=== PATIENT | female | born 1960 | race Caucasian/White ===

== ENCOUNTER 2017-07-09 05:10 | Emergency (ER) | payer OTHER ==
[~2017-07-09] VITALS: Ht 160 cm; Wt 99.8 kg
[~2017-07-09 05:10] MED LIST: ACEBUTCAFT PO; ADRENACLIC0.3 MG/0.3 IJ; ALBIPROI INH; ALBU.083IS; ALBU90I INH; ALBU90OI; ALBU90OI INH; ALBU90OI6 INH; ALBU90OI61 INH; ALPR.25; ALPR.5; ALPR.5 PO; AMIT75 PO; AMOX50SU PO; ARIP20; ASPI81EC PO; ATROVENT; AZIT250 PO; AZIT500; AZIT500 PO; BENZ100A PO; BISA10S PO; BP MED; BUSP10 PO; BUSP15; BUSP15 PO; BUTASPCAFT PO; CALCA500CH PO; CARB200; CARB200 PO; CARI350 PO; CIPR500 PO; CIPRO500 MG PO; CITA20; CLAR500 PO; CLON.2 PO; CLON.2TP TP; CLON.3 PO; CLON.5 PO; CLON1 PO; CLON2; CLON2 PO; CODACE30 PO; CODBUTACEC PO; CODGUAEL PO; CONEST.625; CYCL10 PO; Catapres0.1 MG PO; Catapres0.2 MG PO; Celexa10 MG PO; Citalopram HBr10 MG PO; Clonidine HCl0.3 MG PO; DIAZ5; DIAZ5 PO; DIPATR PO; DIPH50 PO; DIVA250EC; DIVA500EC; DIVA500EC PO; DIVA500ER; DOC250 PO; DOXE50 PO; DOXY100 PO; DULO30 PO; DULO60 PO; Desyrel50 MG PO; ERYT333ERA PO; ESCI10; ESCI20; FENT25TP TOP; FLUSAL2505; FLUSAL2505 IH; FLUSAL5005 IH; FLUT1DIS5 INH; FURO20; FURO20 PO; FURO40; FURO40 PO; Flagyl500 MG PO; GABA300 PO; GUAI600T33 PO; HYDACE10B PO; HYDACE5; HYDACE5 PO; HYDACE7.5; HYDACE7.5 PO; HYDCHL12.5; HYDGUAL120 PO; HYDHCL25 PO; HYDPAM25; HYDPAM25 PO; HYDR-86; Humalog100 UNIT/3 SC; Hydroxyzine HCl50 MG PO; IBUHYD PO; IBUP400; IBUP800 PO; INSULANI SUBQ; INSULANPEN SC; IPRAIS; IPRAOI; IPRAOI INH; Inderal40 MG; Inderal40 MG PO; KETO10; KETO10 PO; Klonopin0.5 MG PO; Klonopin1 MG PO; LEVFLO500 PO; LEVSOD50; LIDO2L PO; LISI10; LISI10 PO; LISI20 PO; LISI5; LISI5 PO; LORA.5 PO; LORA1 PO; LORA2 PO; LOSA50 PO; Lantus100 UNIT/1 SC; Levaquin750 MG PO; MAGNESIUM250 MG PO; MECL25 PO; META400 PO; META800 PO; METCAR500 PO; METCAR750 PO; METF500; METF500 PO; METF500C; METF500C PO; METO10 PO; METR250 PO; MIRT30 PO; MUPI2TO TOP; Micro-K10 MEQ PO; NAPR375 PO; NAPR500 PO; NAPR550 PO; NITR.4SL SL; NITR100CA; NYST100P TOP; Norco 7.5-3251 EACH PO; OMEP20ER PO; ONDA4 PO; ONDA4ODT MM; ONDA8 PO; ONDA8ODT MM; OXCA300; OXYACE10 PO; OXYACE5T PO; OXYACE7.5T PO; OXYC5 PO; PANT40 PO; PERM5TC TOP; PHENA200 PO; PHENY100ER; PHENY100ER PO; POTA10T PO; POTCHL10ER; POTCHL10ER PO; POTCHL20ER; POTCHL20ER PO; PRED10 PO; PRED20 PO; PREDNISONE; PROACE100 PO; PROC10 PO; PROC25S PR; PROCODE120 PO; PROM12.5S PR; PROM25 PO; PROM25S; PROM25S PR; PROM50S PR; PROM6.25SY PO; PROP10; Pepcid40 MG PO; Potassium Chlo10 ME1 PO; Prinivil10 MG PO; Pyridium200 MG PO; QUET100 PO; QUET25 PO; RAMI2.5; RANI150; RANI150 PO; RIFA550T2; RXCODACET PO; RXHYDACE PO; RXLORA1 PO; RXONDA4ODT MM; RXOXYACE PO; RXPROM25 PO; RXPROM25S PR; RXTRAM50 PO; Reglan10 MG PO; SIMV10 PO; SPACER IH; SPIHYD; SPIR50 PO; SUCR1 PO; SULTRIDS PO; SUMA25; Seroquel100 MG PO; TOPI100 PO; TRAACE PO; TRAM50 PO; TRAZ100; TRAZ100 PO; TRAZ150T57 PO; TRAZ50 PO; UNK BP MED; VENL37.5ER; VICODIN 7.5/500; Vibramycin100 MG PO; WARF2.5; Xanax1 MG PO; Zofran8 MG PO; [UNRECOGNIZED DRUG - REMARK]
[2017-07-09 05:37] LABS: BASOPHILS ABSOLUTE AUTO 0.01 K/mm3 (0.00-0.23); BASOPHILS PERCENT AUTO 0 % (0-2); EOSINOPHILS ABSOLUTE AUTO 0.01 K/mm3 (0.00-0.68); EOSINOPHILS PERCENT AUTO 0 % (0-6); Hematocrit 44.3 % (33.0-51.0); Hemoglobin 15.6 g/dL (11.5-16.0); IMMATURE GRAN ABSOLUTE AUTO 0.03 K/mm3 (0.00-0.10); IMMATURE GRAN PERCENT AUTO 0 % (0-1); LYMPHOCYTES ABSOLUTE AUTO 2.95 K/mm3 (0.84-5.20); LYMPHOCYTES PERCENT AUTO 31 % (21-46); MONOCYTES ABSOLUTE AUTO 0.69 K/mm3 (0.16-1.47); MONOCYTES PERCENT AUTO 7 % (4-13); Mean Corpuscular HGB 29.6 pg (26.0-34.0); Mean Corpuscular HGB Conc 35.2 g/dL (31.5-36.5); Mean Platelet Volume 10.8 fL (9.1-12.4); NEUTROPHILS ABSOLUTE AUTO 5.92 K/mm3 (1.96-9.15); NEUTROPHILS PERCENT AUTO 62 % (41-73); Platelet Count 156 K/mm3 (150-400); RDW Coefficient Variation 11.7 % (11.7-14.2); RDW Standard Deviation 35.6 fL (35.1-46.3); Red Blood Cell Count 5.27 M/mm3 (3.80-5.20); White Blood Cell Count 9.61 K/mm3 (4.00-11.30)
[2017-07-09 05:38] LABS: Mean Corpuscular Volume 84 fL (80-100)
[2017-07-09 05:45] LABS: Source, Urine Clean Catch
[2017-07-09 05:47] LABS: Blood, Urine 4+ (Neg); Glucose Qualitative, Urine Neg (Neg); Ketones, Urine Neg (Neg); Leukocyte Esterase, Urine 1+ (Neg); Nitrite, Urine Neg (Neg); Protein, Urine 1+ (Neg); Specific Gravity, Urine 1.025 (1.003-1.022); Urobilinogen, Urine 2+ (Normal)
[2017-07-09 05:53] LABS: Appearance, Urine Hazy (Clear); Bilirubin, Urine 1+ (Neg); Color, Urine Amber (P-Yellow)
[2017-07-09 05:54] LABS: Amorphous Light (0-Heavy); Bacteria Mod /hpf; Mucus Light (0-Heavy); Red Blood Cells, Urine 0-2 /hpf (0-2); Squamous Epithelial Cells Few /hpf (Few)
[2017-07-09 05:58] LABS: Alanine Aminotransfer (ALT/SGP 33 U/L (12-78); Albumin, Blood 3.5 g/dL (3.4-5.0); Albumin/Globulin Ratio 0.9 (0.8-1.8); Alk Phos 125 U/L (50-136); Anion Gap 5 mmol/L (6-16); Aspartate Aminotrans (AST/SGOT 31 U/L (12-37); Bilirubin, Total 0.6 mg/dL (0.1-1.0); Blood Urea Nitrogen 20 mg/dL (8-24); Bun/Creatinine Ratio 29.5 (12.0-20.0); CO2, Blood 29 mmol/L (21-32); Calcium, Blood 8.9 mg/dL (8.5-10.1); Chloride, Blood 107 mmol/L (98-108); Creatinine, Blood 0.68 mg/dL (0.40-1.00); Globulin, Blood 3.9 g/dL (2.2-4.0); Glomerular Filtration Rate >60 (60-); Glucose, Blood 211 mg/dL (70-99); Sodium, Blood 141 mmol/L (136-145); Total Protein, Blood 7.4 g/dL (6.4-8.2); Troponin I <0.015 ng/mL (0.000-0.040)
[2017-07-09] MEDS ORDERED: Cipro500 MG PO (07:02)
[2017-08-02] MEDS ORDERED: PHENERGAN25 MG PR (23:32)
[2018-05-02] MEDS ORDERED: POTA10T PO (11:08)
[2018-05-02] MEDS ORDERED: OXYC5 PO (11:17)
[2018-05-03] MEDS ORDERED: OXYC5 PO (11:57)
[2018-05-03] MEDS ORDERED: CLON1 PO (11:58)
[2018-05-03] MEDS ORDERED: TRAZ150T57 (11:59)
[2018-05-03] MEDS ORDERED: GABA300 PO (12:03)
[2018-05-03] MEDS ORDERED: CLON.2 PO (12:04)
[2018-05-05] MEDS ORDERED: METO50 PO (11:32)
[2018-05-05] MEDS ORDERED: ELIQUIS5 MG PO (11:32)
[2018-05-18] MEDS ORDERED: BUSP10 PO (11:56)
[2018-05-18] MEDS ORDERED: DIPH50 PO (11:58)
== END 2017-07-09 08:33 | disposition home or self-care (01) ==
LOC: ER 05:10
PROVIDERS: Emergency Medicine
DX: S60.221A Contusion of right hand, initial encounter (principal); S00.83XA Contusion of other part of head, initial encounter; F41.9 Anxiety disorder, unspecified; R07.9 Chest pain, unspecified; R56.9 Unspecified convulsions; G43.909 Migraine, unspecified, not intractable, without status migrainosus; N39.0 Urinary tract infection, site not specified; X58.XXXA Exposure to other specified factors, initial encounter; Z79.899 Other long term (current) drug therapy; Z88.6 Allergy status to analgesic agent; Z88.0 Allergy status to penicillin; Z88.8 Allergy status to other drugs, medicaments and biological substances; Z91.030 Bee allergy status; Z88.2 Allergy status to sulfonamides; Z79.4 Long term (current) use of insulin; Z79.891 Long term (current) use of opiate analgesic; Z79.84 Long term (current) use of oral hypoglycemic drugs; E11.40 Type 2 diabetes mellitus with diabetic neuropathy, unspecified; J44.9 Chronic obstructive pulmonary disease, unspecified; I10 Essential (primary) hypertension; F17.200 Nicotine dependence, unspecified, uncomplicated
CPT/HCPCS: 36415; 71046; 80053; 81001; 84484; 85025; 87086; 93005; 93010; 96372; 99284; J1885

== ENCOUNTER 2017-08-01 18:29 | Emergency (ER) | payer OTHER ==
[~2017-08-01] VITALS: Ht 160 cm; Wt 99.8 kg
[~2017-08-01 18:29] MED LIST changes: +Cipro500 MG PO
[2017-08-01] MEDS ORDERED: Zofran Odt4 MG PO (20:43)
[2017-08-01] MEDS ORDERED: CLON.2 PO (20:43)
[2017-08-02] MEDS ORDERED: PHENERGAN25 MG PR (23:32)
[2018-05-02] MEDS ORDERED: POTA10T PO (11:08)
[2018-05-02] MEDS ORDERED: OXYC5 PO (11:17)
[2018-05-03] MEDS ORDERED: OXYC5 PO (11:57)
[2018-05-03] MEDS ORDERED: CLON1 PO (11:58)
[2018-05-03] MEDS ORDERED: TRAZ150T57 (11:59)
[2018-05-03] MEDS ORDERED: GABA300 PO (12:03)
[2018-05-03] MEDS ORDERED: CLON.2 PO (12:04)
[2018-05-05] MEDS ORDERED: ELIQUIS5 MG PO (11:32)
[2018-05-05] MEDS ORDERED: METO50 PO (11:32)
[2018-05-18] MEDS ORDERED: BUSP10 PO (11:56)
[2018-05-18] MEDS ORDERED: DIPH50 PO (11:58)
== END 2017-08-01 21:15 | disposition home or self-care (01) ==
LOC: ER 18:29
DX: R11.2 Nausea with vomiting, unspecified (principal); E11.40 Type 2 diabetes mellitus with diabetic neuropathy, unspecified; F41.9 Anxiety disorder, unspecified; I10 Essential (primary) hypertension; G40.909 Epilepsy, unspecified, not intractable, without status epilepticus; J44.9 Chronic obstructive pulmonary disease, unspecified; F17.210 Nicotine dependence, cigarettes, uncomplicated; Z88.6 Allergy status to analgesic agent; Z88.0 Allergy status to penicillin; Z88.8 Allergy status to other drugs, medicaments and biological substances; Z88.1 Allergy status to other antibiotic agents; Z91.030 Bee allergy status; Z91.038 Other insect allergy status; Z88.2 Allergy status to sulfonamides; Z79.899 Other long term (current) drug therapy; Z79.4 Long term (current) use of insulin; Z87.01 Personal history of pneumonia (recurrent)
CPT/HCPCS: 99283

== ENCOUNTER 2017-08-02 21:47 | Emergency (ER) | END 2017-08-02 23:49 | disposition home or self-care (01) ==

== ENCOUNTER 2017-08-05 13:13 | Observation (INO) | payer OTHER ==
[~2017-08-05] VITALS: Ht 165.1 cm; Wt 89.7 kg
[~2017-08-05 13:13] MED LIST changes: +PHENERGAN25 MG PR; +Zofran Odt4 MG PO
[2017-08-05 15:03] LABS: BASOPHILS ABSOLUTE AUTO 0.02 K/mm3 (0.00-0.23); BASOPHILS PERCENT AUTO 0 % (0-2); EOSINOPHILS ABSOLUTE AUTO 0.01 K/mm3 (0.00-0.68); EOSINOPHILS PERCENT AUTO 0 % (0-6); Hematocrit 48.2 % (33.0-51.0); Hemoglobin 16.7 g/dL (11.5-16.0); IMMATURE GRAN ABSOLUTE AUTO 0.05 K/mm3 (0.00-0.10); IMMATURE GRAN PERCENT AUTO 0 % (0-1); LYMPHOCYTES ABSOLUTE AUTO 3.36 K/mm3 (0.84-5.20); LYMPHOCYTES PERCENT AUTO 28 % (21-46); MONOCYTES ABSOLUTE AUTO 0.66 K/mm3 (0.16-1.47); MONOCYTES PERCENT AUTO 6 % (4-13); Mean Corpuscular HGB 29.8 pg (26.0-34.0); Mean Corpuscular HGB Conc 34.6 g/dL (31.5-36.5); Mean Corpuscular Volume 86 fL (80-100); Mean Platelet Volume 11.5 fL (9.1-12.4); NEUTROPHILS ABSOLUTE AUTO 7.79 K/mm3 (1.96-9.15); NEUTROPHILS PERCENT AUTO 65 % (41-73); Platelet Count 193 K/mm3 (150-400); RDW Coefficient Variation 12.1 % (11.7-14.2); RDW Standard Deviation 38.3 fL (35.1-46.3); Red Blood Cell Count 5.61 M/mm3 (3.80-5.20); White Blood Cell Count 11.89 K/mm3 (4.00-11.30)
[2017-08-05 15:23] LABS: Alanine Aminotransfer (ALT/SGP 48 U/L (12-78); Albumin, Blood 3.2 g/dL (3.4-5.0); Albumin/Globulin Ratio 0.7 (0.8-1.8); Alk Phos 111 U/L (50-136); Anion Gap 10 mmol/L (6-16); Aspartate Aminotrans (AST/SGOT 48 U/L (12-37); Bilirubin, Total 0.6 mg/dL (0.1-1.0); Blood Urea Nitrogen 70 mg/dL (8-24); Bun/Creatinine Ratio 61.9 (12.0-20.0); CO2, Blood 28 mmol/L (21-32); Calcium, Blood 9.2 mg/dL (8.5-10.1); Chloride, Blood 96 mmol/L (98-108); Creatinine, Blood 1.13 mg/dL (0.40-1.00); Globulin, Blood 4.4 g/dL (2.2-4.0); Glomerular Filtration Rate 53 (60-); Glucose, Blood 166 mg/dL (70-99); Potassium, Blood 3.8 mmol/L (3.5-5.5); Sodium, Blood 134 mmol/L (136-145); Total Protein, Blood 7.6 g/dL (6.4-8.2); Troponin I <0.015 ng/mL (0.000-0.040)
[2017-08-05 15:33] LABS: Beta-hydroxybutyrate 0.9 mg/dL (0.2-2.8)
[2017-08-05 15:36] LABS: Source, Urine Clean Catch
[2017-08-05 15:41] LABS: Bilirubin, Urine Neg (Neg); Blood, Urine 2+ (Neg); Glucose Qualitative, Urine 2+ (Neg); Ketones, Urine Neg (Neg); Leukocyte Esterase, Urine 1+ (Neg); Nitrite, Urine Neg (Neg); Protein, Urine 1+ (Neg); Urobilinogen, Urine 1+ (Normal)
[2017-08-05 15:54] LABS: Appearance, Urine Clear (Clear); Color, Urine Yellow (P-Yellow)
[2017-08-05 15:56] LABS: Bacteria Few /hpf; Mucus Light (0-Heavy); Squamous Epithelial Cells Few /hpf (Few)
[2017-08-06 01:50] LABS: PCO2 Arterial 44.2 mmHg (35-45); PO2 Arterial 69.6 mmHg (80-100); pH Blood Arterial 7.42 (7.35-7.45)
[2017-08-06 02:06] LABS: BASOPHILS ABSOLUTE AUTO 0.02 K/mm3 (0.00-0.23); BASOPHILS PERCENT AUTO 0 % (0-2); EOSINOPHILS ABSOLUTE AUTO 0.01 K/mm3 (0.00-0.68); EOSINOPHILS PERCENT AUTO 0 % (0-6); Hematocrit 41.1 % (33.0-51.0); Hemoglobin 14.7 g/dL (11.5-16.0); IMMATURE GRAN ABSOLUTE AUTO 0.08 K/mm3 (0.00-0.10); IMMATURE GRAN PERCENT AUTO 1 % (0-1); LYMPHOCYTES ABSOLUTE AUTO 4.54 K/mm3 (0.84-5.20); LYMPHOCYTES PERCENT AUTO 40 % (21-46); MONOCYTES ABSOLUTE AUTO 0.65 K/mm3 (0.16-1.47); MONOCYTES PERCENT AUTO 6 % (4-13); Mean Corpuscular HGB 30.4 pg (26.0-34.0); Mean Corpuscular HGB Conc 35.8 g/dL (31.5-36.5); Mean Corpuscular Volume 85 fL (80-100); Mean Platelet Volume 10.8 fL (9.1-12.4); NEUTROPHILS ABSOLUTE AUTO 6.08 K/mm3 (1.96-9.15); NEUTROPHILS PERCENT AUTO 53 % (41-73); Platelet Count 154 K/mm3 (150-400); RDW Coefficient Variation 12.1 % (11.7-14.2); RDW Standard Deviation 37.3 fL (35.1-46.3); Red Blood Cell Count 4.84 M/mm3 (3.80-5.20); White Blood Cell Count 11.38 K/mm3 (4.00-11.30)
[2017-08-06 02:19] LABS: Albumin, Blood 2.8 g/dL (3.4-5.0); Anion Gap 8 mmol/L (6-16); Blood Urea Nitrogen 57 mg/dL (8-24); Bun/Creatinine Ratio 57.4 (12.0-20.0); CO2, Blood 30 mmol/L (21-32); Calcium, Blood 8.1 mg/dL (8.5-10.1); Chloride, Blood 104 mmol/L (98-108); Creatinine, Blood 0.99 mg/dL (0.40-1.00); Glomerular Filtration Rate >60 (60-); Glucose, Blood 92 mg/dL (70-99); Magnesium, Blood 1.7 mg/dL (1.6-2.4); Phosphorus, Blood 3.7 mg/dL (2.5-4.9); Potassium, Blood 3.2 mmol/L (3.5-5.5); Sodium, Blood 142 mmol/L (136-145)
[2017-08-06 02:20] LABS: Anion Gap 8 mmol/L (6-16); Blood Urea Nitrogen 58 mg/dL (8-24); Bun/Creatinine Ratio 58.1 (12.0-20.0); CO2, Blood 29 mmol/L (21-32); Calcium, Blood 8.1 mg/dL (8.5-10.1); Chloride, Blood 104 mmol/L (98-108); Glomerular Filtration Rate >60 (60-); Glucose, Blood 91 mg/dL (70-99); Potassium, Blood 3.2 mmol/L (3.5-5.5); Sodium, Blood 141 mmol/L (136-145)
[2017-08-06] MEDS ORDERED: CLON.5 PO (10:41)
[2017-08-06] MEDS ORDERED: Atrovent Inha12.9 GM INH (10:45)
[2017-08-06] MEDS ORDERED: ACET500 PO (10:46)
[2017-08-06] MEDS ORDERED: DIVA500EC PO (10:51)
[2017-08-06] MEDS ORDERED: BASAGLAR K100 UNIT/1 SC (10:53)
[2017-08-06] MEDS ORDERED: LOSA50 PO (10:53)
[2017-08-06] MEDS ORDERED: PROM25S PR (10:58)
[2017-08-06] MEDS ORDERED: TRAZ100 PO (10:59)
[2018-05-02] MEDS ORDERED: POTA10T PO (11:08)
[2018-05-02] MEDS ORDERED: OXYC5 PO (11:17)
[2018-05-03] MEDS ORDERED: OXYC5 PO (11:57)
[2018-05-03] MEDS ORDERED: CLON1 PO (11:58)
[2018-05-03] MEDS ORDERED: TRAZ150T57 (11:59)
[2018-05-03] MEDS ORDERED: GABA300 PO (12:03)
[2018-05-03] MEDS ORDERED: CLON.2 PO (12:04)
[2018-05-05] MEDS ORDERED: METO50 PO (11:32)
[2018-05-05] MEDS ORDERED: ELIQUIS5 MG PO (11:32)
[2018-05-18] MEDS ORDERED: BUSP10 PO (11:56)
[2018-05-18] MEDS ORDERED: DIPH50 PO (11:58)
== END 2017-08-06 11:10 | disposition home or self-care (01) ==
LOC: ER 13:13 → MEDS 13:14 → ICUW 13:14 → MEDS 19:11 → ICUW 08-06 02:09
PROVIDERS: Family Medicine; Internal Medicine; Physician Assistant
DX: E86.9 Volume depletion, unspecified (principal); R56.9 Unspecified convulsions; N17.9 Acute kidney failure, unspecified; I95.9 Hypotension, unspecified; F41.9 Anxiety disorder, unspecified; G89.29 Other chronic pain; G43.909 Migraine, unspecified, not intractable, without status migrainosus; F32.9 Major depressive disorder, single episode, unspecified; Z90.710 Acquired absence of both cervix and uterus; E11.9 Type 2 diabetes mellitus without complications; M79.7 Fibromyalgia; F17.210 Nicotine dependence, cigarettes, uncomplicated; Z98.890 Other specified postprocedural states; Z87.442 Personal history of urinary calculi; Z79.4 Long term (current) use of insulin; Z79.84 Long term (current) use of oral hypoglycemic drugs; Z79.891 Long term (current) use of opiate analgesic
CPT/HCPCS: 36415; 36600; 70450; 71046; 80048; 80053; 80069; 81001; 82010; 82803; 82947; 83735; 84484; 85025; 87081; 87086; 93005; 93010; 96361; 96372; 96374; 96375; 96376; 99285; C1751; G0378; J1650; J1953; J2060; J2405; J3010; J7030; P9612

== ENCOUNTER → 2017-09-22 | Outpatient (CLI) | payer OTHER ==
[~2017-09-22] MED LIST changes: +ACET500 PO; +Atrovent Inha12.9 GM INH; +BASAGLAR K100 UNIT/1 SC
== END ==
LOC: LAB EV 15:30 → LAB SHORT 15:30
DX: Z51.81 Encounter for therapeutic drug level monitoring (principal); Z79.899 Other long term (current) drug therapy

== ENCOUNTER 2017-10-19 17:33 | Emergency (ER) | payer SELFPAY ==
[~2017-10-19] VITALS: Ht 160 cm; Wt 90.7 kg
[2017-10-19 18:21] LABS: BASOPHILS ABSOLUTE AUTO 0.01 K/mm3 (0.00-0.23); BASOPHILS PERCENT AUTO 0 % (0-2); EOSINOPHILS PERCENT AUTO 0 % (0-6); Hematocrit 42.5 % (33.0-51.0); Hemoglobin 15.2 g/dL (11.5-16.0); IMMATURE GRAN ABSOLUTE AUTO 0.04 K/mm3 (0.00-0.10); IMMATURE GRAN PERCENT AUTO 1 % (0-1); LYMPHOCYTES ABSOLUTE AUTO 0.89 K/mm3 (0.84-5.20); LYMPHOCYTES PERCENT AUTO 11 % (21-46); MONOCYTES ABSOLUTE AUTO 0.21 K/mm3 (0.16-1.47); MONOCYTES PERCENT AUTO 3 % (4-13); Mean Corpuscular HGB 31.4 pg (26.0-34.0); Mean Corpuscular HGB Conc 35.8 g/dL (31.5-36.5); Mean Corpuscular Volume 88 fL (80-100); Mean Platelet Volume 10.7 fL (9.1-12.4); NEUTROPHILS ABSOLUTE AUTO 6.92 K/mm3 (1.96-9.15); NEUTROPHILS PERCENT AUTO 86 % (41-73); Platelet Count 154 K/mm3 (150-400); RDW Coefficient Variation 12.4 % (11.7-14.2); RDW Standard Deviation 40.6 fL (35.1-46.3); Red Blood Cell Count 4.84 M/mm3 (3.80-5.20); White Blood Cell Count 8.07 K/mm3 (4.00-11.30)
[2017-10-19 18:45] LABS: Alanine Aminotransfer (ALT/SGP 43 U/L (12-78); Albumin, Blood 3.9 g/dL (3.4-5.0); Albumin/Globulin Ratio 0.9 (0.8-1.8); Alk Phos 105 U/L (50-136); Anion Gap 11 mmol/L (6-16); Aspartate Aminotrans (AST/SGOT 40 U/L (12-37); Blood Urea Nitrogen 11 mg/dL (8-24); Bun/Creatinine Ratio 20.8 (12.0-20.0); CO2, Blood 28 mmol/L (21-32); Calcium, Blood 9.8 mg/dL (8.5-10.1); Chloride, Blood 103 mmol/L (98-108); Creatinine, Blood 0.53 mg/dL (0.40-1.00); Globulin, Blood 4.2 g/dL (2.2-4.0); Glomerular Filtration Rate >60 (60-); Glucose, Blood 288 mg/dL (70-99); Potassium, Blood 3.8 mmol/L (3.5-5.5); Sodium, Blood 142 mmol/L (136-145); Total Protein, Blood 8.1 g/dL (6.4-8.2); Valproic Acid <3.0 ug/mL (50.0-100.0)
[2017-10-19] MEDS ORDERED: Catapres0.1 MG PO (19:56)
[2017-10-19] MEDS ORDERED: Depakene250 MG PO (19:56)
[2017-10-19] MEDS ORDERED: Zofran8 MG PO (19:56)
[2017-10-19] MEDS ORDERED: Klonopin0.5 MG PO (19:56)
== END 2017-10-19 22:19 | disposition home or self-care (01) ==
LOC: ER 17:33
PROVIDERS: Emergency Medicine
DX: G40.909 Epilepsy, unspecified, not intractable, without status epilepticus (principal); R11.10 Vomiting, unspecified; I10 Essential (primary) hypertension; F17.210 Nicotine dependence, cigarettes, uncomplicated; F41.9 Anxiety disorder, unspecified; E11.40 Type 2 diabetes mellitus with diabetic neuropathy, unspecified; J44.9 Chronic obstructive pulmonary disease, unspecified; Z79.899 Other long term (current) drug therapy; Z79.4 Long term (current) use of insulin
CPT/HCPCS: 36415; 80053; 80164; 83690; 85025; 93005; 93010; 96365; 96375; 96376; 99284; J1200; J2060; J2405; J2765; J7120

== ENCOUNTER 2017-11-16 16:29 | Emergency (ER) | payer OTHER ==
[~2017-11-16] VITALS: Ht 160 cm; Wt 90.7 kg
[~2017-11-16 16:29] MED LIST changes: +Depakene250 MG PO
[2017-11-16 17:20] LABS: BASOPHILS PERCENT AUTO 0 % (0-2); EOSINOPHILS PERCENT AUTO 0 % (0-6); Hematocrit 40.8 % (33.0-51.0); Hemoglobin 14.2 g/dL (11.5-16.0); IMMATURE GRAN ABSOLUTE AUTO 0.02 K/mm3 (0.00-0.10); IMMATURE GRAN PERCENT AUTO 0 % (0-1); LYMPHOCYTES ABSOLUTE AUTO 0.93 K/mm3 (0.84-5.20); LYMPHOCYTES PERCENT AUTO 12 % (21-46); MONOCYTES ABSOLUTE AUTO 0.22 K/mm3 (0.16-1.47); MONOCYTES PERCENT AUTO 3 % (4-13); Mean Corpuscular HGB 31.1 pg (26.0-34.0); Mean Corpuscular HGB Conc 34.8 g/dL (31.5-36.5); Mean Corpuscular Volume 90 fL (80-100); Mean Platelet Volume 10.9 fL (9.1-12.4); NEUTROPHILS ABSOLUTE AUTO 6.49 K/mm3 (1.96-9.15); NEUTROPHILS PERCENT AUTO 85 % (41-73); Platelet Count 122 K/mm3 (150-400); RDW Standard Deviation 39.3 fL (35.1-46.3); Red Blood Cell Count 4.56 M/mm3 (3.80-5.20); White Blood Cell Count 7.66 K/mm3 (4.00-11.30)
[2017-11-16 17:36] LABS: Alanine Aminotransfer (ALT/SGP 31 U/L (12-78); Albumin, Blood 3.5 g/dL (3.4-5.0); Albumin/Globulin Ratio 0.9 (0.8-1.8); Alk Phos 124 U/L (50-136); Anion Gap 10 mmol/L (6-16); Aspartate Aminotrans (AST/SGOT 32 U/L (12-37); Bilirubin, Total 0.7 mg/dL (0.1-1.0); Blood Urea Nitrogen 13 mg/dL (8-24); Bun/Creatinine Ratio 22.5 (12.0-20.0); CO2, Blood 27 mmol/L (21-32); Calcium, Blood 9.3 mg/dL (8.5-10.1); Chloride, Blood 104 mmol/L (98-108); Creatinine, Blood 0.58 mg/dL (0.40-1.00); Glomerular Filtration Rate >60 (60-); Glucose, Blood 257 mg/dL (70-99); Potassium, Blood 3.8 mmol/L (3.5-5.5); Sodium, Blood 141 mmol/L (136-145); Total Protein, Blood 7.5 g/dL (6.4-8.2)
[2017-11-16 20:08] LABS: Source, Urine Clean Catch
[2017-11-16 20:15] LABS: Appearance, Urine Hazy (Clear); Blood, Urine 3+ (Neg); Color, Urine Yellow (P-Yellow); Glucose Qualitative, Urine 3+ (Neg); Ketones, Urine 3+ (Neg); Leukocyte Esterase, Urine 1+ (Neg); Nitrite, Urine Neg (Neg); Protein, Urine 2+ (Neg); Specific Gravity, Urine 1.025 (1.003-1.022); Urobilinogen, Urine 1+ (Normal)
[2017-11-16 20:32] LABS: Bilirubin, Urine 1+ (Neg)
[2017-11-16 20:36] LABS: Bacteria Many /hpf; Squamous Epithelial Cells Mod /hpf (Few)
[2017-11-16 21:22] LABS: U Amphetamine Screen Not Detected; U Barbituate Screen Not Detected; U Benzodiazapine Screen Not Detected; U Buprenorphine Screen Not Detected; U Cannabinoids Screen DETECTED; U Cocaine Screen Not Detected; U Methadone Screen Not Detected; U Methamphetamine Screen DETECTED; U Opiates Screen DETECTED; U Oxycodone Screen Not Detected; U Phencyclidine Screen Not Detected; U Propoxyphene Screen Not Detected
[2017-11-16] MEDS ORDERED: COMPAZINE10 MG PO (21:40)
== END 2017-11-16 22:05 | disposition home or self-care (01) ==
LOC: ER 16:29
PROVIDERS: Emergency Medicine
DX: R11.2 Nausea with vomiting, unspecified (principal); R19.7 Diarrhea, unspecified; E86.0 Dehydration; F15.90 Other stimulant use, unspecified, uncomplicated; F11.90 Opioid use, unspecified, uncomplicated; F12.90 Cannabis use, unspecified, uncomplicated; I10 Essential (primary) hypertension; F41.9 Anxiety disorder, unspecified; F32.9 Major depressive disorder, single episode, unspecified; E11.9 Type 2 diabetes mellitus without complications; J44.9 Chronic obstructive pulmonary disease, unspecified; Z72.0 Tobacco use; Z79.899 Other long term (current) drug therapy; Z79.4 Long term (current) use of insulin
CPT/HCPCS: 36415; 71046; 80053; 81001; 83690; 85025; 87086; 93005; 93010; 96361; 96374; 96375; 96376; 99284; J0360; J0780; J1200; J1630; J2405; J7030

== ENCOUNTER 2018-01-19 11:40 | Emergency (ER) | payer OTHER ==
[~2018-01-19] VITALS: Ht 160 cm; Wt 90.7 kg
[~2018-01-19 11:40] MED LIST changes: +COMPAZINE10 MG PO
[2018-01-19 14:37] LABS: BASOPHILS ABSOLUTE AUTO 0.01 K/mm3 (0.00-0.23); BASOPHILS PERCENT AUTO 0 % (0-2); EOSINOPHILS ABSOLUTE AUTO 0.03 K/mm3 (0.00-0.68); EOSINOPHILS PERCENT AUTO 1 % (0-6); Hematocrit 39.1 % (33.0-51.0); Hemoglobin 13.7 g/dL (11.5-16.0); IMMATURE GRAN ABSOLUTE AUTO 0.02 K/mm3 (0.00-0.10); IMMATURE GRAN PERCENT AUTO 0 % (0-1); LYMPHOCYTES ABSOLUTE AUTO 2.12 K/mm3 (0.84-5.20); LYMPHOCYTES PERCENT AUTO 33 % (21-46); MONOCYTES PERCENT AUTO 8 % (4-13); Mean Corpuscular HGB 31.3 pg (26.0-34.0); Mean Corpuscular Volume 89 fL (80-100); NEUTROPHILS ABSOLUTE AUTO 3.78 K/mm3 (1.96-9.15); NEUTROPHILS PERCENT AUTO 59 % (41-73); RDW Coefficient Variation 11.7 % (11.7-14.2); RDW Standard Deviation 38.2 fL (35.1-46.3); Red Blood Cell Count 4.38 M/mm3 (3.80-5.20); White Blood Cell Count 6.46 K/mm3 (4.00-11.30)
[2018-01-19 14:40] LABS: Mean Platelet Volume 10.7 fL (9.1-12.4); Platelet Count 128 K/mm3 (150-400)
[2018-01-19 14:53] LABS: Alanine Aminotransfer (ALT/SGP 33 U/L (12-78); Albumin, Blood 3.4 g/dL (3.4-5.0); Albumin/Globulin Ratio 0.8 (0.8-1.8); Alk Phos 91 U/L (50-136); Anion Gap 7 mmol/L (6-16); Aspartate Aminotrans (AST/SGOT 28 U/L (12-37); Bilirubin, Total 0.5 mg/dL (0.1-1.0); Blood Urea Nitrogen 15 mg/dL (8-24); Bun/Creatinine Ratio 21.9 (12.0-20.0); CO2, Blood 29 mmol/L (21-32); Calcium, Blood 9.2 mg/dL (8.5-10.1); Chloride, Blood 107 mmol/L (98-108); Creatinine, Blood 0.68 mg/dL (0.40-1.00); Glomerular Filtration Rate >60 (60-); Glucose, Blood 56 mg/dL (70-99); Potassium, Blood 3.5 mmol/L (3.5-5.5); Sodium, Blood 143 mmol/L (136-145); Total Protein, Blood 7.4 g/dL (6.4-8.2); Troponin I <0.015 ng/mL (0.000-0.040)
== END 2018-01-19 15:34 | disposition home or self-care (01) ==
LOC: ER 11:40
PROVIDERS: Emergency Medicine
DX: R07.89 Other chest pain (principal); I10 Essential (primary) hypertension; J45.909 Unspecified asthma, uncomplicated; F41.9 Anxiety disorder, unspecified; F32.9 Major depressive disorder, single episode, unspecified; E11.40 Type 2 diabetes mellitus with diabetic neuropathy, unspecified; J44.9 Chronic obstructive pulmonary disease, unspecified; F17.200 Nicotine dependence, unspecified, uncomplicated; Z88.6 Allergy status to analgesic agent; Z88.0 Allergy status to penicillin; Z88.1 Allergy status to other antibiotic agents; Z91.030 Bee allergy status; Z88.2 Allergy status to sulfonamides; Z79.899 Other long term (current) drug therapy; Z79.4 Long term (current) use of insulin
CPT/HCPCS: 36415; 71046; 80053; 84484; 85025; 93005; 93010; 99284-25

== ENCOUNTER 2018-01-27 16:05 | Observation (INO) | payer OTHER ==
[~2018-01-27] VITALS: Ht 160 cm; Wt 90.3 kg
[2018-01-27 17:21] LABS: BASOPHILS ABSOLUTE AUTO 0.01 K/mm3 (0.00-0.23); BASOPHILS PERCENT AUTO 0 % (0-2); EOSINOPHILS PERCENT AUTO 1 % (0-6); Hematocrit 37.9 % (33.0-51.0); Hemoglobin 13.3 g/dL (11.5-16.0); IMMATURE GRAN ABSOLUTE AUTO 0.04 K/mm3 (0.00-0.10); IMMATURE GRAN PERCENT AUTO 1 % (0-1); LYMPHOCYTES ABSOLUTE AUTO 2.86 K/mm3 (0.84-5.20); LYMPHOCYTES PERCENT AUTO 39 % (21-46); MONOCYTES ABSOLUTE AUTO 0.48 K/mm3 (0.16-1.47); MONOCYTES PERCENT AUTO 7 % (4-13); Mean Corpuscular HGB 31.4 pg (26.0-34.0); Mean Corpuscular HGB Conc 35.1 g/dL (31.5-36.5); Mean Corpuscular Volume 89 fL (80-100); Mean Platelet Volume 10.8 fL (9.1-12.4); NEUTROPHILS ABSOLUTE AUTO 3.91 K/mm3 (1.96-9.15); NEUTROPHILS PERCENT AUTO 53 % (41-73); Platelet Count 149 K/mm3 (150-400); RDW Coefficient Variation 11.9 % (11.7-14.2); RDW Standard Deviation 38.7 fL (35.1-46.3); Red Blood Cell Count 4.24 M/mm3 (3.80-5.20)
[2018-01-27 17:44] LABS: Alanine Aminotransfer (ALT/SGP 32 U/L (12-78); Albumin, Blood 3.3 g/dL (3.4-5.0); Albumin/Globulin Ratio 0.9 (0.8-1.8); Alk Phos 119 U/L (50-136); Anion Gap 6 mmol/L (6-16); Aspartate Aminotrans (AST/SGOT 29 U/L (12-37); Bilirubin, Total 0.4 mg/dL (0.1-1.0); Blood Urea Nitrogen 23 mg/dL (8-24); Bun/Creatinine Ratio 32.4 (12.0-20.0); CO2, Blood 27 mmol/L (21-32); Calcium, Blood 8.7 mg/dL (8.5-10.1); Chloride, Blood 104 mmol/L (98-108); Creatinine, Blood 0.71 mg/dL (0.40-1.00); Ethanol (Alcohol), Blood, Med <3 mg/dL; Globulin, Blood 3.8 g/dL (2.2-4.0); Glomerular Filtration Rate >60 (60-); Glucose, Blood 163 mg/dL (70-99); Potassium, Blood 3.8 mmol/L (3.5-5.5); Sodium, Blood 137 mmol/L (136-145); Total Protein, Blood 7.1 g/dL (6.4-8.2)
[2018-01-27] MEDS ORDERED: LAMO100 PO (18:21)
[2018-01-27 18:23] LABS: Source, Urine Clean Catch
[2018-01-27] MEDS ORDERED: Lasix40 MG PO (18:23)
[2018-01-27] MEDS ORDERED: POTCIT10 (18:24)
[2018-01-27 18:29] LABS: Appearance, Urine Clear (Clear); Bilirubin, Urine Neg (Neg); Blood, Urine 2+ (Neg); Color, Urine Yellow (P-Yellow); Glucose Qualitative, Urine Neg (Neg); Ketones, Urine Neg (Neg); Leukocyte Esterase, Urine Neg (Neg); Nitrite, Urine Neg (Neg); Protein, Urine Neg (Neg); Specific Gravity, Urine 1.025 (1.003-1.022); Urobilinogen, Urine NORM (Normal)
[2018-01-27 18:35] LABS: Bacteria Few /hpf; Squamous Epithelial Cells Few /hpf (Few); White Blood Cells, Urine 0-2 /hpf (0-5)
[2018-01-27 18:39] LABS: U Benzodiazapine Screen DETECTED; U Cannabinoids Screen DETECTED; U Opiates Screen DETECTED; U Oxycodone Screen DETECTED
[2018-01-27 18:40] LABS: U Amphetamine Screen Not Detected; U Barbituate Screen Not Detected; U Buprenorphine Screen Not Detected; U Cocaine Screen Not Detected; U Methadone Screen Not Detected; U Methamphetamine Screen Not Detected; U Phencyclidine Screen Not Detected; U Propoxyphene Screen Not Detected
== END 2018-01-27 20:28 | disposition home or self-care (01) ==
LOC: ER 16:05 → EOR 16:06
PROVIDERS: Emergency Medicine
DX: R45.851 Suicidal ideations (principal); F31.9 Bipolar disorder, unspecified; F43.12 Post-traumatic stress disorder, chronic; Z79.899 Other long term (current) drug therapy
CPT/HCPCS: 71046; 80053; 81001; 84443; 85025; G0480; J1815; J1885

== ENCOUNTER 2018-03-03 17:35 | Emergency (ER) | payer OTHER ==
[~2018-03-03] VITALS: Ht 160 cm; Wt 88.9 kg
[~2018-03-03 17:35] MED LIST changes: +LAMO100 PO; +Lasix40 MG PO; +POTCIT10
[2018-03-03 18:25] LABS: BASOPHILS ABSOLUTE AUTO 0.01 K/mm3 (0.00-0.23); BASOPHILS PERCENT AUTO 0 % (0-2); EOSINOPHILS ABSOLUTE AUTO 0.01 K/mm3 (0.00-0.68); EOSINOPHILS PERCENT AUTO 0 % (0-6); Hemoglobin 14.9 g/dL (11.5-16.0); IMMATURE GRAN ABSOLUTE AUTO 0.06 K/mm3 (0.00-0.10); IMMATURE GRAN PERCENT AUTO 1 % (0-1); LYMPHOCYTES ABSOLUTE AUTO 0.87 K/mm3 (0.84-5.20); LYMPHOCYTES PERCENT AUTO 12 % (21-46); MONOCYTES ABSOLUTE AUTO 0.24 K/mm3 (0.16-1.47); MONOCYTES PERCENT AUTO 3 % (4-13); Mean Corpuscular HGB 30.8 pg (26.0-34.0); Mean Corpuscular HGB Conc 34.7 g/dL (31.5-36.5); Mean Corpuscular Volume 89 fL (80-100); NEUTROPHILS ABSOLUTE AUTO 6.32 K/mm3 (1.96-9.15); NEUTROPHILS PERCENT AUTO 84 % (41-73); RDW Coefficient Variation 11.9 % (11.7-14.2); RDW Standard Deviation 38.5 fL (35.1-46.3); Red Blood Cell Count 4.83 M/mm3 (3.80-5.20); White Blood Cell Count 7.51 K/mm3 (4.00-11.30)
[2018-03-03 18:38] LABS: Alanine Aminotransfer (ALT/SGP 33 U/L (12-78); Albumin, Blood 3.8 g/dL (3.4-5.0); Albumin/Globulin Ratio 0.9 (0.8-1.8); Alk Phos 104 U/L (50-136); Anion Gap 11 mmol/L (6-16); Aspartate Aminotrans (AST/SGOT 33 U/L (12-37); Bilirubin, Total 1.1 mg/dL (0.1-1.0); Blood Urea Nitrogen 9 mg/dL (8-24); CO2, Blood 26 mmol/L (21-32); Calcium, Blood 9.9 mg/dL (8.5-10.1); Chloride, Blood 104 mmol/L (98-108); Globulin, Blood 4.3 g/dL (2.2-4.0); Glomerular Filtration Rate >60 (60-); Glucose, Blood 228 mg/dL (70-99); Potassium, Blood 3.5 mmol/L (3.5-5.5); Sodium, Blood 141 mmol/L (136-145); Total Protein, Blood 8.1 g/dL (6.4-8.2)
[2018-03-03 18:44] LABS: Mean Platelet Volume 12.4 fL (9.1-12.4); Platelet Count 108 K/mm3 (150-400)
[2018-03-03 20:15] LABS: Source, Urine Clean Catch
[2018-03-03 20:18] LABS: Bilirubin, Urine Neg (Neg); Blood, Urine 5+ (Neg); Glucose Qualitative, Urine 4+ (Neg); Ketones, Urine 4+ (Neg); Leukocyte Esterase, Urine Neg (Neg); Nitrite, Urine Neg (Neg); Protein, Urine 3+ (Neg); Specific Gravity, Urine 1.025 (1.003-1.022); Urobilinogen, Urine NORM (Normal)
[2018-03-03 20:33] LABS: U Cannabinoids Screen DETECTED
[2018-03-03 20:34] LABS: U Amphetamine Screen Not Detected; U Barbituate Screen Not Detected; U Benzodiazapine Screen DETECTED; U Buprenorphine Screen Not Detected; U Cocaine Screen Not Detected; U Methadone Screen Not Detected; U Methamphetamine Screen Not Detected; U Opiates Screen Not Detected; U Oxycodone Screen DETECTED; U Phencyclidine Screen Not Detected; U Propoxyphene Screen Not Detected
[2018-03-03 20:36] LABS: Appearance, Urine Cloudy (Clear); Color, Urine Yellow (P-Yellow)
[2018-03-03 20:37] LABS: Red Blood Cells, Urine 25-50 /hpf (0-2)
[2018-03-03 20:38] LABS: Squamous Epithelial Cells Few /hpf (Few); White Blood Cells, Urine 0-2 /hpf (0-5)
[2018-03-03 20:39] LABS: Bacteria Rare /hpf
[2018-03-03] MEDS ORDERED: Zofran Odt4 MG PO (21:11)
== END 2018-03-03 21:23 | disposition home or self-care (01) ==
LOC: ER 17:35
PROVIDERS: Emergency Medicine
DX: R10.31 Right lower quadrant pain (principal); R11.2 Nausea with vomiting, unspecified; F15.10 Other stimulant abuse, uncomplicated; I10 Essential (primary) hypertension; F41.9 Anxiety disorder, unspecified; F32.9 Major depressive disorder, single episode, unspecified; E11.40 Type 2 diabetes mellitus with diabetic neuropathy, unspecified; J44.9 Chronic obstructive pulmonary disease, unspecified; F17.200 Nicotine dependence, unspecified, uncomplicated; Z88.6 Allergy status to analgesic agent; Z88.0 Allergy status to penicillin; Z88.1 Allergy status to other antibiotic agents; Z88.8 Allergy status to other drugs, medicaments and biological substances; Z91.030 Bee allergy status; Z88.2 Allergy status to sulfonamides; Z79.899 Other long term (current) drug therapy; Z79.4 Long term (current) use of insulin
CPT/HCPCS: 36415; 74176; 80053; 81001; 82947; 83690; 85025; 96361; 96374; 96375; 99284-25; J2405; J3010; J7030

== ENCOUNTER 2018-05-24 16:32 | Emergency (ER) | payer OTHER ==
[~2018-05-24] VITALS: Ht 160 cm; Wt 88.9 kg
[~2018-05-24 16:32] MED LIST changes: +ELIQUIS5 MG PO; +METO50 PO; +TRAZ150T57
[2018-05-24 17:45] LABS: BASOPHILS ABSOLUTE AUTO 0.01 K/mm3 (0.00-0.23); BASOPHILS PERCENT AUTO 0 % (0-2); EOSINOPHILS PERCENT AUTO 0 % (0-6); Hematocrit 46.8 % (33.0-51.0); Hemoglobin 15.5 g/dL (11.5-16.0); IMMATURE GRAN ABSOLUTE AUTO 0.02 K/mm3 (0.00-0.10); IMMATURE GRAN PERCENT AUTO 0 % (0-1); LYMPHOCYTES ABSOLUTE AUTO 0.91 K/mm3 (0.84-5.20); LYMPHOCYTES PERCENT AUTO 10 % (21-46); MONOCYTES ABSOLUTE AUTO 0.22 K/mm3 (0.16-1.47); MONOCYTES PERCENT AUTO 3 % (4-13); Mean Corpuscular HGB 28.6 pg (26.0-34.0); Mean Corpuscular HGB Conc 33.1 g/dL (31.5-36.5); NEUTROPHILS ABSOLUTE AUTO 7.55 K/mm3 (1.96-9.15); NEUTROPHILS PERCENT AUTO 87 % (41-73); Platelet Count 128 K/mm3 (150-400); RDW Coefficient Variation 13.1 % (11.7-14.2); RDW Standard Deviation 40.9 fL (35.1-46.3); Red Blood Cell Count 5.42 M/mm3 (3.80-5.20); White Blood Cell Count 8.71 K/mm3 (4.00-11.30)
[2018-05-24 17:48] LABS: Mean Corpuscular Volume 86 fL (80-100)
[2018-05-24 18:03] LABS: Alanine Aminotransfer (ALT/SGP 24 U/L (12-78); Albumin, Blood 3.6 g/dL (3.4-5.0); Albumin/Globulin Ratio 0.8 (0.8-1.8); Alk Phos 139 U/L (50-136); Anion Gap 8 mmol/L (6-16); Aspartate Aminotrans (AST/SGOT 34 U/L (12-37); Blood Urea Nitrogen 16 mg/dL (8-24); Bun/Creatinine Ratio 28.1 (12.0-20.0); CO2, Blood 32 mmol/L (21-32); Calcium, Blood 9.7 mg/dL (8.5-10.1); Chloride, Blood 100 mmol/L (98-108); Creatinine, Blood 0.57 mg/dL (0.40-1.00); Globulin, Blood 4.7 g/dL (2.2-4.0); Glomerular Filtration Rate >60 (60-); Glucose, Blood 270 mg/dL (70-99); Potassium, Blood 3.5 mmol/L (3.5-5.5); Sodium, Blood 140 mmol/L (136-145); Total Protein, Blood 8.3 g/dL (6.4-8.2)
[2018-05-24] MEDS ORDERED: ONDA4ODT MM (19:17)
== END 2018-05-24 19:25 | disposition home or self-care (01) ==
LOC: ER 16:32
PROVIDERS: Emergency Medicine
DX: R11.2 Nausea with vomiting, unspecified (principal); I10 Essential (primary) hypertension; F41.9 Anxiety disorder, unspecified; F32.9 Major depressive disorder, single episode, unspecified; J44.9 Chronic obstructive pulmonary disease, unspecified; E11.40 Type 2 diabetes mellitus with diabetic neuropathy, unspecified; F17.200 Nicotine dependence, unspecified, uncomplicated; Z88.6 Allergy status to analgesic agent; Z88.0 Allergy status to penicillin; Z88.1 Allergy status to other antibiotic agents; Z88.2 Allergy status to sulfonamides; Z88.8 Allergy status to other drugs, medicaments and biological substances; Z91.030 Bee allergy status; Z79.899 Other long term (current) drug therapy; Z79.4 Long term (current) use of insulin; Z79.01 Long term (current) use of anticoagulants
CPT/HCPCS: 36415; 80053; 82947; 83690; 85025; 96361; 96374; 96375; 99283-25; J1630; J2405; J7120

== ENCOUNTER 2018-06-10 12:15 | Emergency (ER) | payer OTHER ==
[~2018-06-10] VITALS: Ht 160 cm; Wt 88.9 kg
[2018-06-10 13:14] LABS: Influenza A Negative (NEGATIVE); Influenza B Negative (NEGATIVE)
[2018-06-11] MEDS ORDERED: Clonidine HCl0.1 MG PO (11:11)
[2018-07-28] MEDS ORDERED: ALBU90OI61 INH (14:01)
[2018-07-28] MEDS ORDERED: ALBU2.5V5 (14:01)
[2018-07-28] MEDS ORDERED: POTCHL10ER PO (14:02)
[2018-07-28] MEDS ORDERED: FURO40 PO (14:02)
[2018-07-28] MEDS ORDERED: BASAGLAR K100 UNIT/1 SC (14:02)
[2018-07-28] MEDS ORDERED: EPIPEN 2-P0.3 MG/0.3 IM (14:02)
[2018-07-28] MEDS ORDERED: CLON.2 PO (14:03)
[2018-07-28] MEDS ORDERED: Humalog100 UNIT/1 SC (14:03)
[2018-07-28] MEDS ORDERED: METO50 PO (14:03)
[2018-07-28] MEDS ORDERED: ELIQUIS5 MG PO (14:03)
[2018-07-28] MEDS ORDERED: FLUT1DIS5 INH (14:04)
[2018-07-28] MEDS ORDERED: Restoril30 MG PO (14:04)
[2018-07-28] MEDS ORDERED: LOSA50 PO (14:04)
[2018-07-28] MEDS ORDERED: ONDA4 PO (14:04)
[2018-07-28] MEDS ORDERED: Atrovent Inha12.9 GM INH (14:05)
[2018-07-28] MEDS ORDERED: TRAM50 PO (14:06)
[2018-07-28] MEDS ORDERED: CLON1 PO (14:06)
[2018-07-28] MEDS ORDERED: GABA300 PO (14:06)
[2018-07-28] MEDS ORDERED: PROM25 PO (14:06)
[2018-07-28] MEDS ORDERED: OXYC5 PO (14:06)
[2018-07-28] MEDS ORDERED: OMEPRAZOLE MAGN20 MG PO (14:07)
== END 2018-06-10 12:45 | disposition left against medical advice (07) ==
LOC: ER 12:15
PROVIDERS: Physician Assistant
DX: R05 Cough (principal); R11.2 Nausea with vomiting, unspecified; Z53.21 Procedure and treatment not carried out due to patient leaving prior to being seen by health care provider
CPT/HCPCS: 87804; 93005; 93010; 99283-25

== ENCOUNTER 2018-06-10 16:19 | Observation (INO) | payer OTHER ==
[~2018-06-10] VITALS: Ht 167.6 cm; Wt 83.7 kg
[2018-06-10 18:08] LABS: BASOPHILS ABSOLUTE AUTO 0.01 K/mm3 (0.00-0.23); BASOPHILS PERCENT AUTO 0 % (0-2); EOSINOPHILS PERCENT AUTO 0 % (0-6); Hematocrit 49.3 % (33.0-51.0); Hemoglobin 16.2 g/dL (11.5-16.0); IMMATURE GRAN ABSOLUTE AUTO 0.03 K/mm3 (0.00-0.10); IMMATURE GRAN PERCENT AUTO 0 % (0-1); LYMPHOCYTES ABSOLUTE AUTO 1.38 K/mm3 (0.84-5.20); LYMPHOCYTES PERCENT AUTO 14 % (21-46); MONOCYTES ABSOLUTE AUTO 0.32 K/mm3 (0.16-1.47); MONOCYTES PERCENT AUTO 3 % (4-13); Mean Corpuscular HGB 28.3 pg (26.0-34.0); Mean Corpuscular HGB Conc 32.9 g/dL (31.5-36.5); Mean Corpuscular Volume 86 fL (80-100); Mean Platelet Volume 12.5 fL (9.1-12.4); NEUTROPHILS ABSOLUTE AUTO 8.42 K/mm3 (1.96-9.15); NEUTROPHILS PERCENT AUTO 83 % (41-73); Platelet Count 128 K/mm3 (150-400); RDW Coefficient Variation 13.1 % (11.7-14.2); RDW Standard Deviation 40.3 fL (35.1-46.3); Red Blood Cell Count 5.72 M/mm3 (3.80-5.20); White Blood Cell Count 10.16 K/mm3 (4.00-11.30)
[2018-06-10 18:31] LABS: Troponin I 0.054 ng/mL (0.000-0.040)
[2018-06-10 18:36] LABS: Alanine Aminotransfer (ALT/SGP 32 U/L (12-78); Albumin, Blood 3.8 g/dL (3.4-5.0); Albumin/Globulin Ratio 0.9 (0.8-1.8); Alk Phos 118 U/L (50-136); Anion Gap 13 mmol/L (6-16); Aspartate Aminotrans (AST/SGOT 37 U/L (12-37); Bilirubin, Total 0.9 mg/dL (0.1-1.0); Blood Urea Nitrogen 19 mg/dL (8-24); Bun/Creatinine Ratio 29.5 (12.0-20.0); CO2, Blood 26 mmol/L (21-32); Calcium, Blood 9.8 mg/dL (8.5-10.1); Chloride, Blood 102 mmol/L (98-108); Creatinine, Blood 0.65 mg/dL (0.40-1.00); Globulin, Blood 4.4 g/dL (2.2-4.0); Glomerular Filtration Rate >60 (60-); Glucose, Blood 258 mg/dL (70-99); Potassium, Blood 3.7 mmol/L (3.5-5.5); Sodium, Blood 141 mmol/L (136-145); Total Protein, Blood 8.2 g/dL (6.4-8.2)
--- NOTE | 2018-06-11 01:21 | NUR ---
CASTING ASSOCIATE ATTEMPTED TO DRAW, BUT PT REFUSED. EXPLAINED TO PT IMPORTANCE OF LAB DRAW AND ENCOURAGED HER TO LET THEM TRY IN AN HOUR. PT AGREES. PT STATES SHE JUST WANTS TO SLEEP AND FOR US TO LEAVE HER ALONE. ATTEMPTED TO CALM PT. PT ANXIOUS AT THIS TIME. MEDICATED PER EMAR. WILL CONTINUE TO MONITOR.
[2018-06-11 02:30] LABS: Hematocrit 45.6 % (33.0-51.0); Hemoglobin 15.2 g/dL (11.5-16.0); Mean Corpuscular HGB 28.9 pg (26.0-34.0); Mean Corpuscular HGB Conc 33.3 g/dL (31.5-36.5); Mean Corpuscular Volume 87 fL (80-100); Mean Platelet Volume 10.6 fL (9.1-12.4); Platelet Count 164 K/mm3 (150-400); RDW Coefficient Variation 13.2 % (11.7-14.2); RDW Standard Deviation 41.6 fL (35.1-46.3); Red Blood Cell Count 5.26 M/mm3 (3.80-5.20); White Blood Cell Count 14.21 K/mm3 (4.00-11.30)
[2018-06-11 02:55] LABS: Alanine Aminotransfer (ALT/SGP 31 U/L (12-78); Albumin, Blood 3.5 g/dL (3.4-5.0); Albumin/Globulin Ratio 0.9 (0.8-1.8); Alk Phos 107 U/L (50-136); Anion Gap 9 mmol/L (6-16); Aspartate Aminotrans (AST/SGOT 38 U/L (12-37); Bilirubin, Total 1.1 mg/dL (0.1-1.0); Blood Urea Nitrogen 19 mg/dL (8-24); Bun/Creatinine Ratio 31.5 (12.0-20.0); CO2, Blood 31 mmol/L (21-32); Calcium, Blood 8.8 mg/dL (8.5-10.1); Chloride, Blood 102 mmol/L (98-108); Glomerular Filtration Rate >60 (60-); Glucose, Blood 174 mg/dL (70-99); Potassium, Blood 3.3 mmol/L (3.5-5.5); Sodium, Blood 142 mmol/L (136-145); Total Protein, Blood 7.5 g/dL (6.4-8.2); Troponin I 0.225 ng/mL (0.000-0.040)
[2018-06-11 05:54] LABS: U Amphetamine Screen Not Detected; U Barbituate Screen Not Detected; U Benzodiazapine Screen DETECTED; U Buprenorphine Screen Not Detected; U Cannabinoids Screen DETECTED; U Cocaine Screen Not Detected; U Methadone Screen Not Detected; U Methamphetamine Screen DETECTED; U Opiates Screen Not Detected; U Oxycodone Screen Not Detected; U Phencyclidine Screen Not Detected
[2018-06-11 05:55] LABS: U Propoxyphene Screen Not Detected
--- NOTE | 2018-06-11 06:26 | NUR ---
SHIFT SUMMARY ALERT AND ORIENTED. VS STABLE SINCE MID SHIFT SEE VS. PT ANXIOUS UPON ARRIVAL. PT MUCH MORE CALM THIS AM. PT COMPLAINS OF PAIN "ALL OVER", BUT MAINLY IN THE ABD AND BACK. MEDICATED PER EMAR. NS WITH KCL INF PER ORDERS. PT RESTING AT THIS TIME. CALL LIGHT IN REACH. WILL CONTINUE TO MONITOR AND REPORT TO ONCOMING RN.
[2018-06-11 08:47] LABS: Troponin I 0.2 ng/mL (0.000-0.040)
[2018-06-11] MEDS ORDERED: Clonidine HCl0.1 MG PO (11:11)
[2018-07-28] MEDS ORDERED: ALBU2.5V5 (14:01)
[2018-07-28] MEDS ORDERED: ALBU90OI61 INH (14:01)
[2018-07-28] MEDS ORDERED: BASAGLAR K100 UNIT/1 SC (14:02)
[2018-07-28] MEDS ORDERED: FURO40 PO (14:02)
[2018-07-28] MEDS ORDERED: POTCHL10ER PO (14:02)
[2018-07-28] MEDS ORDERED: EPIPEN 2-P0.3 MG/0.3 IM (14:02)
[2018-07-28] MEDS ORDERED: ELIQUIS5 MG PO (14:03)
[2018-07-28] MEDS ORDERED: METO50 PO (14:03)
[2018-07-28] MEDS ORDERED: Humalog100 UNIT/1 SC (14:03)
[2018-07-28] MEDS ORDERED: CLON.2 PO (14:03)
[2018-07-28] MEDS ORDERED: Restoril30 MG PO (14:04)
[2018-07-28] MEDS ORDERED: ONDA4 PO (14:04)
[2018-07-28] MEDS ORDERED: LOSA50 PO (14:04)
[2018-07-28] MEDS ORDERED: FLUT1DIS5 INH (14:04)
[2018-07-28] MEDS ORDERED: Atrovent Inha12.9 GM INH (14:05)
[2018-07-28] MEDS ORDERED: GABA300 PO (14:06)
[2018-07-28] MEDS ORDERED: CLON1 PO (14:06)
[2018-07-28] MEDS ORDERED: TRAM50 PO (14:06)
[2018-07-28] MEDS ORDERED: PROM25 PO (14:06)
[2018-07-28] MEDS ORDERED: OXYC5 PO (14:06)
[2018-07-28] MEDS ORDERED: OMEPRAZOLE MAGN20 MG PO (14:07)
== END 2018-06-11 11:52 | disposition home or self-care (01) ==
LOC: ER 16:19 → PCU 16:20
PROVIDERS: Emergency Medicine; ADMIT Internal Medicine
DX: I16.0 Hypertensive urgency (principal); R11.2 Nausea with vomiting, unspecified; R19.7 Diarrhea, unspecified; E86.0 Dehydration; R79.89 Other specified abnormal findings of blood chemistry; E11.65 Type 2 diabetes mellitus with hyperglycemia; I11.0 Hypertensive heart disease with heart failure; I50.32 Chronic diastolic (congestive) heart failure; I26.99 Other pulmonary embolism without acute cor pulmonale; M79.7 Fibromyalgia; G43.909 Migraine, unspecified, not intractable, without status migrainosus; F32.9 Major depressive disorder, single episode, unspecified; F41.9 Anxiety disorder, unspecified; M32.9 Systemic lupus erythematosus, unspecified; Z79.899 Other long term (current) drug therapy
CPT/HCPCS: 36415; 71045; 80053; 82550; 82947; 83690; 84484; 85025; 85027; 94640; 94760; 96361; 96365; 96366; 96372; 96374; 96375; 96376; 99285-25; G0378; J0360; J1200; J1630; J1650; J2405; J2765; J3010; J3480; J7030; J7120

== ENCOUNTER 2018-08-28 11:26 | Inpatient (IN) | payer OTHER ==
[~2018-08-28] VITALS: Ht 172.7 cm; Wt 86.2 kg
[~2018-08-28 11:26] MED LIST changes: +ALBU2.5V5; +Clonidine HCl0.1 MG PO; +EPIPEN 2-P0.3 MG/0.3 IM; +Humalog100 UNIT/1 SC; +OMEPRAZOLE MAGN20 MG PO; +Restoril30 MG PO
[2018-08-28 12:27] LABS: BASOPHILS ABSOLUTE AUTO 0.02 K/mm3 (0.00-0.23); BASOPHILS PERCENT AUTO 0 % (0-2); EOSINOPHILS PERCENT AUTO 0 % (0-6); Hematocrit 46.3 % (33.0-51.0); Hemoglobin 15.8 g/dL (11.5-16.0); IMMATURE GRAN ABSOLUTE AUTO 0.09 K/mm3 (0.00-0.10); IMMATURE GRAN PERCENT AUTO 1 % (0-1); LYMPHOCYTES ABSOLUTE AUTO 1.09 K/mm3 (0.84-5.20); LYMPHOCYTES PERCENT AUTO 6 % (21-46); MONOCYTES ABSOLUTE AUTO 1.15 K/mm3 (0.16-1.47); MONOCYTES PERCENT AUTO 6 % (4-13); Mean Corpuscular HGB 29.5 pg (26.0-34.0); Mean Corpuscular HGB Conc 34.1 g/dL (31.5-36.5); Mean Corpuscular Volume 87 fL (80-100); Mean Platelet Volume 10.9 fL (9.1-12.4); NEUTROPHILS ABSOLUTE AUTO 16.08 K/mm3 (1.96-9.15); NEUTROPHILS PERCENT AUTO 87 % (41-73); Platelet Count 201 K/mm3 (150-400); RDW Coefficient Variation 13.2 % (11.7-14.2); RDW Standard Deviation 41.1 fL (35.1-46.3); Red Blood Cell Count 5.35 M/mm3 (3.80-5.20); White Blood Cell Count 18.43 K/mm3 (4.00-11.30)
[2018-08-28 12:42] LABS: International Normalized Ratio 1.05; Prothrombin Time Results 11.1 Sec (9.7-11.5)
[2018-08-28 12:49] LABS: Ethanol (Alcohol), Blood, Med <3 mg/dL
[2018-08-28 12:50] LABS: Alanine Aminotransfer (ALT/SGP 36 U/L (12-78); Albumin, Blood 3.9 g/dL (3.4-5.0); Albumin/Globulin Ratio 0.9 (0.8-1.8); Alk Phos 109 U/L (50-136); Anion Gap 17 mmol/L (6-16); Aspartate Aminotrans (AST/SGOT 66 U/L (12-37); Bilirubin, Total 1.3 mg/dL (0.1-1.0); Blood Urea Nitrogen 25 mg/dL (8-24); Bun/Creatinine Ratio 36.4 (12.0-20.0); CO2, Blood 25 mmol/L (21-32); Calcium, Blood 9.6 mg/dL (8.5-10.1); Chloride, Blood 103 mmol/L (98-108); Creatinine, Blood 0.69 mg/dL (0.40-1.00); Globulin, Blood 4.4 g/dL (2.2-4.0); Glomerular Filtration Rate >60 (60-); Glucose, Blood 397 mg/dL (70-99); Potassium, Blood 3.5 mmol/L (3.5-5.5); Sodium, Blood 145 mmol/L (136-145); Total Protein, Blood 8.3 g/dL (6.4-8.2)
[2018-08-28 13:11] LABS: Source, Urine Clean Catch
[2018-08-28 13:17] LABS: Appearance, Urine Hazy (Clear); Blood, Urine 5+ (Neg); Color, Urine Amber (P-Yellow); Glucose Qualitative, Urine 4+ (Neg); Ketones, Urine 4+ (Neg); Leukocyte Esterase, Urine 1+ (Neg); Nitrite, Urine Neg (Neg); Protein, Urine 3+ (Neg); Urobilinogen, Urine 1+ (Normal)
[2018-08-28 13:27] LABS: Bilirubin, Urine 1+ (Neg)
[2018-08-28 13:28] LABS: Squamous Epithelial Cells Mod /hpf (Few)
[2018-08-28 13:29] LABS: Bacteria Mod /hpf; Red Blood Cells, Urine 25-50 /hpf (0-2)
[2018-08-28 13:51] LABS: U Amphetamine Screen Not Detected; U Barbituate Screen Not Detected; U Benzodiazapine Screen Not Detected; U Buprenorphine Screen Not Detected; U Cannabinoids Screen Not Detected; U Cocaine Screen Not Detected; U Methadone Screen Not Detected; U Methamphetamine Screen Not Detected; U Opiates Screen DETECTED; U Oxycodone Screen Not Detected; U Phencyclidine Screen Not Detected; U Propoxyphene Screen Not Detected
[2018-08-28 14:42] LABS: Influenza A Negative (NEGATIVE); Influenza B Negative (NEGATIVE)
[2018-08-28 15:50] LABS: Creatine Kinase MB 30.7 ng/mL (0.0-3.6); Creatine Kinase MB Index 6.8 (0.0-4.0)
[2018-08-28 19:09] LABS: Free Thyroxine 1.17 ng/dL (0.70-1.60)
[2018-08-28 19:11] LABS: Triiodothyronine, Free 2.2 pg/mL (2.18-3.98)
--- NOTE | 2018-08-28 19:45 | NUR ---
ASSUMED CARE PT IS RESTING IN ROOM COMFORTABLY AT THIS TIME. PT ARRIVED TO UNIT AT SHIFT CHANGE. PER DAY SHIFT PT HAS BEEN ALTERED, ALERT ONLY TO SELF. PT ABLE TO OCCASIONALY ANSWER YES/NO QUESTIONS. ABLE TO FOLLOW SOME SHORT COMMANDS. PT AFFECT IS PLEASENT AND SMILES AT STAFF. PT APPEARS TO BE COMFORTABLE. SOME SHAKING AND TREMORS NOTED TO BUE. PT HAS VERY MILD FEVER AT THIS TIME. LR INFUSING AT 150/HR IN PIV. SECOND PIV LOCATED IN R EXTERNAL JUGULAR, SL. PT EASILY REDIRECTABLE. BED ALARM ON FOR SAFETY. CALL LIGHT IS WITHIN REACH.
--- NOTE | 2018-08-28 19:58 | NUR ---
Arrival: Pt arrived to unit at approx 1830. VSS - hypertensive. No apparent sign of distress. Pt answers only yes/no to some questions. No s/sx of discomfort at this time. Repositions self. See admit assessmnet for detailed assessment. Pt smiles and is cooperative with care. Currently resting in bed with call light within reach. Breathing e/u on RA and lungs clear. Bed alarm on. Report given to Kelly Carlos RN.
[2018-08-29 04:16] LABS: BASOPHILS ABSOLUTE AUTO 0.03 K/mm3 (0.00-0.23); BASOPHILS PERCENT AUTO 0 % (0-2); EOSINOPHILS PERCENT AUTO 0 % (0-6); Hemoglobin 15.1 g/dL (11.5-16.0); IMMATURE GRAN PERCENT AUTO 1 % (0-1); LYMPHOCYTES ABSOLUTE AUTO 2.22 K/mm3 (0.84-5.20); LYMPHOCYTES PERCENT AUTO 11 % (21-46); MONOCYTES ABSOLUTE AUTO 1.34 K/mm3 (0.16-1.47); MONOCYTES PERCENT AUTO 7 % (4-13); Mean Corpuscular HGB 29.8 pg (26.0-34.0); Mean Corpuscular HGB Conc 34.3 g/dL (31.5-36.5); Mean Corpuscular Volume 87 fL (80-100); Mean Platelet Volume 11.7 fL (9.1-12.4); NEUTROPHILS ABSOLUTE AUTO 16.71 K/mm3 (1.96-9.15); NEUTROPHILS PERCENT AUTO 82 % (41-73); Platelet Count 189 K/mm3 (150-400); RDW Coefficient Variation 13.6 % (11.7-14.2); RDW Standard Deviation 41.8 fL (35.1-46.3); Red Blood Cell Count 5.07 M/mm3 (3.80-5.20)
[2018-08-29 04:36] LABS: Alanine Aminotransfer (ALT/SGP 35 U/L (12-78); Albumin, Blood 3.5 g/dL (3.4-5.0); Albumin/Globulin Ratio 0.9 (0.8-1.8); Alk Phos 96 U/L (50-136); Anion Gap 11 mmol/L (6-16); Aspartate Aminotrans (AST/SGOT 84 U/L (12-37); Bilirubin, Direct 0.8 mg/dL (0.0-0.3); Bilirubin, Indirect 0.9 mg/dL (0.1-0.7); Bilirubin, Total 1.7 mg/dL (0.1-1.0); Blood Urea Nitrogen 28 mg/dL (8-24); Bun/Creatinine Ratio 44.1 (12.0-20.0); CO2, Blood 27 mmol/L (21-32); CPK Creatine Kinase 406 U/L (26-193); Calcium, Blood 9.1 mg/dL (8.5-10.1); Chloride, Blood 111 mmol/L (98-108); Creatinine, Blood 0.64 mg/dL (0.40-1.00); Glomerular Filtration Rate >60 (60-); Glucose, Blood 227 mg/dL (70-99); Phosphorus, Blood 1.6 mg/dL (2.5-4.9); Potassium, Blood 3.3 mmol/L (3.5-5.5); Sodium, Blood 149 mmol/L (136-145); Total Protein, Blood 7.5 g/dL (6.4-8.2)
--- NOTE | 2018-08-29 05:32 | NUR ---
SHIFT SUMMARY PT RESTING IN ROOM COMFORTABLY AT THIS TIME. NO ACUTE CHANGES IN STATUS SINCE ARRIVAL TO UNIT. PT CONTINUES TO HAVE AMS, STARTING TO CLEAR SLIGHTLY AND ABLE TO SAY SHORT SENTANCES. PT WAS ABLE TO STAND AND USE BSC W/ 1 PERS ASSIST. BED RESP EVEN UNLABORED ON RA W/ SATS >95%. DENIES PAIN. BED ALARM ON FOR SAFETY AND IMPULISIVITY. CALL LIGHT WITHIN REACH. PT HAS NOT USED LIGHT APPROPRIATELY YET. SETS OFF BED ALARM.
--- NOTE | 2018-08-29 15:12 | NUR ---
NURSING PCU DAYSHIFT TRANSFER SUMMARY: Assumed care of pt at approx 1000 from peer RN. Pt has been alert and fairly oriented, impulsive at times and requires reminders, bed alarm set for safety purposes. C/O chronic pain, treating w/meds as ordered. Pt is steady on feet w/no c/o weakness, ambulating halls w/o difficulty. PIV x2, s/l. Pt changed to medical status w/tele, room assignment received. Telephone report provided to accepting RN, cont to monitor until xfer is completed.
--- NOTE | 2018-08-29 17:33 | NUR ---
PATIENT TO MEDICAL FLOOR AT 1600. PATIENT PLEASANT BUT VERY ADAMENT THAT SHE WILL BE LEAVING THE FLOOR TO GO SMOKE. SHE STATES THAT SHE HAS A TELE BOX ON AND SHE KNOWS THAT IT WILL NOT WORK OUTSIDE. PATIENT IS TEARFUL BUT VERY STEADY ON HER FEET. NO ACUTE CONCERNS AT THIS TIME. POTENTIAL DISCHARGE TOMORROW.
--- NOTE | 2018-08-30 04:10 | NUR ---
SHIFT SUMMARY PT ADMITTED FOR ACUTE ENCEPHALOPATHY. FULL CODE. SOFT BITE SIZE DIET. CBG AT AC AND HS. TELE-NSR AT A RATE OF 92 PER JET ENGINE MECHANIC. ARI. PT HAS PAIN CONTRACT AND ALLOWED ONLY 1 NORCO QID. HOWEVER, PT CONTINUALLY ASKING FOR ADDITIONAL PAIN MEDICATIONS AND REQUESTING THEM TO BE ADMINISTERED VIA IV. 20G IV TO L CHEST WALL, EJ RO R SIDE. INDEPENDENT. TAKES MEDS WHOLE WITH WATER. THE PT PRESENTED TO THE ED WITH C/O CONFUSION. HX OF PSEUDOSEIZURES AND SUBSTANCE ABUSE. THE PT APPEARED TO BE IN GENERALLY GOOD HEALTH AND READY TO DC TOMORROW PER REPORT. HOWEVER, AFTER BEING TOLD OF POSSIBLE DC PT STATED SHE DOES NOT FEEL WELL AND ASKED FOR NAUSEA MEDS. MEDICATED PER EMAR. PT THEN STATED THAT SHE HAD NOT KEPT DOWN ANY FOOD OR FLUIDS IN SEVERAL DAYS. ADVISED PT TO PLEASE NOTIFY THIS NURSE IF VOMITING OCCURS AND TO USE PROVIDED EMESIS BAG SO THAT THE NURSE COULD EVALUATE VOMIT, NO VOMITTING HAS OCCURRED SINCE THIS REQUEST. PT ALSO STATED THAT SHE IS URINATING BLOOD. THIS NURSE ASKED THAT PT PLEASE NOT FLUSH URINE SO THAT THIS NURSE MAY ASSESS FOR BLOOD, PT HAS HAD NO FURTHER BLOODY VOIDS. THE PT THEN CAME OUT OF HER ROOM STATING THAT SHE HAD A BM IN HER PANTS. THE PT THEN BEGAN TO SOB STATING THAT SHE IS TOO SICK AND IS NOT READY TO GO HOME. AFTER LOGGER DRIVING HORSES CLEANED PT AND PROVIDED NEW GOWN PT THEN WALKED OUTSIDE TO SMOKE. PT IS IN ROOM AT THIS TIME AND APPEARS TO BE SLEEPING COMFORTABLY. NO APPARENT SIGNS OF ACUTE DISTRESS. ABLE TO MAKE NEEDS KNOWN AND CALL LIGHT IN REACH.
--- NOTE | 2018-08-30 04:16 | NUR ---
NECKLACE THE PT STATED THAT SHE HAD A GOLD NECKLACE ON WHILE IN PCU AND THAT THEY REMOVED IT FROM HER NECK. CALL TO PCU RITESH ANDREWS WHO STATED THAT HE SPOKE WITH THE NURSE WHO ADMITTED PT AND STATED THAT PT HAD MULTIPLE RINGS BUT NO NECKLACE.
[2018-08-30 05:12] LABS: BASOPHILS ABSOLUTE AUTO 0.03 K/mm3 (0.00-0.23); BASOPHILS PERCENT AUTO 0 % (0-2); EOSINOPHILS ABSOLUTE AUTO 0.04 K/mm3 (0.00-0.68); EOSINOPHILS PERCENT AUTO 0 % (0-6); Hematocrit 40.7 % (33.0-51.0); Hemoglobin 13.5 g/dL (11.5-16.0); IMMATURE GRAN ABSOLUTE AUTO 0.06 K/mm3 (0.00-0.10); IMMATURE GRAN PERCENT AUTO 1 % (0-1); LYMPHOCYTES ABSOLUTE AUTO 3.34 K/mm3 (0.84-5.20); LYMPHOCYTES PERCENT AUTO 28 % (21-46); MONOCYTES PERCENT AUTO 7 % (4-13); Mean Corpuscular HGB 30.1 pg (26.0-34.0); Mean Corpuscular HGB Conc 33.2 g/dL (31.5-36.5); Mean Platelet Volume 11.5 fL (9.1-12.4); NEUTROPHILS ABSOLUTE AUTO 7.79 K/mm3 (1.96-9.15); NEUTROPHILS PERCENT AUTO 65 % (41-73); Platelet Count 121 K/mm3 (150-400); RDW Coefficient Variation 13.8 % (11.7-14.2); RDW Standard Deviation 45.3 fL (35.1-46.3); Red Blood Cell Count 4.49 M/mm3 (3.80-5.20); White Blood Cell Count 12.06 K/mm3 (4.00-11.30)
[2018-08-30 05:14] LABS: Mean Corpuscular Volume 91 fL (80-100)
[2018-08-30 05:25] LABS: Anion Gap 9 mmol/L (6-16); Blood Urea Nitrogen 34 mg/dL (8-24); Bun/Creatinine Ratio 45.2 (12.0-20.0); CO2, Blood 28 mmol/L (21-32); Calcium, Blood 7.9 mg/dL (8.5-10.1); Chloride, Blood 111 mmol/L (98-108); Creatinine, Blood 0.75 mg/dL (0.40-1.00); Glomerular Filtration Rate >60 (60-); Glucose, Blood 116 mg/dL (70-99); Phosphorus, Blood 1.6 mg/dL (2.5-4.9); Sodium, Blood 148 mmol/L (136-145)
[2018-08-30] MEDS ORDERED: Hydrocodone-Ap1 EA23 PO (12:23)
[2018-08-30] MEDS ORDERED: LEVFLO500 PO (12:24)
--- NOTE | 2018-08-30 13:46 | NUR ---
DISCHARGE SUMMARY PATIENT PLEASANT. ALL INFORMATION GIVEN TO THE PATIENT. [facility]. NO ACUTE CONCERNS. IVS REMOVED. PATIENT LEFT WITH FAMILY MEMBER.
== END 2018-08-30 13:39 | disposition home or self-care (01) | DRG 92 ==
LOC: ER 11:26 → ERHOLD 15:13 → MEDS 18:25 → PCU 18:33 → MEDS 08-29 15:30
PROVIDERS: Emergency Medicine; Hospitalist; ADMIT Internal Medicine
DX: G92 Toxic encephalopathy (principal); N39.0 Urinary tract infection, site not specified; I50.32 Chronic diastolic (congestive) heart failure; T40.2X5A Adverse effect of other opioids, initial encounter; E11.9 Type 2 diabetes mellitus without complications; G89.29 Other chronic pain; E87.6 Hypokalemia; E83.39 Other disorders of phosphorus metabolism; F11.10 Opioid abuse, uncomplicated; I16.0 Hypertensive urgency; I48.0 Paroxysmal atrial fibrillation; I10 Essential (primary) hypertension; G40.909 Epilepsy, unspecified, not intractable, without status epilepticus; F17.210 Nicotine dependence, cigarettes, uncomplicated; M32.9 Systemic lupus erythematosus, unspecified; I11.0 Hypertensive heart disease with heart failure; F60.9 Personality disorder, unspecified; Z86.19 Personal history of other infectious and parasitic diseases
CPT/HCPCS: 36415; 70450; 70496; 71046; 80048; 80053; 80076; 81001; 82140; 82550; 82553; 82947; 83036; 83605; 84100; 84439; 84443; 84481; 85025; 85610; 87086; 87804; 93005; 93010; 94640; 94760; 96361; 96365-59; 96372-59; 96375-59; 99285-25; A9270-GY; G0480; J0360; J1650; J1815; J1956; J2060; J7030; J7120; P9612; Q9967

== ENCOUNTER 2018-10-11 09:15 | Emergency (ER) | payer OTHER ==
[~2018-10-11] VITALS: Ht 160 cm; Wt 90.7 kg
[~2018-10-11 09:15] MED LIST changes: +Hydrocodone-Ap1 EA23 PO
[2018-10-11 10:00] LABS: BASOPHILS ABSOLUTE AUTO 0.01 K/mm3 (0.00-0.23); BASOPHILS PERCENT AUTO 0 % (0-2); EOSINOPHILS PERCENT AUTO 0 % (0-6); Hematocrit 44.2 % (33.0-51.0); IMMATURE GRAN ABSOLUTE AUTO 0.04 K/mm3 (0.00-0.10); IMMATURE GRAN PERCENT AUTO 1 % (0-1); LYMPHOCYTES ABSOLUTE AUTO 0.99 K/mm3 (0.84-5.20); LYMPHOCYTES PERCENT AUTO 13 % (21-46); MONOCYTES ABSOLUTE AUTO 0.18 K/mm3 (0.16-1.47); MONOCYTES PERCENT AUTO 2 % (4-13); Mean Corpuscular HGB 30.9 pg (26.0-34.0); Mean Corpuscular HGB Conc 33.9 g/dL (31.5-36.5); Mean Corpuscular Volume 91 fL (80-100); Mean Platelet Volume 11.5 fL (9.1-12.4); NEUTROPHILS PERCENT AUTO 84 % (41-73); Platelet Count 132 K/mm3 (150-400); RDW Coefficient Variation 11.9 % (11.7-14.2); RDW Standard Deviation 40.1 fL (35.1-46.3); Red Blood Cell Count 4.86 M/mm3 (3.80-5.20); White Blood Cell Count 7.72 K/mm3 (4.00-11.30)
[2018-10-11 10:18] LABS: Alanine Aminotransfer (ALT/SGP 24 U/L (12-78); Albumin, Blood 3.9 g/dL (3.4-5.0); Alk Phos 127 U/L (50-136); Anion Gap 10 mmol/L (6-16); Aspartate Aminotrans (AST/SGOT 28 U/L (12-37); Bilirubin, Total 1.1 mg/dL (0.1-1.0); Blood Urea Nitrogen 11 mg/dL (8-24); Bun/Creatinine Ratio 18.9 (12.0-20.0); CO2, Blood 30 mmol/L (21-32); Chloride, Blood 102 mmol/L (98-108); Creatinine, Blood 0.58 mg/dL (0.40-1.00); Globulin, Blood 4.1 g/dL (2.2-4.0); Glomerular Filtration Rate >60 (60-); Glucose, Blood 265 mg/dL (70-99); Potassium, Blood 3.7 mmol/L (3.5-5.5); Sodium, Blood 142 mmol/L (136-145)
[2018-10-11] MEDS ORDERED: Zofran8 MG PO (12:25)
[2018-10-11] MEDS ORDERED: Catapres0.1 MG PO (12:25)
== END 2018-10-11 12:44 | disposition home or self-care (01) ==
LOC: ER 09:15
PROVIDERS: Emergency Medicine
DX: R11.2 Nausea with vomiting, unspecified (principal); I10 Essential (primary) hypertension; Z91.19 Patient's noncompliance with other medical treatment and regimen; Z88.6 Allergy status to analgesic agent; Z88.0 Allergy status to penicillin; Z88.8 Allergy status to other drugs, medicaments and biological substances; Z91.030 Bee allergy status; Z79.899 Other long term (current) drug therapy; Z79.4 Long term (current) use of insulin; F41.9 Anxiety disorder, unspecified; G43.909 Migraine, unspecified, not intractable, without status migrainosus; E11.9 Type 2 diabetes mellitus without complications; F17.210 Nicotine dependence, cigarettes, uncomplicated
CPT/HCPCS: 36415; 80053; 82947; 85025; 96361; 96374; 96375; 99284-25; J1200; J2765; J7120

== ENCOUNTER → 2018-11-12 | Outpatient (CLI) | payer OTHER ==
[2018-11-12 17:56] LABS: Creatinine Urine 50.9 mg/dL (27.00-270.00); Protein, Urine Quantitative 12.6 mg/dL (0.0-11.9)
[2018-11-12 17:59] LABS: Microalbumin, Urine Quant. 53.9 mg/L (0.000-20.000)
== END | disposition home or self-care (01) ==
LOC: LAB 14:46 → LAB SHORT 14:46
PROVIDERS: Internal Medicine Nephrology
DX: R80.1 Persistent proteinuria, unspecified (principal)
CPT/HCPCS: 81050; 82043; 82570; 84156

== ENCOUNTER 2018-11-28 21:04 | Observation (INO) | payer OTHER ==
[~2018-11-28] VITALS: Ht 167.6 cm; Wt 86.2 kg
[2018-11-28 22:08] LABS: BASOPHILS ABSOLUTE AUTO 0.01 K/mm3 (0.00-0.23); BASOPHILS PERCENT AUTO 0 % (0-2); EOSINOPHILS ABSOLUTE AUTO 0.01 K/mm3 (0.00-0.68); EOSINOPHILS PERCENT AUTO 0 % (0-6); Hematocrit 48.3 % (33.0-51.0); Hemoglobin 15.9 g/dL (11.5-16.0); IMMATURE GRAN ABSOLUTE AUTO 0.04 K/mm3 (0.00-0.10); IMMATURE GRAN PERCENT AUTO 0 % (0-1); LYMPHOCYTES ABSOLUTE AUTO 2.54 K/mm3 (0.84-5.20); LYMPHOCYTES PERCENT AUTO 21 % (21-46); MONOCYTES ABSOLUTE AUTO 1.11 K/mm3 (0.16-1.47); MONOCYTES PERCENT AUTO 9 % (4-13); Mean Corpuscular HGB 29.3 pg (26.0-34.0); Mean Corpuscular HGB Conc 32.9 g/dL (31.5-36.5); Mean Corpuscular Volume 89 fL (80-100); NEUTROPHILS ABSOLUTE AUTO 8.49 K/mm3 (1.96-9.15); NEUTROPHILS PERCENT AUTO 70 % (41-73); Platelet Count 108 K/mm3 (150-400); RDW Standard Deviation 38.8 fL (35.1-46.3); Red Blood Cell Count 5.43 M/mm3 (3.80-5.20)
[2018-11-28 22:20] LABS: International Normalized Ratio 1.09; Prothrombin Time Results 11.5 Sec (9.7-11.5)
[2018-11-28 22:35] LABS: Alanine Aminotransfer (ALT/SGP 31 U/L (12-78); Albumin, Blood 3.6 g/dL (3.4-5.0); Alk Phos 94 U/L (50-136); Anion Gap 10 mmol/L (6-16); Aspartate Aminotrans (AST/SGOT 50 U/L (12-37); Bilirubin, Total 1.7 mg/dL (0.1-1.0); Blood Urea Nitrogen 21 mg/dL (8-24); Bun/Creatinine Ratio 30.9 (12.0-20.0); CO2, Blood 30 mmol/L (21-32); Chloride, Blood 104 mmol/L (98-108); Creatinine, Blood 0.68 mg/dL (0.40-1.00); Globulin, Blood 3.6 g/dL (2.2-4.0); Glomerular Filtration Rate >60 (60-); Glucose, Blood 191 mg/dL (70-99); Potassium, Blood 3.2 mmol/L (3.5-5.5); Sodium, Blood 144 mmol/L (136-145); Total Protein, Blood 7.2 g/dL (6.4-8.2)
[2018-11-28 22:40] LABS: Ethanol (Alcohol), Blood, Med <3 mg/dL
[2018-11-29 01:26] LABS: U Amphetamine Screen Not Detected; U Barbituate Screen Not Detected; U Benzodiazapine Screen Not Detected; U Buprenorphine Screen Not Detected; U Cannabinoids Screen Not Detected; U Cocaine Screen Not Detected; U Methadone Screen Not Detected; U Methamphetamine Screen Not Detected; U Opiates Screen Not Detected; U Oxycodone Screen DETECTED; U Phencyclidine Screen Not Detected; U Propoxyphene Screen Not Detected
== END 2018-11-29 03:08 | disposition home or self-care (01) ==
LOC: ER 21:04 → EOR 21:05
PROVIDERS: ADMIT Emergency Medicine
DX: T44.901A Poisoning by unspecified drugs primarily affecting the autonomic nervous system, accidental (unintentional), initial encounter (principal); R45.1 Restlessness and agitation; F41.9 Anxiety disorder, unspecified; I10 Essential (primary) hypertension; E11.9 Type 2 diabetes mellitus without complications; J44.9 Chronic obstructive pulmonary disease, unspecified; G40.909 Epilepsy, unspecified, not intractable, without status epilepticus; F17.200 Nicotine dependence, unspecified, uncomplicated; Z88.6 Allergy status to analgesic agent; Z88.0 Allergy status to penicillin; Z88.1 Allergy status to other antibiotic agents; Z88.2 Allergy status to sulfonamides; Z91.038 Other insect allergy status; Z88.8 Allergy status to other drugs, medicaments and biological substances; Z79.899 Other long term (current) drug therapy; Z79.4 Long term (current) use of insulin
CPT/HCPCS: 36415; 70450; 80053; 82947; 83735; 85025; 85610; 93005; 93010; 96361; 96365; 96372-59; 96375; 99285-25; G0378; G0480; J2060; J2250; J3475; J7030; P9612

== ENCOUNTER 2019-02-12 18:07 | Emergency (ER) | payer OTHER ==
[~2019-02-12] VITALS: Ht 160 cm; Wt 88.9 kg
[2019-02-12] MEDS ORDERED: CLON.1 (18:42)
[2019-02-12] MEDS ORDERED: Catapres0.1 MG PO (19:16)
[2019-02-12] MEDS ORDERED: ONDA4 PO (19:16)
[2019-02-12 20:10] LABS: Calcium, Ionized (POC) 1.09 mmol/L (1.10-1.46); Chloride (POC) 102 mmol/L (98-108); Creatinine (POC) 0.8 mg/dL (0.6-1.0); Glucose (ISTAT POC) 196 mg/dL (70-99); Hemoglobin (POC) 17.3 g/dL (12.0-16.0); Potassium (POC) 3.5 mmol/L (3.5-5.5); Sodium (POC) 138 mmol/L (135-148); Total CO2 (POC) 22 mmol/L (21-32)
== END 2019-02-12 21:54 | disposition home or self-care (01) ==
LOC: ER 18:07
PROVIDERS: Emergency Medicine
DX: R11.2 Nausea with vomiting, unspecified (principal); Z76.0 Encounter for issue of repeat prescription; E11.40 Type 2 diabetes mellitus with diabetic neuropathy, unspecified; I10 Essential (primary) hypertension; J44.9 Chronic obstructive pulmonary disease, unspecified; F32.9 Major depressive disorder, single episode, unspecified; F41.9 Anxiety disorder, unspecified; F17.210 Nicotine dependence, cigarettes, uncomplicated; Z85.43 Personal history of malignant neoplasm of ovary; Z79.899 Other long term (current) drug therapy; Z79.01 Long term (current) use of anticoagulants; Z79.4 Long term (current) use of insulin
CPT/HCPCS: 36415; 74018; 80047; 85014; 96361; 96374; 96375; 99284-25; J1200; J1630; J2405; J7030

== ENCOUNTER 2019-07-06 15:03 | Inpatient (IN) | payer OTHER ==
[~2019-07-06] VITALS: Ht 160 cm; Wt 84.6 kg
[~2019-07-06 15:03] MED LIST changes: -ALBU2.5V5; +ALBU2.5V5 INH; +CEPH500 PO; +CLON.1 PO; +METO25 PO
[2019-07-06 16:47] LABS: Alanine Aminotransfer (ALT/SGP 48 U/L (12-78); Albumin, Blood 3.3 g/dL (3.4-5.0); Anion Gap 3 mmol/L (6-16); Aspartate Aminotrans (AST/SGOT 49 U/L (12-37); Blood Urea Nitrogen 17 mg/dL (8-24); Bun/Creatinine Ratio 20.4 (12.0-20.0); CO2, Blood 28 mmol/L (21-32); Calcium, Blood 9.2 mg/dL (8.5-10.1); Chloride, Blood 105 mmol/L (98-108); Creatinine, Blood 0.83 mg/dL (0.40-1.00); Glomerular Filtration Rate >60 (60-); Glucose, Blood 300 mg/dL (70-99); Potassium, Blood 4.2 mmol/L (3.5-5.5); Sodium, Blood 136 mmol/L (136-145)
[2019-07-06 16:51] LABS: Albumin/Globulin Ratio 0.9 (0.8-1.8); Alk Phos 117 U/L (50-136); BASOPHILS ABSOLUTE AUTO 0.01 K/mm3 (0.00-0.23); BASOPHILS PERCENT AUTO 0 % (0-2); Bilirubin, Total 0.6 mg/dL (0.1-1.0); EOSINOPHILS PERCENT AUTO 0 % (0-6); Globulin, Blood 3.6 g/dL (2.2-4.0); Hematocrit 44.8 % (33.0-51.0); Hemoglobin 15.3 g/dL (11.5-16.0); IMMATURE GRAN ABSOLUTE AUTO 0.03 K/mm3 (0.00-0.10); IMMATURE GRAN PERCENT AUTO 1 % (0-1); LYMPHOCYTES ABSOLUTE AUTO 1.86 K/mm3 (0.84-5.20); LYMPHOCYTES PERCENT AUTO 34 % (21-46); MONOCYTES ABSOLUTE AUTO 0.35 K/mm3 (0.16-1.47); MONOCYTES PERCENT AUTO 6 % (4-13); Mean Corpuscular HGB 29.9 pg (26.0-34.0); Mean Corpuscular HGB Conc 34.2 g/dL (31.5-36.5); Mean Corpuscular Volume 88 fL (80-100); Mean Platelet Volume 11.9 fL (9.1-12.4); NEUTROPHILS ABSOLUTE AUTO 3.19 K/mm3 (1.96-9.15); NEUTROPHILS PERCENT AUTO 59 % (41-73); Platelet Count 95 K/mm3 (150-400); RDW Coefficient Variation 11.6 % (11.7-14.2); RDW Standard Deviation 37.5 fL (35.1-46.3); Red Blood Cell Count 5.11 M/mm3 (3.80-5.20); Total Protein, Blood 6.9 g/dL (6.4-8.2); Troponin I 0.017 ng/mL (0.000-0.040); White Blood Cell Count 5.44 K/mm3 (4.00-11.30)
[2019-07-06] MEDS ORDERED: Trazodone HCl300 MG PO (19:43)
[2019-07-06] MEDS ORDERED: METOPROLOL TART25 MG PO (19:43)
[2019-07-06] MEDS ORDERED: Neurontin400 MG PO (19:44)
[2019-07-06] MEDS ORDERED: Buspirone HCl15 MG PO (19:45)
[2019-07-06] MEDS ORDERED: LOSARTAN POTASS50 MG PO (19:45)
--- NOTE | 2019-07-06 20:40 | NUR ---
ADMIT NOTE: ADMIT 58 YEAR OLD FEMALE TO ICU 3 PCU OBS STATUS TO HOSPITALIST PER SARINA CABRALES ER. GAIT STEADY TO BED. LUNG SOUNDS CLEAR RESPIRATIONS REGULAR AND EASY ON ROOM AIR . MONITOR PLACED SHOWING A FLUTTER-A FIB WITH HEART RATE 130'S CARDIZEM GTT AT 5MG. CO HEADACHE AND " NOT FEELING GOOD" VOIDS MYLA URINE VERY TALKITIVE. COMPLETES BLOOD CONSENT AND RELEASE OF MEDICAL INFORMATION.SKIN WARM DRY NO EDEMA NOTED. TEARFUL ANXIOUS SECONDARY TO MULTIPLE ATTEMPTS TO ESTABLISH SECONDARY IV SITE. CONTINUE TO MONITOR AND REPORT CHANGE IN PATIENT CONDITION
[2019-07-06 23:49] LABS: U Amphetamine Screen Not Detected; U Barbituate Screen Not Detected; U Benzodiazapine Screen Not Detected; U Buprenorphine Screen Not Detected; U Cannabinoids Screen Not Detected; U Cocaine Screen Not Detected; U Methadone Screen Not Detected; U Methamphetamine Screen Not Detected; U Opiates Screen Not Detected; U Oxycodone Screen DETECTED; U Phencyclidine Screen Not Detected; U Propoxyphene Screen Not Detected
[2019-07-07 05:22] LABS: Hematocrit 41.1 % (33.0-51.0); Hemoglobin 13.8 g/dL (11.5-16.0); Mean Corpuscular HGB 29.7 pg (26.0-34.0); Mean Corpuscular HGB Conc 33.6 g/dL (31.5-36.5); Mean Corpuscular Volume 89 fL (80-100); Mean Platelet Volume 12.4 fL (9.1-12.4); Platelet Count 89 K/mm3 (150-400); RDW Coefficient Variation 11.9 % (11.7-14.2); RDW Standard Deviation 38.1 fL (35.1-46.3); Red Blood Cell Count 4.64 M/mm3 (3.80-5.20); White Blood Cell Count 5.42 K/mm3 (4.00-11.30)
[2019-07-07 05:35] LABS: Anion Gap 8 mmol/L (6-16); Blood Urea Nitrogen 15 mg/dL (8-24); Bun/Creatinine Ratio 22.9 (12.0-20.0); CO2, Blood 26 mmol/L (21-32); Calcium, Blood 8.7 mg/dL (8.5-10.1); Chloride, Blood 105 mmol/L (98-108); Creatinine, Blood 0.66 mg/dL (0.40-1.00); Glomerular Filtration Rate >60 (60-); Glucose, Blood 256 mg/dL (70-99); Potassium, Blood 4.3 mmol/L (3.5-5.5); Sodium, Blood 139 mmol/L (136-145)
--- NOTE | 2019-07-07 11:15 | NUR ---
BEGINNING OF SHIFT Assumed care at 0700. Bedside report received from Kristina RN. Pt initially on 2 LPM NC. Pt removed NC, SpO2 93%. Pt up to bathroom, tolerated activity well. Dr De La Torre in to see pt early this AM. Pt inquired about home gabapentin. Gabapentin not ordered provider because pt is receiving dilaudid. Pt states she would rather continue receiving dilaudid than taking home regimen of gabapentin. Pt requests apple juice this AM. This RN discusses pt's elevated blood sugars. Pt states she ate ice cream early this morning. Three empty ice cream containers removed from bedside table at beginning of shift. Pt states she does not like artificial sweeteners. Pt aware that she is PCU status. Pt requests going outside to smoke. This RN educates pt that this is not a courtney choice because pt is receiving intravenous cardiac medication and requires continuous cardiac monitoring. Pt continues to request going outside to smoke, stating "They let me do it this time". This RN reinforces that pt is not allowed to go outside due to need for continuous cardiac monitoring. This RN inquired about smoking cessation as pt told the hospitalist, Dr De La Torre, that she is planning on quitting smoking. Pt states "Well, I'm not going to quit today. I have until August 10. That's my son's birthday." Pt is wearing a nicotine patch. Pt verbalizes understanding. Pt requested ambulating around unit to ease neuroapathic pain in bilateral legs. This RN assisted pt to walk around unit several times with portable ekg monitor tech. Pt independent in room at this time. Initially, pt on 20 mg/hr cardizem. HR 70s-80s. This RN titrated cardizem down to 15 mg/hr. Pt remains at this rate. HR 95-120, atrial flutter.
--- NOTE | 2019-07-07 14:04 | NUR ---
CALL PLACED TO DR DE LA TORRE BECAUSE PT WANTS TO LEAVE AMA Pt back from imaging. Intially cheerful and joking with staff. Pt states she would like to go outside and have a cigarette. This RN tells pt that this is not a safe choice because she is on IV cardizem and requires continuous heart monitoring. Pt states she would like to leave against medical advice because "I'm going crazy. I really need a cigarette right now". This RN offers to increase strength of nicotine patch or nicotine gum. Pt states these will not be effective and she wants a cigarette. This RN placed call to Dr De La Torre to update. Orders given for IV ativan to help pt with her anxiety. Strength of nicotine patch increased from 7 mg to 21 mg. Pt agreeable to stay instead of leaving AMA.
--- NOTE | 2019-07-07 18:30 | NUR ---
SUMMARY At this time, pt remains on 15 mg/hr cardizem, IV. Dr De La Torre aware. Plan for pt to receive 50 mg metoprolol tonight, this is an increase from previously ordered 37.5 mg. Pt continues to verbalize desire to smoke. Pt does not verbalize further interest in leaving against medical advice. Will continue to closely monitor until care handoff and bedside report with oncoming RN.
[2019-07-08 03:23] LABS: BASOPHILS PERCENT AUTO 0 % (0-2); EOSINOPHILS ABSOLUTE AUTO 0.01 K/mm3 (0.00-0.68); EOSINOPHILS PERCENT AUTO 0 % (0-6); Hematocrit 38.3 % (33.0-51.0); Hemoglobin 12.9 g/dL (11.5-16.0); IMMATURE GRAN ABSOLUTE AUTO 0.01 K/mm3 (0.00-0.10); IMMATURE GRAN PERCENT AUTO 0 % (0-1); LYMPHOCYTES ABSOLUTE AUTO 2.09 K/mm3 (0.84-5.20); LYMPHOCYTES PERCENT AUTO 34 % (21-46); MONOCYTES ABSOLUTE AUTO 0.32 K/mm3 (0.16-1.47); MONOCYTES PERCENT AUTO 5 % (4-13); Mean Corpuscular HGB 30.1 pg (26.0-34.0); Mean Corpuscular HGB Conc 33.7 g/dL (31.5-36.5); Mean Corpuscular Volume 90 fL (80-100); Mean Platelet Volume 11.1 fL (9.1-12.4); NEUTROPHILS ABSOLUTE AUTO 3.64 K/mm3 (1.96-9.15); NEUTROPHILS PERCENT AUTO 60 % (41-73); Platelet Count 94 K/mm3 (150-400); RDW Coefficient Variation 12.1 % (11.7-14.2); RDW Standard Deviation 39.4 fL (35.1-46.3); Red Blood Cell Count 4.28 M/mm3 (3.80-5.20); White Blood Cell Count 6.07 K/mm3 (4.00-11.30)
[2019-07-08 03:36] LABS: Anion Gap 3 mmol/L (6-16); Blood Urea Nitrogen 18 mg/dL (8-24); Bun/Creatinine Ratio 22.7 (12.0-20.0); CO2, Blood 31 mmol/L (21-32); Calcium, Blood 8.6 mg/dL (8.5-10.1); Chloride, Blood 106 mmol/L (98-108); Creatinine, Blood 0.79 mg/dL (0.40-1.00); Glomerular Filtration Rate >60 (60-); Glucose, Blood 228 mg/dL (70-99); Potassium, Blood 4.5 mmol/L (3.5-5.5); Sodium, Blood 140 mmol/L (136-145)
--- NOTE | 2019-07-08 03:48 | NUR ---
SHIFT SUMMARY PATIENT HAS SLEPT WELL THROUGH THE NIGHT. PAIN HAS BEEN WELL CONTROLLED WITH AVAILABLE PRNs. PT. WAS STARTED ON SEROQUIL PER HER REQUEST, STATES HER PCP STARTED HER ON THIS ABOUT 4 MONTHS AGO. IN BEGINING OF SHIFT WAS ASKING TO LEAVE A.M.A. TO GO SMOKE A CIGARETTE AND GO HOME. EDUCATED HER ON SEVERITY OF CONDITION, LIKELYHOOD OF HER EXPERIENCING WORSENING CHEST PAIN AND COMING BACK TO THE HOSPITAL. WAS VERY UPSET SEROQUIL WAS NOT IMMEDIATELY AVAILABLE, ATTEMPTED TO EDUCATE THAT WE HAD NO RECORD OF IT, WAS NOT ON HOME MED REC., NOR ON ANY PAPER DOCUMENTATION, UNABLE TO CONTACT PCP @ 21:00 AT NIGHT, ASKED TO LEAVE, INFORMED SHE MAY NOT MAKE IT HOME BEFORE SHE STARTS EXPERIENCING CHEST PAIN, DECIDED IT WOULD BE BETTER TO STAY. VSS. WILL CONTINUE TO MONITOR.
--- NOTE | 2019-07-08 18:24 | NUR ---
SUMMARY Assumed care of pt at 0700. Bedside report received from Chetan WISE. Pt on room air. Atrial fibrillation per monitor, with rate in 120s. Initially, cardizem drip was off. Dr Dwyer in to see pt this AM. Discussed HR. Provider stated to start caredizem drip at 5 mg/hr and stated plan for IV digoxin and PO cardizem. This RN placed call to Dr Dwyer to notify provider that pt's HR has not improved. Provider stated cardizem may be titrated up to 15 mg/hr. At this time, pt's HR is atrial flutter, averaging between 105-115. Dr Dwyer aware. No new orders at this time. Pt has been independent in room, tolerating activity well. Will continue to closely monitor until care handoff and bedside report with oncoming RN.
--- NOTE | 2019-07-09 06:51 | NUR ---
PT ALERT , FOLLOWS COMMANDS, AND CAN AMBULATE TO TOILET. PT IN ATRIAL FLUTTER ON CARDIZEM AT 15MG/HR. PATIENT COMPLAINS OF WHOLE BODY PAIN WITH RANDOM FLAIR UP. SEPTIC TECHNICIAN AGAPITO CALLED FOR FREQUENCY CHANGE OF DILAUDID AND OXY. DILAUDID SWITCHED TO Q4 BUT CHANGED THE TIME TO BE GIVEN. SHE
--- NOTE | 2019-07-09 07:29 | NUR ---
BEDSIDE REPORT WITH FRANDY SAM. PATIENT INITIALLY DOZING WITH HR 85-94, BUT AWAKENED AND ASKED FOR PAIN MED FOR 8/10 PAIN. CECY DISCUSSED WHEN LAST DOSE WAS GIVEN. CARDIZEM GTT TITRATED TO 5 MG/HR.
--- NOTE | 2019-07-09 07:31 | NUR ---
DR. BLAIR CALLED FOR AN UPDATE BECAUSE OF PLAN TO DISCHARGE TODAY.
--- NOTE | 2019-07-09 08:30 | NUR ---
AM MEDS GIVEN WITH DILAUDID 0.5 MG IV AND OXYCODONE. BATH REFUSED. WANTS TO NAP UNTIL SHE CAN GO OUT TO SMOKE. CARDIZEM GTT OFF. UP TO TOILET. DECLINED TO GET INTO CHAIR FOR BREAKFAST.HR 88-107
--- NOTE | 2019-07-09 09:07 | NUR ---
PATIENT SLEEPING HR 90-104 WITH CARDIZEM GTT OFF. A FLUTTER.
--- NOTE | 2019-07-09 10:04 | NUR ---
PATIENT WANTED TO GO OUT TO SMOKE. CONTACTED DR. BLAIR. STATUS CHANGED TO MED. LEFT HAND PIV REMOVED BY ALANNA
--- NOTE | 2019-07-09 10:05 | NUR ---
MD VISIT DR. BLAIR IN WHILE PATIENT OUT SMOKING
--- NOTE | 2019-07-09 10:13 | NUR ---
PATIENT RETURNED FROM OUTSIDE. ASKED DR. BLAIR FOR PAIN SHOT BEFORE SHE GOES HOME. ADVISED THAT WOULD BE AT NOON. HR 126. AT THIS TIME. WANTS TO SLEEP UNTIL NOON WHEN SHE CAN HAVE MORE IV DILAUDID.
[2019-07-09] MEDS ORDERED: METO50 PO (11:39)
[2019-07-09] MEDS ORDERED: DILT30 PO (11:40)
[2019-07-09] MEDS ORDERED: DILT120ERA PO (12:14)
--- NOTE | 2019-07-09 12:28 | NUR ---
RX FAXED TO [facility] AND CALL TO CORRECT DOSAGE CHANGE. DISCHARGE INSTRUCTIONS GIVEN AND ACKNOWLEDGED. LRARY PUGH REMOVED WNL. INSTURCTIONS TO REMOVE DRESSING IN 1 HOUR. PATIENT WILL WAIT FOR RIDE IN FRONT OF HOSPITAL SO SHE CAN SMOKE. PAIN 09/16 NOW
== END 2019-07-09 12:30 | disposition home or self-care (01) | DRG 310 ==
LOC: ER 15:03 → PCU 15:04 → ICUE 20:27
PROVIDERS: Emergency Medicine; Internal Medicine; Nurse Practitioner Acute Care; ADMIT Internal Medicine
DX: I48.0 Paroxysmal atrial fibrillation (principal); J44.9 Chronic obstructive pulmonary disease, unspecified; G89.29 Other chronic pain; E11.65 Type 2 diabetes mellitus with hyperglycemia; I10 Essential (primary) hypertension; E11.22 Type 2 diabetes mellitus with diabetic chronic kidney disease; E11.40 Type 2 diabetes mellitus with diabetic neuropathy, unspecified; E83.42 Hypomagnesemia; F41.9 Anxiety disorder, unspecified; F43.10 Post-traumatic stress disorder, unspecified; F17.210 Nicotine dependence, cigarettes, uncomplicated; Z88.6 Allergy status to analgesic agent; Z88.1 Allergy status to other antibiotic agents; Z88.2 Allergy status to sulfonamides; Z88.8 Allergy status to other drugs, medicaments and biological substances; Z79.4 Long term (current) use of insulin; Z79.51 Long term (current) use of inhaled steroids; Z79.899 Other long term (current) drug therapy
CPT/HCPCS: 36415; 71046; 71260; 80048; 80053; 82947; 83735; 83880; 84443; 84484; 85025; 85027; 85379; 93005; 93010; 93306; 96365; 96366; 96375; 96376; 99285-25; A9270; A9270-GY; C1751; C9113; J1160; J1170; J2060; J2405; J2550; J3475; Q9967

== ENCOUNTER 2019-07-25 14:58 | Inpatient (IN) | payer OTHER ==
[~2019-07-25] VITALS: Ht 160 cm; Wt 84.1 kg
[~2019-07-25 14:58] MED LIST changes: +Buspirone HCl15 MG PO; +CLONAZEPAM1 MG PO; +Cardizem Cd180 MG PO; +DILT120ERA PO; +DILT30 PO; +LOSARTAN POTASS50 MG PO; +METOPROLOL TART25 MG PO; +Neurontin400 MG PO; +QUET300 PO; +Trazodone HCl300 MG PO
[2019-07-25 16:27] LABS: Alanine Aminotransfer (ALT/SGP 44 U/L (12-78); Albumin, Blood 3.7 g/dL (3.4-5.0); Albumin/Globulin Ratio 0.8 (0.8-1.8); Alk Phos 146 U/L (50-136); Anion Gap 6 mmol/L (6-16); Aspartate Aminotrans (AST/SGOT 42 U/L (12-37); Bilirubin, Total 0.7 mg/dL (0.1-1.0); Blood Urea Nitrogen 25 mg/dL (8-24); Bun/Creatinine Ratio 36.1 (12.0-20.0); CO2, Blood 26 mmol/L (21-32); Calcium, Blood 9.7 mg/dL (8.5-10.1); Chloride, Blood 103 mmol/L (98-108); Creatinine, Blood 0.69 mg/dL (0.40-1.00); Globulin, Blood 4.4 g/dL (2.2-4.0); Glomerular Filtration Rate >60 (60-); Glucose, Blood 186 mg/dL (70-99); Potassium, Blood 4.4 mmol/L (3.5-5.5); Sodium, Blood 135 mmol/L (136-145); Total Protein, Blood 8.1 g/dL (6.4-8.2); Troponin I <0.015 ng/mL (0.000-0.040)
[2019-07-25 16:27] LABS: BASOPHILS ABSOLUTE AUTO 0.01 K/mm3 (0.00-0.23); BASOPHILS PERCENT AUTO 0 % (0-2); EOSINOPHILS PERCENT AUTO 0 % (0-6); Hematocrit 47.3 % (33.0-51.0); Hemoglobin 16.1 g/dL (11.5-16.0); IMMATURE GRAN ABSOLUTE AUTO 0.06 K/mm3 (0.00-0.10); IMMATURE GRAN PERCENT AUTO 1 % (0-1); LYMPHOCYTES ABSOLUTE AUTO 2.77 K/mm3 (0.84-5.20); LYMPHOCYTES PERCENT AUTO 30 % (21-46); MONOCYTES ABSOLUTE AUTO 0.65 K/mm3 (0.16-1.47); MONOCYTES PERCENT AUTO 7 % (4-13); Mean Corpuscular HGB 29.7 pg (26.0-34.0); Mean Corpuscular Volume 87 fL (80-100); Mean Platelet Volume 11.9 fL (9.1-12.4); NEUTROPHILS ABSOLUTE AUTO 5.83 K/mm3 (1.96-9.15); NEUTROPHILS PERCENT AUTO 63 % (41-73); Platelet Count 166 K/mm3 (150-400); RDW Coefficient Variation 12.4 % (11.7-14.2); RDW Standard Deviation 39.3 fL (35.1-46.3); Red Blood Cell Count 5.42 M/mm3 (3.80-5.20); White Blood Cell Count 9.32 K/mm3 (4.00-11.30)
--- NOTE | 2019-07-25 22:54 | NUR ---
PCU ADMIT PT BROUGHT TO PCU RM 08 FROM ER BY SARINA @ APPROX 2130. PT A&O X4, ABLE TO STAND AND TRANSFER TO PCU BED W/ SBA. BP & HR ELEVATED, OTHERWISE VSS. MONITOR SHOWS AFLUTTER, HR 130's. PT BROUGHT TO FLOOR W/ CARDIZEM GTT INFUSING @ 5 MLS/HR. LUNG SOUNDS CLEAR, SPO2 > 92% ON RA. PT REPORTS WAKING UP THIS AM W/ R ARM & R LEG WEAKNESS THAT PT REPORTS IS "KIND OF IMPROVED" THIS EVENING. R HAND COVER CUTTER MACHINE SLIGHTLY WEAKER THAN L. PT ALSO REPORTS TINGLING TO RLE. PT AWAITING TO BE SEEN BY ADMITTING HOSPITALIST. WILL CONTINUE TO MONITOR & AWAIT FURTHER ORDERS.
--- NOTE | 2019-07-26 00:25 | NUR ---
PT GONE TO SMOKE PT ASKING TO GO OUT AND SMOKE, ADVISED PT AGAINST BUT PT CONTINUES TO REQUEST TO GO OUT. CARDIZEM GTT @ 10 MLS/HR PLACED ON STANDBY PRIOR TO PT INDEPENDENTLY GOING OUTSIDE IN WHEELCHAIR @ 0020.
[2019-07-26 00:51] LABS: Hematocrit 50.9 % (33.0-51.0); Hemoglobin 17.5 g/dL (11.5-16.0); Mean Corpuscular HGB 29.9 pg (26.0-34.0); Mean Corpuscular HGB Conc 34.4 g/dL (31.5-36.5); Mean Corpuscular Volume 87 fL (80-100); Platelet Count 230 K/mm3 (150-400); RDW Coefficient Variation 12.3 % (11.7-14.2); RDW Standard Deviation 38.8 fL (35.1-46.3); Red Blood Cell Count 5.85 M/mm3 (3.80-5.20); White Blood Cell Count 13.04 K/mm3 (4.00-11.30)
[2019-07-26 01:14] LABS: Alanine Aminotransfer (ALT/SGP 78 U/L (12-78); Albumin, Blood 3.9 g/dL (3.4-5.0); Albumin/Globulin Ratio 0.8 (0.8-1.8); Alk Phos 204 U/L (50-136); Anion Gap 8 mmol/L (6-16); Aspartate Aminotrans (AST/SGOT 146 U/L (12-37); Bilirubin, Total 1.1 mg/dL (0.1-1.0); Blood Urea Nitrogen 27 mg/dL (8-24); Bun/Creatinine Ratio 29.8 (12.0-20.0); CO2, Blood 27 mmol/L (21-32); Calcium, Blood 9.8 mg/dL (8.5-10.1); Chloride, Blood 104 mmol/L (98-108); Creatinine, Blood 0.91 mg/dL (0.40-1.00); Globulin, Blood 4.6 g/dL (2.2-4.0); Glomerular Filtration Rate >60 (60-); Glucose, Blood 195 mg/dL (70-99); Sodium, Blood 139 mmol/L (136-145); Total Protein, Blood 8.5 g/dL (6.4-8.2)
--- NOTE | 2019-07-26 04:59 | NUR ---
SHIFT SUMMARY PT A&O X4. PT REPORTS R ARM & R LEG WEAKNESS WELL R LEG TINGLING. PT R HAND RUSSIAN LANGUAGE INSTRUCTOR WEAKER THAN L. PT REPORTS NOT BEING ABLE TO LIFT R LEG UP HIGH L. THIS AM PT STATING "MY R SIDE IS STILL PARAYLZED" THOUGH PT MOVING R ARM & R LEG, SIGNING CONSENT FORMS W/ R HAND, AND AMBULATING FAIRLY WELL. MRI SCREENING FORM FILLED OUT W/ PT AND FAXED TO IMAGING, PT TO HAVE MRI OF HEAD THIS AM PER ORDERS. MONITOR SHOWS AFLUTTER, HR 110's-130's. IV DIG & PO METOPROLOL GIVEN PER ORDERS. CARDIZEM GTT INFUSING @ 5 MLS/HR & NOT HIGHER TO ACCOMODATE BP THAT HAS BEEN TRENDING DOWN THIS SHIFT W/ MEDICATIONS. SPO2 > 92% ON RA. PT GONE OUT TO SMOKE X1 THIS SHIFT, SEE PREVIOUS NOTE. PT C/O HEADACHE, MEDICATED PER EMAR X1 THIS SHIFT W/ REPORT OF RELIEF FROM PT BUT C/O QUICK RETURN OF HEADACHE. OTHER PAIN MANAGEMENT APPROACHES OFFERED BUT REFUSED BY PT. PT NOW SLEEPING IN RM. WILL CONTINUE TO MONITOR AND PROVIDE CARE UNTIL REPORT OFF TO DAY SHIFT RN.
--- NOTE | 2019-07-26 07:37 | NUR ---
PT TO IMAGING FOR MRI
[2019-07-26 09:29] LABS: Source, Urine Clean Catch
[2019-07-26 09:36] LABS: Blood, Urine 2+ (Neg); Glucose Qualitative, Urine 2+ (Neg); Ketones, Urine 2+ (Neg); Leukocyte Esterase, Urine 1+ (Neg); Nitrite, Urine Neg (Neg); Protein, Urine 2+ (Neg); Specific Gravity, Urine 1.025 (1.003-1.022); Urobilinogen, Urine 1+ (Normal)
[2019-07-26 09:54] LABS: Bilirubin, Urine 1+ (Neg)
[2019-07-26 09:57] LABS: Appearance, Urine Hazy (Clear); Color, Urine Yellow (P-Yellow)
[2019-07-26 10:01] LABS: Bacteria Many /hpf; Squamous Epithelial Cells Many /hpf (Few)
--- NOTE | 2019-07-26 12:42 | NUR ---
ALEJANDRO RODRIGUEZ D/C THIS AM PER MD, PO DOSE GIVEN. PT REFUSED SMOKING CESSATION INFORMATION AND STATES SHE IS NOT READY TO QUIT. PT HAS LEFT THE FLOOR TO GO OUTSIDE MULTIPLE TIMES. SHE HAS BEEN EDUCATED ABOUT RISKS AND CURRENT HEALTH STATUS. PT IS INDEPENDENT IN THE ROOM AND STABLE ON HER FEET AT THIS TIME. SHE DENIES ANY RIGHT SIDED WEAKNESS, STATES IT HAS IMPROVED, GRASPS ARE EQUAL, PT IS USING BOTH SIDES APPROPRIATLEY AT THIS TIME. CALL LIGHT IN REACH, WCTM AND REINFORCE EDUCATION.
--- NOTE | 2019-07-26 13:03 | NUR ---
Patient is sitting on EOB and alert. RN in room finishing up. Patient tells me about her medical issues, about her living arrangements and about her belief system. I have to redirect patient every few minutes away from her desire to go outside and smoke a cigarette, but she fully engages once she is back on topic. We talk about her fears, anxiety and frustrations as well as what is good, of aden and solid. I listen empathically, conduct a life review, reinforce helpful attitudes and practices and provide spiritual guidance and prayer. Patient responds well and shows signs of reduced stress. Patient asks to lie back in bed and rests her eyes. Patient thanks me and blesses me for visiting. I will continue to remain available to patient and family.
--- NOTE | 2019-07-26 19:30 | NUR ---
NOTED DOWN THE BALL PT IS GOING OUT TO SMOKE APPARENTLY. GAIT SEEMED FAIRLY STEADY. REMINDED WHEN BACK TO TELL STAFF WHEN SHE IS GOING OUT SO STAFF CAN MONITOE AND NOTE WHY OFF TELE. A FLUTTER NOTED WHEN BACK IS 134- 145.
--- NOTE | 2019-07-26 20:09 | NUR ---
SHIFT SUMMARY PT HAS BEEN UP IN THE HALLS WALKING AND OUTSIDE TO SMOKE MULTIPLE TIMES TODAY, SHE HAS ALSO BEEN EATING SWEETS AND OTHER THINGS HER FAMILY HAS BROUGHT TO HER INSTEAD OF HER MEAL TRAY. OT CONTINUES TO C/O AN EXTREME HEADACHE THIS AFTERNON AND IS REQUESTS PAIN MEDICATION. SHE HAS BEEN EDUCATED AND STRONGLY ENC TO COMPLY WITH TREATMENT THRUOGH THE DAY BUT HAS REFUSED STATING THAT SHE IS "NOT READY TO STOP SMOKING" THIS AFTERNOON THE PT STARTED TO CRY AND STATED THAT SHE DID NOT FEEL WELL, SHE WAS ENC & EDUCATED AGAIN AT THIS TIME ABOUT HER NON COMPLIANCE THROUGH THE DAY AND HOW IT IS EFFECTING HER, HER VITALS WERE STABLE AT THIS TIME, SHE AGREED TO EXCEPT A NICOTINE PATCH, REST IN BED AND COMPL WITH CARE AT THIS TIME. HOSP WAS CALLED, NOCOTINE PATCH WAS ORDERED. PAIN/ANXIETY MEDS WERE GIVEN PER EMAR. PT IS RESTING IN BED, CALL LIGHT IN REACH, REPORT GIVEN TO MERI RN.
--- NOTE | 2019-07-26 21:00 | NUR ---
KEELY AND CONSTANT REQUEST THAT A MD BE CALLED DUE TO FEELING TERRIBLE AND CAN SHE HAVE MORE KLONIPIN. REVIEWED ALL MEDS W/ PT AND ALL MEDS ARE ORDERED PER HOME USE. AND MD WILL NOT BE CALL FOR NON SPECIFIC ISSUES HER DELGADO AND BODY ACHES . CRYING ON PHONE W/ SOMEONE AND STATED " JUST BRING ME SOME, NO ONE WILL KNOW EXCEPT YOU AND I , THESE PEOPLE HERE ARE TERRIBLE AND I HATE THE DR THAT I HAVE. THEY NEVER DO ANYTHING FOR ME AND I HAVE TO KEEP COMING BACK IN FOR TH SAME THING. I CANT LIVE LIKE THIS ANYMORE." ENC TO TALK ABOUT HER CONCERNS AND EDUCATED ON SAFETY AND MEDS GIVEN. ULTRAM TO BE GIVEN FOR ALL PAIN ISSUES AND REPORTED PAIN 8.
--- NOTE | 2019-07-27 03:15 | NUR ---
SUMMARY PRIOR TO REPORT TO BONNIE RN AND TX TO ICU. ALL MEDS GIVEN AT 2200. REFUSED NICOTINE PATCH AND STATED ULTRAM WILL DO NOTHING. VERY UPSET AT STAFF. CONSTANTLY ASKING FOR FOOD AND GIVEN. REQ ICE CREAM AND INFORMED NOT DIET. OFF TO SLEEP BY ABOUT 2300 . AROUSED BY 0030 AND BP 77/45..REVIEWED ORIENTATION AND CLEAR ACCURATE STATEMENTS AND ANS QUESTIONS. VERY LETHARGIC AND DOES NOT OPEN EYES TO TALK. ASSISTED TO DANGLE AND 2 PERSON ASSIST TO STAND AND TAKE A FEW STEPS. GAIT WEAK IN AND FALLS OFF TO SLEEP W/ CONSTANT AWAKENING STIMULATION. BP NOT IMPROVING. PLACED CALL TO DR BLAIR AND CALLING BACK BY 0130. FLUID BOLUS FOR REPORTED BP AND MAP 45-55./ IV SITE PAINFUL,DCD AND ULTRA SOUND TO LOCATE NEW IV. LETHARGIC AND CONVERSIVE AND BP IMPROVES ONCE. BY 0240 1000ML HAD BEEN GIVEN TOTAL. AND ORDER TO TX TO ICU BY [address] BLAIR. TX VIA BED. AROUSABLE. AND ORIENTED TO SELF AND PLACE.
--- NOTE | 2019-07-27 03:20 | NUR ---
TRANSFER PT TRANSFERED TO ICU 04 FROM PCU. ARRIVED VIA BED. TRANSFERED TO ICU BED BY STAFF WITH SLIDER SHEET. PT AWAKE BUT SLOW TO RESPOND. STATES,"I WANT SOME PAIN MEDS". EXPLAINED THAT UNTIL HER BP WAS STABLE WE COULD NOT GIVE HER ANYTHING. PT EXPRESSED UNDERSTANDING. LUNGS CLEAR BUT DECREASED IN THE BASES ON ROOMAIR. RESP EVEN AND SHALLOW. HEART RATE A FLUTTER IN THE 60'S. BP 64/[address] CALL OUT TO DR BLAIR. BT+ ABD SOFT AND NONTENDER. ATTENDS APPLIED. IV 20G TO LEFT AC SALINE LOCKED. PT ABLE TO FOLLOW INSTRUCTIONS, HELPING WITH ROLLING AND TURNING.
--- NOTE | 2019-07-27 03:51 | NUR ---
CALL TO MD CALL TO DR BLAIR REGARDING HYPOTENSION. RECEIVED ORDER FOR 500 ML NS BOLUS AND TO START LOW DOSE LEVOPHED IF CONT HYPOTENSION.
--- NOTE | 2019-07-27 04:35 | NUR ---
HYPOTENSION POWER GLIDE PLACED TO RIGHT UPPER ARM, SALINE LOCKED. NS BOLUS 500 ML COMPLETE. BP CONT LOW. LEVOPHED STARTED AT 5 MCQ/MIN VIA 20G TO LEFT AC.
--- NOTE | 2019-07-27 05:05 | NUR ---
HYPOTENSION BP 89/54 MAP 64 HEART RATE 60. PT SLEEPING, AWAKENS TO VERBAL STIMULI. STATES,"I HAVE A HEADACHE AND MY NECK HURTS". EXPLAINED ABOUT HYPOTENSION. PT BACK TO SLEEP QUICKLY. SLEEP APNEA NOTED. SPO2 99% ON ROOMAIR DOWN TO 87% THAN RIGHT BACK UP TO 99%. RESP RATE 12.
--- NOTE | 2019-07-27 05:19 | NUR ---
O2 PT PLACED ON 2 LITER O2 VIA NC DUE TO SLEEP APNEA AND SPO2 DOWN TO 87%. BP 94/52 MAP 63 HEART RATE 60 A FLUTTER. RESP RATE 13
--- NOTE | 2019-07-27 05:55 | NUR ---
MD VISIT DR BLAIR CAME UP TO SEE PT. PT VERY SLEEPY. ORDER FOR NARCAN 0.2 MG IV MAY REPEAT TIMES ONE OBTAINED. BP 92/61 MAP 71 HEART RATE 60 ON LEVOPHED AT 7 MCQ/MIN.
--- NOTE | 2019-07-27 06:07 | NUR ---
NARCAN PT SLEEPING, MED WITH NARCAN 0.2MG IV.
--- NOTE | 2019-07-27 06:27 | NUR ---
SHIFT SUMMARY PT TRANSFERED FROM PCU TO ICU DURING THE NIGHT DUE TO HYPOTENSION AND DECREASED LOC. PT SLEEPING, WILL AWAKEN TO VERBAL STIMULI AND ASKS FOR PAIN MEDS THAN RIGHT BACK TO SLEEP. POWER GLIDE PLACED FOR SECOND IV. NS 500ML BOLUS GIVEN THAN LOW DOSE LEVPOHED STARTED. LEVOPHED CURRENTLY AT 7 MCQ/MIN PER DR BLAIR. PT MED WITH NARCAN 0.2 MG IV WITH NO CHANGE. BP CURRENTLY UP TO 105/60 MAP 78 HEART RATE 60. PT PLACED ON 2 LITERS O2 VIA NC DUE TO SLEEP APNEA NOTED. REPORT TO ON COMING NURSE
--- NOTE | 2019-07-27 07:53 | NUR ---
ASSUMED CARE: REPORT RECEIVED FROM BONNIE Langley RN. ASSUMED CARE OF THIS PT AT APPROX 0700. ON ASSESSMENT, THE PT IS RESTING QUEITLY. SHE AWAKENS EASILY TO VERBAL STIMULUS, STS HAVING PAIN & THEN QUICKLY RESUMES SLEEPING. LS ARE DIM IN BASES, 2L NC IN PLACE FOR PT's BRIEF APNEIC PERIODS & DESATS TO 87% WHILE SLEEPING, PER REPORT. MONITOR SHOWS AFLUTTER W/ HR 60s, HYPOTENSION PERSISTS W/ LEVOPHED INFUSING, TITRATION IN FLOWSHEET. WILL CONTINUE TO MONITOR & UPDATE NEEDED.
--- NOTE | 2019-07-27 08:19 | NUR ---
DR MORENO / UPDATE: PROVIDER AT BEDSIDE TO EVAL PT. STS GOAL TO TITRATE LEVOPHED OFF TODAY, OKAY TO KEEP MAP > 60. IF LEVOPHED STOPPED & PT TOLERATING WELL THIS AFTERNOON, MAY BE MED FLOOR STATUS W/ TELE. WILL CONTINUE TO MONITOR & UPDATE NEEDED.
--- NOTE | 2019-07-27 12:21 | NUR ---
TC TO DR. MORENO PER REQUEST OF ISAIAS OCHOA RN ASKING WHICH MEDICATION HE WANTS GIVEN FOR PT'S HR AND IF PT CAN HAVE ANYTHING FOR PAIN. DR. MORENO SAID TO GIVE PO CARDIZEM WELL ONE DOSE OF IV METOPROLOL. FOR PAIN HE ORDERED TYLENOL AND ONE DOSE OF TRAMADOL IF PT'S BP REMAINS STABLE AFTER RECEIVING THE MEDICATIONS FOR HER HR. SEE EMAR. ISAIAS OCHOA RN INFORMED OF ORDERS.
--- NOTE | 2019-07-27 18:38 | NUR ---
SHIFT SUMMARY: NO ACUTE CHANGES SINCE PRIOR UPDATES. PT IS ANXIOUS TO TX OUT TO PCU. LS ARE CLEAR T/O, PT ON RA W/ O2 SATS > 92%. MONITOR SHOWS AFLUTTER W/ HR 110-120s, BP STABLE. NO GI COMPLAINTS, PT HAS HEALTHY APPETITE. VOIDING W/O DIFFICULTY. WILL CONTINUE TO MONITOR UNTIL TIME OF TX TO PCU.
--- NOTE | 2019-07-28 02:27 | NUR ---
ASSUMED CARE AT 1999 WHEN STAFF FROM ICU WALKED PT TO ROOM AND PT INFORMED THIS NURSE SHE WILL BE GOING OUT TO SMOKE. RARELY SEEN FOR NEXT 2 HR . IN AND OUT OF BUILDING W/ FAMILY. NOTED WHEN TELE FADING IN AND OUT A FLUTTER AVERAGING 120 RATE.WNEN IN HOUSE AND ABLE TO GIVE PO MEDS, CAUTIOUS WHEN GIVING ANTI HTN, SO NOT TO REPEAT LAST NOC SEVERE HYPOTENTION. ALWAYS REPORTS DELGADO AND AWARE PAIN MEDS VERY LIMITED. ACCEPTS EXPLAINATIION IN NOT CALLING MD AND ASKING FOR NEW PAIN MED COVERAGE. HS SNACKS OCCCASIONALY. NO FURTHER SMOKING AFTER ABOUT 2330. DOZING OFF TO SLEEP FOR A FEW HOURS. NOTED HR WOULD AVERAGE 110-120 WHEN ASLEEP ALSO
--- NOTE | 2019-07-28 06:00 | NUR ---
SHIFT SUMMARY. SLEPT LONG INTERVALS LAST NOC. AWAKE PERIODICALLY TO HAVE SNACKS . POSSIBLY SNEAKING FOOD FROM HOME, IN BAGS IN ROOM.DID NOT GO OUT TO SMOKE SINCE ABOUT 2300 LAST NOC.BP UP THIS AM AFTER HOLDING SOME ANTI HTN AT HS. AWAKE OR ASLEEP A FLUTTER 87=298'S. ALL NOC. RELIEF FROM DELGADO REPORTED WHEN OFF TO SLEEP
--- NOTE | 2019-07-28 08:00 | NUR ---
pt laying in bed awake a/ox3, cooperative with care, follows commands, her behavior is a bit impulsive, as soon as one task is finished, she covers up and turns over, had to ask her a number of times to turn back as we arent finished, asking for pain and anxiety meds, goes out to smoke frequently, lungs are clear t/o, dim in bases, resp even and unlabored, no cough noted, hrr, tele in place running aflutter in the 120's, did have a episode of dropping her b/p and going to icu for pressers, want to ask Dr. Martell about b/p meds prior to giving, no edema noted, ppp+1, cap refill <3sec, vs stable, afebrile, iv lien are clear and patent, has a power glide, patent, btx4, abd flat soft nontender, voids without diff, skin c/w/d, maew, fannie, call light in reach, left room immed after leaving rooom.
--- NOTE | 2019-07-28 19:10 | NUR ---
PT HAS HIGH ANXIETY, IS ASKING FOR MEDS EVERY TIME NURSE IN ROOM, GOES OUT TO SMOKE FREQ, HEART RATE UP TO 130'S, DR. GEE, CALL LIGHT IN REACH.
--- NOTE | 2019-07-28 19:11 | NUR ---
CARDIOLOGY SAW PT TODAY, HE WILL DO A RICHA AND CARDIOVERSION TOMORROW AM, WILL KEEP HER NPO AFTER MIDNIGHT, SHE UNDERSTANDS THAT SHE IS HAVING THIS PROCEDURE. SHE IS WILLING TO USE A NICOTINE PATCH TONIGHT, NO FURTHER CHANGES THIS SHIFT, CALL LIGHT IN REACH.
--- NOTE | 2019-07-29 04:11 | NUR ---
SHIFT SUMMARY: PATIENT NPO SINCE 0000, SLEEPING WELL, HR STAYED BELOW 100 ALL SHIFT. PATIENT EDUCATED ON THE NECESSITY TO REFRAIN FROM SMOKING WITH THE NICOTINE PATCH ON, COMPLIANT AT THIS TIME. VSS, CALL LIGHT WITHIN REACH, BED LOW AND LOCKED.
[2019-07-29 04:36] LABS: Bun/Creatinine Ratio 31.2 (12.0-20.0); Calcium, Blood 9.3 mg/dL (8.5-10.1); Creatinine, Blood 1.12 mg/dL (0.40-1.00); Potassium, Blood 4.3 mmol/L (3.5-5.5)
--- NOTE | 2019-07-29 09:18 | NUR ---
Spoke with Azar from heart center; pt is in transfer from heart center back to [facility]. Azar RN states that the post cardioversion EKG was done already.
--- NOTE | 2019-07-29 09:36 | NUR ---
PT RETURNED TO ROOM FROM FOREIGN EXCHANGE POSITION CLERK, VERY SLEEPY BUT WHEN WE GOT HER AWAKE VANNESA IS DEMANDING TO GO OUT SIDE TO SMOKE, AND EAT AND DRINK. B/P GOOD, RATE IN THE 50S. CHARGE NURSE NOTIFIED OF HER DEMANDING TO GO SMOKE AND WILL SPEAK WITH HER. CALL LIGHT IN REACH, FOOD AND DRINK PROVIDED.
--- NOTE | 2019-07-29 09:49 | NUR ---
The pt is upset, crying and insisting that she be able to go outside and smoke. She has just returned from a cardioversion with anesthesia in the heart center. Per Dr. Chacko, the pt's heart rhythm is juctional at this time, and her blood pressure has also been very low in the procedure. Per Dr. Chacko, and Dr. Pate, if the pt insists on going outside to smoke she would be leaving against medical advice and as such would be discharging AMA. She requires continuous telemetry cardiac monitoring without interruption and ongoing monitoring of her condition and vital signs, at least until this evening. The pt is stating that her rights are being taken away from her. The nursing airflight attendants supervisor Linda Lainez as well as clinical coordinator Alie Duque have both spoken to the pt at length in order to explain her heart rhythm, and the reason for the ongoing monitoring. Explained also that her rights are not being taken away, that she is free to make the choice to leave the hospital, or to stay and continue treatment and monitoring for her safety and health. However, she insists that because we are not allowing her to go outside and smoke as well as returning to her room, that we are "taking away her rights". She is presently lying on the bed, talking on the phone with someone. She stated a few times that she will be leaving, but she does not want to sign anything AMA. AT this time she is stating that she will stay because the person whom she spoke with on the phone does not want her to leave AMA.
--- NOTE | 2019-07-29 10:03 | NUR ---
AMA DISCUSSION ALERTER BY LA NENA WISE THAT PATIENT WAS S/P CARDIOVERSION TODAY. PER DR. GENAO, IF PATIENT WANTED TO GO OUTSIDE TO SMOKE, SHE WOULD HAVE TO LEAVE AMA. PT STANDING IN THE HALLWAY, UPSET. NURSING FINANCIAL AID ADMINISTRATOR MARISELA PRESENT WELL. PER LA NENA, DR. MORENO HAD BEEN TO SEE PATINET & PATIENT WAS IN AN ACCELERATED IDIOVENTRICULAR AT 73/MIN RHYTHM POST CARDIOVERSION. DISCUSSED CONCERNS WITH PATIENT, SHE IS UPSET ABOUT PHYSICIANS NOT ALLOWING HER TO MAKE "POOR DECISIONS." ALSO REVIEWED ECG WITH PATIENT, EDUCATED ON WHAT A NORMAL RHYTHM LOOKS LIKE COMPARED TO WHAT HERS LOOKS LIKE, CONCERNS ABOUT BEING ABLE TO MONITOR HER HEART WHILE OUTSIDE SMOKING, AND ASKED THE PATIENT IF SHE COULD WAIT. SHE REFUSED, SAID SHE WOULD LEAVE AMA BUT "WILL NOT SIGN ANYTHING." UPDATED LA NENA WISE ON PT'S PLANS, SHE WILL GO IN AND DISCONTINUE IV AND TELE.
--- NOTE | 2019-07-29 11:15 | NUR ---
PT ELECTED TO STAY, SHE IS IN BED WITH BLANKET PULLED OVER HER HEAD. CALL LIGHT IN REACH.
--- NOTE | 2019-07-29 12:50 | NUR ---
PT UP IN ROOM ATE LUNCH IN THE CHAIR, STATES SHE DOESN'T FEEL GOOD, WEAK, ASKED HER NOT TO GET UP BY HERSELF, SHE STATES HER BED WAS WET, REINFORCED TO CALL FOR HELP IF SHE IS FEELING WEAK. SHE STATES SHE IS TRYING TO COOPERATE BUT IS VERY HARD, SHE IS A SMOKER. STATES SHE WANTS EVERY MEDICATION SHE CAN HAVE, OFFERED HER A LEONARD, SHE IS OK WITH THAT. STATES SHE IS GOING TO TAKE A NAP. Kaleigh DURON, CALL LIGHT IN REACH.
[2019-07-29 14:29] LABS: U Amphetamine Screen Not Detected; U Barbituate Screen Not Detected; U Benzodiazapine Screen DETECTED; U Buprenorphine Screen Not Detected; U Cannabinoids Screen Not Detected; U Cocaine Screen Not Detected; U Methadone Screen Not Detected; U Methamphetamine Screen Not Detected; U Opiates Screen Not Detected; U Oxycodone Screen DETECTED; U Phencyclidine Screen Not Detected; U Propoxyphene Screen Not Detected
--- NOTE | 2019-07-29 17:43 | NUR ---
The pt has left the unit without alerting staff, quietly, and leaving in a manner so as not to be seen as she is leaving. At this time she is apologetic, states that she is sorry and she won't do it again. I explained to her that without the cardiac monitoring, she risks having a cardiac event which is unobservable and unknown to the staff on PCU who are responsible for her care and safety. Explained that the cardiac rehabilitation specialist ceases to transmit information once she leaves the unit. She states that at this time she wants to make better choices. Verbalized understanding of the risks which she runs when she leaves the unit.
--- NOTE | 2019-07-29 18:37 | NUR ---
PT HAS LEFT HER ROOM TO GO SMOKE SEVERAL TIMES, CHARGE NURSE SPOKE TO HER ABOUT IT, SHE STATES SHE WANTS TO MAKE BETTER CHOICES, BUT WILL NOT DO IT. EVERY TIME THIS NURSE ENTERS HER ROOM SHE IS HAMMERING ME FOR MORE MEDS, AND TO CALL THE FOR MORE DOSES, WHEN I EXPLAINED THAT I WILL NOT GIVE HER KLONOPIN AND TRAMADAL AT THE SAME TIME SHE STARTED IN ON CLONIDINE, EXPLAINED THE GEOTECHNICIAL PROPERTIES TECHNICIAN CHANGED THAT TO NEEDED TO MAINTAIN B/P, HER B/P IS GOOD AT THIS TIME, SO CONTINUES TO ASK FOR ANYTHING ELSE SHE CAN GET. CALL LIGHT IN REACH.
--- NOTE | 2019-07-29 20:03 | NUR ---
1939 PT WAS FOUND ON FLOOR IN BATHROOM (UNWITNESSED FALL) AFTER POUNDING ON DOOR); PT WAS LAYING ON LEFT SIDE AND WAS ABLE TO SIT UP X 2 ASSIST AFTER 30 SECONDS; NO DIAPRESIS NOTED; ALERT AND ORIENTED, ABLE TO FOLLOW ALL SIMPLE VERBAL COMMANDS; PT WAS ASSISTED TO FEET X 2 ASSIST AND AMBULATED BACK BED; VITAL SIGNS WERE STABLE; BED ALARM APPLIED; THIS NURSE PLACED BSC AT BED; THIS NURSE REVIEWED WITH PATIENT THAT SHE NOT ALLOWED TO GO OUTSIDE TO SMOKE PER MD ORDERS OR AN AMA WILL BE ISSUED WITH ACKNOWLEDGEMENT NOTED; THIS NURSE ALSO WROTE ON WHITE BOARD THE TIMES WHEN SHE CAN NEXT HAVE ANY PAIN/NAUSEA/ANXIETY MEDS WITH ACKNOWLEDGEMENT NOTED; PT BED ALARM APPLIED. CHARGE NURSE--JOVANA AWARE OF ALL THE ABOVE. 1999 DR THAO--HOSPITALIST TOOTH INSPECTOR NOTIFIED OF THE ABOVE.
[2019-07-30 04:39] LABS: Anion Gap 8 mmol/L (6-16); Blood Urea Nitrogen 28 mg/dL (8-24); Bun/Creatinine Ratio 33.8 (12.0-20.0); CO2, Blood 29 mmol/L (21-32); Calcium, Blood 8.6 mg/dL (8.5-10.1); Chloride, Blood 104 mmol/L (98-108); Creatinine, Blood 0.83 mg/dL (0.40-1.00); Glomerular Filtration Rate >60 (60-); Glucose, Blood 213 mg/dL (70-99); Magnesium, Blood 1.4 mg/dL (1.6-2.4); Potassium, Blood 4.1 mmol/L (3.5-5.5); Sodium, Blood 141 mmol/L (136-145)
--- NOTE | 2019-07-30 05:21 | NUR ---
SHIFT SUMMARY: 58 Y/O FEMALE HAD RESTLESS NIGHT AT TIMES; PT AT START OF SHIFT WAS FOUND LAYING ON BATHROOM FLOOR WITH NO APPARENT INJURIES (ABLE STAND AND AMBULATE TO BED X 2 ASSIST); DR THAO AND JOVANA, LUNCH WAGON OPERATOR NURSE NOTIFIED; THIS NURSE WROTE ON WHITE BOARD THE FOLLOWING MEDS AND TIMES WHEN PATIENT WAS DUE ANY PRN MEDS (PATIENT TENDED TO ASK FREQUENTLY PRIOR TO THIS BEING DONE): TRAMADOL/ROXICODONE/ZOFRAN/KLONOPIN/TYLENOL WITH PATIENT FEELING MUCH BETTER KNOWING AT LEAST WHEN SHE IS ABLE TO HAVE THE MEDICATION NEXT; PT DID NOT GO OUTSIDE TO SMOKE ENTIRE SHIFT (WEARING SMOKING PATCH TO RIGHT SHOULDER); PT UTILIZED BSC ALL SHIFT AFTER FALL WITH BED ALARM APPLIED, BED LOW POSITION AND CALL LIGHT AT SIDE.
--- NOTE | 2019-07-30 07:30 | NUR ---
THIS RN TO ROOM PT EXPRESSED THAT HER KLONIPIN DOSE ORDERED QD IS "BULLSHIT" PT IS EDUCATED THAT THIS CONCERN OF HER DOSING SHOULD BE DISCUSSED WITH DR MORENO DURING HIS ROUNDING THIS AM, PT BEGINS TO ELEVATE VOICE WITH THIS RN STATING IT NEEDS CHANGED IMMEDIATELY, PT IS AGAIN REMINDED THAT THIS SHOULD BE DISCUSSED WITH DR MORENO THAT THIS RN WILL REPORT HER CONCERNS TO HIM.
--- NOTE | 2019-07-30 10:25 | NUR ---
HAVE ATTEMPTED TO ASSESS PT THIS AM PT HAS NOT BEEN IN ROOM
--- NOTE | 2019-07-30 10:58 | NUR ---
DR WISDOM AND THIS RN TO ROOM TO SEE PT FPR PENDING D/C, PT IMMEDIATELY LEFT BUILDING AFTER SEEING CARDIOLOGY, PT IS NOTDETECTED ON PICKLING DRUM OPERATOR AT THIS TIME
[2019-07-30] MEDS ORDERED: METO50 PO (11:59)
[2019-07-30] MEDS ORDERED: NICO21TP TOP (12:00)
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
--- NOTE | 2019-07-30 13:41 | NUR ---
RAX FOR CLONADINE AND SEROQUEL CALLED INTO [facility] PT BEING D/C. PT EXPRESSED UNDERSTANDING OF DC TEACHING, EXPRESSED UNDERSTANDING OF MEDICATION CHANGES. ALL BELONGINGS ARE OUT WITH PT
== END 2019-07-30 13:40 | disposition home or self-care (01) | DRG 310 ==
LOC: ER 14:58 → PCU 15:00 → ER 20:38 → PCU 20:38 → ER 21:26 → PCU 21:28 → ICUE 07-27 03:01 → PCU 07-27 19:50
PROVIDERS: Hospitalist; Internal Medicine Interventional Cardiology; Physician Assistant; ADMIT Internal Medicine
PROC: 5A2204Z Restoration of Cardiac Rhythm, Single (ICD-10-PCS; principal; 2019-07-29)
PROC: B246ZZ4 Ultrasonography of Right and Left Heart, Transesophageal (ICD-10-PCS; 2019-07-29)
DX: I48.91 Unspecified atrial fibrillation (principal); M79.7 Fibromyalgia; I48.92 Unspecified atrial flutter; J44.9 Chronic obstructive pulmonary disease, unspecified; E11.40 Type 2 diabetes mellitus with diabetic neuropathy, unspecified; F17.210 Nicotine dependence, cigarettes, uncomplicated; G43.909 Migraine, unspecified, not intractable, without status migrainosus; Z79.4 Long term (current) use of insulin; F41.9 Anxiety disorder, unspecified; I95.9 Hypotension, unspecified; G89.29 Other chronic pain; E66.01 Morbid (severe) obesity due to excess calories; Z68.32 Body mass index [BMI] 32.0-32.9, adult; F43.10 Post-traumatic stress disorder, unspecified; F31.9 Bipolar disorder, unspecified
CPT/HCPCS: 36415; 70450; 70551; 71046; 76376; 80048; 80053; 81001; 82947; 83735; 83880; 84484; 85025; 85027; 87086; 93005; 93010; 93312; 93325; 96365; 96375; 96376; 97162; 97164; 97165; 99285-25; A9270; A9270-GY; C1751; G0378; J1160; J1956; J2060; J2250; J2310; J2370; J2405; J2704; J3475; J7030; J7060

== ENCOUNTER 2019-08-21 15:10 | Inpatient (IN) | payer OTHER ==
[~2019-08-21] VITALS: Ht 175.3 cm; Wt 83.9 kg
[~2019-08-21 15:10] MED LIST changes: +NICO21TP TOP
[2019-08-21 18:39] LABS: BASOPHILS ABSOLUTE AUTO 0.01 K/mm3 (0.00-0.23); BASOPHILS PERCENT AUTO 0 % (0-2); EOSINOPHILS PERCENT AUTO 0 % (0-6); Hematocrit 43.7 % (33.0-51.0); Hemoglobin 15.4 g/dL (11.5-16.0); IMMATURE GRAN ABSOLUTE AUTO 0.04 K/mm3 (0.00-0.10); IMMATURE GRAN PERCENT AUTO 1 % (0-1); LYMPHOCYTES ABSOLUTE AUTO 1.09 K/mm3 (0.84-5.20); LYMPHOCYTES PERCENT AUTO 13 % (21-46); MONOCYTES ABSOLUTE AUTO 0.29 K/mm3 (0.16-1.47); MONOCYTES PERCENT AUTO 3 % (4-13); Mean Corpuscular HGB 30.6 pg (26.0-34.0); Mean Corpuscular HGB Conc 35.2 g/dL (31.5-36.5); Mean Corpuscular Volume 87 fL (80-100); NEUTROPHILS ABSOLUTE AUTO 7.08 K/mm3 (1.96-9.15); NEUTROPHILS PERCENT AUTO 83 % (41-73); RDW Standard Deviation 40.1 fL (35.1-46.3); Red Blood Cell Count 5.03 M/mm3 (3.80-5.20); White Blood Cell Count 8.51 K/mm3 (4.00-11.30)
[2019-08-21 18:55] LABS: Platelet Count 74 K/mm3 (150-400)
[2019-08-21 18:58] LABS: Source, Urine Catheter
[2019-08-21 18:58] LABS: Alanine Aminotransfer (ALT/SGP 27 U/L (12-78); Albumin, Blood 3.9 g/dL (3.4-5.0); Albumin/Globulin Ratio 0.9 (0.8-1.8); Alk Phos 150 U/L (50-136); Anion Gap 3 mmol/L (6-16); Aspartate Aminotrans (AST/SGOT 27 U/L (12-37); Blood Urea Nitrogen 11 mg/dL (8-24); Bun/Creatinine Ratio 16.8 (12.0-20.0); CO2, Blood 28 mmol/L (21-32); Calcium, Blood 9.7 mg/dL (8.5-10.1); Chloride, Blood 108 mmol/L (98-108); Creatinine, Blood 0.66 mg/dL (0.40-1.00); Globulin, Blood 4.4 g/dL (2.2-4.0); Glomerular Filtration Rate >60 (60-); Glucose, Blood 284 mg/dL (70-99); Potassium, Blood 3.5 mmol/L (3.5-5.5); Sodium, Blood 139 mmol/L (136-145); Total Protein, Blood 8.3 g/dL (6.4-8.2); Troponin I 0.017 ng/mL (0.000-0.040)
[2019-08-21 19:01] LABS: Appearance, Urine Clear (Clear); Bilirubin, Urine Neg (Neg); Blood, Urine 5+ (Neg); Color, Urine Amber (P-Yellow); Glucose Qualitative, Urine 4+ (Neg); Ketones, Urine 3+ (Neg); Leukocyte Esterase, Urine Neg (Neg); Nitrite, Urine Neg (Neg); Protein, Urine 2+ (Neg); Specific Gravity, Urine 1.025 (1.003-1.022); Urobilinogen, Urine NORM (Normal)
[2019-08-21 19:02] LABS: Influenza A Negative (NEGATIVE); Influenza B Negative (NEGATIVE)
[2019-08-21 19:03] LABS: Dilantin (Phenytoin), Total <0.4 ug/mL (10.0-20.0)
[2019-08-21 19:08] LABS: Amorphous Mod (0-Heavy); Bacteria Mod /hpf; Calcium Oxalate Crystals Few /hpf; Mucus Mod (0-Heavy); Squamous Epithelial Cells Few /hpf (Few); White Blood Cells, Urine 0-2 /hpf (0-5)
[2019-08-21 19:11] LABS: U Amphetamine Screen Not Detected; U Barbituate Screen Not Detected; U Benzodiazapine Screen DETECTED; U Buprenorphine Screen Not Detected; U Cannabinoids Screen Not Detected; U Cocaine Screen Not Detected; U Methadone Screen Not Detected; U Methamphetamine Screen Not Detected; U Opiates Screen Not Detected; U Oxycodone Screen Not Detected; U Phencyclidine Screen Not Detected; U Propoxyphene Screen Not Detected
[2019-08-21] MEDS ORDERED: AZIT250 PO (19:20)
[2019-08-21] MEDS ORDERED: Cartia Xt180 MG PO (19:23)
--- NOTE | 2019-08-22 02:51 | NUR ---
CALL TO PT ARRIVED FROM ER @ 0020, DILANTIN INFUSION STARTED @ 0033; AT 0103 PT BEGAN SEIZING, BY 0126 PT HAD 6 SEIZURES (5 WITNESS BY THIS RN, 1 REPORTED BY PT WHILE RN OUT OF ROOM) ATIVAN WAS ADMIN @ 0115, PT CONTINUED TO SEIZE. CALLED DR THAO- RAFAELA ORDERS REC & ENTERED, KEPPRA ADMIN, PT CONTINUED TO SEIZE, ATIVAN ADMIN AGAIN @ 0222 SEIZURES STOPPED AND PT WENT TO SLEEP. PT HAVING N&V SINCE ASSUMING CARE, PHENERGAN ADMIN @ 0204 & ZOFRAN @ 0243, IT IS 0304, PT CONTINUES TO HAVE N&V AND HAS REPORTED 2 MORE SEIZURES WHICH ARE NOW LESS FREQUENT.
--- NOTE | 2019-08-22 04:52 | NUR ---
SHIFT SUMMARY PT WAS ER ADMIT THIS SHIFT, HAS BEEN SEIZING PREVIOUSLY NOTED SINCE 102, REPORTED TO RECREATION WORKER, JILL & DR THAO, PT CONTINUES TO HAVE N&V W/NO RELIEF FROM ANTIMETICS, CONTINUES TO C/O L HEEL PAIN- REQUESTS PAIN MEDS AND KLONIPIN @ EVERY ENCOUNTER W/PT (PROB +30X T/O SHIFT), PT BEDRESTING AT THIS TIME, CALL LIGHT IN REACH, ALARM IN PLACE, WILL CONT TO MONITOR UNTIL REPORT GIVEN TO DAY RN.
[2019-08-22 06:23] LABS: BASOPHILS ABSOLUTE AUTO 0.02 K/mm3 (0.00-0.23); BASOPHILS PERCENT AUTO 0 % (0-2); EOSINOPHILS PERCENT AUTO 0 % (0-6); Hematocrit 41.8 % (33.0-51.0); Hemoglobin 14.4 g/dL (11.5-16.0); IMMATURE GRAN ABSOLUTE AUTO 0.11 K/mm3 (0.00-0.10); IMMATURE GRAN PERCENT AUTO 1 % (0-1); LYMPHOCYTES ABSOLUTE AUTO 1.55 K/mm3 (0.84-5.20); LYMPHOCYTES PERCENT AUTO 11 % (21-46); MONOCYTES ABSOLUTE AUTO 0.84 K/mm3 (0.16-1.47); MONOCYTES PERCENT AUTO 6 % (4-13); Mean Corpuscular HGB 30.2 pg (26.0-34.0); Mean Corpuscular HGB Conc 34.4 g/dL (31.5-36.5); Mean Corpuscular Volume 88 fL (80-100); Mean Platelet Volume 11.2 fL (9.1-12.4); NEUTROPHILS ABSOLUTE AUTO 11.48 K/mm3 (1.96-9.15); NEUTROPHILS PERCENT AUTO 82 % (41-73); Platelet Count 121 K/mm3 (150-400); RDW Coefficient Variation 13.3 % (11.7-14.2); RDW Standard Deviation 41.9 fL (35.1-46.3); Red Blood Cell Count 4.77 M/mm3 (3.80-5.20)
[2019-08-22 06:46] LABS: Anion Gap 11 mmol/L (6-16); Blood Urea Nitrogen 11 mg/dL (8-24); Bun/Creatinine Ratio 17.2 (12.0-20.0); CO2, Blood 27 mmol/L (21-32); Calcium, Blood 9.2 mg/dL (8.5-10.1); Chloride, Blood 109 mmol/L (98-108); Creatinine, Blood 0.64 mg/dL (0.40-1.00); Glomerular Filtration Rate >60 (60-); Glucose, Blood 289 mg/dL (70-99); Potassium, Blood 3.3 mmol/L (3.5-5.5); Sodium, Blood 147 mmol/L (136-145)
--- NOTE | 2019-08-22 09:03 | NUR ---
PT HAS BEEN LAYING IN BED RESTLESS SINCE CHANGE OF SHIFT. SHE IS ALERT BUT ONLY ORIENTED TO HERSELF. PER REPORT PT HAS BEEN HAVING SEIZURES AND VOMITING SINCE APPROX [address] DIAZ WAS CALLED TO NOTIFY OF THIS AND GAVE ORDERS TO MAKE PT NPO AND HOLD ALL PO MEDS. HE ALSO GAVE ORDERS FOR IN HOUSE TRANSFER. CHARGE NURSE WAS NOTIFIED AND STATED TO TRANSFER PT TO ICU 9. REPORT WAS CALLED TO RECEIVING RN. ALL PERSONAL BELONGINGS SENT WITH PT. PT TRANSFERRED TO ICU 9.
--- NOTE | 2019-08-22 09:31 | NUR ---
ASSUMED CARE PT. ARRIVES FROM MEDICAL FLOOR, ANSWERING SOME QUESTIONS. PT CONTINUALLY ASKING FOR PAIN MEDICATION, REPORTS THAT HER FOOT IS "8/10" PAIN.PT. ALSO STATES "I DONT FEEL GOOD", AND RESTLESS IN BED. PT. REPORT NAUSEA UPON ARRIVAL, EMESIS BAG IN HAND. MED WITH ZOFRAN PER DR. MANZANO. PT. EYES ROLLING IN HEAD, HAVING DIFFICULTY FOCUSING. SEIZURE PADS IN PLACE ON BED FOR SAFETY. MED WITH 2MG ATIVAN PER DR. MANZANO. PT. HAS SINGLE IV TO RIJ, ATTEMPTED PERIPHERAL ACCESS, PT RESTLESS IN BED, ASKING TO SLEEP AND REFUSING TO HAVE PERIPHERAL IV ACCESS PLACED. NS INFUING AT 75ML/HR. PT. POLK. PT. HAS PASCUAL IN PLACE DRAINING TO GRAVITY. HTN NOTED, PT MED PER DR. MANZANO. AWAITING HUMALOG PEN FROM PHARMACY TO COVER BG.
--- NOTE | 2019-08-22 11:58 | NUR ---
PT CALLING OUT FREQUENTLY PT STATING "ARE MY MEDS DUE YET, I NEED PAIN MEDS YOU ARE GOING TO MAKE ME DOPE SICK", CALL TO DR. DIAZ TO RESTART PO MEDICATIONS. PER DR. DIAZ TYLENOL AND SOME HOME MEDICATIONS REORDERED. PT. ROLLS EYES WHEN UPDATED, THEN "SAYS THEN LET ME SLEEP", ROLLS OVER AND COVERS HEAD WITH BLANKET.
--- NOTE | 2019-08-22 15:45 | NUR ---
DR. DIAZ AT BEDSIDE TALKED WITH PT REGARDING PAIN MEDICATION PER DR. DIAZ NO NARCOTICS UNTIL MENTAL STATUS CLEARS. PT. EDUCATED ON REASONS BY DR. DIAZ. PT. REMAINS HYPERTENSIVE, ONE TIME DOSE OF HYDRALAZINE TO BE ORDERED. NADN. REMAINS ON RA, REPOSITIONS SELF IN BED, NO FURTHER "SEIZURE LIKE" ACTIVITY NOTED.
--- NOTE | 2019-08-22 17:30 | NUR ---
SHIFT SUMMARY PT. RESTING QUIELTY IN BED, SLEEPING T/O MOST OF THE DAY. WHEN AWAKE PT YELLS OUT FOR NURSE REQUESTING PAIN MEDICINE OVER AND OVER. FREQUENT REMINDERS NEEDED. PT. GIVEN HYDRALAZINE ONCE FOR HTN. NO ADDITIONAL "SEIZURE LIKE" ACTIVITY THIS SHIFT. PT. DOWNGRADED TO MEDICAL FLOOR NO TELE, AWAITING BED PLACEMENT. VSS. REPORT TO ONCOMING RN.
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
--- NOTE | 2019-08-23 00:14 | NUR ---
PATIENT SLEEPING SOUNDLY UPON ENTERING ROOM. PATIENT AFEBRILE. PATIENT IN SB TO SR, HR HIGH 50S TO 80S. SBP IN THE 90S. PATIENT NOT COMPLAINING ABOUT PAIN OR NAUSEA AT THIS TIME. NO OTHER ACUTE CHANGES TO NOTE ON AT THIS TIME. WILL CONTINUE TO MONITOR.
[2019-08-23 04:14] LABS: BASOPHILS ABSOLUTE AUTO 0.01 K/mm3 (0.00-0.23); BASOPHILS PERCENT AUTO 0 % (0-2); EOSINOPHILS ABSOLUTE AUTO 0.01 K/mm3 (0.00-0.68); EOSINOPHILS PERCENT AUTO 0 % (0-6); Hemoglobin 14.5 g/dL (11.5-16.0); IMMATURE GRAN ABSOLUTE AUTO 0.05 K/mm3 (0.00-0.10); IMMATURE GRAN PERCENT AUTO 0 % (0-1); LYMPHOCYTES ABSOLUTE AUTO 3.66 K/mm3 (0.84-5.20); LYMPHOCYTES PERCENT AUTO 33 % (21-46); MONOCYTES ABSOLUTE AUTO 0.81 K/mm3 (0.16-1.47); MONOCYTES PERCENT AUTO 7 % (4-13); Mean Corpuscular HGB 30.3 pg (26.0-34.0); Mean Corpuscular HGB Conc 33.7 g/dL (31.5-36.5); Mean Corpuscular Volume 90 fL (80-100); Mean Platelet Volume 12.4 fL (9.1-12.4); NEUTROPHILS ABSOLUTE AUTO 6.61 K/mm3 (1.96-9.15); NEUTROPHILS PERCENT AUTO 59 % (41-73); Platelet Count 83 K/mm3 (150-400); RDW Coefficient Variation 13.8 % (11.7-14.2); RDW Standard Deviation 44.8 fL (35.1-46.3); Red Blood Cell Count 4.79 M/mm3 (3.80-5.20); White Blood Cell Count 11.15 K/mm3 (4.00-11.30)
--- NOTE | 2019-08-23 04:25 | NUR ---
PATIENT SLEEPING SOUNDLY UPON ENTERING ROOM. NO COMPLAINTS AT THIS TIME. AFEBRILE. HR IN THE 60S. BP STABLE. NO ACUTE CHANGES TO NOTE ON. WILL CONTINUE TO MONITOR.
[2019-08-23 04:31] LABS: Anion Gap 3 mmol/L (6-16); Blood Urea Nitrogen 13 mg/dL (8-24); Bun/Creatinine Ratio 18.6 (12.0-20.0); CO2, Blood 31 mmol/L (21-32); Chloride, Blood 115 mmol/L (98-108); Glomerular Filtration Rate >60 (60-); Glucose, Blood 92 mg/dL (70-99); Sodium, Blood 149 mmol/L (136-145)
--- NOTE | 2019-08-23 06:38 | NUR ---
SHIFT SUMMARY PATIENT REMAINED MOSTLY ALERT AND ORIENTED. PATIENT SLEPT MOST OF THE SHIFT. PATIENT REMAINED WAKING EASILY TO VERBAL STIMULI. EYES ROLLING AROUND AND UNABLE TO FOCUS AT BEGINNING OF SHIFT. EYES NOT ROLLING AROUND THIS AM. PATIENT CONTINUED TO ASK FOR PAIN MEDS DURING THE SHIFT AND STATE THAT THE DOCTOR IS CRUEL FOR DISCONTINUING HER HOME OXY. PATIENT REFUSED PRN TYLENOL FOR HER COMPLAINTS OF L FOOT, STOMACH AND HEAD PAIN ALL SHIFT UNTIL THIS AM. PATIENT HAD TMAX OF 99.0 DEGREES FAHRENHEIT. PATIENT REMAINS SATTING 90% AND GREATER ON RA. PATIENT REMAINED IN SB TO SR WITH OCCASIONAL PACS. QT PROLONGED LATER IN SHIFT. HR 50S TO 80S. SBP 90S TO 190S. PATIENT GIVEN PRN ZOFRAN OT FOR COMPLAINT OF NAUSEA. NO BM THIS SHIFT. PASCUAL DRAINED DARK MYLA/ CLOUDY URINE. PASCUAL DC'D THIS AM. NO CHANGE TO SKIN. PATIENT REPOSITIONED SELF IN BED. D5 1/2 NS INFUSING AT 100 MLS/ HOUR. PATIENT RECIEVED 40 PO KCL FOR POTASSIUM OF 3.3 THIS AM. PATIENT SLEEPING WITH NO COMPLAINTS AT THIS TIME. BED LOW, CALL LIGHT IN REACH. WILL BE GIVING REPORT TO ONCOMING DAY SHIFT NURSE SHORTLY.
--- NOTE | 2019-08-23 08:30 | NUR ---
SHIFT ASSESSMENT PT IS RESTING QUIETLY AT THIS TIME. SHE WOKE TO VERY STIMULI AND GENTLY SHAKING. RIGHT AWAY PT WAS REQUESTING TO HAVE HER CLONIDINE TAB THIS AM. THIS RN EXPLAINED THAT SHE WILL BE GOING HOME TODAY AND SHE REQUESTED TO HAVE IT GIVEN THIS AM. DR DIAZ IN TO SEE PT WELL AT THIS TIME. HE IS GOING TO BE DISCHARGING PT HOME THIS AM. PT IS UPSET WITH HIM AT THIS TIME R/T HIM STATING SHE IS NOT TAKING HER MEDS AT HOME THEY ARE PRESCRIPED. PT'S VITALS ARE STABLE THIS AM. SHE HAD A BOUT WITH LOOSE STOOL IN HER BED. SHE WAS ABLE TO MAKE IT TO THE BEDSIDE COMMODE WITH SOME SHAKING. PT HAS IV TO HER RIGHT IJ THAT IS PATENT. NO RESPIRATORY DISTRESS NOTED AT THIS TIME. WILL CON'T TO MONITOR PT T/O REMAINDER OF SHIFT.
[2019-08-23] MEDS ORDERED: GABA300 PO (09:12)
--- NOTE | 2019-08-23 10:00 | NUR ---
UPDATE PT HAS BEEN FAIRLY RESTFUL THIS AM AFTER SHE WAS GIVEN HER MORNING MEDS. SHE REFUSED TO EAT ANY BREAKFAST STATING THERE IS NOT GOOD FOOD IN THIS HOSPITAL. DISCHARGE INSTRUCTIONS WERE REVIEWED WITH PT FROM CARE MANAGEMENT RN. MORTGAGE ORIGINATOR AND OTHER ICU NURSE WERE IN ROOM AND PT HAD A FALL AGAINST THE WALL WHILE TRYING TO GET TO TOILET R/T. SHE IS STILL HAVING LOOSE STOOL AND WAS HURRING TO GET TO THE TOILET. PT DOES NOT HAVE ANUY INJURIES AND HAS NO COMPLAINTS OF PAIN. VITALS WERE TAKING AND PT IS STABLE. SHE CON'T TO STATE SHE IS GOING TO WALK OUT THAT SHE IS LEAVING NOW. CAB SERVICE IS BEING CALLED BUT SHE STATES SHE IS NOT WAITING. MORTGAGE ORIGINATOR IN ROOM WITH HER AT THIS TIME.
--- NOTE | 2019-08-23 10:45 | NUR ---
DISCHARGE PT WAS DEMANDING TO GO OUT SIDE AND SMOKE. SHE STATED TO DOMINGUEZ MONDRAGON THAT SHE WAS GOING TO LEAVE NOW AND SHE CALLED HERSELF A CAB. CALLED CHARGE NURSE TO INFORM HER OF PT'S CONDITION AND DECISION TO LEAVE. IV TO RIGHT EJ WAS REMOVED BY THIS RN. CATH TIP INTACT. DRESSING IN PLACE WITH PRESSURE HELD FOR 1 MIN. PT WAS TAKING OUT IN WHEEL CHAIR BY THIS RN AND STEAM BLOCKER. SHE STATES SHE IS GOING TO WALK OUTSIDE TO SMOKE. THIS RN CHANGED PT TO A DIFFERENT WHEEL CHAIR AND A VOLUNTEER OFFERED TO TAKE HER OUTISE TO SMOKE. YURY EDUCATED PT REGARDING HER RISK OF FALLING WITHOUT HELP. DISCHARGE INSTRUCTIONS ARE IN HER HOME BAG WELL ATTENDS.
== END 2019-08-23 10:45 | disposition home or self-care (01) | DRG 101 ==
LOC: ER 15:10 → ERHOLD 15:11 → MEDS 15:11 → ICUW 08-22 08:14
PROVIDERS: Hospitalist; Physician Assistant; ADMIT Internal Medicine
DX: R56.9 Unspecified convulsions (principal); I69.351 Hemiplegia and hemiparesis following cerebral infarction affecting right dominant side; I10 Essential (primary) hypertension; I48.91 Unspecified atrial fibrillation; Z79.01 Long term (current) use of anticoagulants; G89.29 Other chronic pain; E11.42 Type 2 diabetes mellitus with diabetic polyneuropathy; F31.9 Bipolar disorder, unspecified
CPT/HCPCS: 36415; 51702; 70450; 73630; 74018; 80048; 80053; 80185; 81001; 82947; 83605; 83690; 84146; 84484; 85025; 87086; 87804; 93005; 93010; 96361; 96374; 96375; 96376; 99285-25; A9270; A9270-GY; G0378; J0360; J1165; J1953; J2060; J2405; J2550; J2765; J3010; J7030; J7042

== ENCOUNTER 2019-11-01 08:33 | Inpatient (IN) | payer OTHER ==
[~2019-11-01] VITALS: Ht 160 cm; Wt 78.9 kg
[~2019-11-01 08:33] MED LIST changes: +Cartia Xt180 MG PO
[2019-11-01 09:59] LABS: BASOPHILS ABSOLUTE AUTO 0.01 K/mm3 (0.00-0.23); BASOPHILS PERCENT AUTO 0 % (0-2); EOSINOPHILS PERCENT AUTO 0 % (0-6); Hematocrit 47.2 % (33.0-51.0); Hemoglobin 16.3 g/dL (11.5-16.0); IMMATURE GRAN ABSOLUTE AUTO 0.02 K/mm3 (0.00-0.10); IMMATURE GRAN PERCENT AUTO 0 % (0-1); LYMPHOCYTES ABSOLUTE AUTO 1.72 K/mm3 (0.84-5.20); LYMPHOCYTES PERCENT AUTO 21 % (21-46); MONOCYTES PERCENT AUTO 6 % (4-13); Mean Corpuscular HGB 30.5 pg (26.0-34.0); Mean Corpuscular HGB Conc 34.5 g/dL (31.5-36.5); Mean Corpuscular Volume 88 fL (80-100); Mean Platelet Volume 12.7 fL (9.1-12.4); NEUTROPHILS ABSOLUTE AUTO 5.79 K/mm3 (1.96-9.15); NEUTROPHILS PERCENT AUTO 72 % (41-73); Platelet Count 130 K/mm3 (150-400); RDW Coefficient Variation 11.9 % (11.7-14.2); RDW Standard Deviation 37.8 fL (35.1-46.3); Red Blood Cell Count 5.35 M/mm3 (3.80-5.20); White Blood Cell Count 8.04 K/mm3 (4.00-11.30)
[2019-11-01 10:12] LABS: International Normalized Ratio 1.03
[2019-11-01 10:20] LABS: Alanine Aminotransfer (ALT/SGP 39 U/L (12-78); Albumin, Blood 3.8 g/dL (3.4-5.0); Albumin/Globulin Ratio 0.9 (0.8-1.8); Alk Phos 126 U/L (50-136); Anion Gap 11 mmol/L (6-16); Aspartate Aminotrans (AST/SGOT 40 U/L (12-37); Blood Urea Nitrogen 15 mg/dL (8-24); Bun/Creatinine Ratio 20.7 (12.0-20.0); CO2, Blood 23 mmol/L (21-32); Calcium, Blood 9.2 mg/dL (8.5-10.1); Chloride, Blood 104 mmol/L (98-108); Creatinine, Blood 0.72 mg/dL (0.40-1.00); Globulin, Blood 4.1 g/dL (2.2-4.0); Glomerular Filtration Rate >60 (60-); Glucose, Blood 324 mg/dL (70-99); Potassium, Blood 3.8 mmol/L (3.5-5.5); Sodium, Blood 138 mmol/L (136-145); Total Protein, Blood 7.9 g/dL (6.4-8.2); Troponin I <0.015 ng/mL (0.000-0.040)
[2019-11-01 12:24] LABS: U Amphetamine Screen Not Detected; U Barbituate Screen Not Detected; U Benzodiazapine Screen Not Detected; U Buprenorphine Screen Not Detected; U Cannabinoids Screen Not Detected; U Cocaine Screen Not Detected; U Methadone Screen Not Detected; U Methamphetamine Screen Not Detected; U Opiates Screen Not Detected; U Oxycodone Screen DETECTED; U Phencyclidine Screen Not Detected; U Propoxyphene Screen Not Detected
[2019-11-01 16:44] LABS: Source, Urine Clean Catch
[2019-11-01 16:46] LABS: Bilirubin, Urine Neg (Neg); Blood, Urine 3+ (Neg); Glucose Qualitative, Urine 4+ (Neg); Ketones, Urine 3+ (Neg); Leukocyte Esterase, Urine Neg (Neg); Nitrite, Urine Neg (Neg); Protein, Urine 2+ (Neg); Urobilinogen, Urine 1+ (Normal)
[2019-11-01 16:51] LABS: Appearance, Urine Clear (Clear); Color, Urine Yellow (P-Yellow)
[2019-11-01 16:53] LABS: Bacteria Mod /hpf; Squamous Epithelial Cells Few /hpf (Few)
[2019-11-02 05:15] LABS: BASOPHILS PERCENT AUTO 0 % (0-2); EOSINOPHILS PERCENT AUTO 0 % (0-6); Hematocrit 40.9 % (33.0-51.0); Hemoglobin 13.6 g/dL (11.5-16.0); IMMATURE GRAN ABSOLUTE AUTO 0.03 K/mm3 (0.00-0.10); IMMATURE GRAN PERCENT AUTO 0 % (0-1); LYMPHOCYTES ABSOLUTE AUTO 3.37 K/mm3 (0.84-5.20); LYMPHOCYTES PERCENT AUTO 42 % (21-46); MONOCYTES ABSOLUTE AUTO 0.82 K/mm3 (0.16-1.47); MONOCYTES PERCENT AUTO 10 % (4-13); Mean Corpuscular HGB Conc 33.3 g/dL (31.5-36.5); Mean Corpuscular Volume 90 fL (80-100); Mean Platelet Volume 12.3 fL (9.1-12.4); NEUTROPHILS ABSOLUTE AUTO 3.91 K/mm3 (1.96-9.15); NEUTROPHILS PERCENT AUTO 48 % (41-73); Platelet Count 143 K/mm3 (150-400); RDW Coefficient Variation 12.2 % (11.7-14.2); RDW Standard Deviation 40.1 fL (35.1-46.3); Red Blood Cell Count 4.54 M/mm3 (3.80-5.20); White Blood Cell Count 8.13 K/mm3 (4.00-11.30)
[2019-11-02 05:30] LABS: Albumin/Globulin Ratio 0.9 (0.8-1.8); Bilirubin, Total 0.7 mg/dL (0.1-1.0); Bun/Creatinine Ratio 13.1 (12.0-20.0); Calcium, Blood 8.3 mg/dL (8.5-10.1); Creatinine, Blood 1.3 mg/dL (0.40-1.00); Globulin, Blood 3.4 g/dL (2.2-4.0); Magnesium, Blood 1.6 mg/dL (1.6-2.4); Potassium, Blood 3.2 mmol/L (3.5-5.5); Total Protein, Blood 6.4 g/dL (6.4-8.2)
--- NOTE | 2019-11-02 06:17 | NUR ---
SHIFT SUMMARY PT SLEEPING IN ROOM COMFORTABLY AT THIS TIME. NO ACUTE CHANGES IN STATUS T.O NIGHT. PT SLEPT WELL. WOKE TWICE TO C/O PAIN IN ABD AND HEAD. PT WAS MEDICATED PER EMAR. RESP EVEN UNLABORED ON RA W/ SATS >92%. CARDIZEM GTT INFUSING AT 5ML/HR, IN NEW POWERGLIDE TO EDWIN. PT HR AVG 80'S REMAINS IN AFLUTTER. BP LOW THIS AM. PT REPORTS HUNGRY AND WANTS MORE FOOD. PT HAS HAD 5 JELLOS DURING NIGHT. REMAINS ON CLEAR LIQUID DIET. PT LETHARGIC IN ROOM, WAKES TO VERBAL. CALL LIGHT IN REACH.
--- NOTE | 2019-11-02 13:40 | NUR ---
UPDATE PT ALERT AND ORIENTED. VS STABLE. AFIB RATE 90-110'S AND TOUCHING UP TO THE 130'S, BUT NOT SUSTAINING. CARDIZEM GTT OFF THIS AM. ORAL METOPROLOL INCREASED THIS AM. PT COMPLAINS OF TENDERNESS TO ABD, BUT PT TOLERATING PO INTAKE. NO VOMITTING THIS SHIFT. PT ABLE TO AMBULATE TO BATHROOM WITH SBA. NS INFUSING PER ORDERS FOR LAST LITER. ORDERS FOR TRANSFER TO MEDICAL FLOOR. REPORT CALLED TO MEDICAL FLOOR RN. PT TO BE TAKEN UP BY ASHLEE.
--- NOTE | 2019-11-02 19:34 | NUR ---
SHIFT SUMMARY: PATIENT XFR FROM PCU-13 THIS SHIFT. PT A&O; COOPERATIVE WITH CARE; INDEPENDENT IN ROOM.MEDICATED FOR PAIN & ANXIETY PER EMAR. TELE IN PLACE; A-FIB IN 90S. ROOM AIR. REHYDRATION CONTINUING. REPORT GIVEN TO ONCOMING RN.
[2019-11-03 06:00] LABS: Alanine Aminotransfer (ALT/SGP 29 U/L (12-78); Albumin, Blood 2.6 g/dL (3.4-5.0); Albumin/Globulin Ratio 0.8 (0.8-1.8); Alk Phos 126 U/L (50-136); Anion Gap 3 mmol/L (6-16); Aspartate Aminotrans (AST/SGOT 23 U/L (12-37); Bilirubin, Total 0.5 mg/dL (0.1-1.0); Blood Urea Nitrogen 22 mg/dL (8-24); CO2, Blood 27 mmol/L (21-32); Calcium, Blood 8.2 mg/dL (8.5-10.1); Chloride, Blood 112 mmol/L (98-108); Creatinine, Blood 0.79 mg/dL (0.40-1.00); Globulin, Blood 3.2 g/dL (2.2-4.0); Glomerular Filtration Rate >60 (60-); Glucose, Blood 273 mg/dL (70-99); Potassium, Blood 4.3 mmol/L (3.5-5.5); Sodium, Blood 142 mmol/L (136-145); Total Protein, Blood 5.8 g/dL (6.4-8.2)
--- NOTE | 2019-11-03 07:22 | NUR ---
11/03/19 0600 PT REQUESTING PAIN AND ANXIETY MEDS THROUGHTOUT SHIFT. MEDICATED PER AUG. HEART MONITOR REMAINS AT ATRIAL FLUTTER RANGING FROM LOW 100'S TO 130'S. NON-COMPLIANT WITH DIET AND FREQUENTLY REQUESTS SNACKS, OLENA. ICE CREAM AND PUDDINGS. REMINDED HER OF DIABETIC DIET RESTRICTIONS AND BECOMES IRRITABLE WHEN TOLD. ALSO SHE IS CARELESS WITH IV TUBING WHEN GETTING UP. BED ALARM ON.
--- NOTE | 2019-11-03 10:45 | NUR ---
PATIENT ASKING TO LEAVE THE FLOOR FOR A WALK. IS ON TELEMETRY, A FLUTTER WITH RATE OF 128 PER TELE MONITOR. IS ALSO RECEIVING NARCOTIC PAIN MEDS AND ANXIOLYTICS PRN. EDUCATED PT ANOUT HER RISK FOR FALLS R/T THESE FACTORS AND SINCE SHE IS ON TELEMETRY SHE IS NOT TO LEAVE THE UNIT BUT CAN WALK AROUND THIS UNIT WITH SUPERVISION. SHE AGREED TO THIS. AMBULATED AROUND UNIT LOOP TWICE, GAIT STEADY. WILL CONTINUE TO MONITOR.
--- NOTE | 2019-11-03 15:15 | NUR ---
PATIENT TAKING A WALK BUT IS NOT OBSERVED BY THIS AUTHOR. ALANNA GERBER REPORTED THAT CHILD ADOLESCENT PSYCHIATRIST CALLED AND STATED PATIENT OFF MONITOR. SHORTLY AFTER, PT WAS OBSERVED WALKING ON TO THIS UNIT CARRYING A SMALL PAPER BAG FROM POSSIBLY THE [employer]. RE-EDUCATED PT THAT SHE IS NOT TO LEAVE THE UNIT D/T HIGH HR (124) AND MEDICATIONS THAT INCREASE HER RISK FOR FALLS. "I JUST WENT DOWN THERE FOR A MINUTE." REINFORCED EDUCATION AGAIN THAT PT IS NOT TO LEAVE THIS UNIT WHILE ON TELEMETRY AND SHE VERBALIZED UNDERSTANDING.
--- NOTE | 2019-11-03 19:39 | NUR ---
SHIFT SUMMARY: C/O 01/16 GENERALIZED BODY PAIN, NON SPECIFIC IN NATURE. REQUESTS PAIN MEDICATION OFTEN, ASKING "AM I DUE FOR ANYTHING?" PT NOT COMPLIANT WITH INSTRUCTIONS TO STAY ON THIS UNIT WHILE ON TELEMETRY, HAS BEEN TO THE [place] AND RETURNED WITH POTATO CHIPS AND STARBURST CANDY. HR DOWNTRENDING; AT LAST REPORT AT ~ 1800 RATE WAS 113. CHEST DISCOMFORT SEEMS TO BE RESOLVING IN RESPONSE. TOLERATING PO INTAKE, TREATED FOR NAUSEA X 1 THIS MORNING. ON ROOM AIR, O2 SAT > 95%. IS HOPING TO BE D/C'D HOME TOMORROW.
--- NOTE | 2019-11-03 20:44 | NUR ---
ASSUMED CARE. RADHA IS LAYING IN BED ASLEEP, WAKES UP WHEN NAME IS CALLED. FIRST THING SHE STATES IS "I DON'T FEEL GOOD, I NEED MY MEDS." INFORMED HER I HAD HER NIGHT MEDS. SHE SAID SHE NEEDS HER ATIVAN, AND REQUEST THAT I CALL HER DOCTOR FOR MORE PAIN MEDS, THAT SHE HAS A HEADACHE AND WHAT SHE IS TAKING IS NOT WORKING. SHE NEEDS SOMETHING STRONGER. I AM DOING MY ASSESSMENT SHE REPEATED SEVERAL TIMES THAT ASKING ME TO CHECK ON HER ATIVAN AND THAT I NEED TO CALL THE DOCTOR. TOLD HER I WILL CHECK HER CHART AFTER WHEN I GIVE HER MEDS AND WILL CALL THE DOCTOR WHEN I WAS DONE. ADMINISTERED HER MEDS, GAVE OXYCODONE FOR PAIN, SHE SAID IT DOES NOT WORK AFTER SHE TOOK IT, "CALL MY DOCTOR". INFORMED HER I WOULD HAVE TO TALK TO THE DOCTOR REGARDING ATIVAN ORDER IT APPEARS IT IS NOT CORRECT. LUNG SOUNDS WHEEZES THROUGHOUT. STATES PAIN IS ALSO ALL OVER. ASK FOR SNACKS, INFORMED SHE CAN ONLY HAVE ADA SNACKS, AND SNACKS ARE LIMITED THERE IS OTHER PATIENTS ON THE FLOOR. SHE SAID OK. CALL LIGHT IN REACH.
--- NOTE | 2019-11-03 21:21 | NUR ---
ALANNA INFORMED ME THAT RADHA IS EATING STARBURST, AND CRACKERS IN THE ROOM. SHE IS ASKING FOR PAIN MEDS, BUT WHEN I WALKED INTO THE SHE HAD HER EYES CLOSED AND WAS RESTING. SHE DID NOT EVEN TURN OVER WHEN I WALKED IN THE ROOM.
--- NOTE | 2019-11-03 21:26 | NUR ---
SPOKE TO DR. PARKER REGARDING ATIVAN ORDER FROM ER. ORDER TO DC DUE TO PATIENT ALREADY BEING ON KLONIPIN. STATES SHE SHOULD NOT BE ON BOTH OF THE MEDICATIONS AT ONCE.
--- NOTE | 2019-11-03 22:08 | NUR ---
RADHA CALLED ASKING FOR PAIN MEDS. INFORMED HER THAT I SPOKE TO MD. ORDER FOR ATIVAN WAS DC'D DUE TO HER BEING ON KLONIPIN, SHE SAID OK. SHE ASKED IF I GOT AN ORDER FOR AN EXTRA DOSE OF FENTANYL. INFORMED HER I HAD HER NORMAL DOSE SINCE IT WAS DUE, BUT NO EXTRA DOSE. MD DID NOT WANT TO INCREASE HER PAIN MEDS. SHE SAID OK, THEN ASKED WHEN SHE CAN HAVE HER OXYCODONE AGAIN. ADMINISTERED THE FENTANYL. WILL REASSESS.
--- NOTE | 2019-11-03 22:38 | NUR ---
RADHA OUT OF ROOM.
--- NOTE | 2019-11-03 23:00 | NUR ---
PATIENT BACK IN ROOM.
--- NOTE | 2019-11-04 00:08 | NUR ---
RADHA IS SLEEPING COMFORTABLY, NO SIGN OF DISCOMFORT. CALL LIGHT IS IN REACH.
--- NOTE | 2019-11-04 04:42 | NUR ---
MEDICATED RADHA WITH OXYCODONE, BEFORE SHE EVEN TOOK IT SHE ASKED ABOUT HER FENTANYL TOO. TOLD HER I DON'T GIVE PAIN MEDS TOGETHER, HAVE TO WAIT TO SEE IF ONE WORKS FIRST. THEN I CAN GIVEN THE OTHER. SHE ASKED HOW LONG SHE HAS TO WAIT BEFORE SHE CAN HAVE IT. SO SHE GOT UP AND LEFT THE ROOM.
--- NOTE | 2019-11-04 06:11 | NUR ---
SHIFT SUMMARY: 59 Y/O ADMITTED FOR A FLUTTER WITH RVR. TELEMETRY REPORTS HR RUNNING 110'S WHEN RESTING IN ROOM, 130'S WITH AMBULATION. RADHA IS ASYMPTOMATIC OTHER THEN FATIQUE AND BODY PAIN. HER BIGGEST COMPLAINT IS PAIN MANAGEMENT AND ANXIETY. WHEN MEDICATING HER SHE ALWAYS ASK WHEN SHE CAN HAVE THE OTHER PAIN MEDICATION. SHE STATES NEITHER THE OXYCODONE OR FENTANYL HAS RELEIVED HER PAIN BUT SHE CONTINUES TO WANT THEM. SPOKE TO DR. PARKER REGARDING HER PAIN AND ANXIETY. HE DISCONTINUED THE ATIVAN IT WAS AN ER ORDER AND SHE WAS ALREADY ON TWO ANTI-ANXIETY MEDS. HE DID NOT WANT TO CHANGE HER PAIN MEDICATIONS. PAIN IS ALWAYS A 8/10 DISPITE WHAT IS GIVEN. FLACC SCALE SHOWS PAIN RUNNING 2-4 ON AVERAGE. SHE IS ABLE TO GET UP AND WALK THE HALLS RIGHT AFTER TAKING THE MEDICATIONS BEFORE IT EVEN HAS A CHANCE TO WORK. SHE HAS NOT BEEN FOLLOWING ADA DIET, EATING STARBURST, CRACKERS, AND OTHER ITEMS FROM THE VENDING MACHINES. VS HAVE REMAINED STABLE OTHER THEN HR. NO OTHER ACUTE CHANGES OCCURRED THIS SHIFT.
[2019-11-04 12:26] LABS: U Benzodiazapine Screen DETECTED
[2019-11-04 12:27] LABS: U Amphetamine Screen Not Detected; U Barbituate Screen Not Detected; U Buprenorphine Screen Not Detected; U Cannabinoids Screen Not Detected; U Cocaine Screen Not Detected; U Methadone Screen Not Detected; U Methamphetamine Screen Not Detected; U Opiates Screen Not Detected; U Oxycodone Screen DETECTED; U Phencyclidine Screen Not Detected; U Propoxyphene Screen Not Detected
--- NOTE | 2019-11-04 17:51 | NUR ---
PATIENT IS ALERT AND ORIENTED. PATIENT WAS WALKING THE HALLS TODAY. SHE TOLD THE RN THAT SHE DID GO OUTSIDE TO SMOKE THIS MORNING. CLEAN OUT DRILLER HELPER SAID THE PATIENT IS NOT TO LEAVE HER ROOM SINCE SHE HAS FOUND HER WAY OUTSIDE. THE PATIENT IS COOPERATIVE AT THIS TIME. SHE COMPLAINS OF GENERALIZED PAIN, TREATED PER EMAR. SHE IS INDEPENDENT IN HER ROOM. TELEMETRY IS IN PLACE WITH A RHYTHYM OF AFLUTTER AT 123 BPM. SEIZURE PADS ARE IN PLACE SINCE THE PATIENT HAS A HISTORY OF SEIZURE DISORDER. WILL CONTINUE TO MONITOR
--- NOTE | 2019-11-04 19:40 | NUR ---
ASSUMED CARE. RADHA IS UP WALKING IN HER ROOM, CAN'T SIT STILL, STATES SHE IS BORED. WANTS TO GO WALKING. INFORMED HER SHE IS NOT ALLOW TO GO WALKING WITH OUT SOMEONE, SHE IS NOT ALLOW TO LEAVE THE FLOOR. MADE PLAN TO GO WITH HER LATER. SHE STATES PAIN IS ALL OVER, ASKED ABOUT HER OXYCODONE. INFORMED HER OF THE TIME IT IS DUE. LUNG SOUNDS WITH WHEEZES IN UPPER LOBES, DIMINISHED IN BASES, MILD COUGH NO PRODUCTION. HR RUNNING 134 A FLUTTER. HAD LONG TALK AGAIN WITH HER THE IMPORTANCE OF GETTING HER HEART RATE DOWN, AND THE SYMPTOMS IT CAUSES. SHE AGREED SHE WANTS TO FOLLOW OUR INSTRUCTIONS SHE HAS GRAND BABIES TO SEE AND WATCH GROW. WILL CONTINUE TO MONITOR.
--- NOTE | 2019-11-04 20:48 | NUR ---
MEDICATED WITH NIGHT MEDS, OXYCODONE AND KLONIPIN. SHE JUST GOT DONE CLEANING HER SELF UP AND HAS BABY POWDER ALL OVER HER. SHE GOT DRESSED IN HER HOME DRESS, AND STATES SHE FEELS BETTER. OFFERED HER THINGS TO DO TO PREVENT HER FROM BEING BORED.
--- NOTE | 2019-11-05 05:48 | NUR ---
SHIFT SUMMARY: 59 Y/O ADMITTED FOR AFLUTTER WITH RVR. TELE REPORTS AFLUTTER AT 134. RATE HAS AVERAGE 120-130 WHEN UP WALKING AROUND. RESTING SHE TENDS TO DROP TO 110'S. NO CHEST PAIN OR PALPITATIONS REPORTED. NO SEIZURE ACTIVITY THIS SHIFT. GOOD APPETITE. GOOD FLUIDS INTAKE. BATHED SELF THIS SHIFT. TOOK HER NIGHT MEDS AND HAS SLEPT GOOD ALL NIGHT. ONLY GETTING TWO DOSAGES OF PAIN MEDS. SHE COMPLIED WITH INSTRUCTIONS, STAYING IN HER ROOM, AND ONLY GOING FOR WALKS WITH STAFF. BLOOD SUGARS 266. LANTUS GIVEN. NO OTHER CHANGES OCCURRED THIS SHIFT.
[2019-11-05] MEDS ORDERED: DILT120ERA PO (12:46)
[2019-11-05] MEDS ORDERED: LEVE500 PO (12:47)
--- NOTE | 2019-11-05 13:22 | NUR ---
PATIENT DISCHARGED AT 13:22.
== END 2019-11-05 13:26 | disposition home or self-care (01) | DRG 310 ==
LOC: ER 08:33 → PCU 08:34 → MEDS 11-02 13:56
PROVIDERS: Emergency Medicine; ADMIT Internal Medicine
DX: I48.20 Chronic atrial fibrillation, unspecified (principal); Z79.4 Long term (current) use of insulin; E11.51 Type 2 diabetes mellitus with diabetic peripheral angiopathy without gangrene; G40.909 Epilepsy, unspecified, not intractable, without status epilepticus; F31.9 Bipolar disorder, unspecified; F43.10 Post-traumatic stress disorder, unspecified; M79.7 Fibromyalgia; F17.210 Nicotine dependence, cigarettes, uncomplicated; G89.4 Chronic pain syndrome; I10 Essential (primary) hypertension; I48.91 Unspecified atrial fibrillation; E66.01 Morbid (severe) obesity due to excess calories; Z68.32 Body mass index [BMI] 32.0-32.9, adult
CPT/HCPCS: 36415; 71045; 80053; 81001; 82947; 83735; 83880; 84484; 85025; 85610; 87086; 93005; 93010; 96361; 96365; 96375; 96376; 99285-25; A9270; A9270-GY; C1751; G0378; J0360; J0780; J2060; J2405; J3010; J3475; J7030

== ENCOUNTER 2019-12-20 06:30 | Day surgery (SDC) | payer OTHER ==
[~2019-12-20] VITALS: Ht 165.1 cm; Wt 84.0 kg
[~2019-12-20 06:30] MED LIST changes: +ATROVENT HFA12.9 GM INH; +HUMALOG KW200 UNIT/2 SC; -Humalog100 UNIT/1 SC; +LEVE500 PO; +PROAIR RESPICL90 MCG IH; +SPIR25 PO; +Tessalon Perle100 MG
[2019-12-20] MEDS ORDERED: MAGNESIUM OXID500 MG PO (07:34)
[2019-12-20] MEDS ORDERED: Oxycodone HCl5 M1 PO (07:35)
[2019-12-20] MEDS ORDERED: ALDACTONE25 MG PO (07:36)
[2019-12-20 07:38] LABS: Bun/Creatinine Ratio 25.4 (12.0-20.0); Calcium, Blood 8.6 mg/dL (8.5-10.1); Creatinine, Blood 1.14 mg/dL (0.40-1.00); Potassium, Blood 3.9 mmol/L (3.5-5.5)
--- NOTE | 2019-12-20 08:45 | NUR ---
DISCAHRGE PT REMAINED A&OX3 AND DENIED ANY PAIN. EKG PERFORMED. DISCHARGE PAPERWORK GONE OVER WITH PT. PT VERBALLY STATED THE UNDERSTANDING OF THE DISCHARGE EDUCATION AND DENIED ANY QUESTIONS AT THIS TIME. IV DC'D WITH CANULA IN TACT. PT ABLE TO DRESS SELF. PT REFUSED WHEELCHAIR ASSIST OUT AND AMBULATED OUT OF HOSPITAL WITH SISTER WITH STEADY GAIT.
[2020-01-13] MEDS ORDERED: OXYC5 PO (15:50)
[2020-01-13] MEDS ORDERED: Cartia Xt120 MG PO (15:51)
[2020-01-13] MEDS ORDERED: Neurontin400 MG PO (15:51)
[2020-01-13] MEDS ORDERED: METOPROLOL TART25 MG PO (15:52)
[2020-01-13] MEDS ORDERED: QUETIAPINE FUM300 MG PO (15:52)
[2020-01-20] MEDS ORDERED: BUSP10 PO (12:19)
[2020-01-20] MEDS ORDERED: Pacerone400 MG PO (12:19)
[2020-01-20] MEDS ORDERED: LEVO750 PO (12:20)
[2020-01-20] MEDS ORDERED: MAGNESIUM OXID400 M1 PO (12:21)
[2020-01-20] MEDS ORDERED: ACIDOPHILUS1 EAC3 PO (12:23)
[2020-01-20] MEDS ORDERED: LOSA50 PO (13:25)
[2020-01-20] MEDS ORDERED: LOW DOSE ASPIRI81 M1 PO (13:26)
== END 2019-12-20 22:44 | disposition home or self-care (01) ==
LOC: MHTC 06:30
PROVIDERS: Internal Medicine Cardiovascular Disease
DX: I48.3 Typical atrial flutter (principal); I11.0 Hypertensive heart disease with heart failure; I50.30 Unspecified diastolic (congestive) heart failure; E11.9 Type 2 diabetes mellitus without complications; J44.9 Chronic obstructive pulmonary disease, unspecified; E66.3 Overweight; Z79.01 Long term (current) use of anticoagulants; Z79.899 Other long term (current) drug therapy; Z79.4 Long term (current) use of insulin; F17.210 Nicotine dependence, cigarettes, uncomplicated; Z88.0 Allergy status to penicillin; Z88.1 Allergy status to other antibiotic agents; Z88.2 Allergy status to sulfonamides; Z88.6 Allergy status to analgesic agent; Z88.5 Allergy status to narcotic agent; Z88.8 Allergy status to other drugs, medicaments and biological substances; Z91.030 Bee allergy status; Z68.32 Body mass index [BMI] 32.0-32.9, adult
CPT/HCPCS: 36415; 80048; 82947; 83735; 92960; 93005; 93010; J2704; J7030

== ENCOUNTER 2020-02-06 13:45 | Emergency (ER) | payer OTHER ==
[~2020-02-06] VITALS: Ht 160 cm; Wt 92.1 kg
[~2020-02-06 13:45] MED LIST changes: +ACIDOPHILUS1 EAC3 PO; +ALDACTONE25 MG PO; +Cartia Xt120 MG PO; +LEVO750 PO; +LOW DOSE ASPIRI81 M1 PO; +MAGNESIUM OXID400 M1 PO; +MAGNESIUM OXID500 MG PO; +Oxycodone HCl5 M1 PO; +Pacerone400 MG PO; +QUETIAPINE FUM300 MG PO
[2020-02-06] MEDS ORDERED: HYDR1TAB94 PO (15:24)
== END 2020-02-06 15:41 | disposition home or self-care (01) ==
LOC: ER 13:45
DX: S63.91XA Sprain of unspecified part of right wrist and hand, initial encounter (principal); I10 Essential (primary) hypertension; E11.40 Type 2 diabetes mellitus with diabetic neuropathy, unspecified; F41.9 Anxiety disorder, unspecified; J44.9 Chronic obstructive pulmonary disease, unspecified; G40.909 Epilepsy, unspecified, not intractable, without status epilepticus; F17.210 Nicotine dependence, cigarettes, uncomplicated; Z88.6 Allergy status to analgesic agent; Z88.0 Allergy status to penicillin; Z79.899 Other long term (current) drug therapy; Z88.2 Allergy status to sulfonamides; Z91.030 Bee allergy status; Z88.8 Allergy status to other drugs, medicaments and biological substances; Z79.4 Long term (current) use of insulin; Z79.82 Long term (current) use of aspirin; Z87.442 Personal history of urinary calculi; W20.8XXA Other cause of strike by thrown, projected or falling object, initial encounter
CPT/HCPCS: 73130; 99283-25; A9270-GY

== ENCOUNTER 2020-03-11 13:58 | Emergency (ER) | payer OTHER ==
[~2020-03-11] VITALS: Ht 160 cm; Wt 84.4 kg
[~2020-03-11 13:58] MED LIST changes: +HYDR1TAB94 PO
[2020-03-11] MEDS ORDERED: ONDA4 PO (14:28)
[2020-03-11] MEDS ORDERED: BENADRYL25 MG PO (14:28)
== END 2020-03-11 14:35 | disposition home or self-care (01) ==
LOC: ER 13:58
DX: Z48.01 Encounter for change or removal of surgical wound dressing (principal); R21 Rash and other nonspecific skin eruption; Z88.6 Allergy status to analgesic agent; Z88.0 Allergy status to penicillin; Z91.030 Bee allergy status; Z88.2 Allergy status to sulfonamides; Z88.8 Allergy status to other drugs, medicaments and biological substances; Z79.4 Long term (current) use of insulin; Z95.0 Presence of cardiac pacemaker; Z79.899 Other long term (current) drug therapy
CPT/HCPCS: 99282

== ENCOUNTER 2020-05-26 17:15 | Emergency (ER) | payer OTHER ==
[~2020-05-26] VITALS: Ht 160 cm; Wt 81.7 kg
[~2020-05-26 17:15] MED LIST changes: +BENADRYL25 MG PO
[2020-05-26 17:59] LABS: BASOPHILS ABSOLUTE AUTO 0.01 K/mm3 (0.00-0.23); BASOPHILS PERCENT AUTO 0 % (0-2); EOSINOPHILS ABSOLUTE AUTO 0.01 K/mm3 (0.00-0.68); EOSINOPHILS PERCENT AUTO 0 % (0-6); Hematocrit 47.7 % (33.0-51.0); Hemoglobin 16.1 g/dL (11.5-16.0); IMMATURE GRAN ABSOLUTE AUTO 0.07 K/mm3 (0.00-0.10); IMMATURE GRAN PERCENT AUTO 1 % (0-1); LYMPHOCYTES ABSOLUTE AUTO 3.86 K/mm3 (0.84-5.20); LYMPHOCYTES PERCENT AUTO 28 % (21-46); MONOCYTES ABSOLUTE AUTO 0.98 K/mm3 (0.16-1.47); MONOCYTES PERCENT AUTO 7 % (4-13); Mean Corpuscular HGB 30.4 pg (26.0-34.0); Mean Corpuscular HGB Conc 33.8 g/dL (31.5-36.5); Mean Corpuscular Volume 90 fL (80-100); Mean Platelet Volume 10.6 fL (9.1-12.4); NEUTROPHILS ABSOLUTE AUTO 8.96 K/mm3 (1.96-9.15); NEUTROPHILS PERCENT AUTO 64 % (41-73); Platelet Count 222 K/mm3 (150-400); RDW Coefficient Variation 11.9 % (11.7-14.2); RDW Standard Deviation 39.4 fL (35.1-46.3); Red Blood Cell Count 5.29 M/mm3 (3.80-5.20); White Blood Cell Count 13.89 K/mm3 (4.00-11.30)
[2020-05-26 18:10] LABS: Base Excess Venous -0.2 mmol/L; Bicarbonate Venous 22.8 mmol/L (24.0-30.0); pH Blood Venous 7.28 (7.34-7.37)
[2020-05-26 18:20] LABS: Albumin, Blood 3.9 g/dL (3.4-5.0); Albumin/Globulin Ratio 0.9 (0.8-1.8); Bilirubin, Total 0.5 mg/dL (0.1-1.0); Bun/Creatinine Ratio 44.8 (12.0-20.0); Calcium, Blood 9.4 mg/dL (8.5-10.1); Creatinine, Blood 1.63 mg/dL (0.40-1.00); Globulin, Blood 4.2 g/dL (2.2-4.0); Potassium, Blood 3.1 mmol/L (3.5-5.5); Total Protein, Blood 8.1 g/dL (6.4-8.2); Troponin I 0.037 ng/mL (0.000-0.040)
[2020-05-26] MEDS ORDERED: K-Dur10 MEQ PO (22:19)
[2020-05-26] MEDS ORDERED: ONDA4ODT SL (22:19)
== END 2020-05-26 22:58 | disposition home or self-care (01) ==
LOC: ER 17:15
PROVIDERS: Physician Assistant
DX: E11.65 Type 2 diabetes mellitus with hyperglycemia (principal); E11.42 Type 2 diabetes mellitus with diabetic polyneuropathy; E11.22 Type 2 diabetes mellitus with diabetic chronic kidney disease; I12.9 Hypertensive chronic kidney disease with stage 1 through stage 4 chronic kidney disease, or unspecified chronic kidney disease; E87.6 Hypokalemia; N18.9 Chronic kidney disease, unspecified; G40.909 Epilepsy, unspecified, not intractable, without status epilepticus; J44.9 Chronic obstructive pulmonary disease, unspecified; Z88.8 Allergy status to other drugs, medicaments and biological substances; Z87.442 Personal history of urinary calculi; Z79.899 Other long term (current) drug therapy; Z79.4 Long term (current) use of insulin; Z88.6 Allergy status to analgesic agent; Z88.0 Allergy status to penicillin; Z91.030 Bee allergy status; Z88.2 Allergy status to sulfonamides; Z79.01 Long term (current) use of anticoagulants
CPT/HCPCS: 36415; 71046; 80053; 82803; 82947; 84484; 85025; 93005; 93010; 96361; 96374; 96375; 99285-25; A9270; A9270-GY; J1200; J2765; J3480; J7030

== ENCOUNTER 2020-07-07 12:02 | Emergency (ER) | payer OTHER ==
[~2020-07-07] VITALS: Ht 172.7 cm; Wt 72.6 kg
[~2020-07-07 12:02] MED LIST changes: +K-Dur10 MEQ PO; +ONDA4ODT SL
[2020-07-07 12:55] LABS: BASOPHILS ABSOLUTE AUTO 0.01 K/mm3 (0.00-0.23); BASOPHILS PERCENT AUTO 0 % (0-2); EOSINOPHILS PERCENT AUTO 0 % (0-6); Hematocrit 47.7 % (33.0-51.0); Hemoglobin 16.4 g/dL (11.5-16.0); IMMATURE GRAN ABSOLUTE AUTO 0.03 K/mm3 (0.00-0.10); IMMATURE GRAN PERCENT AUTO 0 % (0-1); LYMPHOCYTES ABSOLUTE AUTO 1.89 K/mm3 (0.84-5.20); LYMPHOCYTES PERCENT AUTO 17 % (21-46); MONOCYTES ABSOLUTE AUTO 0.78 K/mm3 (0.16-1.47); MONOCYTES PERCENT AUTO 7 % (4-13); Mean Corpuscular HGB 30.8 pg (26.0-34.0); Mean Corpuscular HGB Conc 34.4 g/dL (31.5-36.5); Mean Corpuscular Volume 90 fL (80-100); Mean Platelet Volume 11.6 fL (9.1-12.4); NEUTROPHILS ABSOLUTE AUTO 8.26 K/mm3 (1.96-9.15); NEUTROPHILS PERCENT AUTO 75 % (41-73); NRBC ABSOLUTE 0.02 K/mm3 (0.00-0.02); NRBC Auto 0.2 /100 WBC (0.0-0.2); Platelet Count 182 K/mm3 (150-400); RDW Coefficient Variation 11.9 % (11.7-14.2); RDW Standard Deviation 38.8 fL (35.1-46.3); Red Blood Cell Count 5.32 M/mm3 (3.80-5.20); White Blood Cell Count 10.97 K/mm3 (4.00-11.30)
[2020-07-07 13:16] LABS: Albumin, Blood 4.1 g/dL (3.4-5.0); Albumin/Globulin Ratio 0.9 (0.8-1.8); Bun/Creatinine Ratio 39.4 (12.0-20.0); Calcium, Blood 9.8 mg/dL (8.5-10.1); Creatinine, Blood 1.09 mg/dL (0.40-1.00); Globulin, Blood 4.4 g/dL (2.2-4.0); Potassium, Blood 4.2 mmol/L (3.5-5.5); Total Protein, Blood 8.5 g/dL (6.4-8.2)
[2020-07-07 16:48] LABS: Source, Urine Voided
[2020-07-07 16:51] LABS: Appearance, Urine Clear (Clear); Bilirubin, Urine Neg (Neg); Blood, Urine 2+ (Neg); Color, Urine Yellow (P-Yellow); Glucose Qualitative, Urine 4+ (Neg); Ketones, Urine 1+ (Neg); Leukocyte Esterase, Urine 1+ (Neg); Nitrite, Urine Neg (Neg); Protein, Urine 1+ (Neg); Specific Gravity, Urine 1.025 (1.003-1.022); Urobilinogen, Urine 1+ (Normal)
[2020-07-07 17:01] LABS: Bacteria Mod /hpf; Squamous Epithelial Cells Few /hpf (Few)
[2020-07-07] MEDS ORDERED: Catapres0.1 MG PO (18:19)
[2020-07-07] MEDS ORDERED: ONDA4ODT MM (18:19)
[2020-12-04] MEDS ORDERED: MACRODANTIN100 M1 PO (17:41)
[2020-12-04] MEDS ORDERED: ONDA4ODT MM (17:43)
== END 2020-07-07 18:50 | disposition home or self-care (01) ==
LOC: ER 12:02
PROVIDERS: Emergency Medicine; Physician Assistant
DX: R11.2 Nausea with vomiting, unspecified (principal); E86.0 Dehydration; J44.9 Chronic obstructive pulmonary disease, unspecified; I10 Essential (primary) hypertension; E11.42 Type 2 diabetes mellitus with diabetic polyneuropathy; F17.210 Nicotine dependence, cigarettes, uncomplicated; Z88.6 Allergy status to analgesic agent; Z88.0 Allergy status to penicillin; Z88.8 Allergy status to other drugs, medicaments and biological substances; Z91.030 Bee allergy status; Z88.2 Allergy status to sulfonamides; Z79.899 Other long term (current) drug therapy
CPT/HCPCS: 36415; 80053; 81001; 83690; 85025; 87086; 96361; 96374; 99284-25; A9270; J2405; J7030

== ENCOUNTER 2020-10-11 10:03 | Emergency (ER) | payer OTHER ==
[~2020-10-11] VITALS: Ht 160 cm; Wt 84.4 kg
[2020-10-11] MEDS ORDERED: CODACE30 PO (11:37)
[2020-12-04] MEDS ORDERED: MACRODANTIN100 M1 PO (17:41)
[2020-12-04] MEDS ORDERED: ONDA4ODT MM (17:43)
== END 2020-10-11 11:52 | disposition home or self-care (01) ==
LOC: ER 10:03
DX: S80.01XA Contusion of right knee, initial encounter (principal); E11.40 Type 2 diabetes mellitus with diabetic neuropathy, unspecified; I10 Essential (primary) hypertension; J44.9 Chronic obstructive pulmonary disease, unspecified; F17.210 Nicotine dependence, cigarettes, uncomplicated; Z79.899 Other long term (current) drug therapy; Z79.4 Long term (current) use of insulin; Z88.6 Allergy status to analgesic agent; Z88.8 Allergy status to other drugs, medicaments and biological substances; Z88.2 Allergy status to sulfonamides; Z91.030 Bee allergy status; W01.10XA Fall on same level from slipping, tripping and stumbling with subsequent striking against unspecified object, initial encounter
CPT/HCPCS: 73502; 73564; 99283-25; A9270

== ENCOUNTER 2020-10-15 20:02 | Observation (INO) | payer OTHER ==
[~2020-10-15] VITALS: Ht 160 cm; Wt 81.0 kg
[2020-10-15 20:23] LABS: Source, Urine Catheter
[2020-10-15 20:29] LABS: Bilirubin, Urine Neg (Neg); Blood, Urine 5+ (Neg); Glucose Qualitative, Urine 4+ (Neg); Ketones, Urine 4+ (Neg); Leukocyte Esterase, Urine Neg (Neg); Nitrite, Urine Neg (Neg); Protein, Urine 2+ (Neg); Urobilinogen, Urine 1+ (Normal)
[2020-10-15 20:31] LABS: BASOPHILS ABSOLUTE AUTO 0.01 K/mm3 (0.00-0.23); BASOPHILS PERCENT AUTO 0 % (0-2); EOSINOPHILS PERCENT AUTO 0 % (0-6); Hemoglobin 14.3 g/dL (11.5-16.0); IMMATURE GRAN ABSOLUTE AUTO 0.04 K/mm3 (0.00-0.10); IMMATURE GRAN PERCENT AUTO 1 % (0-1); LYMPHOCYTES ABSOLUTE AUTO 0.71 K/mm3 (0.84-5.20); LYMPHOCYTES PERCENT AUTO 10 % (21-46); MONOCYTES ABSOLUTE AUTO 0.16 K/mm3 (0.16-1.47); MONOCYTES PERCENT AUTO 2 % (4-13); Mean Corpuscular HGB 30.9 pg (26.0-34.0); Mean Corpuscular HGB Conc 35.8 g/dL (31.5-36.5); Mean Corpuscular Volume 86 fL (80-100); Mean Platelet Volume 11.3 fL (9.1-12.4); NEUTROPHILS ABSOLUTE AUTO 6.08 K/mm3 (1.96-9.15); NEUTROPHILS PERCENT AUTO 87 % (41-73); Platelet Count 148 K/mm3 (150-400); RDW Coefficient Variation 11.9 % (11.7-14.2); RDW Standard Deviation 37.6 fL (35.1-46.3); Red Blood Cell Count 4.63 M/mm3 (3.80-5.20)
[2020-10-15 20:34] LABS: Appearance, Urine Hazy (Clear); Color, Urine Yellow (P-Yellow)
[2020-10-15 20:35] LABS: Alanine Aminotransfer (ALT/SGP 39 U/L (12-78); Albumin, Blood 3.6 g/dL (3.4-5.0); Albumin/Globulin Ratio 0.9 (0.8-1.8); Alk Phos 135 U/L (50-136); Anion Gap 8 mmol/L (6-16); Aspartate Aminotrans (AST/SGOT 36 U/L (12-37); Bilirubin, Total 0.8 mg/dL (0.1-1.0); Blood Urea Nitrogen 23 mg/dL (8-24); CO2, Blood 30 mmol/L (21-32); Calcium, Blood 9.6 mg/dL (8.5-10.1); Chloride, Blood 99 mmol/L (98-108); Creatinine, Blood 0.74 mg/dL (0.40-1.00); Glomerular Filtration Rate >60 (60-); Glucose, Blood 299 mg/dL (70-99); Magnesium, Blood 1.7 mg/dL (1.6-2.4); Potassium, Blood 3.7 mmol/L (3.5-5.5); Sodium, Blood 137 mmol/L (136-145); Total Protein, Blood 7.6 g/dL (6.4-8.2)
[2020-10-15 20:36] LABS: Bacteria Many /hpf; Squamous Epithelial Cells Few /hpf (Few)
[2020-10-15 20:37] LABS: Amorphous Light (0-Heavy)
--- NOTE | 2020-10-16 07:19 | NUR ---
PATIENT WOKE UP REQUESTING NAUSEA MEDICATION AND PAIN MEDICATION; UP TO BEDSIDE COMMODE; COULD NOT URINATE. SLEPT ABOUT 6 HOURS. VSS.
[2020-10-16 09:05] LABS: Alanine Aminotransfer (ALT/SGP 31 U/L (12-78); Albumin/Globulin Ratio 0.9 (0.8-1.8); Alk Phos 109 U/L (50-136); Anion Gap 7 mmol/L (6-16); Aspartate Aminotrans (AST/SGOT 33 U/L (12-37); Bilirubin, Total 0.5 mg/dL (0.1-1.0); Blood Urea Nitrogen 21 mg/dL (8-24); CO2, Blood 28 mmol/L (21-32); Calcium, Blood 8.5 mg/dL (8.5-10.1); Chloride, Blood 104 mmol/L (98-108); Creatinine, Blood 0.68 mg/dL (0.40-1.00); Globulin, Blood 3.5 g/dL (2.2-4.0); Glomerular Filtration Rate >60 (60-); Glucose, Blood 189 mg/dL (70-99); Potassium, Blood 3.8 mmol/L (3.5-5.5); Sodium, Blood 139 mmol/L (136-145); Total Protein, Blood 6.5 g/dL (6.4-8.2)
[2020-10-16] MEDS ORDERED: HYDMOR2 PO (10:09)
[2020-10-16] MEDS ORDERED: DOCU100 PO (10:29)
[2020-10-16] MEDS ORDERED: Senna8.6 MG PO (10:32)
--- NOTE | 2020-10-16 10:50 | NUR ---
DISCHARGE DR THAO IN THIS AM WITH ORDERS FOR DC. INSTRUCTIONS PROVIDED TO PT AND PT EDUCATED ON MEDICATIONS. ALL QUESTIONS ASNWERED. PT LEFT WITH DC INSTRUCTION PACKET AND HARD SCRIPT. PT TAKEN OUT BY ASHLEE
[2020-12-04] MEDS ORDERED: MACRODANTIN100 M1 PO (17:41)
[2020-12-04] MEDS ORDERED: ONDA4ODT MM (17:43)
== END 2020-10-16 11:06 | disposition home or self-care (01) ==
LOC: ER 20:02 → ERHOLD 22:26 → PCU 10-16 02:35 → ENPENDDIS 10-16 09:36 → PCU 10-16 11:06
PROVIDERS: Emergency Medicine; Nurse Practitioner Acute Care; ADMIT Family Medicine
DX: R11.2 Nausea with vomiting, unspecified (principal); G40.909 Epilepsy, unspecified, not intractable, without status epilepticus; J44.9 Chronic obstructive pulmonary disease, unspecified; E11.42 Type 2 diabetes mellitus with diabetic polyneuropathy; F17.210 Nicotine dependence, cigarettes, uncomplicated; I48.20 Chronic atrial fibrillation, unspecified; I10 Essential (primary) hypertension; G89.4 Chronic pain syndrome; M79.7 Fibromyalgia; F32.9 Major depressive disorder, single episode, unspecified; F43.10 Post-traumatic stress disorder, unspecified; M06.9 Rheumatoid arthritis, unspecified; Z79.4 Long term (current) use of insulin; Z79.01 Long term (current) use of anticoagulants; Z91.81 History of falling
CPT/HCPCS: 36415; 70450; 74176; 80053; 81001; 82947; 83690; 83735; 85025; 87086; 96361; 96365; 96366; 96367; 96375; 96376; 99285-25; A9270; G0378; J0696; J0780; J1170; J1953; J2060; J2405; J3475; J3480; J7030; P9612

== ENCOUNTER 2020-10-18 08:52 | Observation (INO) | payer OTHER ==
[~2020-10-18] VITALS: Ht 160 cm; Wt 81.7 kg
[~2020-10-18 08:52] MED LIST changes: +DOCU100 PO; +HYDMOR2 PO; +Senna8.6 MG PO
[2020-10-18 10:14] LABS: BASOPHILS ABSOLUTE AUTO 0.01 K/mm3 (0.00-0.23); BASOPHILS PERCENT AUTO 0 % (0-2); EOSINOPHILS PERCENT AUTO 0 % (0-6); Hematocrit 42.1 % (33.0-51.0); Hemoglobin 14.7 g/dL (11.5-16.0); IMMATURE GRAN ABSOLUTE AUTO 0.04 K/mm3 (0.00-0.10); IMMATURE GRAN PERCENT AUTO 1 % (0-1); LYMPHOCYTES ABSOLUTE AUTO 1.35 K/mm3 (0.84-5.20); LYMPHOCYTES PERCENT AUTO 18 % (21-46); MONOCYTES ABSOLUTE AUTO 0.47 K/mm3 (0.16-1.47); MONOCYTES PERCENT AUTO 6 % (4-13); Mean Corpuscular HGB 31.1 pg (26.0-34.0); Mean Corpuscular HGB Conc 34.9 g/dL (31.5-36.5); Mean Corpuscular Volume 89 fL (80-100); Mean Platelet Volume 11.8 fL (9.1-12.4); NEUTROPHILS ABSOLUTE AUTO 5.68 K/mm3 (1.96-9.15); NEUTROPHILS PERCENT AUTO 75 % (41-73); Platelet Count 146 K/mm3 (150-400); RDW Coefficient Variation 11.9 % (11.7-14.2); RDW Standard Deviation 38.6 fL (35.1-46.3); Red Blood Cell Count 4.73 M/mm3 (3.80-5.20); White Blood Cell Count 7.55 K/mm3 (4.00-11.30)
[2020-10-18 10:32] LABS: Alanine Aminotransfer (ALT/SGP 39 U/L (12-78); Albumin, Blood 3.5 g/dL (3.4-5.0); Alk Phos 107 U/L (50-136); Anion Gap 9 mmol/L (6-16); Aspartate Aminotrans (AST/SGOT 42 U/L (12-37); Bilirubin, Total 0.9 mg/dL (0.1-1.0); Blood Urea Nitrogen 16 mg/dL (8-24); Bun/Creatinine Ratio 22.3 (12.0-20.0); CO2, Blood 25 mmol/L (21-32); Calcium, Blood 8.7 mg/dL (8.5-10.1); Chloride, Blood 104 mmol/L (98-108); Creatinine, Blood 0.72 mg/dL (0.40-1.00); Globulin, Blood 3.6 g/dL (2.2-4.0); Glomerular Filtration Rate >60 (60-); Glucose, Blood 252 mg/dL (70-99); Potassium, Blood 3.7 mmol/L (3.5-5.5); Sodium, Blood 138 mmol/L (136-145); Total Protein, Blood 7.1 g/dL (6.4-8.2)
[2020-10-18] MEDS ORDERED: BUPRENORPHIN-N1 EAC5 SL (11:39)
[2020-10-18] MEDS ORDERED: ALPRAZOLAM0.5 M1 PO (11:40)
[2020-10-18] MEDS ORDERED: FUROSEMIDE40 MG PO (11:41)
[2020-10-18] MEDS ORDERED: METO50 PO (11:42)
[2020-10-18] MEDS ORDERED: KLOR-CON 1010 ME1 PO (11:43)
--- NOTE | 2020-10-18 17:34 | NUR ---
PT EXIBITED SEIZURE LIKE ACTIVITY. WRITHING, UNABLE TO RESPOND. LASTED ABOUT 1 MIN. THEN IS ABLE TO TALK, COHEARENTLY. PT A/O. VSS. CBG 155. CALLED DR THAO. PT HAS PSYCOGENIC SEIZURES. OKAY GIVE KEPPRA RADHA PILL NOW, NO OTHER ORDERS. SEIZURE PADS AND BED ALARM HAVE BE IN PLACE SINCE ADMIT
--- NOTE | 2020-10-18 18:24 | NUR ---
PT PLEASANT SINCE ADMIT THIS RADHA. NO C/O PAIN. VSS, PER TELE NSR AT 69, NO MURMER NOTED. LUNGS CLEAR T/O. ON R.A. RESP EASY, UNLABORED. BT X4 LAST BM YEST PER PT. VOIDS SOME STRESS INCONT, SOME FREQUENCY. STATES KNOWS IF WET UNLESS HAS SEIZURE. SBA TO BATHROOM. BED ALARM ON FOR SAFETY. DID HAVE SEIZURE LIKE ACTIVITY WHEN DOING ADMIT. SEE NOTED. IS SCHEDULED FOR STRESS TEST TOMORROW, 10AM. NPO MIDNITE, HOLD BKFST, WILL GIVE AFTER INJECTIONS AT 10 AM. NO OTHER CONCERNS NOTED. BED IN LOW POSITION,CALL LITE IN REACH, CALLS APPROP
[2020-10-18 23:42] LABS: U Amphetamine Screen Not Detected; U Barbituate Screen Not Detected; U Benzodiazapine Screen Not Detected; U Buprenorphine Screen DETECTED; U Cannabinoids Screen Not Detected; U Cocaine Screen Not Detected; U Methadone Screen Not Detected; U Methamphetamine Screen Not Detected; U Opiates Screen DETECTED; U Oxycodone Screen Not Detected; U Phencyclidine Screen Not Detected; U Propoxyphene Screen Not Detected
[2020-10-19 06:26] LABS: BASOPHILS ABSOLUTE AUTO 0.01 K/mm3 (0.00-0.23); BASOPHILS PERCENT AUTO 0 % (0-2); EOSINOPHILS ABSOLUTE AUTO 0.01 K/mm3 (0.00-0.68); EOSINOPHILS PERCENT AUTO 0 % (0-6); Hematocrit 33.5 % (33.0-51.0); Hemoglobin 11.6 g/dL (11.5-16.0); IMMATURE GRAN ABSOLUTE AUTO 0.02 K/mm3 (0.00-0.10); IMMATURE GRAN PERCENT AUTO 0 % (0-1); LYMPHOCYTES ABSOLUTE AUTO 2.56 K/mm3 (0.84-5.20); LYMPHOCYTES PERCENT AUTO 43 % (21-46); MONOCYTES ABSOLUTE AUTO 0.47 K/mm3 (0.16-1.47); MONOCYTES PERCENT AUTO 8 % (4-13); Mean Corpuscular HGB 31.1 pg (26.0-34.0); Mean Corpuscular HGB Conc 34.6 g/dL (31.5-36.5); Mean Corpuscular Volume 90 fL (80-100); NEUTROPHILS ABSOLUTE AUTO 2.84 K/mm3 (1.96-9.15); NEUTROPHILS PERCENT AUTO 48 % (41-73); RDW Coefficient Variation 12.2 % (11.7-14.2); Red Blood Cell Count 3.73 M/mm3 (3.80-5.20); White Blood Cell Count 5.91 K/mm3 (4.00-11.30)
[2020-10-19 06:42] LABS: Anion Gap 4 mmol/L (6-16); Blood Urea Nitrogen 14 mg/dL (8-24); Bun/Creatinine Ratio 19.4 (12.0-20.0); CO2, Blood 29 mmol/L (21-32); Calcium, Blood 7.5 mg/dL (8.5-10.1); Chloride, Blood 111 mmol/L (98-108); Creatinine, Blood 0.72 mg/dL (0.40-1.00); Glomerular Filtration Rate >60 (60-); Glucose, Blood 88 mg/dL (70-99); Potassium, Blood 3.7 mmol/L (3.5-5.5); Sodium, Blood 144 mmol/L (136-145)
[2020-10-19 06:43] LABS: Mean Platelet Volume 12.8 fL (9.1-12.4); Platelet Count 104 K/mm3 (150-400)
--- NOTE | 2020-10-19 19:14 | NUR ---
SHIFT SUMMARY RADHA COMPLAINED OF NAUSEA AND HEADACHE THIS SHIFT, GOT TYLENOL AND ZOFRAN. TELE SHOWED SINUS ARLETH. FULLY ORIENTED. INDEPENDENT IN THE ROOM BUT THEN LEFT FLOOR (AFTER BEING TOLD NOT TO LEAVE), SO WILL NEED BED ALARM. NO WITNESSED PSEUDOSEIZURES THIS SHIFT, THOUGH SHE CLAIMS SHE HAD ONE. HAD FIRST PART OF STRESS TEST, STILL AWAITING RESULTS. CONTINENT IN TOILET EXCEPT ONE STOOL INCONTINENCE EPISODE IN THE AFTERNOON. CALL LIGHT IN REACH, [facility]
--- NOTE | 2020-10-20 06:05 | NUR ---
SHIFT SUMMARY NO COMPLAINTS OF CHEST PAIN AND NO CHANGES ON TELE. SHE HAS BEEN INDEPENDENT IN THE ROOM. VITALS ARE STABLE, SHE HAS BEEN NPO SINCE MIDNIGHT FOR SECOND PORTION OF STRESS TEST TODAY. PT ANXIETY HAS BEEN MILD THIS SHIFT, AND SHE APPEARS TO HAVE RESTED COMFORTABLY T/O SHIFT. NO ACUTE CHANGES IN ASSESSMENT. BED IN LOWEST POSITION, CALL LIGHT WITHIN REACH.
--- NOTE | 2020-10-20 13:05 | NUR ---
DR NUNEZ NOTIFIED OF THIS MODERATE SI RISK. PATIENT REPORTS SHE DOES NOT HAVE A PLAN. WILL MOVE TO BED VIDEO MONITORING.
--- NOTE | 2020-10-20 13:51 | NUR ---
STRESS TEST PART 2 FOR 10/21: PT EDUCATED BY NUC. MED TO NOT EAT BREAKFAST, TEST AT 0800, SCAN AT 0930. PT VERBALIZED UNDERSTANDING. UPDATED WHITE BOARD.
--- NOTE | 2020-10-20 16:36 | NUR ---
PT WAS NPO FOR STRESS TEST BUT WAS ACCIDENTLY GIVEN BREAKFAST TRAY. PT ATE BREAKFAST AND HAD COFFEE. STRESS TEST WAS CANCELLED AND RESCHEDULED. PT COMPLAINED OF HEADACHE AND GENERALIZED, BUT DENIED CHEST PAIN/PRESSURE PAIN AND REQESTED ADDITIONAL PAIN MEDICATION. NOTIFIED OF REQUEST, NO ADDITIONAL MEDICATON ORDER WAS GIVEN. PT BECAME UPSET AND REQUESTED MEDICATION AGAIN. TALKED TO DR. NUNEZ IN BALL AND MADE HER AWARE OF REQUEST. ADDITIONAL PAIN MEDICATION WAS NOT ORDERED AT THAT TIME. MADE PT AWARE OF REQUEST AND PT BECAME FRUSTRATED. PT STATED SHE WISH SHE WAS AND THAT SHE WANTED TO GO HOME AND COMMIT SUICIDE, IF SHE HAD THE RESOURCES HERE SHE WOULD DO IT IN THE HOSPITAL. MADE CHARGE NURSE AND AWARE OF WHAT PT SAID. CHARGE NURSE DID SI QUESTIONAIR AND PT HAD MODERATE SI RESULTS. FELICIANO WISE WAS REQUESTED TO BE A SITTER FOR PT UNTIL SHE WAS TRANSFERED BACK TO [facility]. PT TRANSFERED TO [facility] AND REPORT WAS GIVEN TO [facility] RN.
--- NOTE | 2020-10-20 17:28 | NUR ---
PATIENT DENIES ANY SUICIDE IDEATION AT THIS TIME.
--- NOTE | 2020-10-20 17:59 | NUR ---
PATIENT IS ALERT AND ORIENTED AND COOPERATIVE WITH CARE. SHE DENIES SUICIDAL IDEATION AT THIS TIME. PATIENT STATES "I NEVER WANTED TO KILL MYSELF, I WAS JUST UPSET BECAUSE I WAS IN PAIN". SHE IS INDEPENDENT IN HER ROOM. THE BATHROOM IS LOCKED. VIDEO MONITORING IS ON. PATIENT IS SITTING UP ON THE SIDE OF THE BED EATING DINNER AT THIS TIME.
--- NOTE | 2020-10-20 18:40 | NUR ---
PATIENT HAS COMPLETED TELEPSYCH APPOINTMENT WITH DR. CANNON.
--- NOTE | 2020-10-20 20:37 | NUR ---
DR NUNEZ CALLED. THERE WILL BE NO CHANGES IN ORDERS. CONTINUE 2MD HOLD AND MODERATE SI. DR WILL REEVALUATE IN AM.
--- NOTE | 2020-10-21 05:42 | NUR ---
SHIFT SUMMARY PT IS A 60 Y/O FEMALE, ADMITTED FOR N/V AND CURRENTLY ON AN SI 2 MD HOLD. SHE IS A&O X 4, IRRITABLE AND ANXIOUS AT TIMES. AT START OF SHIFT, PT WAS VERY IRRITABLE WITH STAFF, DEMANDING HER PERSONAL BELONGINGS AND MEDICATIONS, TO BE TAKEN OFF OF SI PRECAUTIONS, AND TO "BE LET OFF OF THIS UNIT". PT ALSO REQUESTING HER TRAMADOL FOR PAIN AND CLONOPIN FOR ANXIETY, NEITHER OF WHICH WERE AVAILABLE AT THAT TIME. PT WAS TOLD THAT NO CHANGES IN HER STATUS WOULD BE MADE TONIGHT, THAT IT WOULD BE RE-EVALUATED IN THE MORNING. A OT DOSE OF PO CLONOPIN ORDERED FOR ANXIETY PER DR YU AND PT WAS MEDICATED WITH TYLENOL FOR PAIN. PT SLEPT WELL UNTIL THIS AM. PT DENIED ANY SI, AND STATED THAT "I WASN'T SERIOUS EARLIER" THAT PT WOULD HARM HERSELF. VITAL SIGNS STABLE. NO OTHER ACUTE CHANGES IN PT CONDITION NOTED DURING THE NIGHT. WILL CONTINUE TO MONITOR AND TREAT PER EMAR UNTIL HAND OFF TO DAY SHIFT RN.
[2020-10-21 10:40] LABS: BASOPHILS PERCENT AUTO 0 % (0-2); EOSINOPHILS PERCENT AUTO 0 % (0-6); Hematocrit 39.7 % (33.0-51.0); Hemoglobin 13.7 g/dL (11.5-16.0); IMMATURE GRAN ABSOLUTE AUTO 0.02 K/mm3 (0.00-0.10); IMMATURE GRAN PERCENT AUTO 0 % (0-1); LYMPHOCYTES ABSOLUTE AUTO 2.09 K/mm3 (0.84-5.20); LYMPHOCYTES PERCENT AUTO 45 % (21-46); MONOCYTES ABSOLUTE AUTO 0.34 K/mm3 (0.16-1.47); MONOCYTES PERCENT AUTO 7 % (4-13); Mean Corpuscular HGB 30.6 pg (26.0-34.0); Mean Corpuscular HGB Conc 34.5 g/dL (31.5-36.5); Mean Corpuscular Volume 89 fL (80-100); Mean Platelet Volume 11.2 fL (9.1-12.4); NEUTROPHILS PERCENT AUTO 47 % (41-73); Platelet Count 109 K/mm3 (150-400); RDW Coefficient Variation 12.3 % (11.7-14.2); RDW Standard Deviation 39.9 fL (35.1-46.3); Red Blood Cell Count 4.48 M/mm3 (3.80-5.20); White Blood Cell Count 4.65 K/mm3 (4.00-11.30)
[2020-10-21 10:54] LABS: Albumin, Blood 3.2 g/dL (3.4-5.0); Anion Gap 6 mmol/L (6-16); Blood Urea Nitrogen 20 mg/dL (8-24); CO2, Blood 26 mmol/L (21-32); Calcium, Blood 8.8 mg/dL (8.5-10.1); Chloride, Blood 112 mmol/L (98-108); Creatinine, Blood 0.77 mg/dL (0.40-1.00); Glomerular Filtration Rate >60 (60-); Glucose, Blood 229 mg/dL (70-99); Magnesium, Blood 1.4 mg/dL (1.6-2.4); Phosphorus, Blood 3.3 mg/dL (2.5-4.9); Potassium, Blood 3.6 mmol/L (3.5-5.5); Sodium, Blood 144 mmol/L (136-145)
[2020-10-21] MEDS ORDERED: Aspir 8181 MG PO (13:38)
[2020-10-21] MEDS ORDERED: FAMO20 PO (13:39)
--- NOTE | 2020-10-21 14:08 | NUR ---
PATIENT HAD A FEW SEIZURE-LIKE ACTIVITIES THIS MORNING; IV ATIVAN GIVEN TO ASSIST. IT SEEMED LIKE SOME OF THE SEIZURES WITH AUTHENITIC WHILE THE PATIENT MIGHT HAVE BEEN PLAYING THE OTHER ONES FOR ATTENTION. PATIENT INSISTED ON BEING DISCHARGED HOME. DR NUNEZ NOTIFIED. PATIENT IN NO APPARENT DANGER OF SI. STRESS TEST COMPLETED AND DR NUNEZ SPOKE WITH PATIENT AND GAVE ORDERS TO D/C HOME. IV AND TELE REMOVED. DISCHARGE INSTRUCTIONS REVIEWED WITH THE PATIENT. ALL QUESTIONS ANSWERED. PATIENT NOT HAPPY BECAUSE SHE WAS NOT GIVEN PAIN MEDICATION. DAUGHTER IN LAW CAME TO TRANSPORT PATIENT HOME. BLOCKMAN ESCORTED PATIENT OUT TO RIDE AT 1401.
[2020-12-04] MEDS ORDERED: MACRODANTIN100 M1 PO (17:41)
[2020-12-04] MEDS ORDERED: ONDA4ODT MM (17:43)
== END 2020-10-21 14:03 | disposition home or self-care (01) ==
LOC: ER 08:52 → MEDS 08:53
PROVIDERS: Internal Medicine; Physician Assistant; ADMIT Internal Medicine
DX: R11.2 Nausea with vomiting, unspecified (principal); I11.0 Hypertensive heart disease with heart failure; I50.32 Chronic diastolic (congestive) heart failure; E11.9 Type 2 diabetes mellitus without complications; M32.9 Systemic lupus erythematosus, unspecified; I48.20 Chronic atrial fibrillation, unspecified; J44.9 Chronic obstructive pulmonary disease, unspecified; F17.210 Nicotine dependence, cigarettes, uncomplicated; F31.9 Bipolar disorder, unspecified; G40.802 Other epilepsy, not intractable, without status epilepticus; M79.7 Fibromyalgia; R07.9 Chest pain, unspecified; R77.8 Other specified abnormalities of plasma proteins; G89.29 Other chronic pain; F41.9 Anxiety disorder, unspecified; R51.9 Headache, unspecified; I95.9 Hypotension, unspecified; Z79.01 Long term (current) use of anticoagulants; Z79.4 Long term (current) use of insulin; Z95.0 Presence of cardiac pacemaker
CPT/HCPCS: 36415; 78452; 80048; 80053; 80069; 82947; 83690; 83735; 84484; 85025; 93005; 93010; 93017; 94760; 96365; 96372; 96375; 96376; 99285-25; A9270; A9500; G0378; J0706; J1200; J1630; J1650; J1953; J2060; J2405; J2550; J2785; J7030; J7040; J7120; Q0177

== ENCOUNTER → 2020-11-14 | Outpatient (CLI) | payer OTHER ==
[~2020-11-14] MED LIST changes: +ALPRAZOLAM0.5 M1 PO; +Aspir 8181 MG PO; +BUPRENORPHIN-N1 EAC5 SL; +CYMBALTA30 M2 PO; +DIAZ2 PO; +FAMO20 PO; +FLUTICASONE-SA1 EAC9 INH; +FUROSEMIDE40 MG PO; +GABA400 PO; +INSULIN LI100 UNIT/6 SC; +KLOR-CON 1010 ME1 PO; +LIDO700A20 TOP; +MACRODANTIN100 M1 PO; +PREGABALIN100 MG PO; +QUETIAPINE FUM400 M6 PO
[2020-11-14 18:51] LABS: U Amphetamine Screen Not Detected; U Barbituate Screen Not Detected; U Benzodiazapine Screen Not Detected; U Buprenorphine Screen Not Detected; U Cannabinoids Screen Not Detected; U Cocaine Screen Not Detected; U Methadone Screen Not Detected; U Methamphetamine Screen Not Detected; U Opiates Screen Not Detected; U Oxycodone Screen DETECTED; U Phencyclidine Screen Not Detected; U Propoxyphene Screen Not Detected
== END | disposition home or self-care (01) ==
LOC: LAB 15:10 → LAB SHORT 15:10
PROVIDERS: Physician Assistant
DX: R30.0 Dysuria (principal); Z79.891 Long term (current) use of opiate analgesic
CPT/HCPCS: 87086

== ENCOUNTER 2020-11-30 14:59 | Emergency (ER) | payer OTHER ==
[~2020-11-30] VITALS: Ht 160 cm; Wt 82.5 kg
[~2020-11-30 14:59] MED LIST changes: -CYMBALTA30 M2 PO; -DIAZ2 PO; -FLUTICASONE-SA1 EAC9 INH; -GABA400 PO; -INSULIN LI100 UNIT/6 SC; -LIDO700A20 TOP; -MACRODANTIN100 M1 PO; -PREGABALIN100 MG PO; -QUETIAPINE FUM400 M6 PO
[2020-11-30 16:13] LABS: Alanine Aminotransfer (ALT/SGP 46 U/L (12-78); Albumin, Blood 3.5 g/dL (3.4-5.0); Albumin/Globulin Ratio 0.8 (0.8-1.8); Alk Phos 165 U/L (50-136); Anion Gap 7 mmol/L (6-16); Aspartate Aminotrans (AST/SGOT 36 U/L (12-37); Bilirubin, Total 0.3 mg/dL (0.1-1.0); Blood Urea Nitrogen 31 mg/dL (8-24); Bun/Creatinine Ratio 39.5 (12.0-20.0); CO2, Blood 28 mmol/L (21-32); Calcium, Blood 8.9 mg/dL (8.5-10.1); Chloride, Blood 107 mmol/L (98-108); Creatinine, Blood 0.79 mg/dL (0.40-1.00); Globulin, Blood 4.3 g/dL (2.2-4.0); Glomerular Filtration Rate >60 (60-); Glucose, Blood 229 mg/dL (70-99); Potassium, Blood 4.6 mmol/L (3.5-5.5); Sodium, Blood 142 mmol/L (136-145); Total Protein, Blood 7.8 g/dL (6.4-8.2); Troponin I <0.015 ng/mL (0.000-0.040)
[2020-11-30 16:29] LABS: BASOPHILS ABSOLUTE AUTO 0.02 K/mm3 (0.00-0.23); BASOPHILS PERCENT AUTO 0 % (0-2); EOSINOPHILS PERCENT AUTO 0 % (0-6); Hemoglobin 14.6 g/dL (11.5-16.0); IMMATURE GRAN PERCENT AUTO 1 % (0-1); LYMPHOCYTES ABSOLUTE AUTO 1.68 K/mm3 (0.84-5.20); LYMPHOCYTES PERCENT AUTO 24 % (21-46); MONOCYTES ABSOLUTE AUTO 0.37 K/mm3 (0.16-1.47); MONOCYTES PERCENT AUTO 5 % (4-13); Mean Corpuscular HGB 31.3 pg (26.0-34.0); Mean Corpuscular HGB Conc 34.8 g/dL (31.5-36.5); Mean Corpuscular Volume 90 fL (80-100); Mean Platelet Volume 12.5 fL (9.1-12.4); NEUTROPHILS ABSOLUTE AUTO 4.81 K/mm3 (1.96-9.15); NEUTROPHILS PERCENT AUTO 69 % (41-73); Platelet Count 107 K/mm3 (150-400); RDW Coefficient Variation 11.8 % (11.7-14.2); RDW Standard Deviation 38.5 fL (35.1-46.3); Red Blood Cell Count 4.66 M/mm3 (3.80-5.20); White Blood Cell Count 6.98 K/mm3 (4.00-11.30)
[2020-11-30] MEDS ORDERED: LIDO700A20 TOP (17:19)
[2020-11-30] MEDS ORDERED: DIAZ2 PO (17:24)
[2020-12-04] MEDS ORDERED: MACRODANTIN100 M1 PO (17:41)
[2020-12-04] MEDS ORDERED: ONDA4ODT MM (17:43)
== END 2020-11-30 17:30 | disposition home or self-care (01) ==
LOC: ER 14:59
PROVIDERS: Physician Assistant
DX: E86.0 Dehydration (principal); M54.2 Cervicalgia; M54.9 Dorsalgia, unspecified; R55 Syncope and collapse; I10 Essential (primary) hypertension; E11.40 Type 2 diabetes mellitus with diabetic neuropathy, unspecified; J44.9 Chronic obstructive pulmonary disease, unspecified; F17.210 Nicotine dependence, cigarettes, uncomplicated; Z88.6 Allergy status to analgesic agent; Z88.8 Allergy status to other drugs, medicaments and biological substances; Z79.4 Long term (current) use of insulin; W10.9XXA Fall (on) (from) unspecified stairs and steps, initial encounter
CPT/HCPCS: 36415; 70450; 71045; 72125; 72128; 72131; 72170; 80053; 82947; 84484; 85025; 93005; 93010; 99284-25; A9270; L0160

== ENCOUNTER 2020-12-29 12:43 | Emergency (ER) | payer OTHER ==
[~2020-12-29] VITALS: Ht 160 cm; Wt 84.4 kg
[~2020-12-29 12:43] MED LIST changes: +DIAZ2 PO; +LIDO700A20 TOP; +MACRODANTIN100 M1 PO
[2020-12-29] MEDS ORDERED: QUETIAPINE FUM400 M6 PO (14:51)
[2020-12-29] MEDS ORDERED: PREGABALIN100 MG PO (14:51)
[2020-12-29] MEDS ORDERED: FLUTICASONE-SA1 EAC9 INH (14:52)
[2020-12-29] MEDS ORDERED: CYMBALTA30 M2 PO (14:53)
[2020-12-29] MEDS ORDERED: INSULIN LI100 UNIT/6 SC (14:53)
[2020-12-29] MEDS ORDERED: ALPR.5 PO (14:59)
[2020-12-29] MEDS ORDERED: GABA400 PO (15:00)
[2020-12-29 15:01] LABS: BASOPHILS ABSOLUTE AUTO 0.01 K/mm3 (0.00-0.23); BASOPHILS PERCENT AUTO 0 % (0-2); EOSINOPHILS ABSOLUTE AUTO 0.01 K/mm3 (0.00-0.68); EOSINOPHILS PERCENT AUTO 0 % (0-6); Hemoglobin 13.4 g/dL (11.5-16.0); IMMATURE GRAN ABSOLUTE AUTO 0.03 K/mm3 (0.00-0.10); IMMATURE GRAN PERCENT AUTO 1 % (0-1); LYMPHOCYTES PERCENT AUTO 33 % (21-46); MONOCYTES ABSOLUTE AUTO 0.44 K/mm3 (0.16-1.47); MONOCYTES PERCENT AUTO 7 % (4-13); Mean Corpuscular HGB 30.7 pg (26.0-34.0); Mean Corpuscular HGB Conc 34.4 g/dL (31.5-36.5); Mean Corpuscular Volume 89 fL (80-100); Mean Platelet Volume 10.6 fL (9.1-12.4); NEUTROPHILS PERCENT AUTO 59 % (41-73); Platelet Count 105 K/mm3 (150-400); RDW Coefficient Variation 12.4 % (11.7-14.2); Red Blood Cell Count 4.37 M/mm3 (3.80-5.20); White Blood Cell Count 6.29 K/mm3 (4.00-11.30)
[2020-12-29 15:19] LABS: Alanine Aminotransfer (ALT/SGP 34 U/L (12-78); Albumin, Blood 3.2 g/dL (3.4-5.0); Albumin/Globulin Ratio 0.8 (0.8-1.8); Alk Phos 142 U/L (50-136); Anion Gap 4 mmol/L (6-16); Aspartate Aminotrans (AST/SGOT 42 U/L (12-37); Bilirubin, Total 0.4 mg/dL (0.1-1.0); Blood Urea Nitrogen 30 mg/dL (8-24); Bun/Creatinine Ratio 37.4 (12.0-20.0); CO2, Blood 30 mmol/L (21-32); Calcium, Blood 9.4 mg/dL (8.5-10.1); Chloride, Blood 102 mmol/L (98-108); Glomerular Filtration Rate >60 (60-); Glucose, Blood 219 mg/dL (70-99); Potassium, Blood 5.5 mmol/L (3.5-5.5); Sodium, Blood 136 mmol/L (136-145); Total Protein, Blood 7.2 g/dL (6.4-8.2)
== END 2020-12-29 15:45 | disposition home or self-care (01) ==
LOC: ER 12:43
PROVIDERS: Student in an Organized Health Care Education/Training Program
DX: G40.909 Epilepsy, unspecified, not intractable, without status epilepticus (principal); R07.9 Chest pain, unspecified; R51.9 Headache, unspecified; Z88.6 Allergy status to analgesic agent; Z88.0 Allergy status to penicillin; Z79.4 Long term (current) use of insulin; Z79.899 Other long term (current) drug therapy
CPT/HCPCS: 36415; 80053; 80201; 84484; 85025; 93005; 93010; 96372-59; 96374; 99285-25; A9270; J1953; J2060; J2550

== ENCOUNTER 2021-01-11 18:01 | Inpatient (IN) | payer OTHER ==
[~2021-01-11] VITALS: Ht 162.6 cm; Wt 79.4 kg
[~2021-01-11 18:01] MED LIST changes: +CYMBALTA30 M2 PO; +FLUTICASONE-SA1 EAC9 INH; +GABA400 PO; +INSULIN LI100 UNIT/6 SC; +PREGABALIN100 MG PO; +QUETIAPINE FUM400 M6 PO
[2021-01-11 18:40] LABS: Source, Urine Catheter
[2021-01-11 18:51] LABS: Appearance, Urine Clear (Clear); Bilirubin, Urine Neg (Neg); Blood, Urine 4+ (Neg); Color, Urine Yellow (P-Yellow); Glucose Qualitative, Urine 4+ (Neg); Ketones, Urine 4+ (Neg); Leukocyte Esterase, Urine Neg (Neg); Nitrite, Urine Neg (Neg); Protein, Urine 3+ (Neg); Urobilinogen, Urine NORM (Normal)
[2021-01-11 18:57] LABS: BASOPHILS ABSOLUTE AUTO 0.01 K/mm3 (0.00-0.23); BASOPHILS PERCENT AUTO 0 % (0-2); EOSINOPHILS PERCENT AUTO 0 % (0-6); Hematocrit 43.8 % (33.0-51.0); IMMATURE GRAN ABSOLUTE AUTO 0.07 K/mm3 (0.00-0.10); IMMATURE GRAN PERCENT AUTO 1 % (0-1); LYMPHOCYTES ABSOLUTE AUTO 0.75 K/mm3 (0.84-5.20); LYMPHOCYTES PERCENT AUTO 8 % (21-46); MONOCYTES ABSOLUTE AUTO 0.44 K/mm3 (0.16-1.47); MONOCYTES PERCENT AUTO 5 % (4-13); Mean Corpuscular HGB 30.5 pg (26.0-34.0); Mean Corpuscular HGB Conc 34.2 g/dL (31.5-36.5); Mean Corpuscular Volume 89 fL (80-100); NEUTROPHILS ABSOLUTE AUTO 8.52 K/mm3 (1.96-9.15); NEUTROPHILS PERCENT AUTO 87 % (41-73); Platelet Count 163 K/mm3 (150-400); RDW Coefficient Variation 12.5 % (11.7-14.2); RDW Standard Deviation 40.7 fL (35.1-46.3); Red Blood Cell Count 4.91 M/mm3 (3.80-5.20); White Blood Cell Count 9.79 K/mm3 (4.00-11.30)
[2021-01-11 18:58] LABS: Alanine Aminotransfer (ALT/SGP 71 U/L (12-78); Albumin, Blood 3.8 g/dL (3.4-5.0); Albumin/Globulin Ratio 0.8 (0.8-1.8); Alk Phos 180 U/L (50-136); Anion Gap 17 mmol/L (6-16); Aspartate Aminotrans (AST/SGOT 58 U/L (12-37); Blood Urea Nitrogen 38 mg/dL (8-24); Bun/Creatinine Ratio 50.9 (12.0-20.0); CO2, Blood 19 mmol/L (21-32); Calcium, Blood 10.1 mg/dL (8.5-10.1); Chloride, Blood 112 mmol/L (98-108); Creatinine, Blood 0.75 mg/dL (0.40-1.00); Ethanol (Alcohol), Blood, Med <3 mg/dL; Globulin, Blood 4.5 g/dL (2.2-4.0); Glomerular Filtration Rate >60 (60-); Glucose, Blood 495 mg/dL (70-99); Salicylate 6.4 mg/dL (2.8-20.0); Sodium, Blood 148 mmol/L (136-145); Total Protein, Blood 8.3 g/dL (6.4-8.2); Troponin I 0.029 ng/mL (0.000-0.040)
[2021-01-11 19:00] LABS: Acetaminophen, Random <2.0 ug/mL (10.0-30.0)
[2021-01-11 19:10] LABS: U Amphetamine Screen Not Detected; U Barbituate Screen Not Detected; U Benzodiazapine Screen DETECTED; U Buprenorphine Screen Not Detected; U Cannabinoids Screen Not Detected; U Cocaine Screen Not Detected; U Methadone Screen Not Detected; U Methamphetamine Screen Not Detected; U Opiates Screen Not Detected; U Oxycodone Screen Not Detected; U Phencyclidine Screen Not Detected; U Propoxyphene Screen Not Detected
[2021-01-11 19:15] LABS: White Blood Cells, Urine Rare /hpf (0-5)
[2021-01-11 19:16] LABS: Amorphous Light (0-Heavy); Bacteria Few /hpf; Squamous Epithelial Cells Rare /hpf (Few)
[2021-01-11 22:01] LABS: Salicylate 5.7 mg/dL (2.8-20.0); Troponin I 0.05 ng/mL (0.000-0.040)
--- NOTE | 2021-01-12 02:30 | NUR ---
CENTRAL LINE PLACED BY W/ ASSISTING. RIGHT IJ, PT GIVEN VERSED THROUGHOUT PROCEDURE PER ORDERS FROM . PT RESTLESS, HELD STILL BY STAFF, PT NOT LIKING BEING HELD DOWN. ONCE PROCEDURE COMPLETE PT QUIET AND ROLLS TO HER SIDE AND SLEEPS.
--- NOTE | 2021-01-12 02:47 | NUR ---
ASSUMED CARE. PT ARRIVED IN UNIT FROM ER AT 2350. PT ALERT, NOT ORIENTED WITH ALTERED MENTAL STATUS. PT DOES NOT RESPOND TO COMMANDS, IS RESTLESS AND MAKES INCOMPREHENSIBLE SOUNDS. VITAL SIGNS STABLE, BP 140s SYSTOLIC. PT GIVEN NS AT 125/HR AND INSULIN AT 5 UNITS/HR. WILL CONTINUE TO MONITOR. SEE ASSESSMENT.
[2021-01-12 03:39] LABS: BASOPHILS ABSOLUTE AUTO 0.02 K/mm3 (0.00-0.23); BASOPHILS PERCENT AUTO 0 % (0-2); EOSINOPHILS PERCENT AUTO 0 % (0-6); Hemoglobin 13.7 g/dL (11.5-16.0); IMMATURE GRAN ABSOLUTE AUTO 0.06 K/mm3 (0.00-0.10); IMMATURE GRAN PERCENT AUTO 1 % (0-1); LYMPHOCYTES ABSOLUTE AUTO 1.23 K/mm3 (0.84-5.20); LYMPHOCYTES PERCENT AUTO 9 % (21-46); MONOCYTES ABSOLUTE AUTO 0.88 K/mm3 (0.16-1.47); MONOCYTES PERCENT AUTO 7 % (4-13); Mean Corpuscular HGB 30.7 pg (26.0-34.0); Mean Corpuscular HGB Conc 34.3 g/dL (31.5-36.5); Mean Corpuscular Volume 90 fL (80-100); Mean Platelet Volume 12.3 fL (9.1-12.4); NEUTROPHILS ABSOLUTE AUTO 10.94 K/mm3 (1.96-9.15); NEUTROPHILS PERCENT AUTO 83 % (41-73); Platelet Count 162 K/mm3 (150-400); RDW Coefficient Variation 12.8 % (11.7-14.2); RDW Standard Deviation 41.5 fL (35.1-46.3); Red Blood Cell Count 4.46 M/mm3 (3.80-5.20); White Blood Cell Count 13.13 K/mm3 (4.00-11.30)
[2021-01-12 03:56] LABS: Anion Gap 9 mmol/L (6-16); Blood Urea Nitrogen 47 mg/dL (8-24); Bun/Creatinine Ratio 54.9 (12.0-20.0); CO2, Blood 26 mmol/L (21-32); Calcium, Blood 10.1 mg/dL (8.5-10.1); Chloride, Blood 115 mmol/L (98-108); Creatinine, Blood 0.86 mg/dL (0.40-1.00); Glomerular Filtration Rate >60 (60-); Glucose, Blood 371 mg/dL (70-99); Potassium, Blood 3.3 mmol/L (3.5-5.5); Sodium, Blood 150 mmol/L (136-145)
[2021-01-12 04:00] LABS: Troponin I 0.077 ng/mL (0.000-0.040)
--- NOTE | 2021-01-12 07:19 | NUR ---
SHIFT SUMMARY. PT CONTINUES TO HAVE ALTERED MENTAL STATUS, INCOMPREHENSIBLE SPEECH, AND INABILITY TO FOLLOW COMMANDS. PT IS FAIRLY CALM, ABLE TO STAY IN BED WITHOUT RESTRAINTS, PT ON CENTRAL MONITORING WITH BED ALARM. INSULIN RUNNING AT 3 UNITS/HR, 1/2 NORMAL SALINE AT 125. CHEMBG HAVE BEEN TRENDING DOWNWARD SINCE ADMIT. CENTRAL LINE PLACED BY DR BLAIR DURING SHIFT, PLACEMENT CONFIRMED. NO ACUTE NEEDS NOTED, REPORT GIVEN TO ONCOMING RN.
[2021-01-12 09:30] LABS: Alanine Aminotransfer (ALT/SGP 63 U/L (12-78); Albumin, Blood 3.5 g/dL (3.4-5.0); Albumin/Globulin Ratio 0.8 (0.8-1.8); Alk Phos 159 U/L (50-136); Anion Gap 6 mmol/L (6-16); Aspartate Aminotrans (AST/SGOT 47 U/L (12-37); Bilirubin, Total 0.8 mg/dL (0.1-1.0); Blood Urea Nitrogen 49 mg/dL (8-24); Bun/Creatinine Ratio 58.9 (12.0-20.0); CO2, Blood 28 mmol/L (21-32); Calcium, Blood 10.1 mg/dL (8.5-10.1); Chloride, Blood 117 mmol/L (98-108); Creatinine, Blood 0.83 mg/dL (0.40-1.00); Globulin, Blood 4.2 g/dL (2.2-4.0); Glomerular Filtration Rate >60 (60-); Glucose, Blood 269 mg/dL (70-99); Potassium, Blood 3.4 mmol/L (3.5-5.5); Sodium, Blood 151 mmol/L (136-145); Total Protein, Blood 7.7 g/dL (6.4-8.2)
--- NOTE | 2021-01-12 10:00 | NUR ---
Care Assumed 0700 Pt on insulin GTT between 3-4 units/hr, see flow sheet, infusing via central line. Pt currently being seen for SI, remote monitoring called and confirmed pt is on camera. Dr. Ramírez called in regards to patient listed as "high risk" during suicide assessment. This is due to pt unable to answer SI questions otherwise pt is not showing any suicidal behavior. Pt remains in bed, turns frequently by herself. Bed alarm is on. Dr. Ramírez made aware of this and pt changed to mod risk. Pt tracking when in room but unable to answer any questions, moans occasionally. Lung sounds clear. Remains on RA. Hypertensive at times, see vital sign flow sheet. Pt continues to have ST depression, trops are being trended. Pt unable to state if she is in pain at this time.
--- NOTE | 2021-01-12 10:43 | NUR ---
Poison Control Posion control called in regards to patients updated labs. They would like another salicylate level checked. Dr. Ramírez called and made aware, new lab orders reiceved.
--- NOTE | 2021-01-12 10:48 | NUR ---
RN contacted to assess if patient stable for suicide safety plan nterview. Pt is not able at this time per RN. Noelle Berger M.Ed., [facility], [facility] Director
--- NOTE | 2021-01-12 11:26 | NUR ---
Family updated/ soical services referral placed Spoke to patients mother, son (Stu), and sister (Lucretia). Lucretia is listed as next of kin and permission provided to speak to patients son and mother. Pt son states he is concerned about patients living conditions with Lucretia and her . Per Lucretia pt has had AMS since Friday and has been moaning but not talking. This resulted in Lucretia called EMS yesterday. Stu states, "I am concerned my mother is getting drugs from Lucretia and is being neglected by them." Soical services referral placed. Pts skin is intact without any current signs of neglect or abuse. Son made aware that once his mother is able to speak we can discuss these concerns with her as well. Soical services states they will not be able to reach out to Stu unless pt provides permission. Will update son.
[2021-01-12 11:51] LABS: Troponin I 0.103 ng/mL (0.000-0.040)
--- NOTE | 2021-01-12 13:38 | NUR ---
Update- Dr. Ramírez called in regards to pt being hypertensive (SBP 180-190's) and trop trending up. Waiting for call back. Pt had large LM, seedy, brown, and pasty.
--- NOTE | 2021-01-12 15:01 | NUR ---
Provider call- HTN DR. Ramírez called in regards to patients HTN. PRovider to place new orders.
[2021-01-12 15:39] LABS: Anion Gap 1 mmol/L (6-16); Blood Urea Nitrogen 48 mg/dL (8-24); Bun/Creatinine Ratio 60.3 (12.0-20.0); CO2, Blood 30 mmol/L (21-32); Calcium, Blood 9.4 mg/dL (8.5-10.1); Chloride, Blood 119 mmol/L (98-108); Glomerular Filtration Rate >60 (60-); Glucose, Blood 263 mg/dL (70-99); Potassium, Blood 3.6 mmol/L (3.5-5.5); Sodium, Blood 150 mmol/L (136-145)
--- NOTE | 2021-01-12 16:16 | NUR ---
Provider visit and family call Dr. Capps in to see patient and updated on current pt neuro status. Provider called to update Lucretia (pts sister) next of kin on plan of care. Stu, pts son, has called frequently (every two hours) for updates on patient care. Dr. Capps made aware. Stu updated on pts status.
--- NOTE | 2021-01-12 18:31 | NUR ---
Shift Summary/Provider call Dr. Ramírez called in regards to pts BP (SBP 180'S) AND HR decreasing to 50's when sleeping. Provider states ok to give prn metoprolol. SBP 160's and HR 60-70's after treatment, see emar. Insulin 5 units/hr currently, via central line, see flow sheet. Pt able to say name now and answers "Good" when asked how she is doing. Otherwise, not able to answer any other questions. Continues to track when in room and attempted to get out of bed once. Bed alarm remains on and pt remains on camera. Pts son, Stu ([phone]), updated on neuro status change and asked to be called at night if there are other changes. Pt remains in Afib with ST depression. Reamined hypertensive T/O shift, see vital sign flow sheet. Remains on camera monitoring. Will report to oncoming shift.
--- NOTE | 2021-01-12 19:18 | NUR ---
report received at bedside-pt resting, on insulin gtt @ 5 untis/hr, d5 @ 150 ml/hr. pt unable to answer questions, making the suicide severity assessment a high risk-dry charge process attendant aware. ongoing camera monitoring and bedalarm in place. continue assessment and care.
[2021-01-12 19:27] LABS: Troponin I 0.082 ng/mL (0.000-0.040)
--- NOTE | 2021-01-12 20:17 | NUR ---
POSION CONTROL CALLED AND UPDATED. THEY WILL RETURN CALL IN AM.
[2021-01-12 23:53] LABS: Anion Gap 5 mmol/L (6-16); Blood Urea Nitrogen 41 mg/dL (8-24); Bun/Creatinine Ratio 56.5 (12.0-20.0); CO2, Blood 26 mmol/L (21-32); Calcium, Blood 8.7 mg/dL (8.5-10.1); Chloride, Blood 118 mmol/L (98-108); Creatinine, Blood 0.73 mg/dL (0.40-1.00); Glomerular Filtration Rate >60 (60-); Glucose, Blood 189 mg/dL (70-99); Potassium, Blood 3.4 mmol/L (3.5-5.5); Sodium, Blood 149 mmol/L (136-145)
--- NOTE | 2021-01-13 00:07 | NUR ---
ASSESS PT REMIANS CONFUSED, BUT FOLLOWS SIMPLE COMMANDS. INSULIN GTT CONTINUES-RATES DOCUMANTED IN FLOWSHEET-Q1 CBG'S. D5 INFUSING AT A SET RATE OF 150 ML/HR PER MD ORDER. PT IS VOIDING-ATTENDS IN PLACE. CONTINUE ASSESSMENTS AND CARE.
--- NOTE | 2021-01-13 04:33 | NUR ---
PT PULLED OUT CENTRAL LINE WHILE TRYING TO CLIMB OUT OF BED. POWER GLIDE PLACED TO LEFT UPPER ARM 20G 10CM. PT ASKING FOR "ATIVAN" AND YELLING OUT. CALL OUT TO DR BLAIR.
--- NOTE | 2021-01-13 04:57 | NUR ---
ASSESS PT AWAKE, FOLLOWS, ANSWERING QUESTIONS, DOES NOT REMEMBER TAKING TOO MANY MEDS AT HOME. KNOWS DATE/NAME/PLACE. MD ORDERD CLEAR LIQUIDS-PT ABLE TO DRINK, AND SWALLOW. CONTINUE ASSESSMENT AND CARE.
[2021-01-13 06:15] LABS: Hematocrit 37.8 % (33.0-51.0); Hemoglobin 12.8 g/dL (11.5-16.0); Mean Corpuscular HGB 30.6 pg (26.0-34.0); Mean Corpuscular HGB Conc 33.9 g/dL (31.5-36.5); Mean Corpuscular Volume 90 fL (80-100); Mean Platelet Volume 11.2 fL (9.1-12.4); Platelet Count 136 K/mm3 (150-400); RDW Coefficient Variation 12.8 % (11.7-14.2); RDW Standard Deviation 41.7 fL (35.1-46.3); Red Blood Cell Count 4.18 M/mm3 (3.80-5.20); White Blood Cell Count 10.51 K/mm3 (4.00-11.30)
[2021-01-13 06:40] LABS: Anion Gap 6 mmol/L (6-16); Blood Urea Nitrogen 34 mg/dL (8-24); Bun/Creatinine Ratio 46.9 (12.0-20.0); CO2, Blood 25 mmol/L (21-32); Calcium, Blood 8.5 mg/dL (8.5-10.1); Chloride, Blood 114 mmol/L (98-108); Creatinine, Blood 0.73 mg/dL (0.40-1.00); Glomerular Filtration Rate >60 (60-); Glucose, Blood 222 mg/dL (70-99); Potassium, Blood 3.4 mmol/L (3.5-5.5); Sodium, Blood 145 mmol/L (136-145)
--- NOTE | 2021-01-13 06:44 | NUR ---
PT A&O, YELLS OUT FOR WATER AND CLEANING. PT ABLE TO DRINK-CLEAR LIQUIDS ORDERED. PT REMIANS ON INSULIN GTT AND D5 GTT. AM LABS DONE. CO2 25, GAP CLOSED. PT GIVEN 1 MG OF ATIVAN OVERNIGHT FOR AGGITATION-PT THEN SLEPT FOR APROX 1.5 HR'S AND SINCE HAS BEEN AWAKE. CONTINUE CLOSE OBSEVATION-BEDALARM ON.
--- NOTE | 2021-01-13 10:30 | NUR ---
Care Assumed 0700 Insulin GTT infusing at 2 units/hr, placed on standby one hour after starting SQ insulin, per Dr. Ramírez. Dr. Ramírez called this morning to update on patient being able to talk and eat. A/O to location, following directions, and denies SI. Unable to state exact event that caused patient to come to hospital. Pt states, "I did not take any pills." Pt remains on camera and bed alarm is on. D5W @ 150 via powerglide. Pt able to take PO pills this morning. Had two BM this morning. Able to tolerate being on bedside commode. VSS. Remains on RA and in Afib. Call light within reach and pt uses frequently. Asking for "Ativan" or other pain medications. States "hurting all over" or "sharp chest pain" Dr. Ramírez made aware. Pt quickly falls asleep after. Pts son Stu called twice today and updated on current care being provided. Pts son spoke to pt on phone.
[2021-01-13 12:25] LABS: Anion Gap 6 mmol/L (6-16); Blood Urea Nitrogen 30 mg/dL (8-24); Bun/Creatinine Ratio 42.4 (12.0-20.0); CO2, Blood 26 mmol/L (21-32); Calcium, Blood 8.2 mg/dL (8.5-10.1); Chloride, Blood 111 mmol/L (98-108); Creatinine, Blood 0.71 mg/dL (0.40-1.00); Glomerular Filtration Rate >60 (60-); Glucose, Blood 245 mg/dL (70-99); Potassium, Blood 3.3 mmol/L (3.5-5.5); Sodium, Blood 143 mmol/L (136-145)
--- NOTE | 2021-01-13 12:51 | NUR ---
Provider Visit Dr. Ramírez in to see patient. Pt states, "I do not remember taking any pills" Pt continues to denies SI and states she does not want to harm herself. "I have a 90 year old mother whose heart will break if anything happens to me." Pt changed to medical floor status. Recieved new medication orders, see emar. Pts K 3.3, replacement per Dr. Ramírez. Pt continues to ask for "Ativan" Dr. Ramírez states she will review providers notes before giving Ativan.
--- NOTE | 2021-01-13 14:32 | NUR ---
Diarrhea Pt having frequent liquid to loose BM, every hour or 2-3 x within an hour. Reported to Dr. Ramírez. Orders recieved to check for C.diff.
--- NOTE | 2021-01-13 15:23 | NUR ---
Report given to [facility] 353 Nurse All questions answered.
--- NOTE | 2021-01-13 16:02 | NUR ---
TRANSFER TO MEDICAL FLOOR VIA WHEELCHAIR ALL OF PT BELONGINGS SENT WITH PT INCLUDING MEDICATIONS.
[2021-01-13 16:30] LABS: Albumin, Blood 2.7 g/dL (3.4-5.0); Anion Gap 5 mmol/L (6-16); Blood Urea Nitrogen 27 mg/dL (8-24); Bun/Creatinine Ratio 42.3 (12.0-20.0); CO2, Blood 25 mmol/L (21-32); Calcium, Blood 8.1 mg/dL (8.5-10.1); Chloride, Blood 111 mmol/L (98-108); Creatinine, Blood 0.64 mg/dL (0.40-1.00); Glomerular Filtration Rate >60 (60-); Glucose, Blood 296 mg/dL (70-99); Phosphorus, Blood 2.4 mg/dL (2.5-4.9); Potassium, Blood 3.8 mmol/L (3.5-5.5); Sodium, Blood 141 mmol/L (136-145)
--- NOTE | 2021-01-13 18:47 | NUR ---
a+o, denies si, states she would not take to many pills, call light in reach, rm air, tele showing hayder, have tried to call dr multiple times got AM, requested help from cn who also tried and got AM, heart rate was low prior to transfer, pt denies any s/sx, was trying to sleep at low points, will continue to monitor and treat until bsr share with noc nurse and pt
[2021-01-13 19:59] LABS: Adenovirus F 40/41 Not Detected (NOT DETECT); Astrovirus Not Detected (NOT DETECT); Campylobacter Sp Not Detected (NOT DETECT); Cryptosporidium Not Detected (NOT DETECT); Cyclospora Cayetanensis Not Detected (NOT DETECT); E. Coli O157 Not Detected (NOT DETECT); Entamoeba Histolytica Not Detected (NOT DETECT); Enteroaggregative E. coli-EAEC Not Detected (NOT DETECT); Enteropathogenic E. coli-EPEC Not Detected (NOT DETECT); Enterotoxigenic E. coli-ETEC Not Detected (NOT DETECT); Giardia Lamblia Not Detected (NOT DETECT); Norovirus GI/GII Not Detected (NOT DETECT); Plesiomonas Shigelloides Not Detected (NOT DETECT); Rotavirus A Not Detected (NOT DETECT); Salmonella Sp Not Detected (NOT DETECT); Sapovirus Not Detected (NOT DETECT); Shiga Toxin-prod E. coli-STEC Not Detected (NOT DETECT); Shigella/Enteroin E. coli-EIEC Not Detected (NOT DETECT); Vibrio Cholerae Not Detected (NOT DETECT); Vibrio Sp Not Detected (NOT DETECT); Yersinia Enterocolitica Not Detected (NOT DETECT)
--- NOTE | 2021-01-13 22:56 | NUR ---
CORRESPONDENCE TO PHONE CALL PLACED TO DR. THAO AT 22:00. PT HAS HAD EPISODES OF 7-10 SEIZURES THIS SHIFT. PT HAS HX OF PSYCHOGENIC SEIZURES DOCUMENTED ON PROGRESS NOTE DATED 01-13. SEIZURES OBSERVED BY STAFF INCLUDED TONIC CLONIC STIFFENING OF UPPER AND LOWER EXTREMITIES, LASTING 10-20 SECONDS. SEIZURE ACTIVITY OCCURRED IN CLUSTERS OF 2-3 EPISODES. BETWEEN EACH EPISODE, PT WAS RESPONSIVE AND ABLE TO ANSWER QUESTIONS. NO RESPIRATORY DISTRESS NOTED. EPISODES OCCURRED WHEN PT WAS SITTING ON THE EDGE OF THE BED AND WHEN PT WAS SITTING ON THE BSC. PRIOR TO EACH SEIZURE, PT STATED, "OH NO"..... OR "OH GOD..." INDICATING SHE WAS AWARE PRIOR TO THE SEIZURE ACTIVITY. AT THIS TIME DR. THAO WITH ORDERS FOR MELATONIN 6MG PRN NIGHTLY. PT REPORTS THAT WHEN SHE HAS SEIZURES AT HOME, SHE "TAKES AN ATIVAN" AND HER CAREGIVER "WILL PUT ME TO BED." PT REQUESTING ATIVAN.
--- NOTE | 2021-01-14 02:51 | NUR ---
SUICIDE RISK COMPLETED, CHANGE IN CONDITION - PT CONTINUES TO DENY SUICIDAL IDEATION OR PLANS TO HARM HERSELF.
--- NOTE | 2021-01-14 02:57 | NUR ---
RADHA IS A&O X4. OBSERVED FOR SUICIDAL IDEATION. ON TELE SINUS BRADYCARDIA. BP REMAINS STABLE. IV ACCESS: POWERGLIDE IN LEFT UPPER ARM AND 20GAUGE IN RIGHT ARM. ROOM AIR. CHEMICAL DVT PROPHYLAXIS: LOVENOX. PT HAD EPISODES OF SEIZURE LIKE ACTIVITY EARLIER IN THE SHIFT, BETWEEN 7:40PM AND 21:30. HX OF PSYCHOGENIC SEZIURES. PT WITH NEW RESULT OF C.DIFF, NOW TAKING ISOLATION PRECAUTIONS. PT REPORTS DIARRHEA WITH ABD CRAMPING. EDUCATION PROVIDED ON C.DIFF INFECTION AND DISEASE COURSE. WILL CONTINUE TO MONITOR.
--- NOTE | 2021-01-14 03:33 | NUR ---
PHONE CALL TO DR RODRIGUEZ PHONE CALL TO DR. BLAIR, REPORTING NEW RESULT OF C.DIFF. DR. BLAIR WITH ORDERS FOR VANCOMYCIN 250 MG PO Q 6 HRS. ORDERS UPDATED.
--- NOTE | 2021-01-14 04:42 | NUR ---
SHIFT SUMMARY PT DENIES SUICIDAL IDEATION OR THOUGHTS. FREQUENT OBSERVATION MAINTAINED PER UNIT PROTOCOL. TELEMETRY - REMAINED SINUS ARLETH 40-50'S, BP STABLE. RADHA HAD A RESTLESS EVENING - C/O PAIN IN HER ARMS AND LEGS, WHICH PT ATTRIBUTED TO HER HX OF SLE, FIBROMYALGIA AND SEIZURE ACTIVITY. RADHA WOULD LIKE ATIVAN, SHE STATED, "I THOUGHT ABOUT LEAVING AMA BUT I KNOW THE MILL TURNER WOULD JUST BRING ME BACK." RN OFFERED ASPIRIN, PT DECLINED STATING SHE HAD AN ALLERGY TO NSAIDS. WRAPPED PT IN WARM BLANKETS AND TRIED REDIRECTING/DISTRACTION, UNINTERRUPTED REST. ADMINISTERED MELATONIN PRN FOR SLEEP. POSITIVE FOR C-DIFF, ISOLATION PRECAUTIONS. WILL CONTINUE TO MONITOR.
[2021-01-14 05:59] LABS: Albumin, Blood 2.7 g/dL (3.4-5.0); Anion Gap 6 mmol/L (6-16); Blood Urea Nitrogen 26 mg/dL (8-24); Bun/Creatinine Ratio 31.7 (12.0-20.0); CO2, Blood 26 mmol/L (21-32); Calcium, Blood 8.2 mg/dL (8.5-10.1); Chloride, Blood 113 mmol/L (98-108); Creatinine, Blood 0.82 mg/dL (0.40-1.00); Glomerular Filtration Rate >60 (60-); Glucose, Blood 221 mg/dL (70-99); Phosphorus, Blood 2.6 mg/dL (2.5-4.9); Potassium, Blood 3.6 mmol/L (3.5-5.5); Sodium, Blood 145 mmol/L (136-145)
[2021-01-14] MEDS ORDERED: PREGABALIN100 MG PO (08:33)
--- NOTE | 2021-01-14 12:39 | NUR ---
modified heart medication r/hayder rythmn, no change noted yet, tele continuing to monitor, pt denies any negative responde to heart rythmn, approved tylenol for pain relife, will continue to monitor and treat
--- NOTE | 2021-01-14 14:05 | NUR ---
pt informed aid she was leaving if she did not get her serequel, and demanded that she take out the powerglide, calmed pt down reminded her that pulling out a pg would show a desire on her part to harm herself and give grounds for dr to continue to hold her for her own protection, she calmed down, cn got in touch with dr and received a promise that serequel would be on the pt's med list by hs, pt acknowleged this information and asked if they were going to include her nerontin, called dr who promised to look into it and give her it if a valid prescription existed, pt called pharmacy and requested that a list of her current medications be sent to the dr, copy given to the hospitalist by the nurse, pt on phone with family, staff in room due to suicide attempt while pt has access to phone cord
--- NOTE | 2021-01-14 19:52 | NUR ---
SUICIDE REASSESSMENT - PT DENIES SI OR ANY PLANS FOR SELF-HARM. WILL CONTINUE TO MONITOR PER UNIT PROTOCOL.
--- NOTE | 2021-01-14 22:44 | NUR ---
LEAVING AMA THIS RN DISPENSED 2100 MEDS AT 1999. PT WAS ANGRY THAT HER SEROQUEL DOSE WAS 50 MG INSTEAD OF HER REPORTED HOME DOSE OF 400. PT WITH QUESTIONS ABOUT WHY SHE WAS RECEIVING "THE MOST HORRIBLE TREATMENT OF MY LIFE" AT THE HOSPITAL. RN EXPLAINED THE 2MD HOLD, THAT ANY FURTHER MED CHANGES WOULD NEED TO COME AFTER PSYCH CONSULT WITH DR. MCCABE. PT THEN STATED SHE WOULD LEAVE AMA. YELLING AND LEAVING HER ROOM. VERBAL ATTEMPTS TO REDIRECT AND DECREASE PT'S AGGITATION WERE NOT SUCCESSFUL. RN NOTIFIED CHARGE NURSE FELIPE AT 2014 THAT PT WANTED TO LEAVE AMA. RN NOTIFIED DR. HOLLOWAY AT [address] HOLLOWAY WITH NO ORDERS TO CHANGE MEDICATIONS, NOTIFY SECURITY IF PT INSISTS ON LEAVING AMA. RN REMOVED POWERGLIDE FROM FER. PT TOLERATED PROCEDURE WELL. AMA PAPERWORK WAS COMPLETED. PT GIVEN PAPER SCRUBS TO WEAR. ALL BELONGINGS RETURNED TO PT. SECURITY ARRIVED, AND ESCORTED PT OUT OF ROOM AT 2054. AT 2129, PT RETURNED TO THE UNIT STATING THAT SECURITY HAD "TALKED HER INTO IT." PT IS NOW RESTING IN BED, QUIETLY. NO COMPLAINTS OR YELLING AT THIS TIME. TELE WAS RESTARTED. WILL CONTINUE TO MONITOR.
--- NOTE | 2021-01-14 23:35 | NUR ---
CORRESPONDENCE WITH PHYSICIAN AT 2240, RN CALLED DR. HOLLOWAY - UPDATING THAT PT LEFT AMA AND THEN RETURNED TO HER ROOM, ESCORTED BY SECURITY. PT'S IV ACCESS HAD BEEN DC'D PRIOR TO HER LEAVING. DR. HOLLOWAY STATED NO NEED FOR IV ACCESS AT THIS TIME, CONTINUE WITH TELEMETRY, CHANGE IV ZOFRAN TO PO 4MG Q 6 HRS PRN NAUSEA. ORDER READ BACK. RN WILL PASS ON IN REPORT - PLEASE CONFIRM WITH DAYTIME ATTENDING FOR 01/15/21 IF THEY WOULD LIKE IV ACCESS.
--- NOTE | 2021-01-15 03:53 | NUR ---
SHIFT SUMMARY PT SLEEPING AT THIS TIME. ROOM AIR. MONITORED VIA TELEMETRY - SINUS BRADYCARDIA. VSS. NO IV ACCESS PRESENTLY. NO SEIZURE-LIKE ACTIVITY OBSERVED THIS SHIFT. SINCE PT RETURNED FROM LEAVING AMA, SHE HAS BEEN SLEEPING AND DROWSY WHEN WOKEN UP FOR MIDNIGHT VANCO. CONTINUING TO MONITOR PER SUICIDAL IDEATION POLICY. MONITORED VIA CAMERA. WILL CONTINUE TO MONITOR UNTIL SHARING BED SIDE REPORT WITH DAY NURSE.
--- NOTE | 2021-01-15 08:10 | NUR ---
PT REQUESTING TO GO AMA PT BECAME UPSET THIS AM BECAUSE THE MONITORING REQUESTED TO TURN ON A LIGHT IN HER ROOM SO THEY COULD VIEW HER. SHE BECAME MORE UPSET ABOUT NOT BEING ABLE TO GO OUTSIDE TO SMOKE. SHE REQUESTED TO GO AMA AND SAID SHE DID NOT CARE IF THE POLICE GOT INVOLVED, SHE JUST WANTED TO SMOKE. SECURITY ESCORTED HER OUTSIDE TO SMOKE WITH SUPERVISION IN ORDER TO AVOID POLICE INVOLVEMENT. PT TO RETURN TO HER ROOM WHEN FINISHED. DR. FLORES NOTIFIED OF SITUATION. THIS RN TO ASSESS PT'S SUICIDAL IDEATION ONCE SHE RETURNS TO ROOM. THIS RN NOTIFIED THAT DR. HALL SHOULD BE IN TO EVALUATE PT TODAY.
--- NOTE | 2021-01-15 11:55 | NUR ---
PT HAD TWO SEIZURES THIS SHIFT. FIRST ONE WAS AT ABOUT 1020 AND LASTED 3 MINUTES. THE SECOND WAS WHEN SHE WAS IN THE SHOWER AT AROUND 1130 AND LASTED AROUND [address] FLORES NOTIFIED BOTH TIMES. VSS BOTH TIMES. NO ADDITONAL ORDERS RECEIVED.
--- NOTE | 2021-01-15 13:30 | NUR ---
PT HAD A SERIES OF 4 PSYCHOGENIC SEIZURES. SEIZURES SEEM TO BE TRIGGERED BY STRESS. DR. FLORES AND DR. HALL NOTIFIED. ADVISED TO GIVE GABAPENTIN. PT UNABLE TO TAKE PO MEDS AT THE MOMENT DUE TO SEIZURE ACTIVITY. DR. HALL IN ROOM SEEING THE PT.
--- NOTE | 2021-01-15 18:28 | NUR ---
SHIFT SUMMARY PT HAD A DIFFICULT SHIFT. SHE BECAME VERY UPSET THIS MORNING ABOUT NOT BEING ABLE TO SMOKE AND NOT BEING ABLE TO GO AMA DUE TO BEING ON A 2 MD HOLD. SECURITY HAD TO BE CALLED MANY TIMES. PT NO LONGER SUICIDAL AND SI WAS DC'D THIS SHIFT. DUE TO THE PATIENT BECOMING UPSET AND ANXIOUS SHE ALSO EXPERIENCED MANY PSYCHOGENIC SEIZURES THIS SHIFT, ABOUT 6 OF THEM. NO POST ICHTAL PHASE NOTED AND PT AWARE OF HAVING SEIZURES. PT TO DC TO [facility] TOMORROW AND IS TO TRAVEL DIRECTLY TO [facility] FROM THE HOSPITAL TOMORROW. PT UNDERSTANDS THIS. PT REMAINS ON A 2 MD HOLD AND ON CAMERA PER ORDERS OF . VSS. NO EPISODES OF BRADYCARDIA NOTED THIS SHIFT. WILL REPORT TO ONCOMING RN.
--- NOTE | 2021-01-15 19:31 | NUR ---
VERY ANGRY, YELLS AND THREATS AT STAFF, THREATENING TO HAVE A "SEIZURE" IF SHE DOSENT GET WHAT SHE WANTS. REDIRECTED. DEAL MADE THAT SHE WOULD REMAIN IN HER ROOM IF THE BED ALARM WAS TURNED OFF (IS ON CAMERA MONITORING). NON RECEPTIVE TO STAFF INTERACTIONS. WILL CONTINUE TO MONITOR AND ENCOURAGE SAFETY. CALL LIGHT IN REACH
--- NOTE | 2021-01-15 20:09 | NUR ---
PULLED OFF TELE CORDS AND REFUSED TO ALLOW STAFF TO PUT THEM PERES ON. IS ON SUICIDE PRECAUTIONS, CALL TO MD TO DC TELE FOR SAFETY REASONS. TELE DC'D. TELE CORDS'DEVICE REMOVED FROM ROOM. CONTINUOUS MONITORING FROM CAMERA ON
--- NOTE | 2021-01-15 22:27 | NUR ---
ON CONSTANT CAMERA OBSERVATION. RESTING QUIETLY AFTER HAVING HAD NIGHT SNACK. CALL LIGHT IN REACH. NO S/S SELF HARM AT THIS TIME. STILL NON COMPLAINT WITH TERATMENT. SAFETY ENCOURAGED
--- NOTE | 2021-01-15 23:59 | NUR ---
RESTING QUIETLY IN BED. CAMERA ON. NURSE VIEWED PT WITH LIGHT. CALL LIGHT IN REACH
--- NOTE | 2021-01-16 01:31 | NUR ---
AWAKE, REQUESTED AND RECEIVED SNACK. CONTINUOUS CAMERA OBSERVATION IN USE. CALL LIGHT IN REACH
--- NOTE | 2021-01-16 03:09 | NUR ---
NURSING SERVICE DIRECTOR SUMMARY AT SHIFT COMMENCE, PT VERY HOSTILE, AGITATED, WANTING TO LEAVE AMA, AND DEMANDED TO "CALL THE POLICE" TO "GO TO [facility]" IN LIEU OF STAYING IN THE HOSPITAL. AGITATION ESCALATED WHEN NURSE DISCUSSED 2 MD HOLD AND SCHEDULED DC TOMORROW TO ANOTHER FACILITY. PACED, THEN AT HS DEMANDED HER HS MEDS, MEDICATIONS ADMINISTERED - SEE MAR FOR DETAILS. PT AGREED TO STAY IN ROOM IF BED ALARM WAS TURNED OFF. WENT TO BED AND WAS OBSERVED TO BE SLEEPING UNTIL AROUND 0200 AM. WOKE UP AT THAT TIME, C/O FELING COLD. ORAL TEMP 97.6, TOLERATED 2 WARM BLANKETS, APPOLOGIZED FOR HER BEING "ANGRY" EARLIER, CURRENTLY RESTING QUIETLY. CONTACT ISOLATOIN MAINTAINED. CALL LIGHT IN REACH. NO NOTED BEHAVIOR OF SELF HARM. CONTINUOUS CAMERA OBSERVATION MAINTAINED. SNACK, WARM BLANKETS
--- NOTE | 2021-01-16 04:07 | NUR ---
PT USED CALL LIGHT, NURSE ENTERED ROOM, PT WAS SHAKING BACK AND FORTH. NO NOTED S/S ACTUAL SEIZURE ACTIVITY SEEN. PT BEHAVIOR CONFRONTED NURSE HAD WORKED SEIZURE UNIT IN THE PAST AND TOLD PT THIS. ALLEGED SEIZURE STOPPED. PT STARED AT NURSE. PT WAS ENCOURAGED TO GO PERES TO SLEEP. CALL LIGHT IN REACH.
--- NOTE | 2021-01-16 04:24 | NUR ---
QUIETLY WATCHING TV. NO NOTED ACUTE PHYSICAL DISTRESS. CAMERA REMAINS ON
--- NOTE | 2021-01-16 04:42 | NUR ---
AWAKE, REQUESTED WARM TEA AND "TWO SPLENDAS". NO NOTED S/S ACUTE PHYSICAL DISTRESS. CALL LIGHT IN REACH.
[2021-01-16] MEDS ORDERED: QUET100 PO (08:52)
[2021-01-16] MEDS ORDERED: INSULANPEN SC (08:53)
--- NOTE | 2021-01-16 09:41 | NUR ---
patient transfered to [facility] this am
--- NOTE | 2021-01-16 10:59 | NUR ---
PT DISCHARGED AT 0930 PT VERBALIZED UNDERSTANDING OF THE DC INSTRUCTIONS. THE PT WAS ESCORTED TO THE FRONT ENTRANCE TO MEET A TAXI TRANSFER TO [facility]. THE PT WAS VERBALY ABUSIVE TO STAFF BEFORE AND DURING THE TRANSFER. THE PT APPEARED TO BE BREATHING EASILY AT THE TIME OF TRANSFER, THE PT WAS ESCORTED BY THE LIQUOR BRIDGE OPERATORFRANDY TATE. PT DECLIENED WHEELCHAIR AND AMBULATED OUT
== END 2021-01-16 09:26 | disposition home or self-care (01) | DRG 917 ==
LOC: ER 18:01 → ICUW 18:02 → MEDS 01-13 16:10
PROVIDERS: Emergency Medicine; Internal Medicine; ADMIT Internal Medicine
PROC: 02HV33Z Insertion of Infusion Device into Superior Vena Cava, Percutaneous Approach (ICD-10-PCS; principal; 2021-01-12)
DX: T42.4X2A Poisoning by benzodiazepines, intentional self-harm, initial encounter (principal); E11.10 Type 2 diabetes mellitus with ketoacidosis without coma; G92 Toxic encephalopathy; I21.A1 Myocardial infarction type 2; I48.20 Chronic atrial fibrillation, unspecified; I50.32 Chronic diastolic (congestive) heart failure; E87.0 Hyperosmolality and hypernatremia; F33.9 Major depressive disorder, recurrent, unspecified; R94.31 Abnormal electrocardiogram [ECG] [EKG]; E86.0 Dehydration; R19.7 Diarrhea, unspecified; E11.40 Type 2 diabetes mellitus with diabetic neuropathy, unspecified; M79.7 Fibromyalgia; F41.9 Anxiety disorder, unspecified; I11.0 Hypertensive heart disease with heart failure; R00.1 Bradycardia, unspecified; T50.905A Adverse effect of unspecified drugs, medicaments and biological substances, initial encounter; J44.9 Chronic obstructive pulmonary disease, unspecified; M32.9 Systemic lupus erythematosus, unspecified; F17.210 Nicotine dependence, cigarettes, uncomplicated; G89.4 Chronic pain syndrome; G43.909 Migraine, unspecified, not intractable, without status migrainosus; F19.10 Other psychoactive substance abuse, uncomplicated; E87.6 Hypokalemia; F44.5 Conversion disorder with seizures or convulsions; Z87.820 Personal history of traumatic brain injury; Z85.43 Personal history of malignant neoplasm of ovary; Z79.899 Other long term (current) drug therapy; Z79.82 Long term (current) use of aspirin; Z79.4 Long term (current) use of insulin; Z79.51 Long term (current) use of inhaled steroids; Z88.0 Allergy status to penicillin; Z88.2 Allergy status to sulfonamides; Z88.8 Allergy status to other drugs, medicaments and biological substances
CPT/HCPCS: 0097U; 36415; 70450; 71045; 80048; 80053; 80069; 81001; 82550; 82947; 84484; 85025; 85027; 87324; 93005; 93010; 93306; 96372; 96374; 99285-25; A9270; C1751; G0378; G0480; J1650; J1815; J1953; J2060; J2250; J2405; J3480; J7042; J7070; P9612

== ENCOUNTER 2021-08-26 13:19 | Inpatient (IN) | payer OTHER ==
[~2021-08-26] VITALS: Ht 160 cm; Wt 82.7 kg
[~2021-08-26 13:19] MED LIST changes: +CEFD300 PO; +THEO400ER PO
[2021-08-26 13:43] LABS: BASOPHILS ABSOLUTE AUTO 0.02 K/mm3 (0.00-0.23); BASOPHILS PERCENT AUTO 0 % (0-2); EOSINOPHILS ABSOLUTE AUTO 0.01 K/mm3 (0.00-0.68); EOSINOPHILS PERCENT AUTO 0 % (0-6); Hematocrit 43.7 % (33.0-51.0); Hemoglobin 14.4 g/dL (11.5-16.0); IMMATURE GRAN ABSOLUTE AUTO 0.06 K/mm3 (0.00-0.10); IMMATURE GRAN PERCENT AUTO 1 % (0-1); LYMPHOCYTES ABSOLUTE AUTO 2.48 K/mm3 (0.84-5.20); LYMPHOCYTES PERCENT AUTO 28 % (21-46); MONOCYTES ABSOLUTE AUTO 0.64 K/mm3 (0.16-1.47); MONOCYTES PERCENT AUTO 7 % (4-13); Mean Corpuscular HGB 28.9 pg (26.0-34.0); Mean Corpuscular Volume 88 fL (80-100); Mean Platelet Volume 12.3 fL (9.1-12.4); NEUTROPHILS ABSOLUTE AUTO 5.55 K/mm3 (1.96-9.15); NEUTROPHILS PERCENT AUTO 63 % (41-73); Platelet Count 124 K/mm3 (150-400); RDW Coefficient Variation 13.9 % (11.7-14.2); RDW Standard Deviation 43.1 fL (35.1-46.3); Red Blood Cell Count 4.98 M/mm3 (3.80-5.20); White Blood Cell Count 8.76 K/mm3 (4.00-11.30)
[2021-08-26 14:00] LABS: Alanine Aminotransfer (ALT/SGP 74 U/L (12-78); Albumin, Blood 3.3 g/dL (3.4-5.0); Albumin/Globulin Ratio 0.8 (0.8-1.8); Alk Phos 219 U/L (50-136); Anion Gap 5 mmol/L (6-16); Aspartate Aminotrans (AST/SGOT 27 U/L (12-37); Bilirubin, Total 0.8 mg/dL (0.1-1.0); Blood Urea Nitrogen 18 mg/dL (8-24); CO2, Blood 28 mmol/L (21-32); Chloride, Blood 105 mmol/L (98-108); Creatinine, Blood 0.86 mg/dL (0.40-1.00); Globulin, Blood 4.1 g/dL (2.2-4.0); Glomerular Filtration Rate >60 (60-); Glucose, Blood 366 mg/dL (70-99); Potassium, Blood 4.6 mmol/L (3.5-5.5); Sodium, Blood 138 mmol/L (136-145); Total Protein, Blood 7.4 g/dL (6.4-8.2)
--- NOTE | 2021-08-26 16:55 | NUR ---
CALLED SERG GALLARDO, PTS NOK IN CHART TO UPDATE ON PT'S ADMISSION. NO ANSWER.
--- NOTE | 2021-08-26 17:53 | NUR ---
PT ADMITTED FROM COLLISION REPAIRER WITH TRANSVENOUS PACER IN RIGHT IJ, RATE OF 50, SENSITIVITY OF 2, OUTPUT OF 5. PT LETHARGIC, PUPILS DILATED, FOLLOWS COMMANDS, A/O X4 CALLAHAN STIMULATED AWAKE. BIPAP SET ON 12/RATE 14/30%. DOPAMINE OFF. LUNGS DIMINISHED THROUGHOUT, SCD'S IN PLACE
[2021-08-26 18:20] LABS: Base Excess Venous 5.8 mmol/L; Bicarbonate Venous 28.5 mmol/L (24.0-30.0); PCO2 Venous 52.9 mmHg (38-42); PO2 Venous 121 mmHg (38-42); pH Blood Venous 7.38 (7.34-7.37)
--- NOTE | 2021-08-26 19:15 | NUR ---
Assumed care after report recv'd Assessment complete. Does not arouse or follow commands. Responds to pain. BIPAP on. Intravenous pacemaker in place, v-paced at 50.
[2021-08-26 20:19] LABS: Source, Urine Foley catheter
[2021-08-26 20:22] LABS: Bilirubin, Urine Neg (Neg); Blood, Urine 4+ (Neg); Glucose Qualitative, Urine 3+ (Neg); Ketones, Urine Neg (Neg); Leukocyte Esterase, Urine 1+ (Neg); Nitrite, Urine Neg (Neg); Protein, Urine 3+ (Neg); Specific Gravity, Urine 1.025 (1.003-1.022); Urobilinogen, Urine 1+ (Normal)
[2021-08-26 20:29] LABS: Appearance, Urine Hazy (Clear); Color, Urine Yellow (P-Yellow)
[2021-08-26 20:30] LABS: Bacteria Few /hpf; Mucus Light (0-Heavy); Squamous Epithelial Cells Few /hpf (Few)
--- NOTE | 2021-08-26 21:00 | NUR ---
PM meds held due to still not arousable. Huddleston placed due to urinary retention and giving lasix. Power glide inserted for venous access by Angie Carmen RN.
--- NOTE | 2021-08-26 22:45 | NUR ---
Wakes up during turning. alert and oriented x4. questions answered. very tearful. Request meds for pain. All pm meds given with sips of water.
--- NOTE | 2021-08-27 05:08 | NUR ---
Meds given with sips of water through night as needed per eMAR. Alert and oriented when nurse in room, otherwise resting with eyes closed. transvenous pacemaker in place and 100% v-paced at rate of 50. BIPAP on throughout night. lasix given with 1500 ml urine output. becomes very anxious at times, nurse able to calm with conversation.
[2021-08-27] MEDS ORDERED: METH40 PO (08:30)
[2021-08-27 08:55] LABS: BASOPHILS ABSOLUTE AUTO 0.03 K/mm3 (0.00-0.23); BASOPHILS PERCENT AUTO 0 % (0-2); EOSINOPHILS ABSOLUTE AUTO 0.01 K/mm3 (0.00-0.68); EOSINOPHILS PERCENT AUTO 0 % (0-6); Hematocrit 43.6 % (33.0-51.0); Hemoglobin 14.3 g/dL (11.5-16.0); IMMATURE GRAN ABSOLUTE AUTO 0.05 K/mm3 (0.00-0.10); IMMATURE GRAN PERCENT AUTO 0 % (0-1); LYMPHOCYTES ABSOLUTE AUTO 3.15 K/mm3 (0.84-5.20); LYMPHOCYTES PERCENT AUTO 25 % (21-46); MONOCYTES PERCENT AUTO 6 % (4-13); Mean Corpuscular HGB 28.7 pg (26.0-34.0); Mean Corpuscular HGB Conc 32.8 g/dL (31.5-36.5); Mean Corpuscular Volume 88 fL (80-100); Mean Platelet Volume 11.9 fL (9.1-12.4); NEUTROPHILS ABSOLUTE AUTO 8.74 K/mm3 (1.96-9.15); NEUTROPHILS PERCENT AUTO 68 % (41-73); Platelet Count 141 K/mm3 (150-400); RDW Standard Deviation 43.3 fL (35.1-46.3); Red Blood Cell Count 4.98 M/mm3 (3.80-5.20); White Blood Cell Count 12.78 K/mm3 (4.00-11.30)
[2021-08-27 09:18] LABS: Albumin, Blood 3.2 g/dL (3.4-5.0); Albumin/Globulin Ratio 0.8 (0.8-1.8); Calcium, Blood 8.7 mg/dL (8.5-10.1); Creatinine, Blood 1.05 mg/dL (0.40-1.00); Globulin, Blood 3.8 g/dL (2.2-4.0); Potassium, Blood 3.4 mmol/L (3.5-5.5)
--- NOTE | 2021-08-27 09:33 | NUR ---
ASSUMED CARE PT RESTING IN BED. WAKES c VERBAL STIMULI. A&O X 3. FOLLOWS COMMANDS. ANXIOUS AND TEARFUL. REDIRECTABLE. MAEW. TRANSVENOUS PACER TO RIJ, DRESSING C/D/I. 70 CM AT DRESSING MARKED c BLACK MARKER. VVI 50/5/2. 100% PACED, STRONG RADIAL PULSE. LUNGS COARSE, DIM IN BASES. ALTERNATES BETWEEN BIPAP 14/6/30% AND 2L VIA NC. PT C/O CHRONIC PAIN, 01/16. HOME [facility] DOSE CONFIRMED c ADAPT AND GIVEN. ABD ROUND, SOFT, NON TENDER. PT NPO AT THIS TIME FOR POSSIBLE PROCEDURE. PASCUAL PATENT, DRAINING CLEAR YELLOW URINE TO GRAVITY. URINE CULTURE ORDERED. DR DE LEÓN, PLAN TO TRANSFER FOR PACEMAKER PLACEMENT c EP. WILL CONTINUE TO MONITOR.
--- NOTE | 2021-08-27 12:18 | NUR ---
TRANSFER PT TRANSFERRED TO [facility] AT 1210. REPORT TO TEMI WISE. NO ACUTE CHANGES SINCE AM ASSESSMENT. ALL BELONGINGS SENT c PT.
== END 2021-08-27 12:20 | disposition short-term general hospital (02) | DRG 261 ==
LOC: ER 13:19 → ICUE 14:45 → ICUW 14:45 → ICUE 16:29
PROVIDERS: Emergency Medicine; Internal Medicine; ADMIT Internal Medicine
PROC: 02H633Z Insertion of Infusion Device into Right Atrium, Percutaneous Approach (ICD-10-PCS; principal; 2021-08-26)
PROC: B543ZZA Ultrasonography of Right Jugular Veins, Guidance (ICD-10-PCS; 2021-08-26)
PROC: 02HK3JZ Insertion of Pacemaker Lead into Right Ventricle, Percutaneous Approach (ICD-10-PCS; 2021-08-26)
PROC: 5A1223Z Performance of Cardiac Pacing, Continuous (ICD-10-PCS; 2021-08-26)
DX: I49.5 Sick sinus syndrome (principal); I50.32 Chronic diastolic (congestive) heart failure; F11.20 Opioid dependence, uncomplicated; G93.40 Encephalopathy, unspecified; F13.20 Sedative, hypnotic or anxiolytic dependence, uncomplicated; E11.40 Type 2 diabetes mellitus with diabetic neuropathy, unspecified; I44.30 Unspecified atrioventricular block; M79.7 Fibromyalgia; I48.0 Paroxysmal atrial fibrillation; F19.10 Other psychoactive substance abuse, uncomplicated; M32.9 Systemic lupus erythematosus, unspecified; F41.9 Anxiety disorder, unspecified; I11.0 Hypertensive heart disease with heart failure; F17.210 Nicotine dependence, cigarettes, uncomplicated; G89.29 Other chronic pain; G40.909 Epilepsy, unspecified, not intractable, without status epilepticus; G43.909 Migraine, unspecified, not intractable, without status migrainosus; F32.A Depression, unspecified; J44.9 Chronic obstructive pulmonary disease, unspecified; Z96.89 Presence of other specified functional implants; Z87.820 Personal history of traumatic brain injury; Z87.442 Personal history of urinary calculi; Z88.0 Allergy status to penicillin; Z88.2 Allergy status to sulfonamides; Z88.9 Allergy status to unspecified drugs, medicaments and biological substances; Z91.09 Other allergy status, other than to drugs and biological substances; Z85.43 Personal history of malignant neoplasm of ovary; Z90.49 Acquired absence of other specified parts of digestive tract; Z90.710 Acquired absence of both cervix and uterus; Z98.890 Other specified postprocedural states; Z91.030 Bee allergy status; Z71.6 Tobacco abuse counseling; Z79.4 Long term (current) use of insulin; Z79.899 Other long term (current) drug therapy
CPT/HCPCS: 33210; 36415; 36556; 51702; 71045; 80053; 81001; 82803; 82947; 83880; 84484; 85025; 87086; 93005; 93010; 94660; 96374; 96376; 99291-25; A9270; C1751; C1769; C1894; J0461; J1265; J1644; J1815; J1940; J7040; J7050

== ENCOUNTER 2021-11-29 12:23 | Emergency (ER) | payer OTHER ==
[~2021-11-29] VITALS: Ht 172.7 cm; Wt 90.7 kg
[~2021-11-29 12:23] MED LIST changes: +METH40 PO
[2021-11-29 13:30] LABS: BASOPHILS ABSOLUTE AUTO 0.01 K/mm3 (0.00-0.23); BASOPHILS PERCENT AUTO 0 % (0-2); EOSINOPHILS ABSOLUTE AUTO 0.01 K/mm3 (0.00-0.68); EOSINOPHILS PERCENT AUTO 0 % (0-6); Hematocrit 35.6 % (33.0-51.0); IMMATURE GRAN ABSOLUTE AUTO 0.05 K/mm3 (0.00-0.10); IMMATURE GRAN PERCENT AUTO 1 % (0-1); LYMPHOCYTES ABSOLUTE AUTO 2.27 K/mm3 (0.84-5.20); LYMPHOCYTES PERCENT AUTO 37 % (21-46); MONOCYTES ABSOLUTE AUTO 0.44 K/mm3 (0.16-1.47); MONOCYTES PERCENT AUTO 7 % (4-13); Mean Corpuscular HGB 29.3 pg (26.0-34.0); Mean Corpuscular HGB Conc 33.7 g/dL (31.5-36.5); Mean Corpuscular Volume 87 fL (80-100); NEUTROPHILS ABSOLUTE AUTO 3.42 K/mm3 (1.96-9.15); NEUTROPHILS PERCENT AUTO 55 % (41-73); Platelet Count 113 K/mm3 (150-400); RDW Coefficient Variation 12.3 % (11.7-14.2); RDW Standard Deviation 39.5 fL (35.1-46.3); Red Blood Cell Count 4.09 M/mm3 (3.80-5.20)
[2021-11-29 14:34] LABS: Alanine Aminotransfer (ALT/SGP 24 U/L (12-78); Albumin, Blood 2.8 g/dL (3.4-5.0); Albumin/Globulin Ratio 0.7 (0.8-1.8); Alk Phos 192 U/L (50-136); Anion Gap 3 mmol/L (6-16); Aspartate Aminotrans (AST/SGOT 31 U/L (12-37); Bilirubin, Total 0.3 mg/dL (0.1-1.0); Blood Urea Nitrogen 32 mg/dL (8-24); CO2, Blood 32 mmol/L (21-32); Calcium, Blood 9.2 mg/dL (8.5-10.1); Chloride, Blood 102 mmol/L (98-108); Creatinine, Blood 1.23 mg/dL (0.40-1.00); Ethanol (Alcohol), Blood, Med <3 mg/dL; Globulin, Blood 3.9 g/dL (2.2-4.0); Glomerular Filtration Rate 50 (60-); Glucose, Blood 263 mg/dL (70-99); Potassium, Blood 4.9 mmol/L (3.5-5.5); Sodium, Blood 137 mmol/L (136-145); Total Protein, Blood 6.7 g/dL (6.4-8.2)
== END 2021-11-29 19:41 | disposition home or self-care (01) ==
LOC: ER 12:23
PROVIDERS: Emergency Medicine
DX: R53.83 Other fatigue (principal); G89.29 Other chronic pain; M79.7 Fibromyalgia; S00.81XA Abrasion of other part of head, initial encounter; W10.9XXA Fall (on) (from) unspecified stairs and steps, initial encounter; E11.40 Type 2 diabetes mellitus with diabetic neuropathy, unspecified; I11.0 Hypertensive heart disease with heart failure; I50.32 Chronic diastolic (congestive) heart failure; J44.9 Chronic obstructive pulmonary disease, unspecified; Z88.2 Allergy status to sulfonamides; Z88.8 Allergy status to other drugs, medicaments and biological substances; Z88.6 Allergy status to analgesic agent; Z91.038 Other insect allergy status; Z91.040 Latex allergy status; Z79.4 Long term (current) use of insulin
CPT/HCPCS: 70450; 72125; 80053; 85025; 93005; 93010; 99285-25; G0480; J7030; L0160

== ENCOUNTER → 2022-01-02 | Outpatient (CLI) | payer OTHER ==
[~2022-01-02] MED LIST changes: +LEVETIRACETAM1000 M1 PO; +QUETIAPINE FUM400 M2 PO
== END | disposition home or self-care (01) ==
LOC: LAB 16:25 → LAB SHORT 16:25
DX: N39.0 Urinary tract infection, site not specified (principal)
CPT/HCPCS: 87086

== ENCOUNTER 2022-02-25 04:08 | Emergency (ER) | payer OTHER ==
[~2022-02-25] VITALS: Ht 160 cm; Wt 87.1 kg
[~2022-02-25 04:08] MED LIST changes: +Seroquel400 MG PO
[2022-02-25 05:00] LABS: BASOPHILS ABSOLUTE AUTO 0.03 K/mm3 (0.00-0.23); BASOPHILS PERCENT AUTO 0 % (0-2); EOSINOPHILS ABSOLUTE AUTO 0.01 K/mm3 (0.00-0.68); EOSINOPHILS PERCENT AUTO 0 % (0-6); Hematocrit 41.1 % (33.0-51.0); Hemoglobin 13.9 g/dL (11.5-16.0); IMMATURE GRAN ABSOLUTE AUTO 0.03 K/mm3 (0.00-0.10); IMMATURE GRAN PERCENT AUTO 0 % (0-1); LYMPHOCYTES ABSOLUTE AUTO 2.31 K/mm3 (0.84-5.20); LYMPHOCYTES PERCENT AUTO 23 % (21-46); MONOCYTES ABSOLUTE AUTO 0.65 K/mm3 (0.16-1.47); MONOCYTES PERCENT AUTO 6 % (4-13); Mean Corpuscular HGB 28.8 pg (26.0-34.0); Mean Corpuscular HGB Conc 33.8 g/dL (31.5-36.5); Mean Corpuscular Volume 85 fL (80-100); NEUTROPHILS ABSOLUTE AUTO 7.15 K/mm3 (1.96-9.15); NEUTROPHILS PERCENT AUTO 70 % (41-73); RDW Coefficient Variation 11.9 % (11.7-14.2); RDW Standard Deviation 36.4 fL (35.1-46.3); Red Blood Cell Count 4.83 M/mm3 (3.80-5.20); White Blood Cell Count 10.18 K/mm3 (4.00-11.30)
[2022-02-25 05:06] LABS: Mean Platelet Volume 12.6 fL (9.1-12.4); Platelet Count 116 K/mm3 (150-400)
[2022-02-25 05:18] LABS: Albumin, Blood 3.3 g/dL (3.4-5.0); Albumin/Globulin Ratio 0.8 (0.8-1.8); Bilirubin, Total 0.4 mg/dL (0.1-1.0); Bun/Creatinine Ratio 21.3 (12.0-20.0); Calcium, Blood 9.4 mg/dL (8.5-10.1); Creatinine, Blood 1.22 mg/dL (0.40-1.00); Globulin, Blood 4.3 g/dL (2.2-4.0); Potassium, Blood 4.6 mmol/L (3.5-5.5); Total Protein, Blood 7.6 g/dL (6.4-8.2)
[2022-02-25 07:37] LABS: Source, Urine Clean Catch
[2022-02-25 07:49] LABS: Appearance, Urine Clear (Clear); Bilirubin, Urine Neg (Neg); Blood, Urine 3+ (Neg); Color, Urine Yellow (P-Yellow); Glucose Qualitative, Urine 4+ (Neg); Ketones, Urine Neg (Neg); Leukocyte Esterase, Urine 1+ (Neg); Nitrite, Urine Neg (Neg); Protein, Urine 2+ (Neg); Specific Gravity, Urine 1.015 (1.003-1.022); Urobilinogen, Urine 1+ (Normal)
[2022-02-25 08:12] LABS: Bacteria Rare /hpf; Squamous Epithelial Cells Few /hpf (Few); White Blood Cells, Urine 0-2 /hpf (0-5)
[2022-02-25] MEDS ORDERED: ONDA4ODT MM (08:18)
[2022-02-25] MEDS ORDERED: NITR100CA PO (08:18)
== END 2022-02-25 08:45 | disposition home or self-care (01) ==
LOC: ER 04:08
PROVIDERS: Emergency Medicine; Student in an Organized Health Care Education/Training Program
DX: R10.9 Unspecified abdominal pain (principal); N39.0 Urinary tract infection, site not specified; R11.2 Nausea with vomiting, unspecified; E11.9 Type 2 diabetes mellitus without complications; J44.9 Chronic obstructive pulmonary disease, unspecified; I11.0 Hypertensive heart disease with heart failure; I50.32 Chronic diastolic (congestive) heart failure; F17.210 Nicotine dependence, cigarettes, uncomplicated; Z88.0 Allergy status to penicillin; Z88.2 Allergy status to sulfonamides; Z88.8 Allergy status to other drugs, medicaments and biological substances; Z91.030 Bee allergy status; Z79.4 Long term (current) use of insulin; Z79.899 Other long term (current) drug therapy; Z95.0 Presence of cardiac pacemaker
CPT/HCPCS: 36415; 71045; 80053; 81001; 83690; 84484; 85025; 93005; 93010; A9270; J2405; J7030

== ENCOUNTER 2022-03-24 19:32 | Emergency (ER) | payer OTHER ==
[~2022-03-24] VITALS: Ht 160 cm; Wt 81.7 kg
[~2022-03-24 19:32] MED LIST changes: +NITR100CA PO
[2022-03-24 20:46] LABS: Albumin, Blood 2.9 g/dL (3.4-5.0); Albumin/Globulin Ratio 0.7 (0.8-1.8); Bilirubin, Total 0.3 mg/dL (0.1-1.0); Bun/Creatinine Ratio 31.3 (12.0-20.0); Calcium, Blood 8.5 mg/dL (8.5-10.1); Creatinine, Blood 2.33 mg/dL (0.40-1.00); Globulin, Blood 3.9 g/dL (2.2-4.0); Potassium, Blood 3.9 mmol/L (3.5-5.5); Total Protein, Blood 6.8 g/dL (6.4-8.2)
[2022-03-24 21:16] LABS: Source, Urine Voided
[2022-03-24 21:20] LABS: Bilirubin, Urine Neg (Neg); Blood, Urine 1+ (Neg); Glucose Qualitative, Urine 4+ (Neg); Ketones, Urine Neg (Neg); Leukocyte Esterase, Urine 1+ (Neg); Nitrite, Urine Neg (Neg); Protein, Urine 1+ (Neg); Urobilinogen, Urine NORM (Normal)
[2022-03-24 21:42] LABS: Appearance, Urine Cloudy (Clear); Color, Urine Yellow (P-Yellow)
[2022-03-24 21:45] LABS: Amorphous Light (0-Heavy); Bacteria Few /hpf; Red Blood Cells, Urine 0-2 /hpf (0-2); Squamous Epithelial Cells Few /hpf (Few); Transitional Epithelial Cells Few /hpf (0-Rare); White Blood Cells, Urine 0-2 /hpf (0-5)
== END 2022-03-25 00:51 | disposition home or self-care (01) ==
LOC: ER 19:32
PROVIDERS: Student in an Organized Health Care Education/Training Program
DX: S09.90XA Unspecified injury of head, initial encounter (principal); E11.65 Type 2 diabetes mellitus with hyperglycemia; I13.0 Hypertensive heart and chronic kidney disease with heart failure and stage 1 through stage 4 chronic kidney disease, or unspecified chronic kidney disease; I50.32 Chronic diastolic (congestive) heart failure; E11.22 Type 2 diabetes mellitus with diabetic chronic kidney disease; N18.9 Chronic kidney disease, unspecified; E11.40 Type 2 diabetes mellitus with diabetic neuropathy, unspecified; M79.7 Fibromyalgia; J44.9 Chronic obstructive pulmonary disease, unspecified; I48.91 Unspecified atrial fibrillation; F17.210 Nicotine dependence, cigarettes, uncomplicated; Z88.6 Allergy status to analgesic agent; Z88.0 Allergy status to penicillin; Z91.038 Other insect allergy status; Z88.2 Allergy status to sulfonamides; Z91.048 Other nonmedicinal substance allergy status; Z88.8 Allergy status to other drugs, medicaments and biological substances; Z79.899 Other long term (current) drug therapy; Z79.4 Long term (current) use of insulin; W19.XXXA Unspecified fall, initial encounter
CPT/HCPCS: 36415; 70450; 80053; 81001; 84484; 87086; 93005; 93010; 96361; 96374; 96375; 99284-25; A9270; J1200; J1630; J2405; J7030

== ENCOUNTER 2022-04-29 08:50 | Emergency (ER) | payer OTHER ==
[~2022-04-29] VITALS: Ht 160 cm; Wt 81.7 kg
[2022-04-29 10:03] LABS: BASOPHILS ABSOLUTE AUTO 0.03 K/mm3 (0.00-0.23); BASOPHILS PERCENT AUTO 0 % (0-2); EOSINOPHILS ABSOLUTE AUTO 0.02 K/mm3 (0.00-0.68); EOSINOPHILS PERCENT AUTO 0 % (0-6); Hematocrit 41.3 % (33.0-51.0); Hemoglobin 14.6 g/dL (11.5-16.0); IMMATURE GRAN ABSOLUTE AUTO 0.05 K/mm3 (0.00-0.10); IMMATURE GRAN PERCENT AUTO 0 % (0-1); LYMPHOCYTES ABSOLUTE AUTO 2.04 K/mm3 (0.84-5.20); LYMPHOCYTES PERCENT AUTO 17 % (21-46); MONOCYTES ABSOLUTE AUTO 0.61 K/mm3 (0.16-1.47); MONOCYTES PERCENT AUTO 5 % (4-13); Mean Corpuscular HGB 29.9 pg (26.0-34.0); Mean Corpuscular HGB Conc 35.4 g/dL (31.5-36.5); Mean Corpuscular Volume 85 fL (80-100); Mean Platelet Volume 11.6 fL (9.1-12.4); NEUTROPHILS ABSOLUTE AUTO 9.03 K/mm3 (1.96-9.15); NEUTROPHILS PERCENT AUTO 77 % (41-73); Platelet Count 146 K/mm3 (150-400); RDW Coefficient Variation 13.3 % (11.7-14.2); RDW Standard Deviation 41.3 fL (35.1-46.3); Red Blood Cell Count 4.89 M/mm3 (3.80-5.20); White Blood Cell Count 11.78 K/mm3 (4.00-11.30)
[2022-04-29 10:37] LABS: Albumin, Blood 3.7 g/dL (3.4-5.0); Albumin/Globulin Ratio 0.9 (0.8-1.8); Bilirubin, Total 0.8 mg/dL (0.1-1.0); Bun/Creatinine Ratio 46.4 (12.0-20.0); Calcium, Blood 9.6 mg/dL (8.5-10.1); Creatinine, Blood 1.83 mg/dL (0.40-1.00); Globulin, Blood 4.3 g/dL (2.2-4.0); Potassium, Blood 3.5 mmol/L (3.5-5.5)
[2022-04-29] MEDS ORDERED: KEPPRA250 M2 PO (11:01)
[2022-04-29 11:24] LABS: Influenza A, PCR NEGATIVE (NEGATIVE); Influenza B, PCR NEGATIVE (NEGATIVE); Resp Syncytial Virus, PCR NEGATIVE (NEGATIVE); SARS-Cov-2 (COVID-19) PCR, MMC NEGATIVE (NEGATIVE)
[2022-04-29 12:45] LABS: Source, Urine Clean Catch
[2022-04-29 13:18] LABS: Appearance, Urine Clear (Clear); Bilirubin, Urine Neg (Neg); Blood, Urine 3+ (Neg); Color, Urine Yellow (P-Yellow); Glucose Qualitative, Urine 4+ (Neg); Ketones, Urine 2+ (Neg); Leukocyte Esterase, Urine Neg (Neg); Nitrite, Urine Neg (Neg); Protein, Urine 2+ (Neg); Specific Gravity, Urine 1.015 (1.003-1.022); Urobilinogen, Urine 1+ (Normal)
[2022-04-29 13:45] LABS: Red Blood Cells, Urine 0-2 /hpf (0-2); White Blood Cells, Urine 0-2 /hpf (0-5)
[2022-04-29 13:46] LABS: Bacteria Few /hpf; Squamous Epithelial Cells Few /hpf (Few)
== END 2022-04-29 13:45 | disposition home or self-care (01) ==
LOC: ER 08:50
PROVIDERS: Physician Assistant
DX: R11.2 Nausea with vomiting, unspecified (principal); E86.0 Dehydration; F11.23 Opioid dependence with withdrawal; E11.40 Type 2 diabetes mellitus with diabetic neuropathy, unspecified; I11.0 Hypertensive heart disease with heart failure; I50.32 Chronic diastolic (congestive) heart failure; J44.9 Chronic obstructive pulmonary disease, unspecified; F17.210 Nicotine dependence, cigarettes, uncomplicated; Z20.822 Contact with and (suspected) exposure to COVID-19; Z88.6 Allergy status to analgesic agent; Z88.0 Allergy status to penicillin; Z88.2 Allergy status to sulfonamides; Z88.8 Allergy status to other drugs, medicaments and biological substances; Z88.5 Allergy status to narcotic agent; Z91.038 Other insect allergy status; Z79.899 Other long term (current) drug therapy; Z79.4 Long term (current) use of insulin
CPT/HCPCS: 0241U; 71046; 80053; 81001; 85025; A9270; J2405; J7030

== ENCOUNTER 2022-08-20 09:45 | Emergency (ER) | payer OTHER ==
[~2022-08-20] VITALS: Ht 162.6 cm; Wt 90.7 kg
[~2022-08-20 09:45] MED LIST changes: +KEPPRA250 M2 PO
[2022-08-20] MEDS ORDERED: Reglan10 MG PO (14:20)
[2022-08-20] MEDS ORDERED: CATAPRES0.2 M1 PO (14:20)
== END 2022-08-20 16:19 | disposition home or self-care (01) ==
LOC: ER 09:45
DX: F15.93 Other stimulant use, unspecified with withdrawal (principal); R11.2 Nausea with vomiting, unspecified; E11.9 Type 2 diabetes mellitus without complications; I11.0 Hypertensive heart disease with heart failure; I50.32 Chronic diastolic (congestive) heart failure; J44.9 Chronic obstructive pulmonary disease, unspecified; F17.210 Nicotine dependence, cigarettes, uncomplicated; Z88.0 Allergy status to penicillin; Z88.8 Allergy status to other drugs, medicaments and biological substances; Z88.2 Allergy status to sulfonamides; Z91.030 Bee allergy status; Z88.6 Allergy status to analgesic agent; Z79.899 Other long term (current) drug therapy; Z79.4 Long term (current) use of insulin
CPT/HCPCS: 36415; A9270; J2405; J2765; J3010; J7030

== ENCOUNTER 2023-01-02 19:58 | Emergency (ER) | payer OTHER ==
[~2023-01-02] VITALS: Ht 160 cm; Wt 56.7 kg
[~2023-01-02 19:58] MED LIST changes: +CATAPRES0.2 M1 PO; +QUET200 PO
[2023-01-02 21:13] LABS: Albumin, Blood 2.9 g/dL (3.4-5.0); Albumin/Globulin Ratio 0.8 (0.8-1.8); Bilirubin, Total 0.5 mg/dL (0.1-1.0); Bun/Creatinine Ratio 22.2 (12.0-20.0); Calcium, Blood 8.3 mg/dL (8.5-10.1); Creatinine, Blood 1.26 mg/dL (0.40-1.00); Globulin, Blood 3.7 g/dL (2.2-4.0); Potassium, Blood 3.8 mmol/L (3.5-5.5); Total Protein, Blood 6.6 g/dL (6.4-8.2)
[2023-01-02 21:25] LABS: BASOPHILS ABSOLUTE AUTO 0.01 K/mm3 (0.00-0.23); BASOPHILS PERCENT AUTO 0 % (0-2); EOSINOPHILS ABSOLUTE AUTO 0.01 K/mm3 (0.00-0.68); EOSINOPHILS PERCENT AUTO 0 % (0-6); Hematocrit 31.2 % (33.0-51.0); Hemoglobin 10.5 g/dL (11.5-16.0); IMMATURE GRAN ABSOLUTE AUTO 0.03 K/mm3 (0.00-0.10); IMMATURE GRAN PERCENT AUTO 1 % (0-1); LYMPHOCYTES ABSOLUTE AUTO 1.79 K/mm3 (0.84-5.20); LYMPHOCYTES PERCENT AUTO 29 % (21-46); MONOCYTES ABSOLUTE AUTO 0.57 K/mm3 (0.16-1.47); MONOCYTES PERCENT AUTO 9 % (4-13); Mean Corpuscular HGB 28.5 pg (26.0-34.0); Mean Corpuscular HGB Conc 33.7 g/dL (31.5-36.5); Mean Corpuscular Volume 85 fL (80-100); Mean Platelet Volume 11.8 fL (9.1-12.4); NEUTROPHILS ABSOLUTE AUTO 3.85 K/mm3 (1.96-9.15); NEUTROPHILS PERCENT AUTO 61 % (41-73); Platelet Count 102 K/mm3 (150-400); RDW Coefficient Variation 14.3 % (11.7-14.2); RDW Standard Deviation 43.8 fL (35.1-46.3); Red Blood Cell Count 3.69 M/mm3 (3.80-5.20); White Blood Cell Count 6.26 K/mm3 (4.00-11.30)
[2023-01-03] MEDS ORDERED: Robaxin750 MG PO (00:41)
[2023-01-03 01:30] VITALS: BP 120/59
== END 2023-01-03 01:41 | disposition home or self-care (01) ==
LOC: ER 19:58
PROVIDERS: Student in an Organized Health Care Education/Training Program
DX: S13.9XXA Sprain of joints and ligaments of unspecified parts of neck, initial encounter (principal); S30.0XXA Contusion of lower back and pelvis, initial encounter; S09.90XA Unspecified injury of head, initial encounter; E11.42 Type 2 diabetes mellitus with diabetic polyneuropathy; D64.9 Anemia, unspecified; J44.9 Chronic obstructive pulmonary disease, unspecified; I11.0 Hypertensive heart disease with heart failure; I50.32 Chronic diastolic (congestive) heart failure; F17.210 Nicotine dependence, cigarettes, uncomplicated; Z85.43 Personal history of malignant neoplasm of ovary; Z88.6 Allergy status to analgesic agent; Z88.0 Allergy status to penicillin; Z88.8 Allergy status to other drugs, medicaments and biological substances; Z91.030 Bee allergy status; Z88.2 Allergy status to sulfonamides; Z91.09 Other allergy status, other than to drugs and biological substances; Z88.7 Allergy status to serum and vaccine; Z79.4 Long term (current) use of insulin; Z79.899 Other long term (current) drug therapy; W10.9XXA Fall (on) (from) unspecified stairs and steps, initial encounter
CPT/HCPCS: 70450; 72125; 72128; 72131; 80053; 85025; 93005; 93010; 99284-25; A9270

== ENCOUNTER 2023-02-13 15:57 | Emergency (ER) | payer OTHER ==
[~2023-02-13] VITALS: Ht 160 cm; Wt 70.3 kg
[~2023-02-13 15:57] MED LIST changes: +Robaxin750 MG PO
[2023-02-13 17:13] LABS: BASOPHILS ABSOLUTE AUTO 0.02 K/mm3 (0.00-0.23); BASOPHILS PERCENT AUTO 0 % (0-2); EOSINOPHILS PERCENT AUTO 0 % (0-6); Hematocrit 32.9 % (33.0-51.0); Hemoglobin 11.1 g/dL (11.5-16.0); IMMATURE GRAN ABSOLUTE AUTO 0.02 K/mm3 (0.00-0.10); IMMATURE GRAN PERCENT AUTO 0 % (0-1); LYMPHOCYTES ABSOLUTE AUTO 1.68 K/mm3 (0.84-5.20); LYMPHOCYTES PERCENT AUTO 28 % (21-46); MONOCYTES ABSOLUTE AUTO 0.59 K/mm3 (0.16-1.47); MONOCYTES PERCENT AUTO 10 % (4-13); Mean Corpuscular HGB 29.8 pg (26.0-34.0); Mean Corpuscular HGB Conc 33.7 g/dL (31.5-36.5); Mean Corpuscular Volume 88 fL (80-100); Mean Platelet Volume 10.4 fL (9.1-12.4); NEUTROPHILS PERCENT AUTO 62 % (41-73); Platelet Count 110 K/mm3 (150-400); RDW Coefficient Variation 13.5 % (11.7-14.2); RDW Standard Deviation 43.9 fL (35.1-46.3); Red Blood Cell Count 3.72 M/mm3 (3.80-5.20); White Blood Cell Count 6.01 K/mm3 (4.00-11.30)
[2023-02-13 17:36] LABS: Albumin, Blood 3.5 g/dL (3.4-5.0); Bilirubin, Total 0.3 mg/dL (0.1-1.0); Bun/Creatinine Ratio 18.2 (12.0-20.0); Calcium, Blood 9.6 mg/dL (8.5-10.1); Creatinine, Blood 1.54 mg/dL (0.40-1.00); Globulin, Blood 3.6 g/dL (2.2-4.0); Potassium, Blood 4.6 mmol/L (3.5-5.5); Total Protein, Blood 7.1 g/dL (6.4-8.2)
[2023-02-13 17:45] VITALS: BP 140/104
[2023-02-13] MEDS ORDERED: LEVE500 PO (18:11)
[2023-02-13] MEDS ORDERED: GABA400 PO (18:11)
[2023-02-13] MEDS ORDERED: LOSA50 PO (18:11)
[2023-02-13] MEDS ORDERED: QUET200 PO (18:11)
== END 2023-02-13 18:25 | disposition home or self-care (01) ==
LOC: ER 15:57
PROVIDERS: Emergency Medicine
DX: R29.898 Other symptoms and signs involving the musculoskeletal system (principal); Z76.0 Encounter for issue of repeat prescription; E11.40 Type 2 diabetes mellitus with diabetic neuropathy, unspecified; I11.0 Hypertensive heart disease with heart failure; J44.9 Chronic obstructive pulmonary disease, unspecified; I48.91 Unspecified atrial fibrillation; I50.32 Chronic diastolic (congestive) heart failure; G43.909 Migraine, unspecified, not intractable, without status migrainosus; F17.210 Nicotine dependence, cigarettes, uncomplicated
CPT/HCPCS: 70450; 80053; 85025; 93005; 93010; 99284-25

== ENCOUNTER 2023-02-27 19:57 | Emergency (ER) | payer OTHER ==
[~2023-02-27] VITALS: Ht 160 cm; Wt 74.8 kg
[2023-02-27 20:59] LABS: BASOPHILS ABSOLUTE AUTO 0.02 K/mm3 (0.00-0.23); BASOPHILS PERCENT AUTO 0 % (0-2); EOSINOPHILS ABSOLUTE AUTO 0.01 K/mm3 (0.00-0.68); EOSINOPHILS PERCENT AUTO 0 % (0-6); Hematocrit 37.1 % (33.0-51.0); Hemoglobin 12.6 g/dL (11.5-16.0); IMMATURE GRAN ABSOLUTE AUTO 0.03 K/mm3 (0.00-0.10); IMMATURE GRAN PERCENT AUTO 1 % (0-1); LYMPHOCYTES ABSOLUTE AUTO 2.24 K/mm3 (0.84-5.20); LYMPHOCYTES PERCENT AUTO 34 % (21-46); MONOCYTES ABSOLUTE AUTO 0.52 K/mm3 (0.16-1.47); MONOCYTES PERCENT AUTO 8 % (4-13); Mean Corpuscular HGB 29.9 pg (26.0-34.0); Mean Corpuscular Volume 88 fL (80-100); Mean Platelet Volume 11.2 fL (9.1-12.4); NEUTROPHILS ABSOLUTE AUTO 3.81 K/mm3 (1.96-9.15); NEUTROPHILS PERCENT AUTO 57 % (41-73); Platelet Count 144 K/mm3 (150-400); RDW Standard Deviation 41.2 fL (35.1-46.3); Red Blood Cell Count 4.22 M/mm3 (3.80-5.20); White Blood Cell Count 6.63 K/mm3 (4.00-11.30)
[2023-02-27 21:05] LABS: Albumin, Blood 3.5 g/dL (3.4-5.0); Albumin/Globulin Ratio 0.9 (0.8-1.8); Bilirubin, Total 0.6 mg/dL (0.1-1.0); Calcium, Blood 8.7 mg/dL (8.5-10.1); Creatinine, Blood 0.94 mg/dL (0.40-1.00); Globulin, Blood 3.8 g/dL (2.2-4.0); Potassium, Blood 3.5 mmol/L (3.5-5.5); Total Protein, Blood 7.3 g/dL (6.4-8.2)
[2023-02-27] MEDS ORDERED: QUET200 PO (21:42)
[2023-02-27] MEDS ORDERED: CATAPRES0.2 M1 PO (21:42)
[2023-02-27] MEDS ORDERED: GABA300 PO (21:42)
[2023-02-27 23:19] VITALS: BP 130/62
== END 2023-02-27 23:39 | disposition home or self-care (01) ==
LOC: ER 19:57
PROVIDERS: Emergency Medicine
DX: R11.2 Nausea with vomiting, unspecified (principal); R19.7 Diarrhea, unspecified; Z76.0 Encounter for issue of repeat prescription; E11.40 Type 2 diabetes mellitus with diabetic neuropathy, unspecified; I11.0 Hypertensive heart disease with heart failure; J44.9 Chronic obstructive pulmonary disease, unspecified; I48.91 Unspecified atrial fibrillation; I50.32 Chronic diastolic (congestive) heart failure; G43.909 Migraine, unspecified, not intractable, without status migrainosus; F17.210 Nicotine dependence, cigarettes, uncomplicated
CPT/HCPCS: 80053; 85025; 96374; 99284-25; A9270; J2405

== ENCOUNTER 2023-03-17 18:53 | Emergency (ER) | payer OTHER ==
[~2023-03-17] VITALS: Ht 162.6 cm; Wt 81.7 kg
[2023-03-17 20:05] LABS: BASOPHILS ABSOLUTE AUTO 0.04 K/mm3 (0.00-0.23); BASOPHILS PERCENT AUTO 1 % (0-2); EOSINOPHILS ABSOLUTE AUTO 0.02 K/mm3 (0.00-0.68); EOSINOPHILS PERCENT AUTO 0 % (0-6); Hematocrit 37.8 % (33.0-51.0); Hemoglobin 12.7 g/dL (11.5-16.0); IMMATURE GRAN ABSOLUTE AUTO 0.08 K/mm3 (0.00-0.10); IMMATURE GRAN PERCENT AUTO 1 % (0-1); LYMPHOCYTES ABSOLUTE AUTO 1.41 K/mm3 (0.84-5.20); LYMPHOCYTES PERCENT AUTO 20 % (21-46); MONOCYTES ABSOLUTE AUTO 0.37 K/mm3 (0.16-1.47); MONOCYTES PERCENT AUTO 5 % (4-13); Mean Corpuscular HGB 29.7 pg (26.0-34.0); Mean Corpuscular HGB Conc 33.6 g/dL (31.5-36.5); Mean Corpuscular Volume 88 fL (80-100); Mean Platelet Volume 10.4 fL (9.1-12.4); NEUTROPHILS PERCENT AUTO 72 % (41-73); Platelet Count 159 K/mm3 (150-400); RDW Coefficient Variation 12.9 % (11.7-14.2); RDW Standard Deviation 41.3 fL (35.1-46.3); Red Blood Cell Count 4.28 M/mm3 (3.80-5.20); White Blood Cell Count 6.92 K/mm3 (4.00-11.30)
[2023-03-17 20:37] LABS: Albumin, Blood 3.7 g/dL (3.4-5.0); Albumin/Globulin Ratio 0.8 (0.8-1.8); Bilirubin, Total 0.5 mg/dL (0.1-1.0); Bun/Creatinine Ratio 20.3 (12.0-20.0); Calcium, Blood 9.5 mg/dL (8.5-10.1); Creatinine, Blood 1.18 mg/dL (0.40-1.00); Globulin, Blood 4.7 g/dL (2.2-4.0); Potassium, Blood 4.7 mmol/L (3.5-5.5); Total Protein, Blood 8.4 g/dL (6.4-8.2)
[2023-03-17 23:18] LABS: Influenza A, PCR NEGATIVE (NEGATIVE); Influenza B, PCR NEGATIVE (NEGATIVE); Resp Syncytial Virus, PCR NEGATIVE (NEGATIVE); SARS-Cov-2 (COVID-19) PCR, MMC NEGATIVE (NEGATIVE)
[2023-03-18 02:30] VITALS: BP 194/71
== END 2023-03-18 03:31 | disposition home or self-care (01) ==
LOC: ER 18:53
PROVIDERS: Physician Assistant
DX: R11.2 Nausea with vomiting, unspecified (principal); R19.7 Diarrhea, unspecified; R07.89 Other chest pain; R94.31 Abnormal electrocardiogram [ECG] [EKG]; R53.1 Weakness; R20.0 Anesthesia of skin; I11.0 Hypertensive heart disease with heart failure; I50.32 Chronic diastolic (congestive) heart failure; E11.40 Type 2 diabetes mellitus with diabetic neuropathy, unspecified; J44.9 Chronic obstructive pulmonary disease, unspecified; I48.91 Unspecified atrial fibrillation; F17.210 Nicotine dependence, cigarettes, uncomplicated; Z20.822 Contact with and (suspected) exposure to COVID-19; Z88.6 Allergy status to analgesic agent; Z88.0 Allergy status to penicillin; Z91.030 Bee allergy status; Z88.2 Allergy status to sulfonamides; Z88.8 Allergy status to other drugs, medicaments and biological substances; Z91.048 Other nonmedicinal substance allergy status; Z79.899 Other long term (current) drug therapy; Z79.4 Long term (current) use of insulin
CPT/HCPCS: 0241U; 71046; 80053; 83690; 84484; 85025; 93005; 93010; 96361; 96372-59; 96374; 96375; 99284-25; A9270; J1790; J2060; J2405; J7030

== ENCOUNTER 2023-09-27 18:37 | Emergency (ER) | payer OTHER ==
[~2023-09-27] VITALS: Ht 160 cm; Wt 70.3 kg
[~2023-09-27 18:37] MED LIST changes: +MIRALAX11914 PO; +NARCAN4 M1
[2023-09-27 21:00] VITALS: BP 140/94
[2023-09-27] MEDS ORDERED: QUEtiapine Fumarate 100 MG Tab PO ONE (21:00)
[2023-09-27] MEDS ORDERED: NS 1,000 ML IV SCH (21:00)
[2023-09-27] MEDS ORDERED: NS 1,000 ML IV ONE (21:00)
[2023-09-27 21:37] LABS: BASOPHILS ABSOLUTE AUTO 0.03 K/mm3 (0.00-0.23); BASOPHILS PERCENT AUTO 1 % (0-2); EOSINOPHILS ABSOLUTE AUTO 0.01 K/mm3 (0.00-0.68); EOSINOPHILS PERCENT AUTO 0 % (0-6); Hematocrit 37.8 % (33.0-51.0); Hemoglobin 12.7 g/dL (11.5-16.0); IMMATURE GRAN ABSOLUTE AUTO 0.03 K/mm3 (0.00-0.10); IMMATURE GRAN PERCENT AUTO 1 % (0-1); LYMPHOCYTES ABSOLUTE AUTO 1.89 K/mm3 (0.84-5.20); LYMPHOCYTES PERCENT AUTO 31 % (21-46); MONOCYTES ABSOLUTE AUTO 0.59 K/mm3 (0.16-1.47); MONOCYTES PERCENT AUTO 10 % (4-13); Mean Corpuscular HGB 29.3 pg (26.0-34.0); Mean Corpuscular HGB Conc 33.6 g/dL (31.5-36.5); Mean Corpuscular Volume 87 fL (80-100); NEUTROPHILS ABSOLUTE AUTO 3.64 K/mm3 (1.96-9.15); NEUTROPHILS PERCENT AUTO 59 % (41-73); RDW Coefficient Variation 13.6 % (11.7-14.2); RDW Standard Deviation 43.4 fL (35.1-46.3); Red Blood Cell Count 4.33 M/mm3 (3.80-5.20); White Blood Cell Count 6.19 K/mm3 (4.00-11.30)
[2023-09-27 21:39] LABS: Mean Platelet Volume 12.9 fL (9.1-12.4); Platelet Count 101 K/mm3 (150-400)
[2023-09-27 21:50] LABS: Albumin, Blood 3.2 g/dL (3.4-5.0); Albumin/Globulin Ratio 0.9 (0.8-1.8); Beta-hydroxybutyrate 0.6 mg/dL (0.2-2.8); Bilirubin, Total 0.3 mg/dL (0.1-1.0); Bun/Creatinine Ratio 36.7 (12.0-20.0); Calcium, Blood 9.2 mg/dL (8.5-10.1); Creatinine, Blood 1.2 mg/dL (0.40-1.00); Globulin, Blood 3.7 g/dL (2.2-4.0); Potassium, Blood 5.5 mmol/L (3.5-5.5); Total Protein, Blood 6.9 g/dL (6.4-8.2)
== END 2023-09-27 21:45 | disposition left against medical advice (07) ==
LOC: ER 18:37
PROVIDERS: Emergency Medicine
DX: R41.82 Altered mental status, unspecified (principal); E11.65 Type 2 diabetes mellitus with hyperglycemia
CPT/HCPCS: 80053; 82010; 82800; 82947; 85025; 99285; A9270; J7030

== ENCOUNTER 2023-11-18 09:26 | Observation (INO) | payer OTHER ==
[~2023-11-18] VITALS: Ht 172.7 cm; Wt 77.2 kg
[~2023-11-18 09:26] MED LIST changes: +Acetaminophen650 M1 PO; +Nicoderm Cq1 EAC1 TOP
[2023-11-18] MEDS ORDERED: Metoprolol Tartrate 1 MG/ML 5 ML VIAL IV ONE ×2 (10:00→11:55)
[2023-11-18] MEDS ORDERED: NS 1,000 ML IV SCH ×2 (10:15→14:00)
[2023-11-18 10:25] LABS: Source, Urine Clean Catch
[2023-11-18 10:29] LABS: Blood, Urine 3+ (Neg); Glucose Qualitative, Urine 3+ (Neg); Ketones, Urine Neg (Neg); Leukocyte Esterase, Urine Neg (Neg); Nitrite, Urine Neg (Neg); Protein, Urine 2+ (Neg); Specific Gravity, Urine 1.025 (1.003-1.022); Urobilinogen, Urine NORM (Normal)
[2023-11-18 10:36] LABS: Appearance, Urine Hazy (Clear); Bilirubin, Urine 1+ (Neg); Color, Urine Yellow (P-Yellow)
[2023-11-18 10:38] LABS: Amorphous Light (0-Heavy); Bacteria Rare /hpf; Squamous Epithelial Cells Rare /hpf (Few)
[2023-11-18 10:58] LABS: U Amphetamine Screen Not Detected; U Barbituate Screen Not Detected; U Benzodiazapine Screen DETECTED; U Buprenorphine Screen Not Detected; U Cannabinoids Screen Not Detected; U Cocaine Screen Not Detected; U Methadone Screen DETECTED; U Methamphetamine Screen Not Detected; U Opiates Screen Not Detected; U Oxycodone Screen Not Detected; U Phencyclidine Screen Not Detected
[2023-11-18] MEDS ORDERED: Acetaminophen 325 MG TABLET PO ONE (11:30)
[2023-11-18] MEDS ORDERED: TraMADol HCl 50 MG Tab PO ONE (11:30)
[2023-11-18 11:35] LABS: BASOPHILS ABSOLUTE AUTO 0.04 K/mm3 (0.00-0.23); BASOPHILS PERCENT AUTO 0 % (0-2); EOSINOPHILS ABSOLUTE AUTO 0.02 K/mm3 (0.00-0.68); EOSINOPHILS PERCENT AUTO 0 % (0-6); Hematocrit 37.6 % (33.0-51.0); Hemoglobin 12.9 g/dL (11.5-16.0); IMMATURE GRAN ABSOLUTE AUTO 0.07 K/mm3 (0.00-0.10); IMMATURE GRAN PERCENT AUTO 1 % (0-1); LYMPHOCYTES ABSOLUTE AUTO 2.28 K/mm3 (0.84-5.20); LYMPHOCYTES PERCENT AUTO 24 % (21-46); MONOCYTES ABSOLUTE AUTO 0.64 K/mm3 (0.16-1.47); MONOCYTES PERCENT AUTO 7 % (4-13); Mean Corpuscular HGB 29.4 pg (26.0-34.0); Mean Corpuscular HGB Conc 34.3 g/dL (31.5-36.5); Mean Corpuscular Volume 86 fL (80-100); Mean Platelet Volume 11.5 fL (9.1-12.4); NEUTROPHILS ABSOLUTE AUTO 6.63 K/mm3 (1.96-9.15); NEUTROPHILS PERCENT AUTO 69 % (41-73); Platelet Count 139 K/mm3 (150-400); RDW Coefficient Variation 13.2 % (11.7-14.2); RDW Standard Deviation 40.8 fL (35.1-46.3); Red Blood Cell Count 4.39 M/mm3 (3.80-5.20); White Blood Cell Count 9.68 K/mm3 (4.00-11.30)
[2023-11-18] MEDS ORDERED: QUET200 PO (11:37)
[2023-11-18] MEDS ORDERED: TRAZ50 PO (11:37)
[2023-11-18] MEDS ORDERED: OLMESARTAN MEDO20 MG PO (11:37)
[2023-11-18] MEDS ORDERED: METOPROLOL TART25 MG PO (11:38)
[2023-11-18] MEDS ORDERED: CATAPRES0.1 MG PO (11:45)
[2023-11-18 12:00] LABS: Albumin, Blood 3.8 g/dL (3.4-5.0); Albumin/Globulin Ratio 0.8 (0.8-1.8); Bilirubin, Total 0.5 mg/dL (0.1-1.0); Bun/Creatinine Ratio 17.5 (12.0-20.0); Calcium, Blood 8.7 mg/dL (8.5-10.1); Creatinine, Blood 3.48 mg/dL (0.40-1.00); Globulin, Blood 4.5 g/dL (2.2-4.0); Total Protein, Blood 8.3 g/dL (6.4-8.2)
[2023-11-18] MEDS ORDERED: Potassium Chloride 20 MEQ TabCR PO ONE ×2 (12:30→20:20)
[2023-11-18] MEDS ORDERED: Aspirin 325 MG Tab PO ONE (12:30)
[2023-11-18] MEDS ORDERED: TraMADol HCl 50 MG Tab PO PRN (13:45)
[2023-11-18] MEDS ORDERED: Acetaminophen 325 MG TABLET PO PRN (13:45)
[2023-11-18] MEDS ORDERED: Ondansetron HCl 2 MG / ML 2ML Vial IV PRN (13:45)
[2023-11-18] MEDS ORDERED: dilTIAZem HCL 125 MG in Dextrose 5% 100 ML IV SCH (13:55)
[2023-11-18] MEDS ORDERED: Albuterol HFA200 ACT/6.7 GM INH INH PRN (14:25)
[2023-11-18 16:06] VITALS: BP 120/85
[2023-11-18] MEDS ORDERED: Insulin Human Lispro 100 Units/ML 3ML Syringe SC SCH (16:30)
[2023-11-18] MEDS ORDERED: Morphine Sulfate 4 MG/1 ML Injection IV PRN (18:00)
[2023-11-18 19:31] VITALS: BP 133/74
--- NOTE | 2023-11-18 20:19 | NUR ---
AMA NOTE THIS RN ASSUMED CARE AT APPROX 1915. DURING INITIAL ENCOUNTER, PATIENT SITTING UP ON SIDE OF BED, STATING "I WANT TO GO HOME." PATIENT ALERT AND ORIENTED X4. MOVES ALL EXTREMITIES WITH GENERALIZED WEAKNESS T/O. WHEN ASKED WHY SHE IS WANTING TO GO HOME, PATIENT STATES "I DON'T WANT TO MISS MY [facility] APPOINTMENT." "I WANT TO GO HOME AND BE COMFORTABLE AND SMOKE A CIGARETTE." PATIENT CURRENTLY RECEIVING MORPHINE FOR PAIN MANAGEMENT. THIS RN OFFERED TO CONTACT MD FOR NICOTINE PATCH AND DISCUSS ALTERNATIVE PAIN MANAGEMENT. PATIENT DENIED. PATIENT PERSISTENTLY STATING HER DESIRE TO GO HOME. SITTER AT BEDSIDE. TELEMETRY SHOWING AFIB 110s-130s. BP STABLE. DENIES CHEST PAIN, PRESSURE. CARDIZEM GTT INFUSING AT 10MG/HR. PATIENT ON ROOM AIR, SATs >90%. LUNG SOUNDS CLEAR UPON AUSCULTATION. AT APPROX 1945, THIS RN CALLED TO ROOM PATIENT IS CHANGING INTO PERSONAL CLOTHING, SHOES. STATING "I'M GOING HOME." GIS PROGRAMMER AT BEDSIDE WELL. DISCUSSED LEAVING AGAINST MEDICAL ADVICE. EDUCATION PROVIDED REGARDING RISKS, INCLUDING UNCONTROLLED AFIB. PATIENT CONTINUING EXPRESS DESIRE TO LEAVE. MD WILDER CONTACTED, REQUESTED TO COME TO BEDSIDE. WHILE WAITING FOR MD TO COME TO BEDSIDE, PATIENT BEGAN TO WALK OUT OF ROOM. MD THOMAS CONTACTED. RECEIVED VERBAL ORDER TO LEAVE AMA. MD WILDER TO BEDSIDE. AMA FORM COMPLETED, PATIENT SIGNED VOLUNTARILY. EDUCATION PROVIDED, PATIENT STATES UNDERSTANDING. POWERGLIDE AND TELEMETRY REMOVED. PERSONAL BELONGINGS WITH PATIENT. PATIENT LEFT AMA AT APPROX 2009.
[2023-11-18] MEDS ORDERED: Insulin Glargine-Yfgn 100 Unit/mL 3 ML SYR SC SCH ×2 (21:00)
[2023-11-18] MEDS ORDERED: Docusate Sodium 100 MG Cap PO SCH (21:00)
== END 2023-11-18 20:15 | disposition left against medical advice (07) ==
LOC: ER 09:26 → PCU 09:27
PROVIDERS: Student in an Organized Health Care Education/Training Program; ADMIT Hospitalist
DX: I48.0 Paroxysmal atrial fibrillation (principal); N17.9 Acute kidney failure, unspecified; G92.8 Other toxic encephalopathy; J44.9 Chronic obstructive pulmonary disease, unspecified; E11.40 Type 2 diabetes mellitus with diabetic neuropathy, unspecified; I11.0 Hypertensive heart disease with heart failure; I50.32 Chronic diastolic (congestive) heart failure; M32.9 Systemic lupus erythematosus, unspecified; G43.909 Migraine, unspecified, not intractable, without status migrainosus; F32.9 Major depressive disorder, single episode, unspecified; F17.210 Nicotine dependence, cigarettes, uncomplicated; B18.2 Chronic viral hepatitis C; Z88.8 Allergy status to other drugs, medicaments and biological substances; Z88.5 Allergy status to narcotic agent; Z88.2 Allergy status to sulfonamides; Z88.0 Allergy status to penicillin; Z79.899 Other long term (current) drug therapy; Z79.4 Long term (current) use of insulin; D69.6 Thrombocytopenia, unspecified
CPT/HCPCS: 70450; 71046; 72125; 72170; 73562-LT; 80053; 81001; 82550; 82947; 83605; 83735; 84443; 84484; 85025; 93005; 93010; 94762; 96361; 96374-59; 96375; 99285-25; A9270; G0378; J1815; J2270; J7030

== ENCOUNTER 2023-11-27 06:29 | Emergency (ER) | payer OTHER ==
[~2023-11-27] VITALS: Ht 160 cm; Wt 77.1 kg
[~2023-11-27 06:29] MED LIST changes: +CATAPRES0.1 MG PO; +OLMESARTAN MEDO20 MG PO
[2023-11-27 06:33] VITALS: BP 172/91
[2023-11-27] MEDS ORDERED: Metoclopramide HCl 5MG / ML 2ML Vial IV ONE (06:45)
[2023-11-27] MEDS ORDERED: NS 1,000 ML IV SCH (06:45)
[2023-11-27] MEDS ORDERED: Methadone HCL 10 MG TAB PO ONE (06:55)
[2023-11-27 06:59] LABS: BASOPHILS ABSOLUTE AUTO 0.03 K/mm3 (0.00-0.23); BASOPHILS PERCENT AUTO 1 % (0-2); EOSINOPHILS ABSOLUTE AUTO 0.01 K/mm3 (0.00-0.68); EOSINOPHILS PERCENT AUTO 0 % (0-6); Hemoglobin 10.8 g/dL (11.5-16.0); IMMATURE GRAN ABSOLUTE AUTO 0.03 K/mm3 (0.00-0.10); IMMATURE GRAN PERCENT AUTO 1 % (0-1); LYMPHOCYTES PERCENT AUTO 22 % (21-46); MONOCYTES ABSOLUTE AUTO 0.38 K/mm3 (0.16-1.47); MONOCYTES PERCENT AUTO 6 % (4-13); Mean Corpuscular HGB 29.5 pg (26.0-34.0); Mean Corpuscular HGB Conc 32.7 g/dL (31.5-36.5); Mean Corpuscular Volume 90 fL (80-100); NEUTROPHILS ABSOLUTE AUTO 4.55 K/mm3 (1.96-9.15); NEUTROPHILS PERCENT AUTO 71 % (41-73); Platelet Count 115 K/mm3 (150-400); RDW Coefficient Variation 13.2 % (11.7-14.2); RDW Standard Deviation 43.6 fL (35.1-46.3); Red Blood Cell Count 3.66 M/mm3 (3.80-5.20)
[2023-11-27 07:18] LABS: Albumin, Blood 3.1 g/dL (3.4-5.0); Albumin/Globulin Ratio 0.8 (0.8-1.8); Bilirubin, Total 0.5 mg/dL (0.1-1.0); Bun/Creatinine Ratio 19.6 (12.0-20.0); Calcium, Blood 8.9 mg/dL (8.5-10.1); Creatinine, Blood 0.92 mg/dL (0.40-1.00); Globulin, Blood 3.7 g/dL (2.2-4.0); Potassium, Blood 4.7 mmol/L (3.5-5.5); Total Protein, Blood 6.8 g/dL (6.4-8.2)
[2023-11-27] MEDS ORDERED: CloNIDine 0.1 MG Tab PO ONE (07:40)
[2023-11-27] MEDS ORDERED: METO10 PO (07:42)
== END 2023-11-27 08:31 | disposition home or self-care (01) ==
LOC: ER 06:29
PROVIDERS: Emergency Medicine
DX: R11.2 Nausea with vomiting, unspecified (principal); E86.0 Dehydration; R29.6 Repeated falls; E11.40 Type 2 diabetes mellitus with diabetic neuropathy, unspecified; I11.9 Hypertensive heart disease without heart failure; I50.32 Chronic diastolic (congestive) heart failure; G43.909 Migraine, unspecified, not intractable, without status migrainosus; I48.91 Unspecified atrial fibrillation; J44.9 Chronic obstructive pulmonary disease, unspecified; F17.210 Nicotine dependence, cigarettes, uncomplicated; Z79.899 Other long term (current) drug therapy; Z79.4 Long term (current) use of insulin; Z88.6 Allergy status to analgesic agent; Z88.5 Allergy status to narcotic agent; Z88.0 Allergy status to penicillin; Z88.2 Allergy status to sulfonamides; Z91.038 Other insect allergy status; Z88.8 Allergy status to other drugs, medicaments and biological substances
CPT/HCPCS: 80053; 82550; 84484; 85025; 93005; 93010; 96361; 96374; 99284-25; A9270; J2765; J7030

== ENCOUNTER 2023-12-10 18:33 | Emergency (ER) | payer OTHER ==
[~2023-12-10] VITALS: Ht 160 cm; Wt 106.6 kg
[2023-12-10 19:25] VITALS: BP 152/90
[2023-12-10] MEDS ORDERED: Acetaminophen 500 MG Tab PO ONE (21:05)
== END 2023-12-10 22:26 | disposition home or self-care (01) ==
LOC: ER 18:33
DX: S16.1XXA Strain of muscle, fascia and tendon at neck level, initial encounter (principal); E11.40 Type 2 diabetes mellitus with diabetic neuropathy, unspecified; I48.91 Unspecified atrial fibrillation; I11.9 Hypertensive heart disease without heart failure; I50.32 Chronic diastolic (congestive) heart failure; G43.909 Migraine, unspecified, not intractable, without status migrainosus; F17.210 Nicotine dependence, cigarettes, uncomplicated; W19.XXXA Unspecified fall, initial encounter; Z79.4 Long term (current) use of insulin; Z79.899 Other long term (current) drug therapy; Z88.6 Allergy status to analgesic agent; Z88.0 Allergy status to penicillin; Z88.2 Allergy status to sulfonamides; Z88.8 Allergy status to other drugs, medicaments and biological substances; Z91.018 Allergy to other foods
CPT/HCPCS: 72040; 99283-25; A9270

== ENCOUNTER 2023-12-16 05:10 | Inpatient (IN) | payer OTHER ==
[~2023-12-16] VITALS: Ht 160 cm; Wt 71.0 kg
[2023-12-16 05:37] LABS: BASOPHILS ABSOLUTE AUTO 0.04 K/mm3 (0.00-0.23); BASOPHILS PERCENT AUTO 0 % (0-2); EOSINOPHILS ABSOLUTE AUTO 0.01 K/mm3 (0.00-0.68); EOSINOPHILS PERCENT AUTO 0 % (0-6); Hematocrit 44.5 % (33.0-51.0); IMMATURE GRAN ABSOLUTE AUTO 0.06 K/mm3 (0.00-0.10); IMMATURE GRAN PERCENT AUTO 1 % (0-1); LYMPHOCYTES ABSOLUTE AUTO 1.91 K/mm3 (0.84-5.20); LYMPHOCYTES PERCENT AUTO 15 % (21-46); MONOCYTES ABSOLUTE AUTO 0.61 K/mm3 (0.16-1.47); MONOCYTES PERCENT AUTO 5 % (4-13); Mean Corpuscular HGB 28.8 pg (26.0-34.0); Mean Corpuscular HGB Conc 33.7 g/dL (31.5-36.5); Mean Corpuscular Volume 85 fL (80-100); Mean Platelet Volume 11.6 fL (9.1-12.4); NEUTROPHILS ABSOLUTE AUTO 9.94 K/mm3 (1.96-9.15); NEUTROPHILS PERCENT AUTO 79 % (41-73); Platelet Count 145 K/mm3 (150-400); RDW Coefficient Variation 12.5 % (11.7-14.2); RDW Standard Deviation 38.6 fL (35.1-46.3); Red Blood Cell Count 5.21 M/mm3 (3.80-5.20); White Blood Cell Count 12.57 K/mm3 (4.00-11.30)
[2023-12-16 05:45] LABS: International Normalized Ratio 1.05; Prothrombin Time Results 11.2 Sec (9.7-11.5)
[2023-12-16] MEDS ORDERED: NS 1,000 ML IV SCH ×3 (06:00→07:35)
[2023-12-16] MEDS ORDERED: Acetaminophen 500 MG Tab PO ONE (06:00)
[2023-12-16] MEDS ORDERED: HydrALAZINE HCl 20 MG / ML 1ML Vial IV ONE (06:00)
[2023-12-16 06:04] LABS: Ethanol (Alcohol), Blood, Med <3 mg/dL; Magnesium, Blood 1.7 mg/dL (1.6-2.4); Thyroid Stimulating Hormone 0.637 uIU/mL (0.360-4.800)
[2023-12-16 06:05] LABS: Alanine Aminotransfer (ALT/SGP 24 U/L (12-78); Albumin, Blood 4.1 g/dL (3.4-5.0); Alk Phos 163 U/L (50-136); Anion Gap 12 mmol/L (3-11); Aspartate Aminotrans (AST/SGOT 23 U/L (12-37); Bilirubin, Total 0.8 mg/dL (0.1-1.0); Blood Urea Nitrogen 34 mg/dL (8-24); Bun/Creatinine Ratio 28.1 (12.0-20.0); CO2, Blood 27 mmol/L (21-32); Calcium, Blood 9.5 mg/dL (8.5-10.1); Chloride, Blood 105 mmol/L (98-108); Creatinine, Blood 1.21 mg/dL (0.40-1.00); Globulin, Blood 4.3 g/dL (2.2-4.0); Glomerular Filtration Rate 51 (60-); Phosphorus, Blood 2.4 mg/dL (2.5-4.9); Potassium, Blood 4.9 mmol/L (3.5-5.5); Sodium, Blood 139 mmol/L (136-145); Total Protein, Blood 8.4 g/dL (6.4-8.2)
[2023-12-16] MEDS ORDERED: FentaNYL Citrate 50 MCG/ML 2 ML Injection IV ONE (06:05)
[2023-12-16 06:12] LABS: Glucose, Blood 594 mg/dL (70-99)
[2023-12-16] MEDS ORDERED: Azithromycin 500 MG in NS 250 ML IV ONE (06:20)
[2023-12-16] MEDS ORDERED: CefTRIAXone Sodium 1,000 MG in NS 50 ML IV ONE (06:20)
[2023-12-16] MEDS ORDERED: Metoclopramide HCl 5MG / ML 2ML Vial IV ONE (06:45)
[2023-12-16] MEDS ORDERED: Metoprolol Tartrate 1 MG/ML 5 ML VIAL IV ONE (06:55)
[2023-12-16] MEDS ORDERED: Naloxone HCl 0.4MG / ML 1ML Vial IV PRN (07:25)
[2023-12-16] MEDS ORDERED: Bisacodyl 10 MG Supp PR PRN (07:25)
[2023-12-16] MEDS ORDERED: Zolpidem Tartrate 5 MG Tab PO PRN (07:25)
[2023-12-16] MEDS ORDERED: Acetaminophen 325 MG TABLET PO PRN (07:25)
[2023-12-16] MEDS ORDERED: HydrALAZINE HCl 20 MG / ML 1ML Vial IV PRN (07:30)
[2023-12-16] MEDS ORDERED: Magnesium Hydroxide Conc 10 ML UDC PO PRN (07:30)
[2023-12-16] MEDS ORDERED: CefTRIAXone Sodium 1,000 MG in NS 100 ML IV ONE (07:30)
[2023-12-16] MEDS ORDERED: HYDROmorphone HCl/Pf 1MG SYR IV PRN (07:30)
[2023-12-16] MEDS ORDERED: Ondansetron HCl 2 MG / ML 2ML Vial IV PRN (07:30)
[2023-12-16] MEDS ORDERED: Haloperidol Lactate Inj. 5 MG/ML Injection IV PRN (07:35)
[2023-12-16] MEDS ORDERED: LORazepam 2 MG/ML 1ML Injection IV PRN (07:40)
[2023-12-16] MEDS ORDERED: Prochlorperazine Edisylate 10 mg Vial IV PRN (07:45)
[2023-12-16] MEDS ORDERED: OxyCODONE HCL 5 MG TAB PO PRN (07:50)
[2023-12-16 09:00] VITALS: BP 152/114
[2023-12-16] MEDS ORDERED: Lactobacil 2-S.Thermo-Bifido 1 1 Cap PO SCH (09:00)
[2023-12-16] MEDS ORDERED: Insulin Glargine-Yfgn 100 Unit/mL 3 ML SYR SC SCH (09:00)
[2023-12-16] MEDS ORDERED: TraZODone HCl 50 MG Tab PO SCH (09:00)
[2023-12-16] MEDS ORDERED: CloNIDine 0.1 MG Tab PO SCH (09:35)
[2023-12-16 09:45] LABS: Base Excess Venous 0.3 mmol/L; Bicarbonate Venous 24.8 mmol/L (24.0-30.0); PCO2 Venous 38.9 mmHg (38-42); pH Blood Venous 7.41 (7.34-7.37)
--- NOTE | 2023-12-16 11:01 | NUR ---
UPDATE; ASKING TO LEAVE AMA. RISKS/BENEFITS DISCUSSED. DR. PEARL UPDATED, SIGNS AMA FORM. IV'S REMOVED GETS SLEF DRESSED. CALLED FOR TAXI AND TOLD WOULD BE 3 WAIT TIME. AMBULATES WITH THIS RN DOWN HALLWAY TO WAIT IN LOBBY. STATES "I JUST CAN'T DO IT" ASKS TO GO BACK TO ROOM. AMBULATED TO ROOM, EXPLAINED IF IN ROOM WILL CONTINUE TO BE A PT AND BE TREATED. BROUGHT IV START ITEMS TO ROOM, ON PHONE WITH MOM ASKING FOR A RIDE, MOM DECLINES, TELLS MOM OK "I'LL WAIT FOR THE 3 HOURS IN THE ROOM". REFUSED NEW IV PLACEMENT. ASKS TO CALL THE POLICE FOR A RIDE, DENIES CARE STATES "I JUST WANT TO GO HOME". ASSISTED TO LOBBY TO WAIT FOR RIDE HOME, NO ACUTE DISTRESS.
[2023-12-16] MEDS ORDERED: Insulin Human Lispro 100 Units/ML 3ML Syringe SC SCH (12:00)
[2023-12-16] MEDS ORDERED: Metoprolol Tartrate 1 MG/ML 5 ML VIAL IV SCH (12:00)
--- NOTE | 2023-12-16 15:58 | NUR ---
RIGHT HAND IV AND LEFT AC IV REMOVED PRIOR TO LEAVING AMA. PRESSURE BANDAGE PLACED.
[2023-12-16] MEDS ORDERED: QUEtiapine Fumarate 200 MG Tab PO SCH (21:00)
[2023-12-17] MEDS ORDERED: Famotidine 20 MG Tab PO SCH (06:00)
[2023-12-17] MEDS ORDERED: CefTRIAXone Sodium 2,000 MG in NS 100 ML IV SCH (09:00)
[2023-12-17] MEDS ORDERED: Enoxaparin 40 MG/0.4 ML SYR SC SCH (09:00)
== END 2023-12-16 10:52 | disposition left against medical advice (07) | DRG 308 ==
LOC: ER 05:10 → PCU 07:22
PROVIDERS: Emergency Medicine; ADMIT Hospitalist
DX: I48.0 Paroxysmal atrial fibrillation (principal); E11.00 Type 2 diabetes mellitus with hyperosmolarity without nonketotic hyperglycemic-hyperosmolar coma (NKHHC); I16.1 Hypertensive emergency; I50.32 Chronic diastolic (congestive) heart failure; I69.351 Hemiplegia and hemiparesis following cerebral infarction affecting right dominant side; I48.92 Unspecified atrial flutter; E11.65 Type 2 diabetes mellitus with hyperglycemia; J44.9 Chronic obstructive pulmonary disease, unspecified; F41.9 Anxiety disorder, unspecified; I11.0 Hypertensive heart disease with heart failure; M32.9 Systemic lupus erythematosus, unspecified; B18.2 Chronic viral hepatitis C; T50.916A Underdosing of multiple unspecified drugs, medicaments and biological substances, initial encounter; F17.200 Nicotine dependence, unspecified, uncomplicated; E86.0 Dehydration; M79.7 Fibromyalgia; G43.909 Migraine, unspecified, not intractable, without status migrainosus; Z85.43 Personal history of malignant neoplasm of ovary; G89.4 Chronic pain syndrome; F31.9 Bipolar disorder, unspecified; Z79.01 Long term (current) use of anticoagulants; Z53.29 Procedure and treatment not carried out because of patient's decision for other reasons; Z91.138 Patient's unintentional underdosing of medication regimen for other reason; Z88.6 Allergy status to analgesic agent; Z88.0 Allergy status to penicillin; Z88.2 Allergy status to sulfonamides; Z88.8 Allergy status to other drugs, medicaments and biological substances; Z79.4 Long term (current) use of insulin; Z87.820 Personal history of traumatic brain injury
CPT/HCPCS: 36415; 71045; 71260; 80053; 82010; 82803; 83605; 83735; 84100; 84443; 84484; 85025; 85610; 85730; A9270; J0360; J0456; J0696; J1815; J2765; J3010; J7030; J7050; Q9967

== ENCOUNTER 2023-12-23 18:35 | Emergency (ER) | payer OTHER ==
[~2023-12-23] VITALS: Ht 162.6 cm; Wt 90.7 kg
[2023-12-23] MEDS ORDERED: Loperamide HCl 2 MG Cap PO ONE (23:25)
[2023-12-23] MEDS ORDERED: NS 1,000 ML IV SCH (23:25)
[2023-12-24 00:20] LABS: BASOPHILS ABSOLUTE AUTO 0.07 K/mm3 (0.00-0.23); BASOPHILS PERCENT AUTO 1 % (0-2); EOSINOPHILS ABSOLUTE AUTO 0.04 K/mm3 (0.00-0.68); EOSINOPHILS PERCENT AUTO 0 % (0-6); Hematocrit 39.3 % (33.0-51.0); Hemoglobin 13.7 g/dL (11.5-16.0); IMMATURE GRAN ABSOLUTE AUTO 0.14 K/mm3 (0.00-0.10); IMMATURE GRAN PERCENT AUTO 1 % (0-1); LYMPHOCYTES ABSOLUTE AUTO 2.54 K/mm3 (0.84-5.20); LYMPHOCYTES PERCENT AUTO 22 % (21-46); MONOCYTES ABSOLUTE AUTO 0.85 K/mm3 (0.16-1.47); MONOCYTES PERCENT AUTO 7 % (4-13); Mean Corpuscular HGB 29.4 pg (26.0-34.0); Mean Corpuscular HGB Conc 34.9 g/dL (31.5-36.5); Mean Corpuscular Volume 84 fL (80-100); NEUTROPHILS PERCENT AUTO 69 % (41-73); RDW Coefficient Variation 13.2 % (11.7-14.2); RDW Standard Deviation 40.3 fL (35.1-46.3); Red Blood Cell Count 4.66 M/mm3 (3.80-5.20); White Blood Cell Count 11.54 K/mm3 (4.00-11.30)
[2023-12-24 00:21] LABS: Ethanol (Alcohol), Blood, Med <3 mg/dL; Magnesium, Blood 1.9 mg/dL (1.6-2.4)
[2023-12-24 00:30] LABS: Alanine Aminotransfer (ALT/SGP 27 U/L (12-78); Albumin, Blood 3.5 g/dL (3.4-5.0); Albumin/Globulin Ratio 0.9 (0.8-1.8); Alk Phos 218 U/L (50-136); Anion Gap 11 mmol/L (3-11); Aspartate Aminotrans (AST/SGOT 22 U/L (12-37); Bilirubin, Total 0.5 mg/dL (0.1-1.0); Blood Urea Nitrogen 48 mg/dL (8-24); Bun/Creatinine Ratio 36.4 (12.0-20.0); CO2, Blood 23 mmol/L (21-32); Calcium, Blood 8.8 mg/dL (8.5-10.1); Chloride, Blood 102 mmol/L (98-108); Creatinine, Blood 1.32 mg/dL (0.40-1.00); Globulin, Blood 4.1 g/dL (2.2-4.0); Glomerular Filtration Rate 46 (60-); Glucose, Blood 587 mg/dL (70-99); Potassium, Blood 5.7 mmol/L (3.5-5.5); Sodium, Blood 130 mmol/L (136-145); Total Protein, Blood 7.6 g/dL (6.4-8.2)
[2023-12-24] MEDS ORDERED: NS 1,000 ML IV SCH (00:40)
[2023-12-24] MEDS ORDERED: Insulin Regular 100 Unit/ML 1ML Dose SC ONE ×2 (00:40→04:20)
[2023-12-24 00:48] LABS: Platelet Count 106 K/mm3 (150-400)
[2023-12-24 00:49] VITALS: BP 145/79
[2023-12-24 02:56] LABS: Anion Gap 11 mmol/L (3-11); Blood Urea Nitrogen 29 mg/dL (8-24); Bun/Creatinine Ratio 47.2 (12.0-20.0); CO2, Blood 14 mmol/L (21-32); Chloride, Blood 125 mmol/L (98-108); Creatinine, Blood 0.61 mg/dL (0.40-1.00); Glomerular Filtration Rate 101 (60-); Glucose, Blood 298 mg/dL (70-99); Potassium, Blood 2.8 mmol/L (3.5-5.5); Sodium, Blood 147 mmol/L (136-145)
[2023-12-24 03:01] LABS: Calcium, Blood <5.0 mg/dL (8.5-10.1)
[2023-12-24 04:13] LABS: Bun/Creatinine Ratio 36.6 (12.0-20.0); Creatinine, Blood 1.12 mg/dL (0.40-1.00); Potassium, Blood 4.7 mmol/L (3.5-5.5)
== END 2023-12-24 04:50 | disposition home or self-care (01) ==
LOC: ER 18:35
PROVIDERS: Emergency Medicine; Physician Assistant
DX: R19.7 Diarrhea, unspecified (principal); E11.65 Type 2 diabetes mellitus with hyperglycemia; E86.0 Dehydration; I11.0 Hypertensive heart disease with heart failure; I50.32 Chronic diastolic (congestive) heart failure; J44.9 Chronic obstructive pulmonary disease, unspecified; F17.210 Nicotine dependence, cigarettes, uncomplicated; Z88.0 Allergy status to penicillin; Z88.8 Allergy status to other drugs, medicaments and biological substances; Z88.2 Allergy status to sulfonamides; Z91.030 Bee allergy status; Z79.4 Long term (current) use of insulin; Z79.899 Other long term (current) drug therapy; Z95.0 Presence of cardiac pacemaker
CPT/HCPCS: 80048; 80053; 83605; 83735; 84484; 85025; 93005; 93010; 96360; 96361; 99284-25; A9270; J1815; J7030

== ENCOUNTER 2024-02-21 19:17 | Emergency (ER) | payer OTHER ==
[~2024-02-21] VITALS: Ht 172.7 cm; Wt 99.8 kg
[~2024-02-21 19:17] MED LIST changes: +Calcium Chloride 10% 10 ML SYR IV ONE; +EPINEPhrine HCl 0.1 MG/ML 10ML SYR IV ONE; +Etomidate 2MG / ML 10ML Vial IV ONE; +Magnesium Sulfate 500 MG / ML 2ML Vial IV ONE; +Rocuronium Bromide 10 MG/ML 5ML Injection IV ONE; +Sodium Bicarb 8.4% 50 mEq Syringe IV ONE
[2024-02-21] MEDS ORDERED: Lactated Ringer's 2,000 ML IV ONE (19:23)
[2024-02-21] MEDS ORDERED: Lactated Ringer's 1,000 ML IV ONE ×2 (19:30→19:35)
[2024-02-21] MEDS ORDERED: propofoL 100 ML IV SCH ×2 (19:45→20:45)
[2024-02-21 19:46] LABS: Source, Urine Foley catheter
[2024-02-21 19:53] LABS: Calcium, Ionized (POC) 1.18 mmol/L (1.10-1.46); Chloride (POC) 89 mmol/L (98-108); Glucose (ISTAT POC) >700 mg/dL (70-99); Hemoglobin (POC) 12.2 g/dL (12.0-16.0); Potassium (POC) 4.1 mmol/L (3.5-5.5); Sodium (POC) 123 mmol/L (135-148); Total CO2 (POC) 16 mmol/L (21-32)
[2024-02-21 19:55] LABS: Appearance, Urine Cloudy (Clear); Bilirubin, Urine Neg (Neg); Blood, Urine 5+ (Neg); Color, Urine Yellow (P-Yellow); Glucose Qualitative, Urine 4+ (Neg); Ketones, Urine Neg (Neg); Leukocyte Esterase, Urine 3+ (Neg); Nitrite, Urine Neg (Neg); Protein, Urine 3+ (Neg); Specific Gravity, Urine 1.015 (1.003-1.022); Urobilinogen, Urine NORM (Normal)
[2024-02-21 19:55] LABS: Hematocrit 35.5 % (33.0-51.0); Hemoglobin 11.3 g/dL (11.5-16.0); Mean Corpuscular HGB 28.3 pg (26.0-34.0); Mean Corpuscular HGB Conc 31.8 g/dL (31.5-36.5); Mean Corpuscular Volume 89 fL (80-100); Mean Platelet Volume 12.8 fL (9.1-12.4); NRBC ABSOLUTE 0.05 K/mm3 (0.00-0.02); NRBC Auto 0.3 /100 WBC (0.0-0.2); Platelet Count 128 K/mm3 (150-400); RDW Standard Deviation 45.1 fL (35.1-46.3); Red Blood Cell Count 3.99 M/mm3 (3.80-5.20); White Blood Cell Count 18.98 K/mm3 (4.00-11.30)
[2024-02-21 20:03] LABS: Amorphous Light (0-Heavy); Bacteria Many /hpf; Squamous Epithelial Cells Mod /hpf (Few); White Blood Cells, Urine TNTC /hpf (0-5)
[2024-02-21 20:04] LABS: BAND PERCENT MAN 7 % (0-8); BASOPHILS PERCENT MAN 0 % (0-2); EOSINOPHILS PERCENT MAN 0 % (0-6); LYMPHOCYTES ABSOLUTE MAN 0.56 K/mm3 (0.84-5.20); LYMPHOCYTES PERCENT MAN 3 % (21-46); MONOCYTES ABSOLUTE MAN 0.56 K/mm3 (0.16-1.47); MONOCYTES PERCENT MAN 3 % (4-13); NEUTROPHILS ABSOLUTE MAN 17.84 K/mm3 (1.96-9.15); SEG NEUTROPHILS PERCENT MAN 87 % (41-73); TOTAL CELLS COUNTED 100
[2024-02-21 20:04] LABS: Renal Epithelial Rare /hpf (0-Rare)
[2024-02-21 20:10] LABS: Base Excess Venous -10.1 mmol/L; PCO2 Venous 37.9 mmHg (38-42); pH Blood Venous 7.26 (7.34-7.37)
[2024-02-21 20:11] LABS: Ethanol (Alcohol), Blood, Med <3 mg/dL; Magnesium, Blood 2.2 mg/dL (1.6-2.4)
[2024-02-21 20:14] LABS: Alanine Aminotransfer (ALT/SGP 65 U/L (12-78); Albumin, Blood 2.7 g/dL (3.4-5.0); Albumin/Globulin Ratio 0.8 (0.8-1.8); Alk Phos 363 U/L (50-136); Anion Gap 24 mmol/L (3-11); Aspartate Aminotrans (AST/SGOT 143 U/L (12-37); Bilirubin, Total 1.1 mg/dL (0.1-1.0); Blood Urea Nitrogen 43 mg/dL (8-24); Bun/Creatinine Ratio 24.7 (12.0-20.0); CO2, Blood 16 mmol/L (21-32); Calcium, Blood 9.5 mg/dL (8.5-10.1); Chloride, Blood 89 mmol/L (98-108); Creatinine, Blood 1.74 mg/dL (0.40-1.00); Globulin, Blood 3.2 g/dL (2.2-4.0); Glomerular Filtration Rate 33 (60-); Glucose, Blood 1395 mg/dL (70-99); Potassium, Blood 4.2 mmol/L (3.5-5.5); Sodium, Blood 125 mmol/L (136-145); Total Protein, Blood 5.9 g/dL (6.4-8.2)
[2024-02-21 20:28] LABS: U Amphetamine Screen DETECTED; U Barbituate Screen Not Detected; U Benzodiazapine Screen DETECTED; U Buprenorphine Screen Not Detected; U Cannabinoids Screen Not Detected; U Cocaine Screen Not Detected; U Methadone Screen Not Detected; U Methamphetamine Screen DETECTED; U Opiates Screen Not Detected; U Oxycodone Screen Not Detected; U Phencyclidine Screen Not Detected
[2024-02-21] MEDS ORDERED: Cefepime HCl 2,000 MG in NS 100 ML IV ONE (20:45)
[2024-02-21] MEDS ORDERED: Vancomycin HCL 2,000 MG in NS 520 ML IV ONE (20:45)
[2024-02-21] MEDS ORDERED: Insulin Human Regular 100 UNIT in NS 100 ML IV SCH (21:20)
[2024-02-21] MEDS ORDERED: Insulin Regular 100 Unit/ML 1ML Dose IV ONE (21:25)
[2024-02-21 21:26] LABS: Salicylate <1.7 mg/dL (2.8-20.0)
[2024-02-21 21:37] LABS: Acetaminophen, Random <2.0 ug/mL (10.0-30.0); Beta-hydroxybutyrate 4.4 mg/dL (0.2-2.8)
[2024-02-21] MEDS ORDERED: Potassium Chloride 20 MEQ in Sodium Chloride 0.45% 1,000 ML IV SCH (22:45)
[2024-02-21] MEDS ORDERED: Pantoprazole Sodium 40 MG Injection IV ONE (22:50)
[2024-02-21] MEDS ORDERED: Pantoprazole Sodium 40 MG in NS 50 ML IV SCH (22:50)
[2024-02-21] MEDS ORDERED: LORazepam 2 MG/ML 1ML Injection IV ONE (22:50)
[2024-02-21 23:08] LABS: International Normalized Ratio 1.23
[2024-02-21] MEDS ORDERED: Fosphenytoin PE 50 MG/ML PE 2ML Vial IV ONE (23:15)
[2024-02-21] MEDS ORDERED: NS IV STA (23:18)
[2024-02-21] MEDS ORDERED: FOSPHENYTOIN PE IV STA (23:18)
[2024-02-21] MEDS ORDERED: NS 1,000 ML IV ONE (23:53)
[2024-02-22] MEDS ORDERED: Ketamine HCL 10 MG/ML 20MLVIAL ONE (00:01)
[2024-02-22 00:05] LABS: Glucose, Blood 1346 mg/dL (70-99)
[2024-02-22] MEDS ORDERED: Potassium Chloride 20 MEQ/15 ML UDC PO ONE (00:10)
[2024-02-22 00:13] LABS: Calcium, Ionized (POC) 1.19 mmol/L (1.10-1.46); Chloride (POC) 90 mmol/L (98-108); Creatinine (POC) 1.8 mg/dL (0.6-1.0); Glucose (ISTAT POC) >700 mg/dL (70-99); Hemoglobin (POC) 10.5 g/dL (12.0-16.0); Potassium (POC) 2.9 mmol/L (3.5-5.5); Sodium (POC) 126 mmol/L (135-148); Total CO2 (POC) 17 mmol/L (21-32)
[2024-02-22] MEDS ORDERED: Ketamine HCL 1,000 MG in NS 100 ML IV SCH (00:30)
[2024-02-22 01:00] VITALS: BP 72/54
== END 2024-02-22 01:28 | disposition short-term general hospital (02) ==
LOC: ER 19:17
PROVIDERS: Emergency Medicine; Student in an Organized Health Care Education/Training Program
DX: G40.901 Epilepsy, unspecified, not intractable, with status epilepticus (principal); K85.90 Acute pancreatitis without necrosis or infection, unspecified; I21.9 Acute myocardial infarction, unspecified; E11.00 Type 2 diabetes mellitus with hyperosmolarity without nonketotic hyperglycemic-hyperosmolar coma (NKHHC); E11.42 Type 2 diabetes mellitus with diabetic polyneuropathy; J44.9 Chronic obstructive pulmonary disease, unspecified; F43.10 Post-traumatic stress disorder, unspecified; I11.0 Hypertensive heart disease with heart failure; I50.32 Chronic diastolic (congestive) heart failure; G43.909 Migraine, unspecified, not intractable, without status migrainosus; F17.210 Nicotine dependence, cigarettes, uncomplicated
CPT/HCPCS: 31500; 36415; 36556; 51702; 70450; 71045; 71250; 72125; 74176; 80047; 80053; 80320; 81001; 82010; 82803; 82947; 83605; 83690; 83735; 83930; 84484; 85014; 85025; 85610; 86850; 86900; 86901; 87040; 87086; 93005; 93010; 94002; 96361-59; 96374-59; 96375-59; 99285-25; A9270; G0480; J0692; J1815; J2060; J2470; J2704; J3370; J3475; J3480; J7030; J7040; J7060; J7120; Q2009

== ENCOUNTER 2024-04-06 14:46 | Emergency (ER) | payer OTHER ==
[~2024-04-06] VITALS: Ht 165.1 cm; Wt 108.9 kg
[~2024-04-06 14:46] MED LIST changes: -Calcium Chloride 10% 10 ML SYR IV ONE; -EPINEPhrine HCl 0.1 MG/ML 10ML SYR IV ONE; -Etomidate 2MG / ML 10ML Vial IV ONE; -Magnesium Sulfate 500 MG / ML 2ML Vial IV ONE; -Rocuronium Bromide 10 MG/ML 5ML Injection IV ONE; -Sodium Bicarb 8.4% 50 mEq Syringe IV ONE
[2024-04-06 15:32] LABS: BASOPHILS ABSOLUTE AUTO 0.02 K/mm3 (0.00-0.23); BASOPHILS PERCENT AUTO 0 % (0-2); EOSINOPHILS ABSOLUTE AUTO 0.01 K/mm3 (0.00-0.68); EOSINOPHILS PERCENT AUTO 0 % (0-6); Hematocrit 36.6 % (33.0-51.0); Hemoglobin 10.9 g/dL (11.5-16.0); IMMATURE GRAN ABSOLUTE AUTO 0.03 K/mm3 (0.00-0.10); IMMATURE GRAN PERCENT AUTO 1 % (0-1); LYMPHOCYTES ABSOLUTE AUTO 1.78 K/mm3 (0.84-5.20); LYMPHOCYTES PERCENT AUTO 34 % (21-46); MONOCYTES ABSOLUTE AUTO 0.48 K/mm3 (0.16-1.47); MONOCYTES PERCENT AUTO 9 % (4-13); Mean Corpuscular HGB 26.2 pg (26.0-34.0); Mean Corpuscular HGB Conc 29.8 g/dL (31.5-36.5); Mean Corpuscular Volume 88 fL (80-100); Mean Platelet Volume 11.4 fL (9.1-12.4); NEUTROPHILS PERCENT AUTO 56 % (41-73); Platelet Count 79 K/mm3 (150-400); RDW Coefficient Variation 15.5 % (11.7-14.2); RDW Standard Deviation 49.8 fL (35.1-46.3); Red Blood Cell Count 4.16 M/mm3 (3.80-5.20); White Blood Cell Count 5.32 K/mm3 (4.00-11.30)
[2024-04-06 16:02] LABS: Albumin, Blood 2.5 g/dL (3.4-5.0); Albumin/Globulin Ratio 0.6 (0.8-1.8); Bilirubin, Total 0.5 mg/dL (0.1-1.0); Bun/Creatinine Ratio 26.2 (12.0-20.0); Calcium, Blood 8.3 mg/dL (8.5-10.1); Creatinine, Blood 1.3 mg/dL (0.40-1.00); Globulin, Blood 4.4 g/dL (2.2-4.0); Potassium, Blood 3.4 mmol/L (3.5-5.5); Total Protein, Blood 6.9 g/dL (6.4-8.2)
[2024-04-06] MEDS ORDERED: Ondansetron HCl 2 MG / ML 2ML Vial IV ONE (17:40)
[2024-04-06] MEDS ORDERED: Acetaminophen 325 MG TABLET PO ONE (18:35)
[2024-04-06] MEDS ORDERED: CefTRIAXone Sodium 1,000 MG in NS 100 ML IV ONE (18:35)
[2024-04-06] MEDS ORDERED: Prochlorperazine Edisylate 10 mg Vial IV ONE (18:35)
[2024-04-06] MEDS ORDERED: CEFD300 PO (18:36)
[2024-04-06 18:38] LABS: Source, Urine Foley catheter
[2024-04-06 18:41] LABS: Appearance, Urine Cloudy (Clear); Bilirubin, Urine Neg (Neg); Blood, Urine 5+ (Neg); Color, Urine Yellow (P-Yellow); Glucose Qualitative, Urine Neg (Neg); Ketones, Urine Neg (Neg); Leukocyte Esterase, Urine 3+ (Neg); Nitrite, Urine Pos (Neg); Protein, Urine 3+ (Neg); Specific Gravity, Urine 1.015 (1.003-1.022); Urobilinogen, Urine NORM (Normal)
[2024-04-06 18:48] LABS: Bacteria Many /hpf; Red Blood Cells, Urine 50-100 /hpf (0-2); Squamous Epithelial Cells Not Seen /hpf (Few); White Blood Cells, Urine 25-50 /hpf (0-5)
[2024-04-06 18:49] LABS: Transitional Epithelial Cells Rare /hpf (0-Rare)
[2024-04-06 19:15] VITALS: BP 136/78
== END 2024-04-06 19:21 | disposition home or self-care (01) ==
LOC: ER 14:46
PROVIDERS: Emergency Medicine; Student in an Organized Health Care Education/Training Program
DX: N39.0 Urinary tract infection, site not specified (principal); B96.5 Pseudomonas (aeruginosa) (mallei) (pseudomallei) as the cause of diseases classified elsewhere; B96.89 Other specified bacterial agents as the cause of diseases classified elsewhere; E87.6 Hypokalemia; I48.91 Unspecified atrial fibrillation; I48.92 Unspecified atrial flutter; I11.0 Hypertensive heart disease with heart failure; I50.32 Chronic diastolic (congestive) heart failure; E11.42 Type 2 diabetes mellitus with diabetic polyneuropathy; J44.9 Chronic obstructive pulmonary disease, unspecified; G40.909 Epilepsy, unspecified, not intractable, without status epilepticus; G43.909 Migraine, unspecified, not intractable, without status migrainosus; F17.210 Nicotine dependence, cigarettes, uncomplicated; Z86.73 Personal history of transient ischemic attack (TIA), and cerebral infarction without residual deficits; Z95.0 Presence of cardiac pacemaker; Z88.0 Allergy status to penicillin; Z88.2 Allergy status to sulfonamides; Z88.8 Allergy status to other drugs, medicaments and biological substances; Z91.030 Bee allergy status; Z91.038 Other insect allergy status; Z91.048 Other nonmedicinal substance allergy status; Z79.4 Long term (current) use of insulin; Z79.899 Other long term (current) drug therapy
CPT/HCPCS: 80053; 81001; 85025; 87086; 96365; 96375; 99283-25; A9270; J0696; J0780; J2405

== ENCOUNTER 2024-09-07 11:06 | Inpatient (IN) | payer OTHER ==
[~2024-09-07] VITALS: Ht 165.1 cm; Wt 102.4 kg
[~2024-09-07 11:06] MED LIST changes: +ELIQUIS5 M2 PO
[2024-09-07] MEDS ORDERED: Diltiazem HCl 5 MG / ML 5ML Vial ONE (11:10)
[2024-09-07] MEDS ORDERED: Diltiazem HCl 5 MG / ML 5ML Vial IV ONE (11:15)
[2024-09-07] MEDS ORDERED: NS 1,000 ML IV SCH ×2 (11:15→18:40)
[2024-09-07] MEDS ORDERED: Mag Sulfate 1 GM/D5% 100ML 100 ML IV ONE (11:30)
[2024-09-07] MEDS ORDERED: Metoprolol Tartrate 1 MG/ML 5 ML VIAL IV PRN ×2 (11:30→16:35)
[2024-09-07] MEDS ORDERED: dilTIAZem HCL 125 MG in Dextrose 5% 100 ML IV SCH (11:40)
[2024-09-07 11:42] LABS: BASOPHILS PERCENT AUTO 0 % (0-2); EOSINOPHILS PERCENT AUTO 0 % (0-6); MONOCYTES ABSOLUTE AUTO 0.79 K/mm3 (0.16-1.47); MONOCYTES PERCENT AUTO 5 % (4-13); NRBC ABSOLUTE 0.03 K/mm3 (0.00-0.02); NRBC Auto 0.2 /100 WBC (0.0-0.2); Red Blood Cell Count 5.12 M/mm3 (3.80-5.20)
[2024-09-07 11:46] LABS: BASOPHILS ABSOLUTE AUTO 0.06 K/mm3 (0.00-0.23); Hematocrit 47.4 % (33.0-51.0); IMMATURE GRAN ABSOLUTE AUTO 0.29 K/mm3 (0.00-0.10); IMMATURE GRAN PERCENT AUTO 2 % (0-1); LYMPHOCYTES ABSOLUTE AUTO 1.17 K/mm3 (0.84-5.20); LYMPHOCYTES PERCENT AUTO 7 % (21-46); Mean Corpuscular HGB 29.3 pg (26.0-34.0); Mean Corpuscular HGB Conc 31.6 g/dL (31.5-36.5); Mean Corpuscular Volume 93 fL (80-100); Mean Platelet Volume 11.3 fL (9.1-12.4); NEUTROPHILS ABSOLUTE AUTO 14.86 K/mm3 (1.96-9.15); NEUTROPHILS PERCENT AUTO 87 % (41-73); Platelet Count 187 K/mm3 (150-400); RDW Coefficient Variation 15.7 % (11.7-14.2); RDW Standard Deviation 51.3 fL (35.1-46.3); White Blood Cell Count 17.17 K/mm3 (4.00-11.30)
[2024-09-07 12:10] LABS: Anion Gap 21 mmol/L (3-11); Blood Urea Nitrogen 27 mg/dL (8-24); Bun/Creatinine Ratio 23.5 (12.0-20.0); CO2, Blood 18 mmol/L (21-32); Calcium, Blood 9.3 mg/dL (8.5-10.1); Chloride, Blood 104 mmol/L (98-108); Creatinine, Blood 1.15 mg/dL (0.40-1.00); Ethanol (Alcohol), Blood, Med <3 mg/dL; Free Thyroxine 1.46 ng/dL (0.70-1.60); Glomerular Filtration Rate 54 (60-); Glucose, Blood 259 mg/dL (70-99); Magnesium, Blood 1.8 mg/dL (1.6-2.4); Potassium, Blood 4.5 mmol/L (3.5-5.5); Sodium, Blood 138 mmol/L (136-145)
[2024-09-07 12:18] LABS: D-Dimer, Quantitative 1.77 mg/L FEU (0.00-0.52); International Normalized Ratio 1.38; Prothrombin Time Results 14.4 Sec (9.7-11.5)
[2024-09-07 12:22] LABS: Valproic Acid <3.0 ug/mL (50.0-100.0)
[2024-09-07 13:11] LABS: U Amphetamine Screen Not Detected; U Barbituate Screen Not Detected; U Benzodiazapine Screen Not Detected; U Buprenorphine Screen Not Detected; U Cannabinoids Screen Not Detected; U Cocaine Screen Not Detected; U Methadone Screen Not Detected; U Methamphetamine Screen Not Detected; U Opiates Screen Not Detected; U Oxycodone Screen Not Detected; U Phencyclidine Screen Not Detected
[2024-09-07] MEDS ORDERED: Metoprolol Tartrate 25 MG Tab PO SCH (14:00)
[2024-09-07 14:53] LABS: Base Excess Venous -7.2 mmol/L; Bicarbonate Venous 18.7 mmol/L (24.0-30.0); PCO2 Venous 39.8 mmHg (38-42); pH Blood Venous 7.29 (7.34-7.37)
[2024-09-07] MEDS ORDERED: Lactated Ringer's 1,000 ML IV ONE (14:53)
[2024-09-07] MEDS ORDERED: Lactated Ringer's 1,000 ML IV SCH (15:00)
[2024-09-07] MEDS ORDERED: Meropenem 2,000 MG in NS 250 ML IV SCH (16:00)
[2024-09-07] MEDS ORDERED: Vancomycin HCL 1,000 MG in NS 250 ML IV ONE (16:30)
[2024-09-07] MEDS ORDERED: NS 500 ML IV ONE (16:35)
[2024-09-07 16:41] VITALS: BP 142/86
[2024-09-07] MEDS ORDERED: Ondansetron HCl 2 MG / ML 2ML Vial IV PRN (16:55)
[2024-09-07] MEDS ORDERED: Pantoprazole Sodium 40 MG Injection IV SCH (17:00)
[2024-09-07] MEDS ORDERED: Heparin Sodium,Porcine/0.5 NS 500 ML IV SCH (17:05)
[2024-09-07] MEDS ORDERED: Acetaminophen 325 MG TABLET PO PRN (17:25)
[2024-09-07 17:49] VITALS: BP 142/97
[2024-09-07] MEDS ORDERED: TRAM50 PO (17:54)
[2024-09-07] MEDS ORDERED: ONDA4 PO (17:55)
[2024-09-07] MEDS ORDERED: FURO40 PO (17:56)
[2024-09-07] MEDS ORDERED: POTCHL20ER PO (17:56)
[2024-09-07 18:00] LABS: Influenza A, PCR NEGATIVE (NEGATIVE); Influenza B, PCR NEGATIVE (NEGATIVE); Resp Syncytial Virus, PCR NEGATIVE (NEGATIVE); SARS-Cov-2 (COVID-19) PCR, MMC NEGATIVE (NEGATIVE)
[2024-09-07] MEDS ORDERED: Insulin Regular 100 UNIT/ML 10ML Vial SC SCH (18:00)
[2024-09-07] MEDS ORDERED: Insulin Human Lispro 100 Units/ML 3ML Syringe SC SCH (18:00)
[2024-09-07 18:30] LABS: Bun/Creatinine Ratio 22.6 (12.0-20.0); Calcium, Blood 8.6 mg/dL (8.5-10.1); Creatinine, Blood 1.15 mg/dL (0.40-1.00); Potassium, Blood 4.5 mmol/L (3.5-5.5)
--- NOTE | 2024-09-07 18:54 | NUR ---
LACTIC ACID UPDATE DR. MORENO AWARE OF LACTIC 4.9
[2024-09-07 19:29] VITALS: BP 148/76
--- NOTE | 2024-09-07 19:48 | NUR ---
ASSSUMPTION OF CARE PATIENT CAME TO THE FLOOR ALERT AND DISORIENTED. BRIT COULD ONLY SAY HER NAME ONE TIME AND THEN WAS UNABLE TO SAY HER NAME. SHE WAS ABLE TO FOLLOW SIMPLE COMMANDS. HER HEART RATE IS AFIB RVR AND AND SHE IS ON DILT GTT. SHE ALSO GOT A DOSE OF LOPRESSOR, 500CC NS BOLUS, NAUSEA MEDS, AND HEPARIN GTT STARTED. SHE HAS WOUNDS ON BOTH HER HEALS AND REDNESS ON HER UPPER BACK AND SKIN FOLDS. SHE ALSO HAS SEVERE EXCORIATION IN HER UPPER IN THIGHS AND GROIN.
[2024-09-07] MEDS ORDERED: LORazepam 2 MG/ML 1ML Injection IV PRN (20:00)
[2024-09-07 20:57] LABS: Acetaminophen, Random <2.0 ug/mL (10.0-30.0); Salicylate <1.7 mg/dL (2.8-20.0)
[2024-09-07 21:00] VITALS: BP 142/73
[2024-09-07] MEDS ORDERED: Lactobacil 2-S.Thermo-Bifido 1 1 Cap PO SCH (21:00)
--- NOTE | 2024-09-07 21:20 | NUR ---
UPDATE RECEIVED CALL FROM [facility] ASKING FOR UPDATE ON PT'S EKG, VITALS, AND RECENT LABS. UPDATE GIVEN, [facility] TO FOLLOW UP IN THE MORNING.
[2024-09-07 22:00] VITALS: BP 120/89
--- NOTE | 2024-09-07 22:00 | NUR ---
UPDATE RECEIVED CALL FROM PT'S SON NESSA ASKING FOR UPDATE ON PT'S CONDITION. UPDATE GIVEN. SON REPORTS THAT HE LIVES IN [place] AND IS CONCERNED FOR PT'S LIVING CONDITION. NESSA REPORTS PT LIVES IN THE [facility] AND RECENTLY HAD HER MOTHER PASS AWAY LAST YEAR. EVER SINCE, PT HAS NOT BEEN TAKING CARE OF HERSELF. A NEIGHBOR OF HERS "DAO" OFTEN SELLS HER ILLEGAL SUBSTANCES/PRESCRIPTION MEDICATIONS AND HAS A [place] TO HER APARTMENT. NESSA ALSO ENDORSES PT WAS RECENTLY ADMITTED TO [place] AFTER BEING FOUND DOWN AND NOT RESPONSIVE. DURING THAT HOSPITALIZATION, PT'S APARTMENT WAS RANSACKED WITH SEVERAL ITEMS MISSING AND WAS LATER DISCHARGED TO [facility] BEFORE RETURNING HOME BACK IN JULY. NESSA STATES PT HAS BEEN STRUGGLING WITH HER MOTHERS PASSING AND HAS LITTLE COPING SKILLS. PT RECEIVES HOME HEALTH VISITS FROM [facility] WHO SEE HER TWICE A DAY. SHE ALSO HAS A RIG WELDER JAVIER RODRIGUEZ . PT'S SON REPORTS WANTING TO MOVE HER TO [place] WITH HIM WELL PURSUING GUARDIANSHIP.
[2024-09-07 23:00] VITALS: BP 128/91
[2024-09-08] VITALS (23 sets, daily range): BP systolic 103–144; BP diastolic 73–106
[2024-09-08 00:55] LABS: Source, Urine Foley catheter
[2024-09-08] MEDS ORDERED: Dose Adjust by Pharmacy XX STA ×3 (01:12→16:37)
[2024-09-08 01:24] LABS: Appearance, Urine Hazy (Clear); Blood, Urine 5+ (Neg); Color, Urine Yellow (P-Yellow); Glucose Qualitative, Urine Neg (Neg); Ketones, Urine Neg (Neg); Leukocyte Esterase, Urine 2+ (Neg); Nitrite, Urine Neg (Neg); Protein, Urine 3+ (Neg); Specific Gravity, Urine 1.015 (1.003-1.022); Urobilinogen, Urine 2+ (Normal)
[2024-09-08] MEDS ORDERED: NEURONTIN300 MG PO (01:33)
[2024-09-08 01:35] LABS: Bilirubin, Urine 1+ (Neg)
[2024-09-08 01:40] LABS: Bacteria Mod /hpf; Squamous Epithelial Cells Few /hpf (Few)
[2024-09-08] MEDS ORDERED: QUET200 PO (01:49)
[2024-09-08] MEDS ORDERED: [UNRECOGNIZED DRUG - OTHER] TOP (01:50)
[2024-09-08] MEDS ORDERED: DICLOFENAC SODI50 GM TOP (01:50)
[2024-09-08] MEDS ORDERED: NARCAN4 M1 (01:54)
--- NOTE | 2024-09-08 04:49 | NUR ---
UPDATE PT'S HR NOTED TO BE AVERAGING IN THE 130-140 RANGE WITH INCREASING JUMPS INTO THE 150'S. DR. NATION NOTIFIED WITH ORDERS TO GIVE PRN LOPRESSOR PUSH. CARDIZEM gtt CONTINUES TO INFUSE PER EMAR
[2024-09-08] MEDS ORDERED: Vancomycin HCL 750 MG in NS 250 ML IV SCH (05:00)
--- NOTE | 2024-09-08 06:20 | NUR ---
SHIFT SUMMARY ALERT, BUT CONTINUES TO BE CONFUSED T/O THE NIGHT. RESPONDS TO VERBAL AND TACTILE STIMULI. OFTEN ONLY RESPONDS TO A COUPLE QUESTIONS BEFORE STARING AND SMILING AT STAFF. MENTATION HAS STEADILY IMPROVED OVER THE COURSE OF THE SHIFT HOWEVER. CARDIAC, REMAINS IN AFIB/AFLUTTER RANGING 110-130'S T/O THE NIGHT. RATE DID INCREASE TO 130-140'S WITH INTERMITTENT JUMPS INTO 150'S. SEE UPDATE NOTE FOR MORE DETAILS. CARDIZEM gtt INFUSING PER EMAR. RESPIRATORY, MAINTAINS SPO2 >95% ON RA WHEN AWAKE. DID DESAT TO HIGH 80'S WHEN SLEEPING WITH AUDIBLE SNORING NOTED. GI/, PASCUAL CATH PATENT AND DRAINING TEA TO STRAW COLORED URINE T/O THE NIGHT. UA COLLECTED AND SENT FOR CULTURE PER ORDERS. INCONTINENT OF SOFT BROWN STOOL DURING THE NIGHT. ATTENDS CHANGED PRN TO KEEP C/D/I. KRISTAL AREA NOTED TO HAVE EXCORATIONS AND TENDER TO TOUCH. HEPARIN gtt INFUSING PER EMAR. NO NEW ORDERS AT THIS TIME, WILL GIVE REPORT TO ONCOMING RN. RAMIREZ OF THIS NOTE.
[2024-09-08 06:43] LABS: BASOPHILS ABSOLUTE AUTO 0.06 K/mm3 (0.00-0.23); BASOPHILS PERCENT AUTO 1 % (0-2); EOSINOPHILS ABSOLUTE AUTO 0.02 K/mm3 (0.00-0.68); EOSINOPHILS PERCENT AUTO 0 % (0-6); Hematocrit 39.9 % (33.0-51.0); Hemoglobin 13.1 g/dL (11.5-16.0); IMMATURE GRAN ABSOLUTE AUTO 0.18 K/mm3 (0.00-0.10); IMMATURE GRAN PERCENT AUTO 1 % (0-1); LYMPHOCYTES ABSOLUTE AUTO 1.35 K/mm3 (0.84-5.20); LYMPHOCYTES PERCENT AUTO 11 % (21-46); MONOCYTES PERCENT AUTO 6 % (4-13); Mean Corpuscular HGB 29.3 pg (26.0-34.0); Mean Corpuscular HGB Conc 32.8 g/dL (31.5-36.5); Mean Corpuscular Volume 89 fL (80-100); NEUTROPHILS PERCENT AUTO 82 % (41-73); NRBC ABSOLUTE 0.08 K/mm3 (0.00-0.02); NRBC Auto 0.6 /100 WBC (0.0-0.2); Platelet Count 189 K/mm3 (150-400); RDW Coefficient Variation 15.9 % (11.7-14.2); RDW Standard Deviation 50.9 fL (35.1-46.3); Red Blood Cell Count 4.47 M/mm3 (3.80-5.20); White Blood Cell Count 12.71 K/mm3 (4.00-11.30)
[2024-09-08 06:45] LABS: Mean Platelet Volume 12.6 fL (9.1-12.4)
[2024-09-08] MEDS ORDERED: Metoprolol Tartrate 1 MG/ML 5 ML VIAL IV PRN (07:00)
[2024-09-08 07:04] LABS: Albumin, Blood 2.7 g/dL (3.4-5.0); Albumin/Globulin Ratio 0.7 (0.8-1.8); Bilirubin, Total 1.8 mg/dL (0.1-1.0); Bun/Creatinine Ratio 23.7 (12.0-20.0); Creatinine, Blood 1.14 mg/dL (0.40-1.00); Globulin, Blood 3.9 g/dL (2.2-4.0); Potassium, Blood 4.2 mmol/L (3.5-5.5); Total Protein, Blood 6.6 g/dL (6.4-8.2)
--- NOTE | 2024-09-08 08:50 | NUR ---
PROVIDER UPDATE: SPOKE WITH PROVIDER DR. FOLEY IN REGARDS TO RIGHT HEEL WOUND, UNCONTROLLED HEART RATE, POTENTIAL FOR FLUID OVERLOAD. PATIENT CHANGING MEDICATIONS AND PLACING ORDER
[2024-09-08 09:21] LABS: Base Excess Venous -3.3 mmol/L; Bicarbonate Venous 21.8 mmol/L (24.0-30.0); PCO2 Venous 35.1 mmHg (38-42)
[2024-09-08] MEDS ORDERED: Furosemide 10 MG / ML 2ML Vial IV SCH (10:00)
[2024-09-08] MEDS ORDERED: CefTRIAXone Sodium 2,000 MG in NS 100 ML IV SCH (13:30)
[2024-09-08] MEDS ORDERED: Menthol/Zinc Oxide Ointment 1 APPLIC/113 GM Tube TOP PRN (15:15)
[2024-09-08] MEDS ORDERED: Metoprolol Tartrate 50 MG Tab PO SCH (16:00)
[2024-09-08] MEDS ORDERED: Hyaluronidase 150 UNIT/ML Vial SC ONE (17:50)
--- NOTE | 2024-09-08 18:38 | NUR ---
EOS: PATIENT REMAINS A/0 X 2, HOWEVER, NO COMPLEX DISCUSSION OR COMPLEX NEEDS EXPRESSED. YES NO ANSWERS, OCCASSIONALLY AND RARELY WILL STATED , WAS ABLE TO STATE HER SONS NAME AND WHERE HE LIVED. PATIENT VERY MINIMALLY AND SLOWLY IMPROVING. PATIENT WAS UNABLE TO GET MRI SHE HAS A PACEMAKER AND MRI REQUIRES SPECIAL CIRCUMSTANCES. PATIENT ALSO UNABLE TO GET ECHO DUE TO INCREASED RATE. PROVIDERS AWARE OF SITUATION. VERY EARLY IN THE SHIFT DR. FOLEY SWITCHED ANTI ARRHYTHIMC MEDICATION FROM CARDIZEM TO AMIODARONE, AND LATER HR ONLY SLIGHTLY IMPROVED STARTED ORAL METOPROLOL SHE WAS REQUIRING PUSH METORPOLOL IV FOR HR CONTROL. PATIENT TOLERATED 5MG IV PUSH FOLLOWED A COUPLE HOURS LATER OF 50 MG OF TARTRATE, HR IMPROVED TO <130 MOSTLY 110-120. OCCASSIONALLY WHILE SLEEPING UPPER 100'S. PATIENT ENDORSES PAIN FREQUENTLY AND THAT SHE"WANTS MORE OXYCODONE" EDUCATED ON SEVERITY OF ILLNESS. PATIENT HAS NO ATIVE SIGNS OF CHEST PAIN OR DISTRESS. SPO2 >94% ON RA. TREATED PAIN WITH TYLENOL, AFTER ADMINISTRATION PATIENT WOULD BE SEEN RESTING. PASCUAL CATHETER CARE PROVIDED BY THIS RN AND PCT'S. THE AMIO DRIP IS CURRENLTY INFUSING AT THE .5/HR RATE, PRECEPTEE CHECKED IV AND NO LONGER HAD BLOOD RETURN, VERY MINIMAL INFILTRATION OF AMIO, SWITCHED FROM LFA TO RFA, HYHYALURONIDASE GIVEN PER MAR INTO THE LEFT ARM AND IV REMOVED. PATIENT WOUND DRESSING ORDERS NOW IN AND PROVIDERS UPDATE MULTIPLE TIMES OF PRESSURE INJURY ON ARRIVAL, MEDIHONEY AND HEEL PROTECTOR IN PLACE THIS SHIFT. WOUND PHOTOS IN CHART. ACUTE CONCERNS ADRESSED THIS SHIFT AND NO CONCERNS FROM THIS MANAGER HARBOR OR PRECEPTEE AT TIME OF NOTE.
--- NOTE | 2024-09-08 20:50 | NUR ---
ASSUMED CARE @190 PT CALM/COOPERATIVE. VSS. TOLERATED 2100 PO PILLS WITH WATER WELL. AMIODARONE GTT & HEPARIN GTT INFUSING, PUMPS CHECKED AGAINST EMAR SETTINGS. TEMP PER PASCUAL NOTED TO BE >100.3, TYLENOL PER EMAR ADMINISTERED. URINAL DRAINING TO GRAVITY. RELINQUESHED CARE TO MATTEO Perez RN @2051
[2024-09-08] MEDS ORDERED: Metoprolol Tartrate 50 MG Tab PO ONE (21:00)
[2024-09-09] VITALS (11 sets, daily range): BP systolic 110–151; BP diastolic 60–106
[2024-09-09] MEDS ORDERED: Dose Adjust by Pharmacy XX STA ×2 (00:39→08:50)
[2024-09-09] MEDS ORDERED: OxyCODONE HCL 5 MG TAB PO ONE (04:25)
[2024-09-09 05:00] LABS: BASOPHILS ABSOLUTE AUTO 0.12 K/mm3 (0.00-0.23); BASOPHILS PERCENT AUTO 1 % (0-2); EOSINOPHILS ABSOLUTE AUTO 0.02 K/mm3 (0.00-0.68); EOSINOPHILS PERCENT AUTO 0 % (0-6); Hematocrit 46.3 % (33.0-51.0); Hemoglobin 14.5 g/dL (11.5-16.0); IMMATURE GRAN ABSOLUTE AUTO 0.32 K/mm3 (0.00-0.10); IMMATURE GRAN PERCENT AUTO 2 % (0-1); LYMPHOCYTES ABSOLUTE AUTO 1.72 K/mm3 (0.84-5.20); LYMPHOCYTES PERCENT AUTO 12 % (21-46); MONOCYTES ABSOLUTE AUTO 0.68 K/mm3 (0.16-1.47); MONOCYTES PERCENT AUTO 5 % (4-13); Mean Corpuscular HGB 28.9 pg (26.0-34.0); Mean Corpuscular HGB Conc 31.3 g/dL (31.5-36.5); Mean Corpuscular Volume 92 fL (80-100); NEUTROPHILS ABSOLUTE AUTO 11.42 K/mm3 (1.96-9.15); NEUTROPHILS PERCENT AUTO 80 % (41-73); NRBC ABSOLUTE 0.21 K/mm3 (0.00-0.02); NRBC Auto 1.5 /100 WBC (0.0-0.2); Platelet Count 197 K/mm3 (150-400); RDW Coefficient Variation 16.9 % (11.7-14.2); RDW Standard Deviation 54.7 fL (35.1-46.3); Red Blood Cell Count 5.02 M/mm3 (3.80-5.20); White Blood Cell Count 14.28 K/mm3 (4.00-11.30)
[2024-09-09] MEDS ORDERED: Dextrose 50% 50 ML Syringe ONE ×2 (05:07→11:26)
[2024-09-09] MEDS ORDERED: Dextrose 50% 50 ML Syringe IV ONE ×2 (05:15→11:30)
--- NOTE | 2024-09-09 05:19 | NUR ---
PATIENT UPDATE/DOCTOR NOTIFICATION PT WITH CBG OF 35 THIS AM. PT AWAKE AND TALKING TO RN'S. SYRINGE OF D50 PULLED ON OVERRIDE AND GIVEN VIA IV. MD NATION NOTIFIED BY PLASTICS SHEET FINISHING PRESS OPERATOR SAIGE. PT WAS ABLE TO HAVE CUP OF APPLESAUCE WELL. WILL RECHECK CBG AT 15 MINUTE RONDA AND CONTINUE TO TREAT LOW BLOOD GLUCOSE ACCORDING TO PROTOCOL.
--- NOTE | 2024-09-09 05:40 | NUR ---
SHIFT SUMMURY: A & O x 2. MAP>65. HR >100. SATURATIONS >90.NO NEUROLOGICAL CHANGES. AFEBRILE. AMIODORONE AND HEPARIN DRIP INFUSING VIA PUMP. 2 RN'S VERIFIED AND ADJUSTED HEPARIN PER EMR. NO SIGNS OF BLEEDING OR C/O CHEST PAIN. WAS HYPOGLYCEMIC AND ASYMPOMATC THIS AM. D50 GIVEN AND BG RECHECKED WITH IMPROVEMENT FROM PREVIOUS READING. SEE PREVIOUS NOTE. PHYSICIAN MADE AWARE OF LOW URINE OUTPUT AND PATIENTS C/O GENERALIZED PAIN. ORDER RECEIVED AND PATIENT PATIENT REPORTS PAIN RELIEF.
[2024-09-09 06:03] LABS: Albumin, Blood 2.8 g/dL (3.4-5.0); Albumin/Globulin Ratio 0.7 (0.8-1.8); Calcium, Blood 8.4 mg/dL (8.5-10.1); Creatinine, Blood 1.81 mg/dL (0.40-1.00); Globulin, Blood 4.1 g/dL (2.2-4.0); Phosphorus, Blood 3.5 mg/dL (2.5-4.9); Potassium, Blood 4.7 mmol/L (3.5-5.5); Total Protein, Blood 6.9 g/dL (6.4-8.2)
--- NOTE | 2024-09-09 06:19 | NUR ---
PATIENT UPDATE AT 0553 PT CONVERTED TO ATRIAL PACED RHYTHM FROM AFIB/FLUTTER. PT CONTINUES TO HAVE AMIO GTT INFUSING PER EMAR. BP STABLE. NO OTHER ACUTE CHANGES AT THIS TIME. SEE PREVIOUS NOTES
[2024-09-09] MEDS ORDERED: Bumetanide 0.25 MG/ML 10ML Vial IV SCH (09:00)
[2024-09-09] MEDS ORDERED: Metoprolol Tartrate 50 MG Tab PO SCH (09:00)
[2024-09-09] MEDS ORDERED: Apixaban 5 MG Tab PO SCH (10:00)
[2024-09-09] MEDS ORDERED: Gabapentin 300 MG Cap PO SCH (14:00)
[2024-09-09 15:56] LABS: Albumin, Blood 2.7 g/dL (3.4-5.0); Anion Gap 26 mmol/L (3-11); Blood Urea Nitrogen 30 mg/dL (8-24); Bun/Creatinine Ratio 13.8 (12.0-20.0); CO2, Blood 12 mmol/L (21-32); Calcium, Blood 8.7 mg/dL (8.5-10.1); Chloride, Blood 105 mmol/L (98-108); Creatinine, Blood 2.17 mg/dL (0.40-1.00); Glomerular Filtration Rate 25 (60-); Glucose, Blood 98 mg/dL (70-99); Potassium, Blood 4.5 mmol/L (3.5-5.5); Sodium, Blood 138 mmol/L (136-145)
[2024-09-09] MEDS ORDERED: D5W-NS 1,000 ML IV ONE (16:30)
[2024-09-09 16:40] LABS: Base Excess Venous -16.2 mmol/L; Bicarbonate Venous 13.1 mmol/L (24.0-30.0)
[2024-09-09] MEDS ORDERED: OxyCODONE HCL 5 MG TAB PO PRN (16:40)
[2024-09-09 16:41] LABS: pH Blood Venous 7.22 (7.34-7.37)
[2024-09-09] MEDS ORDERED: Sodium Bicarb 8.4% Inj 150 MEQ in Dextrose 5% 1,000 ML IV SCH (17:00)
--- NOTE | 2024-09-09 18:24 | NUR ---
PALLIATIVE CARE VISIT: VISIT MADE WITH PT IN HER ROOM. PT IS VERY SLOW TO RESPOND. RESPONDS BEST TO YES/NO QUESTIONS. PT BEGAN FALLING ASLEEP DURING OUR CONVERSATION SO WAS UNABLE TO GLEEN MUCH INFORMATION. PT DID STATE YES WHEN ASKED IF SHE HAD REACHED OUT TO HER PCP TO GET SET UP ON HOSPICE. PT STATED SHE HAS PAIN AND IT IS MANAGED WITH MEDICATIONS SHE IS GETTING. REVIEWED CHART, WEIGHT HISTORY TO SEE IF SHE QUALIFIES FOR HOSPICE. PT HAS MANY COMORBIDITIES, NO WEIGHT LOSS IN LAST YEAR, IN FACT SHE HAS GAINED SEVERAL POUNDS. HOWEVER FUNCTIONAL ABILITY HAS SIGNIFICANTLY DECLINED. RECOMMENDED HOSPICE EVAL PRIOR TO DISCHARGE TO SEE IF SHE WOULD QUALIFY. DR. FOLEY IN AGREEMENT. SPOKE TO SON NESSA ON THE PHONE. HE LIVES IN [place]. STATES HE REALLY CARES ABOUT HIS MOM. HE STATES HE THINKS A FRIEND OF PT NAMED DAO MAY BE GIVING HIS MOM UNPRESCRIBED MEDICATIONS OR DRUGS AND HE IS REALLY WORRIED ABOUT THAT. DISCUSSED WITH HIM HIS MOMS ATTEMPT AT SIGNING UP FOR HOSPICE SERVICES AND EXPLAINED TO HIM WHAT THOSE SERVICES PROVIDE. NESSA STATES HE THINKS HIS MOM IS DEPRESSED AND THAT IS WHY SHE WANTS TO . NESSA INQUIRED ABOUT HOW TO GET GUARDIANSHIP. ADVISED BURIAL NEEDS SALESPERSON TO BE CONSULTED ABOUT HIS QUESTIONS AND WILL CALL BACK TOMORROW. NESSA THANKFUL FOR INQUIRING.
--- NOTE | 2024-09-09 19:35 | NUR ---
EOS: PATIENT IS ALERT AND ORIENTED X 3, MINIMAL IMPROVEMENT OVERALL THROUGHT THE DAY, HER KIDNEY FUNCTION CONTNIUED TO DECLINE, ECHO WAS ABLE TO BE PREFORMED, NO ACTIVE CHEST PAIN JUST GENERALIZED DISCOMFORT. DR. BRANDT IS NOW CONSULTED DUE TO KIDNEY FUNCTION. MULTIPLE UPDATES TO SON NESSA, VERBAL CONSENT SIGNED IN CHART. SPO2 >94% ON RA. VSS, REMAIN AFEBRILE. CATHETER CARE PREFORMED, BM TODAY. Q2 REPOSTIONS, LACTIC ACID AND REDRAW INCREASINGLY CRITICAL. STAT VBG WORSENING RESULTS. OVERALL PATIENT STABLE, NO LONGER ON BUMEX AND INFUSING D5W 150 MEQ 75/hr, BLOOD GLUCOSE HAS BEEN STABLE, AFTER RECIEVING 1 X 12.5 GM OF DEXTROSE PUSH. PATIENT NAUSEATED THROUGH THE DAY. MEDICATED NAUSEA PER AUG. PAIN MEDICATION ALSO ADDED BY PROVIDER. NO ACUTE CONCERNS THAT WERE NOT ADDRESSED. DRESSING CHANGED ON RIGHT HEEL. PATIENT STABLE AT TIME OF NOTE. PLAN OF CARE CONTINUES.
[2024-09-10] VITALS (7 sets, daily range): BP systolic 30–150; BP diastolic 57–74
[2024-09-10 04:37] LABS: BASOPHILS ABSOLUTE AUTO 0.08 K/mm3 (0.00-0.23); BASOPHILS PERCENT AUTO 1 % (0-2); EOSINOPHILS ABSOLUTE AUTO 0.06 K/mm3 (0.00-0.68); EOSINOPHILS PERCENT AUTO 1 % (0-6); Hematocrit 43.9 % (33.0-51.0); Hemoglobin 14.2 g/dL (11.5-16.0); IMMATURE GRAN ABSOLUTE AUTO 0.24 K/mm3 (0.00-0.10); IMMATURE GRAN PERCENT AUTO 2 % (0-1); LYMPHOCYTES ABSOLUTE AUTO 1.71 K/mm3 (0.84-5.20); LYMPHOCYTES PERCENT AUTO 14 % (21-46); MONOCYTES ABSOLUTE AUTO 0.62 K/mm3 (0.16-1.47); MONOCYTES PERCENT AUTO 5 % (4-13); Mean Corpuscular HGB 28.7 pg (26.0-34.0); Mean Corpuscular HGB Conc 32.3 g/dL (31.5-36.5); Mean Corpuscular Volume 89 fL (80-100); Mean Platelet Volume 12.8 fL (9.1-12.4); NEUTROPHILS ABSOLUTE AUTO 9.24 K/mm3 (1.96-9.15); NEUTROPHILS PERCENT AUTO 77 % (41-73); NRBC ABSOLUTE 0.13 K/mm3 (0.00-0.02); NRBC Auto 1.1 /100 WBC (0.0-0.2); Platelet Count 158 K/mm3 (150-400); RDW Coefficient Variation 16.8 % (11.7-14.2); Red Blood Cell Count 4.94 M/mm3 (3.80-5.20); White Blood Cell Count 11.95 K/mm3 (4.00-11.30)
--- NOTE | 2024-09-10 04:44 | NUR ---
A &O x 3. MAP >65. ATRIAL PACED RHYTHM AT 60 S. SATURATION > 90. DENIES CHEST PAIN. ON CONTINUOUS SODIUM BICARBONATE AT 75 ML/HR. PASCUAL CATHER INTACT AND DRAINING VIA GRAVITY. UO 400ML. ELEVATED BLOOD GLUCOSE OF 252, MADE AWARE AND LOW SLIDING SCALE INITIATED. REPOSITIONED Q 2 HOURS. CALL LIGHT IS WITHIN REACH AND BED IS AT THE LOWEST POSITION.
[2024-09-10 04:48] LABS: Albumin, Blood 2.3 g/dL (3.4-5.0); Albumin/Globulin Ratio 0.7 (0.8-1.8); Bilirubin, Total 2.4 mg/dL (0.1-1.0); Bun/Creatinine Ratio 18.9 (12.0-20.0); Calcium, Blood 7.5 mg/dL (8.5-10.1); Creatinine, Blood 1.96 mg/dL (0.40-1.00); Globulin, Blood 3.5 g/dL (2.2-4.0); Magnesium, Blood 1.8 mg/dL (1.6-2.4); Phosphorus, Blood 2.8 mg/dL (2.5-4.9); Potassium, Blood 4.1 mmol/L (3.5-5.5); Total Protein, Blood 5.8 g/dL (6.4-8.2)
[2024-09-10] MEDS ORDERED: NS 1,000 ML IV SCH (05:50)
[2024-09-10] MEDS ORDERED: Insulin Human Lispro 100 Units/ML 3ML Syringe SC SCH ×2 (06:00→11:30)
--- NOTE | 2024-09-10 06:14 | NUR ---
SODIUM BICARBONATE D/C'D AND NORMAL SALINE INFUSING AT 50 ML/HR PER ORDER.
[2024-09-10] MEDS ORDERED: Mag Sulfate 1 GM/D5% 100ML 100 ML IV STA (08:33)
[2024-09-10] MEDS ORDERED: Metoprolol Succinate 50 MG TABCR PO SCH (09:00)
[2024-09-10] MEDS ORDERED: Sacubitril/Valsartan 24 MG-26 MG Tab PO SCH (09:00)
--- NOTE | 2024-09-10 11:12 | NUR ---
am note this rn assumed care at 0700 vital signs stable. tele apaced 60s. patient is alert and oriented x3. patient unable to state correct month and why patient is here. patient denies pain, chest pain/pressure or shortness of breath. patient has a wound to right heel and dressing changed and cleaned. patient has reddness to bottom and cleaned and cream applied. see shift assessment for further detials. md arevalo in room and discussed plan of care with patient.
[2024-09-10] MEDS ORDERED: Thiamine HCl 100 MG Tab PO SCH (16:00)
--- NOTE | 2024-09-10 17:48 | NUR ---
PALLIATIVE CARE VISIT: MET WITH PT TODAY AT 1430. PT IS A/O X 4 ABLE TO COMMUNICATE IN FULL SENTENCES AND IS NO LONGER HAVING DELAYED RESPONSES. DISCUSS GOALS OF CARE WITH PT AGAIN. PT IS STILL WANTING TO GO HOME ON HOSPICE. "I JUST WANT TO GO HOME SOON I CAN WITH HOSPICE." DISCUSS CONCERNS PT IS NOT ABLE TO CARE FOR SELF. PT STATES SHE HAS CAREGIVERS 7 DAYS A WEEK WITH 6 HOURS PER DAY OF CAREGIVING. SHE HAS A FRIEND NAMED DAO SHE CAN CALL TO HELP HER WHEN SHE NEEDS HELP WHEN THE CAREGIVERS ARE NOT THERE. PT STATES SHE IS ABLE TO SELF TRANSFER TO A MOBILE SCOOTER THAT SHE CAN GET AROUND WITH TOO. PT STATES SHE IS NOT WORRIED ABOUT HER CARE NEEDS WHEN SHE IS ALONE BECAUSE SHE CAN ALWAYS CALL DAO TO HELP HER. DISCUSSED WITH PT GETTING A HOME ALERT NECKLACE AND SHE AGREED SHE WOULD BENEFIT FROM HAVING ONE. DISCUSSED CODE STATUS WITH PT. EDUCATED PT ON CPR/FULL TREATMENT VS DNR/SELECTIVE AND COMFORT MEASURES. PT STATES SHE DOES NOT WANT TO HAVE CPR DONE OR BE PLACED ON A VENTILATOR IF IT WAS NEEDED. PT ELECTS DNR/SELECTIVE TREATMENT. PT SIGNED [facility] AND AGREED TO HAVE CODE STATUS CHANGED TODAY. UPDATED CM ON PT WISHES TO GO HOME SOON POSSIBLE ON HOSPICE. DR. DENG SIGNED [facility]. COPY PLACED ON CHART. PT GIVEN ORIGINAL. FAXED COPY TO [facility] REGISTRY.
--- NOTE | 2024-09-10 17:59 | NUR ---
PALLIATIVE CARE NOTE: UPDATED SON NESSA ON POC. NESSA STATED YESTERDAY HE WAS INTERESTED IN PURSUING GUARDIANSHIP OF HIS MOM. TALISHA FROM APPLICATION LEAD SENT GUARDIANSHIP PAPHLET AND LIST IF CU[employer] [facility]. NESSA WAS AGREEABLE TO HAVING DOCUMENTS EMAILED. EMAILED THEM TO HIM AT .
--- NOTE | 2024-09-10 18:30 | NUR ---
shift summary patient neuro remains unchanged. vitals remain stable. no acute changes this shift. plan to discharge with hospice.
[2024-09-11 03:59] VITALS: BP 154/77
[2024-09-11 04:33] LABS: Magnesium, Blood 1.6 mg/dL (1.6-2.4)
[2024-09-11 04:34] LABS: Albumin, Blood 2.2 g/dL (3.4-5.0); Albumin/Globulin Ratio 0.6 (0.8-1.8); Bilirubin, Total 1.5 mg/dL (0.1-1.0); Bun/Creatinine Ratio 20.1 (12.0-20.0); Calcium, Blood 7.5 mg/dL (8.5-10.1); Creatinine, Blood 1.69 mg/dL (0.40-1.00); Globulin, Blood 3.5 g/dL (2.2-4.0); Phosphorus, Blood 1.9 mg/dL (2.5-4.9); Potassium, Blood 3.1 mmol/L (3.5-5.5); Total Protein, Blood 5.7 g/dL (6.4-8.2)
[2024-09-11 04:45] LABS: BASOPHILS ABSOLUTE AUTO 0.04 K/mm3 (0.00-0.23); BASOPHILS PERCENT AUTO 1 % (0-2); EOSINOPHILS ABSOLUTE AUTO 0.01 K/mm3 (0.00-0.68); EOSINOPHILS PERCENT AUTO 0 % (0-6); Hematocrit 41.3 % (33.0-51.0); Hemoglobin 13.5 g/dL (11.5-16.0); IMMATURE GRAN ABSOLUTE AUTO 0.13 K/mm3 (0.00-0.10); IMMATURE GRAN PERCENT AUTO 2 % (0-1); LYMPHOCYTES ABSOLUTE AUTO 1.46 K/mm3 (0.84-5.20); LYMPHOCYTES PERCENT AUTO 20 % (21-46); MONOCYTES ABSOLUTE AUTO 0.69 K/mm3 (0.16-1.47); MONOCYTES PERCENT AUTO 9 % (4-13); Mean Corpuscular HGB 29.2 pg (26.0-34.0); Mean Corpuscular HGB Conc 32.7 g/dL (31.5-36.5); Mean Corpuscular Volume 89 fL (80-100); NEUTROPHILS ABSOLUTE AUTO 5.02 K/mm3 (1.96-9.15); NEUTROPHILS PERCENT AUTO 68 % (41-73); NRBC ABSOLUTE 0.02 K/mm3 (0.00-0.02); NRBC Auto 0.3 /100 WBC (0.0-0.2); RDW Coefficient Variation 16.5 % (11.7-14.2); Red Blood Cell Count 4.62 M/mm3 (3.80-5.20); White Blood Cell Count 7.35 K/mm3 (4.00-11.30)
[2024-09-11] MEDS ORDERED: Potassium Chloride 40 MEQ in NS 250 ML IV ONE (05:15)
--- NOTE | 2024-09-11 05:18 | NUR ---
SHIFT SUMMURY: PATIENT SAT UP IN BED BEFORE BEDTIME AND HAD SOME THICKENED APPLE JUICE EXHIBITED AND HAD SOME FACIAL GRIMACES. MEDICATED FOR PAIN PER EMR.SLEPT COMFORTABLY. HR NORMAL SINUS TO SINUS ARLETH 56-58. VS MAP >65. SATURATION >90. REPOSITIONED. SEIZURE PRECAUTION MAINTAINED. PASCUAL CATHERTER PATENT AND DRAIING YELLOW URINE VIA GRAVITY. CONTINUOS LACTATED RINGERS INFUSING. CALL LIGHT IS WITHIN REACH AND BED IS AT THE LOWEST POSITION.
[2024-09-11 05:25] LABS: Platelet Count 106 K/mm3 (150-400)
--- NOTE | 2024-09-11 06:26 | NUR ---
SHIFT SUMMURY: ALERT AND ORIENTED x 3. VS STABLE MAP>65. NO TELE. PULSE 70. SATURATION >90. LOW POTASSIUM THIS AM, MADE AWARE AND POTASIUM REPLACED PER ORDER. DENIES CHEST PAIN. PATIENT STATES" I AM LOOKING FORWARD TO GOING HOME WITH HOSPICE". PASCUAL CATHERTER INTACT AND DRAINING YELLOW URINE. CALLS APPROPRIATELY. CONTINUEOUS NORMAL SALINE INFUSING PER EMR. CALL HYATT IS WITHIN REACH AND BED IS AT THE LOWEST POSITION.
[2024-09-11] MEDS ORDERED: Potassium Phosphate Dibasic 20 MM in Dextrose 5% 500 ML IV ONE (07:30)
[2024-09-11 08:38] VITALS: BP 156/76
[2024-09-11] MEDS ORDERED: Multivitamins-Minerals Liquid 15 ML Oral Syringe PO SCH (09:00)
--- NOTE | 2024-09-11 09:24 | NUR ---
am note this rn assumed care at 0700. vital signs stable. medical status no tele. patient is alert and oriented x3, unable to state month. perrla. patient is able to make needs known and uses call light approrpiately. shu reports pain at 8 and received pain medications per emar. this rn called md jones regarding patient pain and anxiety level and md in rasool room at this time discussing plan to manage pain and anxiety. denies chest pain/pressure or shortness of breath. see shift assessment for further detials. md ruvalcaba in room around 0845 to see patient and discussing electrolytes and plan of care.
[2024-09-11] MEDS ORDERED: LORazepam 0.5 MG Tab PO PRN (10:20)
[2024-09-11] MEDS ORDERED: OxyCODONE HCL 5 MG TAB PO PRN (10:30)
--- NOTE | 2024-09-11 11:24 | NUR ---
update this rn did wound care for the day. this rn called mya at 1123 on 09/11/24 and left a vocimail. patient son did not answer.
[2024-09-11] MEDS ORDERED: METO100 PO (11:48)
[2024-09-11] MEDS ORDERED: OXAYDO5 M1 PO (11:58)
[2024-09-11] MEDS ORDERED: ELIQUIS5 M2 PO (11:59)
[2024-09-11] MEDS ORDERED: Acetaminophen650 M1 PO (11:59)
[2024-09-11] MEDS ORDERED: Potassium Chl 20MEQ/Water100ML 100 ML IV ONE (12:00)
[2024-09-11] MEDS ORDERED: MULVITA PO (12:00)
[2024-09-11] MEDS ORDERED: LORA.5 PO (12:00)
[2024-09-11] MEDS ORDERED: B-1100 M1 PO (12:01)
[2024-09-11] MEDS ORDERED: Pantoprazole So20 MG PO (12:01)
[2024-09-11] MEDS ORDERED: VISBIOME 112.51 EACH PO (12:02)
--- NOTE | 2024-09-11 12:19 | NUR ---
discharge this rn spoke with son, mya, at 1130 about patient being discharged home with hospice and answered the sons questions and concerns. son called back at 1150 asking about the possiblity for a heart transplant and informed that the doctor would give a call. This Rn called MD Madrigal and gave sons number. this rn went over new medications and hard scripts with the patient. patient verbalized understanding. patient left with care givers number to call when home. patient left with all belongings and in no distress.
[2024-09-12] MEDS ORDERED: Multivitamins 1 Tab PO SCH (09:00)
== END 2024-09-11 12:25 | disposition hospice, home (50) | DRG 871 ==
LOC: ER 11:06 → PCU 14:15 → ERHOLD 14:15 → PCU 14:15
PROVIDERS: Emergency Medicine; Internal Medicine; Internal Medicine Nephrology; Registered Nurse; ADMIT Hospitalist
DX: A41.9 Sepsis, unspecified organism (principal); G92.8 Other toxic encephalopathy; I50.43 Acute on chronic combined systolic (congestive) and diastolic (congestive) heart failure; K72.00 Acute and subacute hepatic failure without coma; N17.0 Acute kidney failure with tubular necrosis; E87.21 Acute metabolic acidosis; I48.92 Unspecified atrial flutter; N39.0 Urinary tract infection, site not specified; I13.0 Hypertensive heart and chronic kidney disease with heart failure and stage 1 through stage 4 chronic kidney disease, or unspecified chronic kidney disease; I69.951 Hemiplegia and hemiparesis following unspecified cerebrovascular disease affecting right dominant side; I48.20 Chronic atrial fibrillation, unspecified; Z66 Do not resuscitate; Z51.5 Encounter for palliative care; R65.20 Severe sepsis without septic shock; E11.22 Type 2 diabetes mellitus with diabetic chronic kidney disease; N18.30 Chronic kidney disease, stage 3 unspecified; F31.9 Bipolar disorder, unspecified; G40.909 Epilepsy, unspecified, not intractable, without status epilepticus; E11.40 Type 2 diabetes mellitus with diabetic neuropathy, unspecified; G89.4 Chronic pain syndrome; M79.7 Fibromyalgia; E11.65 Type 2 diabetes mellitus with hyperglycemia; F43.10 Post-traumatic stress disorder, unspecified; F17.210 Nicotine dependence, cigarettes, uncomplicated; J44.9 Chronic obstructive pulmonary disease, unspecified; R33.9 Retention of urine, unspecified; T43.011A Poisoning by tricyclic antidepressants, accidental (unintentional), initial encounter; L89.619 Pressure ulcer of right heel, unspecified stage; Z60.2 Problems related to living alone; Z91.148 Patient's other noncompliance with medication regimen for other reason; Z88.8 Allergy status to other drugs, medicaments and biological substances; Z79.899 Other long term (current) drug therapy; Z79.2 Long term (current) use of antibiotics; Z88.0 Allergy status to penicillin; Z88.2 Allergy status to sulfonamides; Z91.038 Other insect allergy status; Z91.048 Other nonmedicinal substance allergy status; Z85.43 Personal history of malignant neoplasm of ovary; Z90.710 Acquired absence of both cervix and uterus; Z90.49 Acquired absence of other specified parts of digestive tract; Z98.890 Other specified postprocedural states; Z95.0 Presence of cardiac pacemaker; Z87.81 Personal history of (healed) traumatic fracture
CPT/HCPCS: 0241U; 36415; 51702; 70450; 70496; 70498; 71045; 71260; 80048; 80053; 80069; 80164; 80320; 81001; 82550; 82803; 82947; 83605; 83735; 83880; 84100; 84439; 84443; 84484; 84703; 85025; 85379; 85610; 85730; 87040; 87086; 92526; 92610; 93005; 93010; 93308; 93321; 96365-59; 96366-59; 96368; 96375-59; 96376-59; 99285-25; A9270; G0480; J0282; J0696; J1644; J1815; J1940; J2185; J2405; J2470; J3370; J3470; J3475; J3480; J7030; J7040; J7050; J7060; J7070; J7120; Q9967

== ENCOUNTER 2024-09-26 16:58 | Emergency (ER) | payer OTHER ==
[~2024-09-26] VITALS: Ht 162.6 cm; Wt 95.2 kg
[2024-09-26 17:50] VITALS: BP 203/86
== END 2024-09-27 03:12 | disposition home or self-care (01) ==
LOC: ER 16:58
DX: I11.0 Hypertensive heart disease with heart failure (principal); R62.7 Adult failure to thrive; I50.32 Chronic diastolic (congestive) heart failure; G40.909 Epilepsy, unspecified, not intractable, without status epilepticus; I48.91 Unspecified atrial fibrillation; E11.42 Type 2 diabetes mellitus with diabetic polyneuropathy; J44.9 Chronic obstructive pulmonary disease, unspecified; F31.9 Bipolar disorder, unspecified; F17.210 Nicotine dependence, cigarettes, uncomplicated; Z88.0 Allergy status to penicillin; Z88.2 Allergy status to sulfonamides; Z88.8 Allergy status to other drugs, medicaments and biological substances; Z91.030 Bee allergy status; Z79.899 Other long term (current) drug therapy; Z79.01 Long term (current) use of anticoagulants